=== PATIENT | female | born 1950 | race Caucasian/White ===

== ENCOUNTER 2016-08-26 14:16 | Inpatient (IN) | payer MEDICARE, BC ==
[2016-08-26 20:12] LABS: Glucose,Whole Blood 367 mg/dL (75-99)
[2016-08-26 20:12] LABS: Glucose,Whole Blood 339 mg/dL (75-99)
[2016-08-26] MEDS ORDERED: HYDROcodone/APAP 7.5-325MG 1 EACH TAB PO PRN (21:24)
[2016-08-26] MEDS: IPRATROPIUM-ALBUTEROL 3 ML NEB INHALATION PRN (21:51)
[2016-08-26] MEDS: ALPRAZolam 0.5 MG TAB PO SCH (22:24)
[2016-08-26] MEDS: GABAPENTIN 300 MG CAP PO SCH (22:25)
[2016-08-26] MEDS: guaiFENesin 600 MG TABLET.ER PO SCH (22:25)
[2016-08-26] MEDS: THEOPHYLLINE 24 HOUR 300 MG CAP.ER.24H PO SCH (22:25)
[2016-08-26] MEDS: ATORVASTATIN 20 MG TAB PO SCH (22:25)
[2016-08-26] MEDS: AZITHROMYCIN 500 MG TAB PO SCH (22:25)
[2016-08-26 22:57] LABS: Glucose,Whole Blood 232 mg/dL (75-99)
[2016-08-26] MEDS: methylPREDNISolone SOD SUCCI 125 MG/2 ML VIAL IV SCH (23:43)
[2016-08-27] MEDS: IPRATROPIUM-ALBUTEROL 3 ML NEB INHALATION PRN (03:07)
[2016-08-27 05:40] VITALS: BMI 36.8
[2016-08-27 07:30] LABS: Glucose,Whole Blood 133 mg/dL (75-99)
[2016-08-27] MEDS ORDERED: METFORMIN HCL PO SCH (07:30)
[2016-08-27] MEDS ORDERED: GLYBURIDE PO SCH (07:30)
[2016-08-27] MEDS: guaiFENesin 600 MG TABLET.ER PO SCH ×2 (07:35→20:39)
[2016-08-27] MEDS: GABAPENTIN 300 MG CAP PO SCH ×3 (07:35→22:36)
[2016-08-27] MEDS: THEOPHYLLINE 24 HOUR 300 MG CAP.ER.24H PO SCH ×2 (07:36→20:40)
[2016-08-27] MEDS: glipiZIDE 5 MG TAB PO SCH ×4 (07:36→20:39)
[2016-08-27] MEDS: metFORMIN 500 MG TAB PO SCH ×4 (07:36→20:40)
[2016-08-27] MEDS: MONTELUKAST 10 MG TAB PO SCH (07:36)
[2016-08-27] MEDS: HEPARIN SODIUM,PORCINE 5,000 UNIT/ML 1 ML VIAL SQ SCH ×2 (07:36→20:39)
[2016-08-27] MEDS: NICOTINE 14MG/24HR PATCH TRANSDERM SCH (07:36)
[2016-08-27] MEDS: methylPREDNISolone SOD SUCCI 125 MG/2 ML VIAL IV SCH ×4 (07:36→23:32)
[2016-08-27] MEDS: IPRATROPIUM-ALBUTEROL 3 ML NEB INHALATION SCH ×4 (07:42→19:36)
[2016-08-27] MEDS: ALPRAZolam 0.5 MG TAB PO SCH ×3 (07:45→22:36)
[2016-08-27] MEDS: INSULIN LISPRO (humaLOG) 300 UNIT/3 ML VIAL SQ SCH ×4 (07:49→20:40)
[2016-08-27] MEDS ORDERED: BUDESONIDE 0.5 MG/2 ML NEBU INHALATION SCH (08:00)
[2016-08-27 08:12] LABS: Prothrombin Time 10.6 sec (9.0-12.0)
[2016-08-27 08:13] LABS: Basophils # (A) 0.1 k/uL (0-0.2); Basophils % (A) 1 %; CH 31.6; CHCM 32.7; Eosinophils % (A) 0 %; HCT 36.8 % (34.0-46.0); HDW 2.94; HGB 11.9 gm/dL (11.4-16.0); Luc # (Auto) 0.25; Luc % (Auto) 1; Lymphocytes # (A) 2.7 k/uL (1.0-4.8); Lymphocytes % (A) 14 %; MCH 31.5 pg (25.0-35.0); MCHC 32.3 g/dL (31.0-37.0); MCV 97.3 fL (80.0-100.0); Mean Platelet Volume 7.8; Monocytes # (A) 1.3 k/uL (0-1.0); Monocytes % (A) 7 %; Neutrophils # (A) 14.3 k/uL (1.3-7.7); Neutrophils % (A) 77 %; RBC 3.78 m/uL (3.80-5.40); RDW 13.8 % (11.5-15.5); WBC 18.6 k/uL (3.8-10.6)
[2016-08-27 08:20] LABS: Anion Gap 13 mmol/L; Blood Urea Nitrogen 28 mg/dL (7-17); Calcium 9.7 mg/dL (8.4-10.2); Carbon Dioxide 30 mmol/L (22-30); Chloride 103 mmol/L (98-107); Glucose 132 mg/dL (74-99); Non-African American GFR(MDRD) >60 (>60 ml/min/1.73 sqM); Potassium 4.6 mmol/L (3.5-5.1); Sodium 146 mmol/L (137-145)
[2016-08-27] MEDS ORDERED: PANTOPRAZOLE 40 MG/10 ML VIAL IVP SCH (09:00)
--- NOTE | 2016-08-27 11:26 | P.CNPUL ---
History of Present Illness Consult date: 08/27/16 Reason for consult: dyspnea, cough, COPD, pneumonia Chief complaint: Shortness of breath cough wheezing chest congestion History of present illness: This is a 66-year-old female so sees Dr. Vera her consent and also sees Dr. Clements as her pulmonary doctor. She apparently has a diagnosis of COPD. Seem by Dr. Clements on July 27. At that time she was doing well. She apparently presented to the emergency room and [place] and was transferred down for her COPD exacerbation. We have been her records currently are as her chest x-ray here. Anyway she apparently is still smoking. Complains of the usual complaints including shortness of breath chest congestion cough wheezing and some phlegm production. Again is still smoking. She was doing well on July 27 when she saw her telephone advice nurse. Review of Systems A 12 point review of systems is positive for primarily chest complaints including chest congestion cough wheezing shortness of breath phlegm production. The rest of the 12 point review of system is unremarkable. Past Medical History Past Medical History: Asthma, COPD, Diabetes Mellitus, Hypertension, Osteoarthritis (OA), Pneumonia, Sleep Apnea/CPAP/BIPAP, Thyroid Disorder Additional Past Medical History / Comment(s): type II diabetic. hypothryoid. home O2 3.5L. neuropathy, broken heart syndrome History of Any Multi-Drug Resistant Organisms: None Reported Past Surgical History: Appendectomy, Cholecystectomy, Heart Catheterization, Orthopedic Surgery, Tonsillectomy, Tubal Ligation Additional Past Surgical History / Comment(s): positive stress test in June. Heart Cath done at [facility] in [place] (no intervention done). left and right knee replacements. heart cath 09/06 no intervention Past Anesthesia/Blood Transfusion Reactions: No Reported Reaction Past Psychological History: Anxiety, Depression Smoking Status: Current every day smoker Past Alcohol Use History: None Reported Past Drug Use History: Marijuana Additional Drug Use History / Comment(s): patient states she uses marijuana ( edibles) to help with pain. states she does not have a medical marijuana card at this time. - Past Family History Father History Unknown: Yes Family Medical History: No Reported History Mother Family Medical History: Cancer Additional Family Medical History / Comment(s): uterine cancer Medications and Allergies Home Medications Medication Instructions Recorded Confirmed Type ALPRAZolam [Xanax] 1 mg PO TID 08/25/15 08/26/16 History FLUoxetine HCL [PROzac] 20 mg PO DAILY 08/25/15 08/26/16 History Gabapentin [Neurontin] 600 mg PO TID 08/25/15 08/26/16 History Hydrocodone/Acetaminophen [[place] 1 tab PO TID PRN 08/25/15 08/26/16 History 7.5-325] Ibandronate Sodium [Boniva] 150 mg PO QMONTH 08/25/15 08/26/16 History Levothyroxine Sodium [Synthroid] 200 mcg PO DAILY 08/25/15 08/26/16 History Montelukast [Singulair] 10 mg PO DAILY 08/25/15 08/26/16 History Theophylline 24 Hour [Chris-24] 300 mg PO BID 08/25/15 08/26/16 History diphenhydrAMINE [Benadryl] 50 mg PO QID PRN 08/25/15 08/26/16 History glyBURIDE/METFORMIN HCL 1 tab PO ACHS 08/25/15 08/26/16 History [glyBURIDE/METFORMIN HCL 2.5-500 mg] guaiFENesin [Mucinex] 1,200 mg PO BID 08/25/15 08/26/16 History guaiFENesin-DM 100-10MG/5ML 10 ml PO DAILY PRN 08/25/15 08/26/16 History [Robitussin DM] Budesonide [Pulmicort] 0.5 mg INHALATION RT-BID 09/05/15 08/26/16 History Furosemide [Lasix] 40 mg PO DAILY 09/05/15 08/26/16 History Ferrous Sulfate [Feosol] 325 mg PO DAILY 01/27/16 08/26/16 History Ipratropium-Albuterol Nebulize 3 ml INHALATION RT-QID 01/27/16 08/26/16 History [Duoneb 0.5 mg-3 mg/3 ml Soln] Ipratropium/Albuterol Sulfate 1 puff INHALATION RT-QID PRN 08/26/16 08/26/16 History [Combivent Respimat Inhaler] Isosorbide Mononitrate ER [Imdur] 15 mg PO DAILY 08/26/16 08/26/16 History Levofloxacin [Levaquin] 500 mg PO DAILY 08/26/16 08/26/16 History Lisinopril [Zestril] 20 mg PO DAILY 08/26/16 08/26/16 History Allergies Allergy/AdvReac Type Severity Reaction Status Date / Time cefotaxime sodium Allergy Anaphylaxis Verified 08/26/16 20:52 [From Claforan] glucose [From Gammagard S/D] Allergy Itching Verified 08/26/16 20:52 glycine [From Gammagard S/D] Allergy Itching Verified 08/26/16 20:52 IgA less than or equal to 50 Allergy Itching Verified 08/26/16 20:52 mcg/mL [From Gammagard S/D] immune globulin,gamma (IgG) Allergy Itching Verified 08/26/16 20:52 human [From Gammagard S/D] vancomycin Allergy Unknown Verified 08/26/16 20:52 Physical Exam Osteopathic Statement: *. No significant issues noted on an osteopathic structural exam other than those noted in the History and Physical/Consult. Vitals: Vital Signs Temp Pulse Pulse Resp BP Pulse Ox 08/27/16 08:07 84 08/27/16 08:00 22 08/27/16 07:42 80 08/27/16 07:00 97.6 F 90 26 H 142/55 87 L 08/27/16 03:17 80 08/27/16 03:07 80 08/27/16 00:00 83 17 08/26/16 22:58 97.8 F 83 17 146/62 93 L 08/26/16 22:02 84 08/26/16 21:51 84 08/26/16 19:35 97.3 F L 92 18 146/78 93 L Intake and Output 08/26/16 08/27/16 08/27/16 22:59 06:59 14:59 Intake Total 240 Balance 240 Intake: Oral 240 Other: # Voids 1 1 Weight 100.5 kg No acute distress. The patient's laying on her left side in bed. Some chest congestion and cough noted. No ny respiratory. HEENT examination is grossly unremarkable. Mucous membranes are moist. Neck supple. Full range of motion. No adenopathy. Cardiovascular examination reveals regular rhythm rate. Heart sounds are diminished. S1-S2 normal. No distinct murmur noted. Pulmonary examination reveals coarse inspiratory and expiratory rhonchi. Breath sounds diminished. This prolongation. Abdomen soft. Bowel sounds are heard. Extremities are intact. Results - Laboratory Findings CBC and BMP: 08/27/16 07:11 08/27/16 07:11 PT/INR, D-dimer PT 10.6 sec (9.0-12.0) 08/27/16 07:11 INR 1.0 (<1.1) 08/27/16 07:11 Abnormal lab findings: Abnormal Labs 08/26/16 08/26/16 08/26/16 20:09 20:10 22:46 WBC RBC Neutrophils # Monocytes # Sodium BUN Glucose POC Glucose (mg/dL) 367 H 339 H 232 H 08/27/16 08/27/16 08/27/16 07:11 07:11 07:11 WBC 18.6 H RBC 3.78 L Neutrophils # 14.3 H Monocytes # 1.3 H Sodium 146 H BUN 28 H Glucose 132 H POC Glucose (mg/dL) 133 H - Diagnostic Findings Chest x-ray: image reviewed (Chest x-rays evaluated)
[2016-08-27 11:35] LABS: Glucose,Whole Blood 273 mg/dL (75-99)
--- NOTE | 2016-08-27 11:40 | XR ---
EXAMINATION TYPE: XR chest 2V DATE OF EXAM: 08/27/2016 7:03 AM COMPARISON: Prior chest x-ray March 2016, 28 January 2016 HISTORY: COPD, cardiomegaly, abnormal chest x-ray TECHNIQUE: Frontal and lateral views of the chest are obtained. FINDINGS: The heart remains enlarged. Interstitial is somewhat increased. There is no pneumothorax. No sizable pleural effusion. Pulmonary vascularity and vianney not significantly changed. Questionable a irspace disease in the left lower lobe. IMPRESSION: Interstitial lung disease, correlate for possible congestive heart failure
[2016-08-27] MEDS ORDERED: guaiFENesin-DM 100-10MG/5ML 10 ML CUP PO PRN (12:26)
[2016-08-27] MEDS ORDERED: FUROSEMIDE 10 MG/ML 2 ML VIAL IV ONE (12:28)
[2016-08-27] MEDS: FERROUS SULFATE 325 MG TAB PO SCH (12:54)
[2016-08-27 16:54] LABS: Glucose,Whole Blood 403 mg/dL (75-99)
[2016-08-27] MEDS ORDERED: INSULIN LISPRO (humaLOG) 300 UNIT/3 ML VIAL SQ ONE (17:46)
--- NOTE | 2016-08-27 18:54 | HP ---
DATE OF ADMISSION: Patient is a 66-year-old female with advanced COPD; uses about 3-1/2 liters of oxygen at home. She follows with Dr. Vera and Dr. Clements as an outpatient. Patient was admitted to [facility] for COPD exacerbation. Patient did not improve, because of which patient was transferred here for further evaluation by pegger here. Patient continues to smoke as an outpatient. Patient denied any fever or chills. Patient denied any nausea or vomiting. Patient's chest x-ray did not show any pneumonic process, although patient has some interstitial changes. I did extensively review her chart, and patient appears to have had a depressed ejection fraction a few months ago followed by a normal ejection fraction on her previous echocardiogram. I am not sure about her pulmonary hypertension issue, although patient is wheezing quite a bit. My suspicion is low for CHF exacerbation, although we will go ahead and give her a dose of Lasix and see if that improves her respiratory status. Patient is wheezing quite a bit and patient is in moderate respiratory distress in spite of oxygen. The patient gets easily short of breath with minimal activity. REVIEW OF SYSTEMS: CONSTITUTIONAL: No fever, no malaise, no fatigue. HEENT: No recent visual problems or hearing problems. Denied any sore throat. CARDIOVASCULAR: No chest pain, orthopnea, PND, no palpitations, no syncope. PULMONARY: As described in HPI. GASTROINTESTINAL: No diarrhea, no nausea, no vomiting, no abdominal pain. Normoactive bowel sounds. NEUROLOGICAL: No headaches, no weakness, no numbness. HEMATOLOGICAL: Denies any bleeding or petechiae. GENITOURINARY: Denies any burning micturition, frequency, or urgency. MUSCULOSKELETAL/RHEUMATOLOGICAL: Denies any joint pain, swelling, or any muscle pain. ENDOCRINE: Denies any polyuria or polydipsia. The rest of the 14 point review of systems is negative. Past medical history is significant for: 1. Advanced COPD. 2. Diabetes mellitus. 3. Hypertension. 4. Osteoarthritis. 5. Sleep apnea; uses CPAP machine at home. 6. Hypothyroidism. 7. Type 2 diabetes mellitus. 8. Patient appears to have takotsubo with improved ejection fraction recently. 9. Appendectomy. 10. Cholecystectomy. 11. Cardiac catheterization. 12. Orthopedic surgery. 13. Tonsillectomy. 14. Tubal ligation surgery. SOCIAL HISTORY: Patient continues to smoke a pack per day. Denied any alcohol abuse. Occasional use of marijuana. FAMILY HISTORY: Mother had uterine cancer. Home medications include: 1. Alprazolam. 2. Fluoxetine. 3. Gabapentin. 4. Hydrocodone/acetaminophen. 5. Boniva. 6. Levothyroxine. 7. Montelukast. 8. Theophylline. 9. Diphenhydramine. 10. Glyburide. 11. Guaifenesin. 12. Budesonide. 13. Ferrous sulfate. 14. Ipratropium. 15. Combivent. 16. Isosorbide mononitrate. 17. Levofloxacin. 18. Lisinopril. ALLERGIES: 1. CEFOTAXIME. 2. IGA. 3. IMMUNOGLOBULIN. 4. VANCOMYCIN. PHYSICAL EXAMINATION: VITAL SIGNS: Temperature 97.9, pulse of 84, respiratory rate of 24. Blood pressure is 148/57. Saturating at 92% on 4 L of oxygen by nasal cannula. GENERAL: The patient is alert and oriented x3, not in any acute distress. Well developed, well nourished. HEENT: Pupils are round and equally reacting to light. EOMI. No scleral icterus. No conjunctival pallor. Normocephalic, atraumatic. No pharyngeal erythema. No thyromegaly. CARDIOVASCULAR: S1 and S2 present. No murmurs, rubs, or gallops. PULMONARY: Significant wheezing. Expiratory wheezing bilaterally. Significantly decreased air entry into bilateral lung clayton. No crackles were appreciated. ABDOMEN: Soft, nontender, nondistended, normoactive bowel sounds. No palpable organomegaly. MUSCULOSKELETAL: No joint swelling or deformity. EXTREMITIES: No cyanosis, clubbing, or pedal edema. NEUROLOGICAL: Gross neurological examination did not reveal any focal deficits. SKIN: No rashes. LABORATORY DATA: CBC, CMP are abnormal for elevated WBC count of 18,000; sodium of 146 and BUN of 28 and creatinine of 0.78. Blood glucose is 132. ASSESSMENT AND PLAN: 1. Acute on chronic hypercapnic respiratory failure due to advanced chronic obstructive pulmonary disease with acute exacerbation. Continue with systemic steroids, inhalational treatments. 2. History of takotsubo with recently normal ejection fraction. I do not believe patient is in heart failure exacerbation at this point of time. Patient does have some chronic interstitial changes, which is contributing to some acute hypoxemic respiratory failure as well. 3. Type 2 diabetes mellitus; fairly controlled blood sugars. Continue with present regimen. 4. Hypertension. 5. Sleep apnea; uses CPAP machine at home. 6. Hypothyroidism. 7. History of marijuana use. Counseling was provided. 8. Diabetic neuropathy. 9. Depression. Patient is also on theophylline, which will be continued as well. Patient's overall prognosis is poor because of her advanced COPD.
[2016-08-27] MEDS: BUDESONIDE 1 MG/2 ML NEBU INHALATION SCH (19:36)
[2016-08-27] MEDS: FORMOTEROL FUMARATE 20 MCG/2 ML NEBU INHALATION SCH (19:36)
[2016-08-27 20:37] LABS: Glucose,Whole Blood 314 mg/dL (75-99)
[2016-08-27] MEDS: AZITHROMYCIN 500 MG TAB PO SCH (20:39)
[2016-08-27] MEDS: ATORVASTATIN 20 MG TAB PO SCH (20:39)
[2016-08-27] MEDS: INSULIN GLARGINE 100 UNIT/ML 10 ML VIAL SQ SCH (20:40)
[2016-08-28] MEDS: IPRATROPIUM-ALBUTEROL 3 ML NEB INHALATION PRN ×2 (00:35→03:49)
[2016-08-28] MEDS: methylPREDNISolone SOD SUCCI 125 MG/2 ML VIAL IV SCH ×4 (06:10→23:38)
[2016-08-28] MEDS: LEVOTHYROXINE 100 MCG TAB PO SCH (06:10)
[2016-08-28] MEDS: FORMOTEROL FUMARATE 20 MCG/2 ML NEBU INHALATION SCH ×2 (07:21→19:25)
[2016-08-28] MEDS: IPRATROPIUM-ALBUTEROL 3 ML NEB INHALATION SCH ×4 (07:21→19:25)
[2016-08-28] MEDS: BUDESONIDE 1 MG/2 ML NEBU INHALATION SCH ×2 (07:21→19:25)
[2016-08-28 07:23] LABS: CH 32.1; CHCM 33.3; HCT 34.8 % (34.0-46.0); HDW 2.94; HGB 11.2 gm/dL (11.4-16.0); MCH 31.1 pg (25.0-35.0); MCHC 32.1 g/dL (31.0-37.0); MCV 96.9 fL (80.0-100.0); Mean Platelet Volume 7.2; RBC 3.59 m/uL (3.80-5.40); RDW 13.6 % (11.5-15.5); WBC 16.1 k/uL (3.8-10.6)
[2016-08-28 07:31] LABS: Anion Gap 10 mmol/L; Blood Urea Nitrogen 37 mg/dL (7-17); Calcium 9.1 mg/dL (8.4-10.2); Carbon Dioxide 33 mmol/L (22-30); Chloride 98 mmol/L (98-107); Glucose 147 mg/dL (74-99); Non-African American GFR(MDRD) >60 (>60 ml/min/1.73 sqM); Potassium 4.4 mmol/L (3.5-5.1); Sodium 141 mmol/L (137-145)
[2016-08-28 07:35] LABS: Glucose,Whole Blood 126 mg/dL (75-99)
[2016-08-28] MEDS: INSULIN LISPRO (humaLOG) 300 UNIT/3 ML VIAL SQ SCH ×4 (09:18→21:34)
[2016-08-28] MEDS: ALPRAZolam 0.5 MG TAB PO SCH ×3 (09:27→23:36)
[2016-08-28] MEDS: metFORMIN 500 MG TAB PO SCH ×4 (09:28→21:32)
[2016-08-28] MEDS: FLUoxetine HCL 20 MG CAP PO SCH (09:28)
[2016-08-28] MEDS: glipiZIDE 5 MG TAB PO SCH ×4 (09:28→21:33)
[2016-08-28] MEDS: guaiFENesin 600 MG TABLET.ER PO SCH ×2 (09:29→21:32)
[2016-08-28] MEDS: HEPARIN SODIUM,PORCINE 5,000 UNIT/ML 1 ML VIAL SQ SCH ×2 (09:29→21:33)
[2016-08-28] MEDS: GABAPENTIN 300 MG CAP PO SCH ×3 (09:29→23:36)
[2016-08-28] MEDS: ISOSORBIDE MONONITRATE ER 30 MG TAB.ER.24H PO SCH (09:30)
[2016-08-28] MEDS: LISINOPRIL 20 MG TAB PO SCH (09:32)
[2016-08-28] MEDS: NICOTINE 14MG/24HR PATCH TRANSDERM SCH (09:52)
[2016-08-28] MEDS: THEOPHYLLINE 24 HOUR 300 MG CAP.ER.24H PO SCH ×2 (09:53→21:51)
[2016-08-28] MEDS: PANTOPRAZOLE 40 MG TABLET PO SCH (09:53)
[2016-08-28] MEDS: MONTELUKAST 10 MG TAB PO SCH (09:53)
--- NOTE | 2016-08-28 11:18 | PN ---
The patient is a 66 -year-old admitted with COPD exacerbation. The patient has advanced COPD. Patient has some clinical improvement. Will cut down oxygen from 4 liters to 3 L, the patient uses 3.5 liters at home. Patient is feeling better today. Significantly better today. I do not believe patient has any congestive heart failure exacerbation at this point of time. I do not believe patient has any CHF at this point of time. REVIEW OF SYSTEMS: CARDIOVASCULAR: No chest pain, no orthopnea, no PND, no palpitations. PULMONARY: Denied any shortness of breath. No cough or hemoptysis. GASTROINTESTINAL: No diarrhea, nausea or vomiting. No abdominal pain. Normoactive bowel sounds. NEUROLOGIC: No headaches, no weakness, no numbness. Medications were reviewed. On physical examination, temperature 97.9, pulse 84, respiratory rate of 16, blood pressure is 168/74, saturating at 96% on 4 liters O2 by nasal cannula. GENERAL: The patient is alert and oriented x3, not in any acute distress. Well developed, well nourished. HEENT: Pupils are round and equally reacting to light. EOMI. No scleral icterus. No conjunctival pallor. Normocephalic, atraumatic. No pharyngeal erythema. No thyromegaly. CARDIOVASCULAR: S1 and S2 present. No murmurs, rubs, or gallops. PULMONARY: Minimal bilateral wheezing was appreciated. Significant improvement compared to yesterday. Decreased air entry into bilateral lung clayton. ABDOMEN: Soft, nontender, nondistended, normoactive bowel sounds. No palpable organomegaly. MUSCULOSKELETAL: No joint swelling or deformity. EXTREMITIES: No cyanosis, clubbing, or pedal edema. NEUROLOGICAL: Gross neurological examination did not reveal any focal deficits. SKIN: No rashes. LABORATORY DATA: CMP and BMP are abnormal for elevated BUN of 37, bicarbonate of 33, part of which is contraction alkalosis. Leukocytosis of 16,100 secondary to systemic steroids. ASSESSMENT AND PLAN: 1. Acute on chronic hypercapnic respiratory failure due to advanced chronic obstructive pulmonary disease with acute exacerbation. 2. History of takotsubo with recent echocardiogram showing normal ejection fraction. 3. Type 2 diabetes mellitus. 4. Hypertension. 5. Sleep apnea. 6. History of hypothyroidism. 7. History of marijuana use. 8. Diabetic neuropathy. 9. Depression. Plan is to continue with systemic steroids, inhalational treatments, wean off oxygen and possibility of discharge tomorrow if she improves clinically.
[2016-08-28 12:13] LABS: Glucose,Whole Blood 264 mg/dL (75-99)
--- NOTE | 2016-08-28 12:25 | P.PN ---
Subjective This a 66-year-old female that we saw in consultation yesterday. She has a history of underlying COPD and was admitted with a diagnosis of COPD exacerbation. The patient is still smoking. A bit better today. Less short of breath. Still coughing and wheezing. Lots of chest congestion. Her primary doctor is Dr. Chuy cruz and her production designer is Dr. Clements. Objective - Vital Signs Vital signs: Vital Signs Temp 97.8 F 08/28/16 07:00 Pulse 84 08/28/16 11:17 Resp 16 08/28/16 07:00 BP 168/74 08/28/16 07:00 Pulse Ox 96 08/28/16 07:00 Intake & Output 08/27/16 08/28/16 08/28/16 18:59 06:59 18:59 Intake Total 240 720 Balance 240 720 Intake: Oral 240 720 Other: # Voids 3 1 - Exam No acute distress, oriented 3. Less dyspneic X HEENT examination is grossly unremarkable. Mucous membranes are moist. Neck supple. Full range of motion. No adenopathy or thyromegaly. . Cardiovascular examination reveals regular rhythm rate. Heart sounds are distant. S1-S2 normal. There is no murmur. Lungs reveal some coarse rhonchi. Breath sounds diminished. Some expiratory wheezes. Slight prolongation. Abdomen soft bowel sounds are heard. Extremities are intact - Labs CBC & Chem 7: 08/28/16 06:59 08/28/16 06:59 Labs: Abnormal Lab Results - Last 24 Hours (Table) 08/27/16 08/27/16 08/28/16 Range/Units 16:47 20:35 06:59 WBC 16.1 H (3.8-10.6) k/uL RBC 3.59 L (3.80-5.40) m/uL Hgb 11.2 L (11.4-16.0) gm/dL Carbon Dioxide (22-30) mmol/L BUN (7-17) mg/dL Glucose (74-99) mg/dL POC Glucose (mg/dL) 403 H 314 H (75-99) mg/dL 08/28/16 08/28/16 08/28/16 Range/Units 06:59 07:29 12:07 WBC (3.8-10.6) k/uL RBC (3.80-5.40) m/uL Hgb (11.4-16.0) gm/dL Carbon Dioxide 33 H (22-30) mmol/L BUN 37 H (7-17) mg/dL Glucose 147 H (74-99) mg/dL POC Glucose (mg/dL) 126 H 264 H (75-99) mg/dL Assessment and Plan (1) COPD exacerbation Status: Acute (2) Diabetes Status: Acute (3) GI hemorrhage Status: Acute (4) Hyperlipemia Status: Acute (5) Nicotine dependence Status: Acute (6) Obesity Status: Acute (7) Sleep apnea Status: Acute (8) Tracheobronchitis Status: Acute Plan: Plan dated 08/28/2016 A she will continue on her current regimen including oxygen therapy antibiotic steroids bronchodilators and the like. Her prognosis is guarded. No additional recommendations are made. Likely discharge in next 24-48 hours. Time with Patient: Less than 30
[2016-08-28] MEDS: FERROUS SULFATE 325 MG TAB PO SCH (14:12)
[2016-08-28 15:13] VITALS: RESP 18
[2016-08-28 17:14] LABS: Glucose,Whole Blood 277 mg/dL (75-99)
[2016-08-28 20:18] LABS: Glucose,Whole Blood 323 mg/dL (75-99)
[2016-08-28] MEDS: AZITHROMYCIN 500 MG TAB PO SCH (21:32)
[2016-08-28] MEDS: ATORVASTATIN 20 MG TAB PO SCH (21:32)
[2016-08-28] MEDS: INSULIN GLARGINE 100 UNIT/ML 10 ML VIAL SQ SCH (21:51)
[2016-08-29] MEDS: IPRATROPIUM-ALBUTEROL 3 ML NEB INHALATION PRN ×2 (00:41→04:23)
[2016-08-29] MEDS: methylPREDNISolone SOD SUCCI 125 MG/2 ML VIAL IV SCH ×2 (05:53→13:35)
[2016-08-29] MEDS: LEVOTHYROXINE 100 MCG TAB PO SCH (05:53)
[2016-08-29] MEDS: FORMOTEROL FUMARATE 20 MCG/2 ML NEBU INHALATION SCH (07:04)
[2016-08-29] MEDS: BUDESONIDE 1 MG/2 ML NEBU INHALATION SCH (07:04)
[2016-08-29] MEDS: IPRATROPIUM-ALBUTEROL 3 ML NEB INHALATION SCH ×3 (07:04→14:58)
[2016-08-29 07:44] LABS: Glucose,Whole Blood 190 mg/dL (75-99)
[2016-08-29 07:56] VITALS: BP 152/67; TEMP 97.9
[2016-08-29] MEDS: NICOTINE 14MG/24HR PATCH TRANSDERM SCH (08:15)
[2016-08-29] MEDS: INSULIN LISPRO (humaLOG) 300 UNIT/3 ML VIAL SQ SCH ×2 (08:16→13:34)
[2016-08-29] MEDS: PANTOPRAZOLE 40 MG TABLET PO SCH (08:17)
[2016-08-29] MEDS: HEPARIN SODIUM,PORCINE 5,000 UNIT/ML 1 ML VIAL SQ SCH (08:17)
[2016-08-29] MEDS: metFORMIN 500 MG TAB PO SCH ×2 (08:18→13:36)
[2016-08-29] MEDS: ISOSORBIDE MONONITRATE ER 30 MG TAB.ER.24H PO SCH (08:18)
[2016-08-29] MEDS: glipiZIDE 5 MG TAB PO SCH ×2 (08:18→13:36)
[2016-08-29] MEDS: ALPRAZolam 0.5 MG TAB PO SCH (08:18)
[2016-08-29] MEDS: MONTELUKAST 10 MG TAB PO SCH (08:18)
[2016-08-29] MEDS: THEOPHYLLINE 24 HOUR 300 MG CAP.ER.24H PO SCH (08:18)
[2016-08-29] MEDS: LISINOPRIL 20 MG TAB PO SCH (08:19)
[2016-08-29] MEDS: guaiFENesin 600 MG TABLET.ER PO SCH (08:19)
[2016-08-29] MEDS: FLUoxetine HCL 20 MG CAP PO SCH (08:20)
[2016-08-29] MEDS: GABAPENTIN 300 MG CAP PO SCH (08:20)
[2016-08-29 11:36] LABS: Glucose,Whole Blood 210 mg/dL (75-99)
[2016-08-29] MEDS: FERROUS SULFATE 325 MG TAB PO SCH (13:36)
--- NOTE | 2016-08-29 13:40 | P.PN ---
Subjective This a 66-year-old female that we saw in consultation yesterday. She has a history of underlying COPD and was admitted with a diagnosis of COPD exacerbation. The patient is still smoking. A bit better today. Less short of breath. Still coughing and wheezing. Lots of chest congestion. Her primary doctor is Dr. Chuy cruz and her tire changer aircraft is Dr. Clements. Progress note dated 08/29/2016 This is a 66-year-old female with a history of COPD. The patient is doing better. May go home today. Her primary doctor is Dr. Vera up in [place] and her tire changer aircraft is Dr. Clements, my partner. The patient's breathing has improved. Phlegm production. Minimal wheezing. Short of breath only on exertion. No fever or chills. No nausea vomiting or diarrhea. Objective - Vital Signs Vital signs: Vital Signs Temp 97.9 F 08/29/16 07:00 Pulse 80 08/29/16 11:14 Resp 18 08/29/16 08:00 BP 152/67 08/29/16 07:00 Pulse Ox 94 L 08/29/16 07:00 Intake & Output 08/28/16 08/29/16 08/29/16 18:59 06:59 18:59 Intake Total 640 Balance 640 Intake: Oral 640 Other: # Voids 1 1 - Exam No acute distress, oriented 3. Less dyspneic X HEENT examination is grossly unremarkable. Mucous membranes are moist. Neck supple. Full range of motion. No adenopathy or thyromegaly. . Cardiovascular examination reveals regular rhythm rate. Heart sounds are distant. S1-S2 normal. There is no murmur. Lungs reveal some mild rhonchi. Breath sounds diminished. Some expiratory wheezes. Slight prolongation. Patient's breath sounds are improved versus the exam from yesterday. Abdomen soft bowel sounds are heard. Extremities are intact - Labs CBC & Chem 7: 08/28/16 06:59 08/28/16 06:59 Labs: Abnormal Lab Results - Last 24 Hours (Table) 08/28/16 08/28/16 08/29/16 Range/Units 16:56 20:15 07:38 POC Glucose (mg/dL) 277 H 323 H 190 H (75-99) mg/dL 08/29/16 Range/Units 11:30 POC Glucose (mg/dL) 210 H (75-99) mg/dL Assessment and Plan (1) COPD exacerbation Status: Acute (2) Diabetes Status: Acute (3) GI hemorrhage Status: Acute (4) Hyperlipemia Status: Acute (5) Nicotine dependence Status: Acute (6) Obesity Status: Acute (7) Sleep apnea Status: Acute (8) Tracheobronchitis Status: Acute Plan: Plan dated 08/28/2016 A she will continue on her current regimen including oxygen therapy antibiotic steroids bronchodilators and the like. Her prognosis is guarded. No additional recommendations are made. Likely discharge in next 24-48 hours. Plan dated 08/29/2016 The patient could be discharged home. I discharge her home with a short course of antibiotics and a prednisone burst and taper as well as her usual medications. No additional recommendations are made. Make sure she follows up with Dr. Vera and also Dr. Clements in my clinic. Time with Patient: Less than 30
[2016-08-29 15:10] VITALS: PULSE 78
--- NOTE | 2016-08-30 18:22 | DS ---
DATE OF ADMISSION: 08/26/2016 DATE OF DISCHARGE: 08/29/2016 PROGRESS NOTE/DISCHARGE SUMMARY: Patient with advanced COPD, is admitted with COPD exacerbation. Patient has an end-stage COPD and is on 3.5 liters at home. Patient is clinically doing well, still wheezing I believe it is her baseline and the patient believes this is her baseline and is comfortable going home. I am ( ) discharge the patient as long as pulmonary clears the patient. The patient will be discharged today if pulmonary clears her. REVIEW OF SYSTEMS: CARDIOVASCULAR: No chest pain, no orthopnea, no PND, no palpitations. PULMONARY: As mentioned in the interval history. GASTROINTESTINAL: No diarrhea, nausea or vomiting. No abdominal pain. Normoactive bowel sounds. NEUROLOGIC: No headaches, no weakness, no numbness. The patient was seen and examined on the day of discharge. Vitals signs are stable. PHYSICAL EXAMINATION: GENERAL: The patient is alert and oriented x3, not in any acute distress. Well developed, well nourished. HEENT: Pupils are round and equally reacting to light. EOMI. No scleral icterus. No conjunctival pallor. Normocephalic, atraumatic. No pharyngeal erythema. No thyromegaly. CARDIOVASCULAR: S1 and S2 present. No murmurs, rubs, or gallops. PULMONARY: Significant bilateral lung wheezing, fairly good air entry into bilateral lung clayton, rhonchus breath sounds. ABDOMEN: Soft, nontender, nondistended, normoactive bowel sounds. No palpable organomegaly. MUSCULOSKELETAL: No joint swelling or deformity. EXTREMITIES: No cyanosis, clubbing, or pedal edema. NEUROLOGICAL: Gross neurological examination did not reveal any focal deficits. SKIN: No rashes. LABORATORY DATA: None available from today. ASSESSMENT AND PLAN: 1. Acute on chronic hypercapnic respiratory failure due to advanced chronic obstructive pulmonary disease with acute exacerbation. 2. History of takotsubo with normal echocardiogram, I do not believe patient ( ) patient is only taking Lasix on as-needed basis which she can continue taking that. 3. Type 2 diabetes mellitus. 4. Hypertension. 5. Obstructive sleep apnea. 6. Hypothyroidism. 7. History of marijuana use. 8. Diabetic neuropathy. 9. Depression. Her home medications will be continued as it is except for weaning dose of prednisone and azithromycin for 5 days. Patient will follow with her primary care physician in about a week. Activity as tolerated. Cardiac and diabetic 1800 calorie diet. Extensive nicotine cessation counseling was provided. Spent greater than 35 minutes in total discharge process.
== END 2016-08-29 15:35 | disposition home health service (06) | DRG 190 ==
LOC: 5MS5E 18:58
PROVIDERS: ADMIT Internal Medicine; ATTEND Internal Medicine
DX: J44.0 Chronic obstructive pulmonary disease with (acute) lower respiratory infection (principal); J96.21 Acute and chronic respiratory failure with hypoxia; J96.22 Acute and chronic respiratory failure with hypercapnia; E11.40 Type 2 diabetes mellitus with diabetic neuropathy, unspecified; E03.9 Hypothyroidism, unspecified; J20.9 Acute bronchitis, unspecified; J44.1 Chronic obstructive pulmonary disease with (acute) exacerbation; E66.9 Obesity, unspecified; E78.5 Hyperlipidemia, unspecified; F12.90 Cannabis use, unspecified, uncomplicated; F17.200 Nicotine dependence, unspecified, uncomplicated; F32.9 Major depressive disorder, single episode, unspecified; G47.33 Obstructive sleep apnea (adult) (pediatric); I10 Essential (primary) hypertension; J45.909 Unspecified asthma, uncomplicated; M19.90 Unspecified osteoarthritis, unspecified site; F41.9 Anxiety disorder, unspecified; Z99.81 Dependence on supplemental oxygen; Z96.653 Presence of artificial knee joint, bilateral; Z79.899 Other long term (current) drug therapy; Z88.1 Allergy status to other antibiotic agents; Z88.8 Allergy status to other drugs, medicaments and biological substances
CPT/HCPCS: 71020; 80048; 83880; 85025; 85027; 85610; 94640

== ENCOUNTER 2016-09-04 01:01 | Inpatient (IN) | payer MEDICARE, BC ==
[2016-09-04] MEDS ORDERED: PIPERACILLIN-TAZOBACTAM 3.375 GM in DEXTROSE/WATER 1 50ML.BAG IVPB STA (01:16)
[2016-09-04] MEDS ORDERED: ACETAMINOPHEN IV (For NPO) 1,000 MG in EMPTY BAG 1 BAG IVPB STA (01:19)
[2016-09-04] MEDS ORDERED: IPRATROPIUM-ALBUTEROL 3 ML NEB INHALATION PRN (01:19)
--- NOTE | 2016-09-04 01:22 | ED ---
General Adult HPI - General Chief complaint: Nausea/Vomiting/Diarrhea Stated complaint: pneumonia Time Seen by Provider: 09/04/16 01:03 Source: patient, RN notes reviewed Mode of arrival: EMS Limitations: no limitations - History of Present Illness Initial comments: Patient is a pleasant 66-year-old female presenting to the emergency department complaining of fever and vomiting and difficulty breathing. Symptoms have worsened over a few days. Patient was recently discharged from the hospital with COPD exacerbation. Patient went to [facility]. Patient was transferred here for pulmonary evaluation and continuation of care. Patient has vomited several times. Patient was noticed to have increase white blood cell count. CAT scan showed multilobular infiltrates. Patient was provided Zosyn and Levaquin per report. - Related Data Home Medications Medication Instructions Recorded Confirmed ALPRAZolam [Xanax] 1 mg PO TID 08/25/15 08/26/16 FLUoxetine HCL [PROzac] 20 mg PO DAILY 08/25/15 08/26/16 Gabapentin [Neurontin] 600 mg PO TID 08/25/15 08/26/16 Hydrocodone/Acetaminophen [[place] 1 tab PO TID PRN 08/25/15 08/26/16 7.5-325] Ibandronate Sodium [Boniva] 150 mg PO QMONTH 08/25/15 08/26/16 Levothyroxine Sodium [Synthroid] 200 mcg PO DAILY 08/25/15 08/26/16 Montelukast [Singulair] 10 mg PO DAILY 08/25/15 08/26/16 Theophylline 24 Hour [Chris-24] 300 mg PO BID 08/25/15 08/26/16 diphenhydrAMINE [Benadryl] 50 mg PO QID PRN 08/25/15 08/26/16 glyBURIDE/METFORMIN HCL 1 tab PO ACHS 08/25/15 08/26/16 [glyBURIDE/METFORMIN HCL 2.5-500 mg] guaiFENesin [Mucinex] 1,200 mg PO BID 08/25/15 08/26/16 guaiFENesin-DM 100-10MG/5ML 10 ml PO DAILY PRN 08/25/15 08/26/16 [Robitussin DM] Budesonide [Pulmicort] 0.5 mg INHALATION RT-BID 09/05/15 08/26/16 Ferrous Sulfate [Feosol] 325 mg PO DAILY 01/27/16 08/26/16 Ipratropium-Albuterol Nebulize 3 ml INHALATION RT-QID 01/27/16 08/26/16 [Duoneb 0.5 mg-3 mg/3 ml Soln] Ipratropium/Albuterol Sulfate 1 puff INHALATION RT-QID PRN 08/26/16 08/26/16 [Combivent Respimat Inhaler] Isosorbide Mononitrate ER [Imdur] 15 mg PO DAILY 08/26/16 08/26/16 Lisinopril [Zestril] 20 mg PO DAILY 08/26/16 08/26/16 Previous Rx's Medication Instructions Recorded Simvastatin [Zocor] 40 mg PO HS #30 tab 08/28/15 Nicotine 14Mg/24Hr Patch [Habitrol] 1 patch TRANSDERM DAILY #30 patch 01/30/16 predniSONE 10 mg PO DAILY #0 01/30/16 Azithromycin [Zithromax] 500 mg PO HS #5 tab 08/29/16 predniSONE 10 mg PO DAILY #30 tab 08/29/16 Allergies Allergy/AdvReac Type Severity Reaction Status Date / Time cefotaxime sodium Allergy Anaphylaxis Verified 09/04/16 01:07 [From Claforan] glucose [From Gammagard S/D] Allergy Itching Verified 09/04/16 01:07 glycine [From Gammagard S/D] Allergy Itching Verified 09/04/16 01:07 IgA less than or equal to 50 Allergy Itching Verified 09/04/16 01:07 mcg/mL [From Gammagard S/D] immune globulin,gamma (IgG) Allergy Itching Verified 09/04/16 01:07 human [From Gammagard S/D] vancomycin Allergy Unknown Verified 09/04/16 01:07 Review of Systems ROS Statement: Those systems with pertinent positive or pertinent negative responses have been documented in the HPI. ROS Other: All systems not noted in ROS Statement are negative. Constitutional: Reports: fever Eyes: Denies: eye pain ENT: Denies: ear pain Respiratory: Reports: cough, dyspnea Cardiovascular: Denies: chest pain Endocrine: Reports: fatigue Gastrointestinal: Reports: nausea, vomiting Genitourinary: Denies: dysuria Skin: Denies: rash Neurological: Denies: headache Past Medical History Past Medical History: Asthma, COPD, Diabetes Mellitus, Hypertension, Osteoarthritis (OA), Pneumonia, Sleep Apnea/CPAP/BIPAP, Thyroid Disorder Additional Past Medical History / Comment(s): type II diabetic. hypothryoid. home O2 3.5L. neuropathy, broken heart syndrome History of Any Multi-Drug Resistant Organisms: None Reported Past Surgical History: Appendectomy, Cholecystectomy, Heart Catheterization, Orthopedic Surgery, Tonsillectomy, Tubal Ligation Additional Past Surgical History / Comment(s): positive stress test in June. Heart Cath done at [facility] in [place] (no intervention done). left and right knee replacements. heart cath 09/06 no intervention Past Anesthesia/Blood Transfusion Reactions: No Reported Reaction Past Psychological History: Anxiety, Depression Smoking Status: Current every day smoker Past Alcohol Use History: None Reported Past Drug Use History: Marijuana Additional Drug Use History / Comment(s): patient states she uses marijuana ( edibles) to help with pain. states she does not have a medical marijuana card at this time. - Past Family History Father History Unknown: Yes Family Medical History: No Reported History Mother Family Medical History: Cancer Additional Family Medical History / Comment(s): uterine cancer General Exam Limitations: no limitations General appearance: alert, in no apparent distress Head exam: Present: atraumatic Eye exam: Present: normal appearance, PERRL ENT exam: Present: normal oropharynx Neck exam: Present: normal inspection Respiratory exam: Present: wheezes Cardiovascular Exam: Present: regular rate, normal rhythm GI/Abdominal exam: Present: soft. Absent: tenderness Extremities exam: Present: normal inspection Back exam: Present: normal inspection Neurological exam: Present: alert Psychiatric exam: Present: normal affect, normal mood Skin exam: Present: normal color Course Vital Signs 09/04/16 01:02 Temperature 101.0 F H Pulse Rate 106 H Respiratory 24 Rate Blood Pressure 166/80 O2 Sat by Pulse 95 Oximetry - Reevaluation(s) Reevaluation #1: 09/04/16 01:21 Chart reviewed from [facility]. Patient meets sepsis criteria. Lactic acid was 1.8. IV antibiotics were started there, Levaquin. Case was discussed with Dr. myers, who will admit for Dr. Vera. Patient states she also sees Dr. Clements. Admission orders written. Disposition Clinical Impression: Sepsis, Pneumonia Disposition: ADMITTED IP TO THIS HOSP Condition: Serious
[2016-09-04] MEDS: SODIUM CHLORIDE 0.9% 500 ML IV SCH ×3 (01:56→03:27)
[2016-09-04 02:05] LABS: Basophils % (A) 0 %; CH 31.6; Eosinophils # (A) 0.2 k/uL (0-0.7); Eosinophils % (A) 1 %; HCT 37.5 % (34.0-46.0); HDW 2.71; HGB 11.9 gm/dL (11.4-16.0); Luc % (Auto) 1; Lymphocytes # (A) 0.8 k/uL (1.0-4.8); Lymphocytes % (A) 3 %; MCH 30.7 pg (25.0-35.0); MCHC 31.9 g/dL (31.0-37.0); MCV 96.2 fL (80.0-100.0); Mean Platelet Volume 6.6; Monocytes # (A) 0.9 k/uL (0-1.0); Monocytes % (A) 4 %; Neutrophils # (A) 21.7 k/uL (1.3-7.7); Neutrophils % (A) 91 %; RBC 3.89 m/uL (3.80-5.40); RDW 13.8 % (11.5-15.5); WBC 23.8 k/uL (3.8-10.6); WBC (Perox) 23.94
[2016-09-04 02:11] LABS: ALT 34 U/L (9-52); AST 19 U/L (14-36); Alkaline Phosphatase 64 U/L (38-126); Anion Gap 10 mmol/L; Blood Urea Nitrogen 29 mg/dL (7-17); Calcium 8.4 mg/dL (8.4-10.2); Carbon Dioxide 25 mmol/L (22-30); Chloride 102 mmol/L (98-107); Glucose 250 mg/dL (74-99); Non-African American GFR(MDRD) >60 (>60 ml/min/1.73 sqM); Sodium 137 mmol/L (137-145); Total Bilirubin 0.4 mg/dL (0.2-1.3); Total Protein 5.8 g/dL (6.3-8.2)
[2016-09-04 02:20] LABS: INR 1.3 (<1.1); Prothrombin Time 12.4 sec (9.0-12.0)
[2016-09-04 02:21] LABS: Creatine Kinase 224 U/L (30-135)
[2016-09-04 02:33] LABS: Troponin I <0.012 ng/mL (0.000-0.034)
[2016-09-04 02:37] LABS: Creatine Kinase MB 3.7 ng/mL (0.0-2.4)
[2016-09-04 02:40] LABS: Partial Thromboplastin Time 21.6 sec (22.0-30.0)
[2016-09-04 04:21] LABS: Appearance,Urine Cloudy (Clear); Bacteria,Urine Rare /hpf; Bilirubin,Urine Negative (Negative); Glucose,Urine (UA) 4+ (Negative); Ketones,Urine 1+ (Negative); Leukocyte Esterase,Urine Large (Negative); Mucus,Urine Rare /hpf; Nitrite,Urine Negative (Negative); PH, Urine 5.5 (5.0-8.0); Particle Count 3460; Protein,Urine Trace (Negative); Specific Gravity,Urine 1.021 (1.001-1.035); Squamous Epithelial Cell,Urine 1 /hpf (0-4); UA Billing (MACRO vs. MICRO) MICRO; Urobilinogen,Urine <2.0 mg/dL (<2.0); WBC,Urine 31 /hpf (0-5)
[2016-09-04] MEDS: ACETAMINOPHEN IV (For NPO) 1,000 MG in EMPTY BAG 1 BAG IVPB SCH ×4 (07:34→23:11)
[2016-09-04] MEDS: IPRATROPIUM-ALBUTEROL 3 ML NEB INHALATION SCH ×4 (08:00→20:24)
[2016-09-04 08:23] LABS: Glucose,Whole Blood 148 mg/dL (75-99)
[2016-09-04] MEDS: PANTOPRAZOLE 40 MG/10 ML VIAL IV SCH (08:35)
[2016-09-04 09:07] LABS: Creatine Kinase 298 U/L (30-135)
[2016-09-04 09:18] LABS: Troponin I <0.012 ng/mL (0.000-0.034)
[2016-09-04 09:24] LABS: Creatine Kinase MB 3.8 ng/mL (0.0-2.4)
[2016-09-04] MEDS: PIPERACILLIN-TAZOBACTAM 3.375 GM in DEXTROSE/WATER 1 50ML.BAG IVPB SCH ×3 (09:42→23:51)
--- NOTE | 2016-09-04 09:52 | XR ---
EXAMINATION TYPE: XR chest 2V DATE OF EXAM: 09/04/2016 9:29 AM COMPARISON: 08/27/2016 HISTORY: 66-year-old female left-sided rib pain from coughing TECHNIQUE: Frontal and lateral views FINDINGS: Heart is borderline enlarged. Diffuse interstitial prominence is similar. Hazy peripheral lower lung densities persist, uncertain if this relates to overlying soft tissue. Some consolidation is suspecte d in the peripheral left mid to lower lung. No significant pleural effusion seen on lateral view. IMPRESSION: Interstitial densities and patchy peripheral densities with consolidation in the peripheral left mid to lower lung. Correlate for pneumonia including atypical infections.
[2016-09-04] MEDS ORDERED: guaiFENesin-DM 100-10MG/5ML 10 ML CUP PO PRN (10:51)
[2016-09-04 11:22] LABS: Hemoglobin A1C 8.1 % (4.2-6.1)
[2016-09-04 11:42] LABS: Glucose,Whole Blood 127 mg/dL (75-99)
[2016-09-04] MEDS ORDERED: INSULIN LISPRO (humaLOG) 300 UNIT/3 ML VIAL SQ SCH (12:00)
[2016-09-04] MEDS: INSULIN LISPRO (humaLOG) 300 UNIT/3 ML VIAL SQ SCH ×3 (12:10→22:00)
[2016-09-04] MEDS ORDERED: GLYBURIDE PO SCH (12:30)
[2016-09-04] MEDS ORDERED: METFORMIN HCL PO SCH (12:30)
[2016-09-04] MEDS: LEVOTHYROXINE 100 MCG TAB PO SCH (12:59)
[2016-09-04] MEDS: methylPREDNISolone SOD SUCCI 40 MG/ML 1 ML VIAL IV SCH ×3 (12:59→23:52)
[2016-09-04] MEDS: glipiZIDE 5 MG TAB PO SCH ×3 (12:59→21:57)
[2016-09-04] MEDS: ISOSORBIDE MONONITRATE ER 15 MG TAB PO SCH (12:59)
[2016-09-04] MEDS: THEOPHYLLINE 24 HOUR 300 MG CAP.ER.24H PO SCH ×2 (12:59→21:57)
[2016-09-04] MEDS: metFORMIN 500 MG TAB PO SCH ×3 (12:59→21:58)
[2016-09-04] MEDS: GABAPENTIN 300 MG CAP PO SCH ×3 (13:00→21:58)
[2016-09-04] MEDS: NICOTINE 14MG/24HR PATCH TRANSDERM SCH (13:01)
[2016-09-04] MEDS: FLUoxetine HCL 20 MG CAP PO SCH (13:01)
[2016-09-04] MEDS: guaiFENesin 600 MG TABLET.ER PO SCH ×2 (13:01→21:56)
[2016-09-04] MEDS: LISINOPRIL 20 MG TAB PO SCH (13:01)
[2016-09-04] MEDS: MONTELUKAST 10 MG TAB PO SCH (13:02)
[2016-09-04] MEDS: ALPRAZolam 0.5 MG TAB PO SCH ×3 (13:04→22:00)
[2016-09-04 14:34] LABS: Creatine Kinase 280 U/L (30-135)
--- NOTE | 2016-09-04 14:36 | P.CNPUL ---
History of Present Illness Consult date: 09/04/16 Reason for consult: pneumonia History of present illness: 66-year-old here patient with advanced oxygen-dependent COPD who was transferred from [facility] to our emergency department because of ongoing left lung pneumonia. The patient was hospitalized for the same on 08/27 and the patient was treated with Zithromax and discharged home on oral Zithromax. Nevertheless, she continued to have difficulties in breathing and she started having fever chills and shortness of breath along with cough and chest congestion and wheezing and ongoing symptoms of COPD exacerbation. She presented to [facility] in a CAT scan of the chest was done that showed persistent consolidation of the left lower lobe. At that point the patient was transferred to [place]. The patient currently is on a combination of Zosyn and Levaquin. No change in mental status. No pleurisy. No chest pain. She has advanced COPD and she's been oxygen dependent. She has had multiple hospitalization for COPD exacerbation and I can recall at least 4 hospitalization for the past year. She is a chronic smoker in she has been able to stop smoking despite our previous efforts and counseling. She also has multiple other medical medical problems and call bleed is most significant of which is coronary artery disease, CHF, diabetes mellitus and morbid obesity. Review of Systems 12 point review of system was done and the positive findings are almost above history of present illness Past Medical History Past Medical History: COPD, Diabetes Mellitus, Hypertension, Osteoarthritis (OA) , Sleep Apnea/CPAP/BIPAP, Thyroid Disorder Additional Past Medical History / Comment(s): Advanced COPD with chronic hypoxic respiratory failure, CHF with an ejection fraction of 35-40% with previous history of takotsubo syndrome and normal coronaries as evident on her cardiac catheterization, diabetes mellitus type 2, morbid obesity with a BMI of 45, hypertension, osteoarthritis, history of obstructive sleep apnea, hypothyroidism, peripheral neuropathy secondary to diabetes mellitus and osteoarthritis and generalized anxiety/depression. History of Any Multi-Drug Resistant Organisms: None Reported Past Surgical History: Appendectomy, Cholecystectomy, Heart Catheterization, Orthopedic Surgery, Tonsillectomy, Tubal Ligation Additional Past Surgical History / Comment(s): positive stress test in June. Heart Cath done at [facility] in [place] (no intervention done). left and right knee replacements. heart cath 09/06 no intervention Past Anesthesia/Blood Transfusion Reactions: No Reported Reaction Past Psychological History: Anxiety, Depression Smoking Status: Current every day smoker Past Alcohol Use History: None Reported Past Drug Use History: Marijuana Additional Drug Use History / Comment(s): patient states she uses marijuana ( edibles) to help with pain. states she does not have a medical marijuana card at this time. - Past Family History Father History Unknown: Yes Family Medical History: No Reported History Mother Family Medical History: Cancer Additional Family Medical History / Comment(s): uterine cancer Medications and Allergies Home Medications Medication Instructions Recorded Confirmed Type ALPRAZolam [Xanax] 1 mg PO TID 08/25/15 09/04/16 History FLUoxetine HCL [PROzac] 20 mg PO DAILY 08/25/15 09/04/16 History Gabapentin [Neurontin] 600 mg PO TID 08/25/15 09/04/16 History Hydrocodone/Acetaminophen [[place] 1 tab PO TID PRN 08/25/15 09/04/16 History 7.5-325] Ibandronate Sodium [Boniva] 150 mg PO QMONTH 08/25/15 09/04/16 History Levothyroxine Sodium [Synthroid] 200 mcg PO DAILY 08/25/15 09/04/16 History Montelukast [Singulair] 10 mg PO HS 08/25/15 09/04/16 History Theophylline 24 Hour [Chris-24] 300 mg PO BID 08/25/15 09/04/16 History diphenhydrAMINE [Benadryl] 50 mg PO QID PRN 08/25/15 09/04/16 History glyBURIDE/METFORMIN HCL 1 tab PO ACHS 08/25/15 09/04/16 History [glyBURIDE/METFORMIN HCL 2.5-500 mg] guaiFENesin [Mucinex] 1,200 mg PO BID 08/25/15 09/04/16 History guaiFENesin-DM 100-10MG/5ML 10 ml PO QID PRN 08/25/15 09/04/16 History [Robitussin DM] Budesonide [Pulmicort] 0.5 mg INHALATION RT-BID 09/05/15 09/04/16 History Ferrous Sulfate [Feosol] 325 mg PO DAILY 01/27/16 09/04/16 History Ipratropium-Albuterol Nebulize 3 ml INHALATION RT-QID 01/27/16 09/04/16 History [Duoneb 0.5 mg-3 mg/3 ml Soln] Ipratropium/Albuterol Sulfate 1 puff INHALATION RT-QID PRN 08/26/16 09/04/16 History [Combivent Respimat Inhaler] Isosorbide Mononitrate ER [Imdur] 15 mg PO DAILY 08/26/16 09/04/16 History Lisinopril [Zestril] 20 mg PO BID 08/26/16 09/04/16 History predniSONE See Taper PO DAILY 09/04/16 09/04/16 History Allergies Allergy/AdvReac Type Severity Reaction Status Date / Time cefotaxime sodium Allergy Anaphylaxis Verified 09/04/16 11:43 [From Claforan] glucose [From Gammagard S/D] Allergy Itching Verified 09/04/16 11:43 glycine [From Gammagard S/D] Allergy Itching Verified 09/04/16 11:43 IgA less than or equal to 50 Allergy Itching Verified 09/04/16 11:43 mcg/mL [From Gammagard S/D] immune globulin,gamma (IgG) Allergy Itching Verified 09/04/16 11:43 human [From Gammagard S/D] vancomycin Allergy Unknown Verified 09/04/16 11:43 Physical Exam Vitals: Vital Signs Temp Pulse Pulse Pulse Resp BP BP 09/04/16 12:29 86 09/04/16 12:14 84 09/04/16 08:06 88 09/04/16 08:00 86 09/04/16 07:00 98.4 F 74 20 09/04/16 03:28 98.7 F 88 22 143/75 09/04/16 02:27 100.3 F H 87 18 124/55 09/04/16 01:58 98 22 129/57 BP Pulse Ox 09/04/16 12:29 09/04/16 12:14 09/04/16 08:06 09/04/16 08:00 96 09/04/16 07:00 131/56 96 09/04/16 03:28 96 09/04/16 02:27 95 09/04/16 01:58 95 Intake and Output 09/03/16 09/04/16 09/04/16 22:59 06:59 14:59 Other: Voiding Method Bedside Commode Bedpan # Voids 1 3 Obese, comfortable no acute distress.Head exam was generally normal. There was no scleral icterus or corneal arcus. Mucous membranes were moist. Neck is short and supple and there is significant crowding of the posterior oropharynx. She has a Mallampati class IV. Lung sounds are diminished bilaterally along with diffuse extremity wheezes throughout lung disease bilaterally.Cardiac exam revealed the PMI to be normally situated and sized. The rhythm was regular and no extrasystoles were noted during several minutes of auscultation. The first and second heart sounds were normal and physiologic splitting of the second heart sound was noted. There were no murmurs, rubs, clicks, or gallops.Abdominal exam revealed normal bowel sounds. The abdomen was soft, non- tender, and without masses, organomegaly, or appreciable enlargement of the abdominal aorta. Examination of the extremities revealed easily palpable radial , femoral and pedal pulses. There was no cyanosis, clubbing or edema. Results - Laboratory Findings CBC and BMP: 09/04/16 01:51 09/04/16 01:51 PT/INR, D-dimer PT 12.4 sec (9.0-12.0) H 09/04/16 01:51 INR 1.3 (<1.1) 09/04/16 01:51 Abnormal lab findings: Abnormal Labs 09/04/16 09/04/16 09/04/16 01:51 01:51 01:51 WBC 23.8 H Neutrophils # 21.7 H Lymphocytes # 0.8 L PT APTT BUN 29 H Glucose 250 H POC Glucose (mg/dL) Hemoglobin A1c Total Creatine Kinase 224 H CK-MB (CK-2) 3.7 H* Total Protein 5.8 L Urine Appearance Urine Protein Urine Glucose (UA) Urine Ketones Ur Leukocyte Esterase Urine WBC Urine Bacteria Urine Mucus Urine Yeast (Budding) 09/04/16 09/04/16 09/04/16 01:51 01:51 03:51 WBC Neutrophils # Lymphocytes # PT 12.4 H APTT 21.6 L BUN Glucose POC Glucose (mg/dL) Hemoglobin A1c 8.1 H Total Creatine Kinase CK-MB (CK-2) Total Protein Urine Appearance Cloudy H Urine Protein Trace H Urine Glucose (UA) 4+ H Urine Ketones 1+ H Ur Leukocyte Esterase Large H Urine WBC 31 H Urine Bacteria Rare H Urine Mucus Rare H Urine Yeast (Budding) Many H 09/04/16 09/04/16 09/04/16 07:36 08:11 11:37 WBC Neutrophils # Lymphocytes # PT APTT BUN Glucose POC Glucose (mg/dL) 148 H 127 H Hemoglobin A1c Total Creatine Kinase 298 H CK-MB (CK-2) 3.8 H* Total Protein Urine Appearance Urine Protein Urine Glucose (UA) Urine Ketones Ur Leukocyte Esterase Urine WBC Urine Bacteria Urine Mucus Urine Yeast (Budding) - Diagnostic Findings Chest x-ray: image reviewed Assessment and Plan Plan: Assessment 1 left lower lobe pneumonia. The patient has persistent consolidation of the left lower lobe in addition to ongoing symptoms of pneumonia including cough sputum production and leukocytosis. A CAT scan of the chest shows persistent consolidation of the periphery of the left lung base. Noted the patient was being treated with Zithromax on outpatient basis 2 acute COPD exacerbation secondary to above 3 chronic dyspnea, multifactorial, mainly due to her COPD and morbid obese body habitus 4 morbid obesity with a BMI of 43.2 5 diabetes mellitus type 2 6 congestion heart failure with an ejection fraction of 35-40%. The patient has had fevers broken heart syndrome with normal cardiac catheterization despite the segmental wall motion of the masses were seen on previous echocardiogram. 7 multiplies physician for COPD exacerbation S2 difficulties 8 chronic hypoxic respiratory failure and the patient is on 3-4 L of oxygen by nasal cannula on outpatient basis 9 hypertension 10 osteoarthritis 11 hypothyroidism 12 osteoarthritis Plan We'll broaden the antibiotic coverage to include a combination of Zosyn and Levaquin. Obtain sputum Gram stain and culture. Treat acute COPD exacerbation with DuoNeb nebulized treatments and IV Solu Medrol 40 every 6 hours. Cover this patient with sliding scale insulin coverage. Early mobility. Follow-up chest x-ray. Resume outpatient medications. We'll continue to follow.
[2016-09-04 14:47] LABS: Troponin I <0.012 ng/mL (0.000-0.034)
[2016-09-04 14:53] LABS: Creatine Kinase MB 3.3 ng/mL (0.0-2.4)
--- NOTE | 2016-09-04 15:37 | HP ---
DATE OF ADMISSION: 09/04/2016 PRESENTING COMPLAINT: Nausea, vomiting, diarrhea, short of breath. HISTORY OF PRESENTING COMPLAINT: This is a 66-year-old patient of Dr. Vera and follows with media supervisor Dr. Clements. The patient's chronic stable medical conditions include diabetes mellitus type 2 with neuropathy, hypertension, obstructive sleep apnea, hypothyroid, depression, osteoarthritis. Patient has rather advanced COPD on 3.5 L of oxygen at home. Patient was about a week to 10 days ago in the hospital, now presented to [facility] from where she was transferred following a day of vomiting, diarrhea. No abdominal pain. Appetite is just about okay. The patient is still coughing, wheezing, bringing up some sputum. Patient admitted for the same. Patient continued to smoke about 2 packs a day. REVIEW OF SYSTEMS: CONSTITUTIONAL: Weak and tired. HEENT: None. RESPIRATORY: As above. CARDIOVASCULAR: No chest pain. GASTROINTESTINAL: None. GENITOURINARY: None. MUSCULOSKELETAL: Aches and pains in the joints. DERMATOLOGICAL: None. HEMATOLOGICAL: None. LYMPHATICS: None. PSYCHIATRY: None. NEUROLOGICAL: Numbness and tingling in the feet. Past medical history of COPD, chronic respiratory failure type 2 with CO2 retention, diabetes with neuropathy, hypertension, obstructive sleep apnea, hypothyroid, depression, osteoarthritis, sleep apnea. Past medical history also Takotsubo syndrome. PAST SURGICAL HISTORY: Appendectomy, cholecystectomy, cardiac catheterization, tonsillectomy, cardiac cath at [facility] in August of 2015, left and right knee replacements PAST PSYCH HISTORY: Anxiety, depression. SOCIAL HISTORY: Smokes about 2 packs a day. Does marijuana, edible, to help with some pain. Lives with her son and daughter. FAMILY HISTORY: Uterine cancer. HOME MEDICATIONS: 1. Prednisone taper at home. 2. Robitussin-DM 10 mL q.i.d. p.r.n. 3. Mucinex 1200 mg p.o. b.i.d. 4. Glyburide/metformin 2.5/500 one tablet p.o. a.c. at bedtime. 5. Benadryl 50 mg p.o. q.i.d. 6. Chris-24 300 mg b.i.d. 7. Zocor 40 mg q.h.s. 8. Singulair 10 mg q.h.s. 9. Zestril 20 mg b.i.d. 10. Synthroid 200 mcg p.o. daily. 11. Imdur ER 15 mg a day. 12. Combivent 1 puff q.i.d. p.r.n. 13. DuoNeb q.i.d. 14. Boniva 150 mg p.o. monthly. 15. [place] 1 tablet t.i.d. p.r.n. 16. Neurontin 600 mg p.o. t.i.d. 17. Iron 325 p.o. daily. 18. Prozac 20 mg p.o. daily. 19. Pulmicort 0.5 nebulizer b.i.d. 20. Xanax 1 mg p.o. t.i.d. Allergy to CEFOTAXIME, SOME IMMUNOGLOBULINS causing itching, no true allergy apparently. ON EXAMINATION: VITAL SIGNS ON PRESENTATION: Temperature 101.1, pulse 106, respiration 24, blood pressure 166/80, pulse ox 95% on 3 L. GENERAL APPEARANCE: Morbidly obese; BMI 43.2. Lying in bed, tired appearing. EYES: Pupils equal. Conjunctivae normal. HEENT: External appearance of nose and ears normal. Oral cavity normal. NECK: JVD unable to assess. Mass not palpable. RESPIRATORY: Effort increased. LUNGS: Poor air entry. ( ) breath sounds in the bases. CARDIOVASCULAR: First and second sounds normal. No edema. ABDOMEN: Soft, nontender, distended. Liver and spleen not palpable. LYMPHATIC: No lymph node palpable in neck or axillae. PSYCHIATRY: Alert and oriented x3. Mood and affect normal. NEUROLOGICAL: Pupils equal. Cranial nerves grossly intact. Power and sensation decreased sensation peripherally. INVESTIGATIONS: White count 23.8, hemoglobin ( ). Troponin less than 0.012. UA positive for leukocyte esterase, WBC. Chest x-ray shows infiltrates in the bases. ASSESSMENT: 1. Pneumonia, bilateral basal pneumonia with sepsis, present on admission. 2. Acute severe chronic obstructive pulmonary disease exacerbation in a smoker. 3. Chronic hypoxic type 2 respiratory failure with hypercapnia. 4. Diabetes mellitus type 2 with peripheral neuropathy. 5. Essential hypertension. 6. Hypothyroidism. 7. Depression, not otherwise specified. 8. Primary osteoarthritis, multiple joints. 9. Acute urinary tract infection. PLAN: Pulmonary, Dr. Clements, was consulted. Home medications are resumed. Patient is put on nebulized bronchodilators, IV Solu-Medrol, Levaquin and Zosyn, given a nicotine patch, advised against smoking.
[2016-09-04 17:16] LABS: Glucose,Whole Blood 208 mg/dL (75-99)
[2016-09-04] MEDS: BUDESONIDE 0.5 MG/2 ML NEBU INHALATION SCH (20:24)
[2016-09-04] MEDS: FORMOTEROL FUMARATE 20 MCG/2 ML NEBU INHALATION SCH (20:24)
[2016-09-04 20:47] LABS: Glucose,Whole Blood 226 mg/dL (75-99)
[2016-09-04] MEDS: ATORVASTATIN 20 MG TAB PO SCH (21:57)
[2016-09-05] MEDS: methylPREDNISolone SOD SUCCI 40 MG/ML 1 ML VIAL IV SCH ×4 (05:32→23:56)
[2016-09-05] MEDS: LEVOTHYROXINE 100 MCG TAB PO SCH (05:32)
[2016-09-05 07:12] LABS: Glucose,Whole Blood 199 mg/dL (75-99)
[2016-09-05] MEDS: metFORMIN 500 MG TAB PO SCH ×4 (07:36→20:25)
[2016-09-05] MEDS: BUDESONIDE 0.5 MG/2 ML NEBU INHALATION SCH ×2 (07:36→19:26)
[2016-09-05] MEDS: FORMOTEROL FUMARATE 20 MCG/2 ML NEBU INHALATION SCH ×2 (07:36→19:26)
[2016-09-05] MEDS: IPRATROPIUM-ALBUTEROL 3 ML NEB INHALATION SCH ×4 (07:36→19:26)
[2016-09-05] MEDS: GABAPENTIN 300 MG CAP PO SCH ×3 (07:37→20:26)
[2016-09-05] MEDS: guaiFENesin 600 MG TABLET.ER PO SCH ×2 (07:37→20:25)
[2016-09-05] MEDS: FLUoxetine HCL 20 MG CAP PO SCH (07:37)
[2016-09-05] MEDS: MONTELUKAST 10 MG TAB PO SCH (07:37)
[2016-09-05] MEDS: ISOSORBIDE MONONITRATE ER 15 MG TAB PO SCH (07:38)
[2016-09-05] MEDS: glipiZIDE 5 MG TAB PO SCH ×4 (07:38→20:24)
[2016-09-05] MEDS: NICOTINE 14MG/24HR PATCH TRANSDERM SCH (07:39)
[2016-09-05] MEDS: PANTOPRAZOLE 40 MG/10 ML VIAL IV SCH (07:39)
[2016-09-05] MEDS: LISINOPRIL 20 MG TAB PO SCH (07:39)
[2016-09-05] MEDS: LEVOFLOXACIN 750MG-D5W PMX 750 MG in DEXTROSE/WATER 1 150ML.BAG IVPB SCH (07:41)
[2016-09-05] MEDS: INSULIN LISPRO (humaLOG) 300 UNIT/3 ML VIAL SQ SCH ×4 (07:41→20:24)
[2016-09-05] MEDS: ALPRAZolam 0.5 MG TAB PO SCH ×3 (07:47→20:24)
[2016-09-05] MEDS: PIPERACILLIN-TAZOBACTAM 3.375 GM in DEXTROSE/WATER 1 50ML.BAG IVPB SCH ×3 (09:13→23:58)
[2016-09-05] MEDS: THEOPHYLLINE 24 HOUR 300 MG CAP.ER.24H PO SCH ×2 (09:14→20:26)
[2016-09-05] MEDS: FERROUS SULFATE 325 MG TAB PO SCH (11:40)
[2016-09-05 11:47] LABS: Glucose,Whole Blood 219 mg/dL (75-99)
--- NOTE | 2016-09-05 14:59 | P.PN ---
Subjective 66-year-old here patient with advanced oxygen-dependent COPD who was transferred from [facility] to our emergency department because of ongoing left lung pneumonia. The patient was hospitalized for the same on 08/27 and the patient was treated with Zithromax and discharged home on oral Zithromax. Nevertheless, she continued to have difficulties in breathing and she started having fever chills and shortness of breath along with cough and chest congestion and wheezing and ongoing symptoms of COPD exacerbation. She presented to [facility] in a CAT scan of the chest was done that showed persistent consolidation of the left lower lobe. At that point the patient was transferred to [place]. The patient currently is on a combination of Zosyn and Levaquin. No change in mental status. No pleurisy. No chest pain. She has advanced COPD and she's been oxygen dependent. She has had multiple hospitalization for COPD exacerbation and I can recall at least 4 hospitalization for the past year. She is a chronic smoker in she has been able to stop smoking despite our previous efforts and counseling. She also has multiple other medical medical problems and call bleed is most significant of which is coronary artery disease, CHF, diabetes mellitus and morbid obesity. On 09/05/2016, the patient is being seen in follow-up. She is less short of breath compared to yesterday. Her breathing is gradually improving. Cough has subsided. Wheezing has subsided. No fever or chills. She is having skeletal chest wall pain secondary to repeated cough. No change in mental status. No hemoptysis. No pleurisy. No swelling in lower eczematous. No other complaints otherwise. She remains on accommodation of Zosyn and Levaquin for treatment of left lower lobe pneumonia. She is also on IV Solu-Medrol. Objective - Vital Signs Vital signs: Vital Signs Temp 97 F L 09/05/16 07:00 Pulse 82 09/05/16 11:39 Resp 18 09/05/16 07:00 BP 135/63 09/05/16 07:00 Pulse Ox 99 09/05/16 07:00 Intake & Output 09/04/16 09/05/16 09/05/16 18:59 06:59 18:59 Intake Total 240 Balance 240 Intake: Oral 240 Other: Voiding Method Bedpan Bedpan Bedpan # Voids 3 2 - Exam Head exam was generally normal. There was no scleral icterus or corneal arcus. Mucous membranes were moist. My normal neck the patient has significant crowding of the posterior oropharynx and the patient is a Mallampati class IV. She is morbidly obese. Lung sounds are diminished in lung bases along with scattered expiratory wheezes throughout the lung [place] bilaterally. Air entry is significantly improved.Cardiac exam revealed the PMI to be normally situated and sized. The rhythm was regular and no extrasystoles were noted during several minutes of auscultation. The first and second heart sounds were normal and physiologic splitting of the second heart sound was noted. There were no murmurs, rubs, clicks, or gallops.Abdominal exam revealed normal bowel sounds. The abdomen was soft, non-tender, and without masses, organomegaly, or appreciable enlargement of the abdominal aorta. All his cannot be palpated as the patient is morbidly obese.Examination of the extremities revealed easily palpable radial, femoral and pedal pulses. There was no cyanosis, clubbing or edema. - Labs CBC & Chem 7: 09/04/16 01:51 09/04/16 01:51 Labs: Abnormal Lab Results - Last 24 Hours (Table) 09/04/16 09/04/16 09/05/16 Range/Units 17:05 20:46 07:10 POC Glucose (mg/dL) 208 H 226 H 199 H (75-99) mg/dL 09/05/16 Range/Units 11:44 POC Glucose (mg/dL) 219 H (75-99) mg/dL Microbiology - Last 24 Hours (Table) 09/04/16 03:51 Urine Culture - Final Urine,Voided Stephanie albicans 09/04/16 21:45 Gram Stain - Preliminary Sputum Sputum Culture - Preliminary 09/04/16 01:51 Blood Culture - Preliminary Blood No Growth after 24 hours Assessment and Plan Plan: Assessment 1 left lower lobe pneumonia. The patient has persistent consolidation of the left lower lobe in addition to ongoing symptoms of pneumonia including cough sputum production and leukocytosis. A CAT scan of the chest shows persistent consolidation of the periphery of the left lung base. Noted the patient was being treated with Zithromax on outpatient basis On 09/05/2016, the patient is clinically improving and the patient is less short of breath. We'll continue same antibiotic coverage. We'll continue to systemic steroids and bronchodilators. 2 acute COPD exacerbation secondary to above 3 chronic dyspnea, multifactorial, mainly due to her COPD and morbid obese body habitus 4 morbid obesity with a BMI of 43.2 5 diabetes mellitus type 2 6 congestion heart failure with an ejection fraction of 35-40%. The patient has had fevers broken heart syndrome with normal cardiac catheterization despite the segmental wall motion of the masses were seen on previous echocardiogram. 7 multiplies physician for COPD exacerbation S2 difficulties 8 chronic hypoxic respiratory failure and the patient is on 3-4 L of oxygen by nasal cannula on outpatient basis 9 hypertension 10 osteoarthritis 11 hypothyroidism 12 osteoarthritis Plan Continue same treatment. Continue bronchodilators. Continue same antibiotic coverage which includes a combination of Zosyn and Levaquin. IV Solu-Medrol. We'll follow.
[2016-09-05] MEDS: FLUCONAZOLE 100 MG TAB PO SCH (15:39)
[2016-09-05 17:09] LABS: Glucose,Whole Blood 176 mg/dL (75-99)
--- NOTE | 2016-09-05 18:59 | PN ---
DATE OF SERVICE: 09/05/2016 PRESENTING COMPLAINT: Short of breath, cough. INTERVAL HISTORY: This patient admitted with pneumonia, COPD exacerbation. Breathing is a shade better. Sputum is still coming up. Did tolerate some diet. Feeling weak and tired. Review of systems done for constitutional, cardiovascular, GI, pulmonary; relevant findings as above. Current medications are reviewed that include IV Levaquin, Zosyn, Solu-Medrol. On examination, temperature 97, pulse 72, respirations 18, blood pressure 130/63, pulse ox 99% on 3.5 L. GENERAL APPEARANCE: Lying in bed, tired-appearing. EYES: Pupils equal. Conjunctivae normal. NECK: JVD not raised. Mass not palpable. Respiratory effort increased. LUNGS: Decreased breath sounds. Prolonged expiration and wheezing. CARDIOVASCULAR: First and second sounds normal. No edema. ABDOMEN: Soft, nontender. Liver and spleen not palpable. PSYCHIATRY: Alert and oriented x3. Mood and affect anxious-appearing. INVESTIGATIONS: Accu-Cheks are noted. Blood culture is negative. Sputum culture is pending. ASSESSMENT: 1. Pneumonia, bilateral basilar with sepsis, present on admission, slow to respond. 2. Acute severe chronic obstructive pulmonary disease exacerbation in a smoker, slow to respond. 3. Chronic hypoxic type 2 respiratory failure with hypercapnia. 4. Diabetes mellitus type 2 with peripheral neuropathy. 5. Essential hypertension. 6. Hypothyroidism. 7. Depression, not otherwise specified. 8. Primary osteoarthritis of multiple joints. 9. Acute urinary tract infection with Candiduria. PLAN: Continue current medication and treatment plan, antibiotics. Will add Diflucan. Patient again reinforced not to smoke.
[2016-09-05] MEDS: HYDROcodone/APAP 7.5-325MG 1 EACH TAB PO PRN (19:30)
[2016-09-05] MEDS: ATORVASTATIN 20 MG TAB PO SCH (20:24)
[2016-09-05 20:26] LABS: Glucose,Whole Blood 300 mg/dL (75-99)
[2016-09-05 20:26] LABS: Glucose,Whole Blood 300 mg/dL (75-99)
[2016-09-05 21:46] LABS: Glucose,Whole Blood 319 mg/dL (75-99)
[2016-09-05 21:46] LABS: Glucose,Whole Blood 328 mg/dL (75-99)
[2016-09-05 23:11] LABS: Glucose,Whole Blood 281 mg/dL (75-99)
[2016-09-06] MEDS: methylPREDNISolone SOD SUCCI 40 MG/ML 1 ML VIAL IV SCH ×3 (05:29→17:51)
[2016-09-06] MEDS: LEVOTHYROXINE 100 MCG TAB PO SCH (05:29)
[2016-09-06 07:40] LABS: Anion Gap 8 mmol/L; Blood Urea Nitrogen 21 mg/dL (7-17); Calcium 8.4 mg/dL (8.4-10.2); Carbon Dioxide 27 mmol/L (22-30); Chloride 102 mmol/L (98-107); Glucose 187 mg/dL (74-99); Non-African American GFR(MDRD) >60 (>60 ml/min/1.73 sqM); Potassium 4.7 mmol/L (3.5-5.1); Sodium 137 mmol/L (137-145)
[2016-09-06 07:44] LABS: Glucose,Whole Blood 204 mg/dL (75-99)
[2016-09-06 07:53] LABS: Basophils % (A) 0 %; CH 31.4; CHCM 32.9; Eosinophils % (A) 0 %; HCT 30.2 % (34.0-46.0); HDW 2.84; Luc # (Auto) 0.19; Luc % (Auto) 1; Lymphocytes # (A) 1.2 k/uL (1.0-4.8); Lymphocytes % (A) 8 %; MCH 31.5 pg (25.0-35.0); MCHC 32.9 g/dL (31.0-37.0); MCV 95.9 fL (80.0-100.0); Mean Platelet Volume 6.8; Monocytes # (A) 0.5 k/uL (0-1.0); Monocytes % (A) 3 %; Neutrophils # (A) 13.6 k/uL (1.3-7.7); Neutrophils % (A) 88 %; RBC 3.15 m/uL (3.80-5.40); RDW 13.8 % (11.5-15.5); WBC 15.5 k/uL (3.8-10.6); WBC (Perox) 16.14
[2016-09-06 07:54] LABS: HGB 9.9 gm/dL (11.4-16.0)
[2016-09-06] MEDS: FORMOTEROL FUMARATE 20 MCG/2 ML NEBU INHALATION SCH ×2 (08:22→20:29)
[2016-09-06] MEDS: BUDESONIDE 0.5 MG/2 ML NEBU INHALATION SCH ×2 (08:22→20:29)
[2016-09-06] MEDS: IPRATROPIUM-ALBUTEROL 3 ML NEB INHALATION SCH ×4 (08:22→20:29)
[2016-09-06] MEDS: guaiFENesin 600 MG TABLET.ER PO SCH ×2 (09:05→20:42)
[2016-09-06] MEDS: NICOTINE 14MG/24HR PATCH TRANSDERM SCH ×2 (09:05→09:14)
[2016-09-06] MEDS: THEOPHYLLINE 24 HOUR 300 MG CAP.ER.24H PO SCH ×2 (09:06→20:42)
[2016-09-06] MEDS: metFORMIN 500 MG TAB PO SCH ×4 (09:06→20:42)
[2016-09-06] MEDS: glipiZIDE 5 MG TAB PO SCH ×4 (09:06→20:42)
[2016-09-06] MEDS: PANTOPRAZOLE 40 MG/10 ML VIAL IV SCH (09:07)
[2016-09-06] MEDS: LISINOPRIL 20 MG TAB PO SCH (09:07)
[2016-09-06] MEDS: GABAPENTIN 300 MG CAP PO SCH ×3 (09:07→22:42)
[2016-09-06] MEDS: FLUCONAZOLE 100 MG TAB PO SCH (09:07)
[2016-09-06] MEDS: ISOSORBIDE MONONITRATE ER 15 MG TAB PO SCH (09:07)
[2016-09-06] MEDS: FLUoxetine HCL 20 MG CAP PO SCH (09:07)
[2016-09-06] MEDS: LEVOFLOXACIN 750MG-D5W PMX 750 MG in DEXTROSE/WATER 1 150ML.BAG IVPB SCH (09:08)
[2016-09-06] MEDS: MONTELUKAST 10 MG TAB PO SCH (09:08)
[2016-09-06] MEDS: INSULIN LISPRO (humaLOG) 300 UNIT/3 ML VIAL SQ SCH ×4 (09:10→20:42)
[2016-09-06] MEDS: ALPRAZolam 0.5 MG TAB PO SCH ×3 (09:18→22:42)
[2016-09-06] MEDS: HYDROcodone/APAP 7.5-325MG 1 EACH TAB PO PRN ×3 (09:18→22:42)
[2016-09-06 11:30] LABS: Glucose,Whole Blood 263 mg/dL (75-99)
[2016-09-06] MEDS: PIPERACILLIN-TAZOBACTAM 3.375 GM in DEXTROSE/WATER 1 50ML.BAG IVPB SCH ×2 (11:52→17:25)
[2016-09-06] MEDS: FERROUS SULFATE 325 MG TAB PO SCH (12:03)
--- NOTE | 2016-09-06 15:24 | CDI ---
In responding to this query, please exercise your independent professional judgment. The [facility] Coding Staff and Clinical Documentation Specialists appreciate your assistance in clarifying documentation, maintaining compliance with coding guidelines, accurately documenting patients condition and capturing severity of illness. The fact that a question is asked does not imply that any particular answer is desired or expected. Communication forms are a method of clarifying documentation and are not made part of the Legal Health Record. Thank you in advance for your clarification. Last Revision, June 2015 [facility] [address] [facility] [place] [address] Documentation Clarification Form Date: 09/06/2016 2:52:00 PM From: Elinader Torres Admit Date: 09/04/2016 1:16:00 AM Patient Name: Sima Kelley Visit Number: [id number] Discharge Date: Dr. Soledad Clements Pneumonia was documented in your consult and progress notes History/Risk Factors: Asthma, COPD, Diabetes Mellitus, Hypertension, Pneumonia, Sleep Apnea/CPAP/BIPAP, Home O2 3.5 /L NC, Current every day smoker Clinical Indicators: Present with complaints of fever, nausea, vomiting, diarrhea and difficulty breathing. She has vomited several times. She is still coughing, wheezing, bringing up some sputum. Vital signs on admission: 166/80 106 24 101.0 WBC/Left shift: 23.8, Neutrophils 21.7 X-ray: CT scan showed multilobular infiltrates Lung/Breathing assessment: Wheezes, Lungs sounds diminished bilaterally along with diffuse wheezes throughout Treatment: Antibiotics: IV Levaquin, IV Zosyn O2 3/L NC (titrate) Breathing TX: Nebulized bronchodilators IV Solu-Medrol Sputum Culture: Pending In order to capture the severity of condition, please clarify if the condition signifies and you are treating for: Aspiration Pneumonia, identify if: Due to solids or liquids Bacterial Pneumonia, specify causal organism (if known) Gram Negative Pneumonia Due to Strep Due to Staph Due to E. Coli Other bacteria (specify) Viral Pneumonia, specify casual organism (if known) Healthcare Acquired Pneumonia/Pneumonia, unspecified Unable to determine Link any associated conditions to the pneumonia: Influenza with secondary gram negative pneumonia Sepsis due to pneumonia Acute respiratory failure due to pneumonia Other, please specify Please document in your progress notes in order to capture severity of illness and risk of mortality. Include clinical findings that support your diagnosis. FYI: Press F11 to launch patient chart. Place X here if this finding has no clinical significance, is not applicable or if you are not able to provide any additional documentation. AMADOD
--- NOTE | 2016-09-06 15:52 | P.PN ---
Subjective Principal diagnosis: Acute left lower lobe pneumonia and acute exacerbation of COPD. 66-year-old here patient with advanced oxygen-dependent COPD who was transferred from [facility] to our emergency department because of ongoing left lung pneumonia. The patient was hospitalized for the same on 08/27 and the patient was treated with Zithromax and discharged home on oral Zithromax. Nevertheless, she continued to have difficulties in breathing and she started having fever chills and shortness of breath along with cough and chest congestion and wheezing and ongoing symptoms of COPD exacerbation. She presented to [facility] in a CAT scan of the chest was done that showed persistent consolidation of the left lower lobe. At that point the patient was transferred to [place]. The patient currently is on a combination of Zosyn and Levaquin. No change in mental status. No pleurisy. No chest pain. She has advanced COPD and she's been oxygen dependent. She has had multiple hospitalization for COPD exacerbation and I can recall at least 4 hospitalization for the past year. She is a chronic smoker in she has been able to stop smoking despite our previous efforts and counseling. She also has multiple other medical medical problems and call bleed is most significant of which is coronary artery disease, CHF, diabetes mellitus and morbid obesity. On 09/05/2016, the patient is being seen in follow-up. She is less short of breath compared to yesterday. Her breathing is gradually improving. Cough has subsided. Wheezing has subsided. No fever or chills. She is having skeletal chest wall pain secondary to repeated cough. No change in mental status. No hemoptysis. No pleurisy. No swelling in lower eczematous. No other complaints otherwise. She remains on accommodation of Zosyn and Levaquin for treatment of left lower lobe pneumonia. She is also on IV Solu-Medrol. Patient was reevaluated on 09/06/2016, she is gradually improving, cough is significantly improved, wheezing is also improved, and she denies any significant chest pain. Patient remains on antibiotics in the form of Zosyn and Levaquin, and she is on bronchodilators for underlying COPD exacerbation. Sputum culture is nondiagnostic so far. Blood cultures are negative so far in the last 48 hours. CBC showed leukocytosis with WBC count of 15.5, hemoglobin is 9.9. Basic metabolic profile is relatively normal. Blood sugar is elevated at 187. I reviewed the chest x-ray on admission continues to have interstitial densities and patchy peripheral densities with consolidation especially in the left lower lobe and left midlung. Objective - Vital Signs Vital signs: Vital Signs Temp 98.7 F 09/06/16 07:00 Pulse 80 09/06/16 15:36 Resp 18 09/06/16 07:00 BP 126/96 09/06/16 07:00 Pulse Ox 99 09/06/16 07:00 Intake & Output 09/05/16 09/06/16 09/06/16 18:59 06:59 18:59 Intake Total 530 680 Balance 530 680 Intake: IV 50 50 Piperacillin-Tazobactam 3 50 50 .375 gm In Dextrose/Water 1 50ml.bag @ 12.5 mls/hr IVPB Q8HR [facility] Rx#: [id number] Intake, IV Titration 150 Amount Levofloxacin 750Mg-D5w 150 Pmx 750 mg In Dextrose/ Water 1 150ml.bag @ 100 mls/hr IVPB Q24HR [facility] Rx# :[id number] Oral 480 480 Other: Voiding Method Bedside Commode Bedside Commode Bedside Commode # Voids 3 2 3 - Exam Head exam was generally normal. There was no scleral icterus or corneal arcus. Mucous membranes were moist. My normal neck the patient has significant crowding of the posterior oropharynx and the patient is a Mallampati class IV. She is morbidly obese. Lung sounds are diminished in lung bases along with scattered expiratory wheezes throughout the lung [place] bilaterally. Air entry is significantly improved.Cardiac exam revealed the PMI to be normally situated and sized. The rhythm was regular and no extrasystoles were noted during several minutes of auscultation. The first and second heart sounds were normal and physiologic splitting of the second heart sound was noted. There were no murmurs, rubs, clicks, or gallops.Abdominal exam revealed normal bowel sounds. The abdomen was soft, non-tender, and without masses, organomegaly, or appreciable enlargement of the abdominal aorta. All his cannot be palpated as the patient is morbidly obese.Examination of the extremities revealed easily palpable radial, femoral and pedal pulses. There was no cyanosis, clubbing or edema. - Labs CBC & Chem 7: 09/06/16 07:04 09/06/16 07:04 Labs: Abnormal Lab Results - Last 24 Hours (Table) 09/05/16 09/05/16 09/05/16 Range/Units 17:07 20:08 20:09 WBC (3.8-10.6) k/uL RBC (3.80-5.40) m/uL Hgb (11.4-16.0) gm/dL Hct (34.0-46.0) % Neutrophils # (1.3-7.7) k/uL BUN (7-17) mg/dL Glucose (74-99) mg/dL POC Glucose (mg/dL) 176 H 300 H 300 H (75-99) mg/dL 09/05/16 09/05/16 09/05/16 Range/Units 21:42 21:43 23:08 WBC (3.8-10.6) k/uL RBC (3.80-5.40) m/uL Hgb (11.4-16.0) gm/dL Hct (34.0-46.0) % Neutrophils # (1.3-7.7) k/uL BUN (7-17) mg/dL Glucose (74-99) mg/dL POC Glucose (mg/dL) 328 H 319 H 281 H (75-99) mg/dL 09/06/16 09/06/16 09/06/16 Range/Units 07:04 07:04 07:43 WBC 15.5 H (3.8-10.6) k/uL RBC 3.15 L (3.80-5.40) m/uL Hgb 9.9 L D (11.4-16.0) gm/dL Hct 30.2 L (34.0-46.0) % Neutrophils # 13.6 H (1.3-7.7) k/uL BUN 21 H (7-17) mg/dL Glucose 187 H (74-99) mg/dL POC Glucose (mg/dL) 204 H (75-99) mg/dL 09/06/16 Range/Units 11:29 WBC (3.8-10.6) k/uL RBC (3.80-5.40) m/uL Hgb (11.4-16.0) gm/dL Hct (34.0-46.0) % Neutrophils # (1.3-7.7) k/uL BUN (7-17) mg/dL Glucose (74-99) mg/dL POC Glucose (mg/dL) 263 H (75-99) mg/dL Microbiology - Last 24 Hours (Table) 09/04/16 01:51 Blood Culture - Preliminary Blood No Growth after 48 hours 09/04/16 03:51 Urine Culture - Final Urine,Voided Stephanie albicans 09/04/16 21:45 Gram Stain - Preliminary Sputum Sputum Culture - Preliminary Assessment and Plan Plan: 1 acute left lower lobe pneumonia, most likely gram-negative pneumonia, cultures are pending, but the patient is empirically on antibiotics in the form of Levaquin and Zosyn.. The patient has persistent consolidation of the left lower lobe in addition to ongoing symptoms of pneumonia including cough sputum production and leukocytosis. A CAT scan of the chest shows persistent consolidation of the periphery of the left lung base. Noted the patient was being treated with Zithromax on outpatient basis 2 acute COPD exacerbation secondary to above 3 chronic dyspnea, multifactorial, mainly due to her COPD and morbid obese body habitus 4 morbid obesity with a BMI of 43.2 5 diabetes mellitus type 2 6 congestion heart failure with an ejection fraction of 35-40%. The patient has had fevers broken heart syndrome with normal cardiac catheterization despite the segmental wall motion of the masses were seen on previous echocardiogram. 7 multiplies physician for COPD exacerbation S2 difficulties 8 chronic hypoxic respiratory failure and the patient is on 3-4 L of oxygen by nasal cannula on outpatient basis 9 hypertension 10 osteoarthritis 11 hypothyroidism 12 osteoarthritis Recommendation: Continue antibiotics and bronchodilators, follow-up chest x-ray and consider discharge planning if the chest x-ray shows improvement. Time with Patient: Less than 30
[2016-09-06 17:21] LABS: Glucose,Whole Blood 137 mg/dL (75-99)
[2016-09-06] MEDS ORDERED: ONDANSETRON 4 MG/2 ML VIAL ONE (19:45)
[2016-09-06] MEDS ORDERED: ONDANSETRON 4 MG/2 ML VIAL IVP PRN (19:46)
[2016-09-06 20:13] LABS: Glucose,Whole Blood 235 mg/dL (75-99)
[2016-09-06] MEDS: ATORVASTATIN 20 MG TAB PO SCH (20:42)
--- NOTE | 2016-09-06 21:06 | PN ---
DATE OF SERVICE: 09/06/2016 PRESENTING COMPLAINT: Short of breath, cough. INTERVAL HISTORY: This is a patient admitted with pneumonia, COPD exacerbation, long-standing smoker, feeling much better, lying actually in bed, sputum production significantly gone down. Does feel tired. Has been out of bed. Review of systems done for constitutional, cardiovascular, GI, pulmonary; relevant findings as above. Current medications are reviewed that include Levaquin and Zosyn and IV Solu-Medrol. On examination, temperature 98.3, pulse 80, respiratory rate 16, blood pressure 125/59, pulse ox 98% on 3.5 L. GENERAL APPEARANCE: Lying in bed, more comfortable. EYES: Pupils equal. Conjunctivae normal. NECK: JVD not raised. Mass not palpable. RESPIRATORY: Effort increased. LUNGS: Diminished breath sounds, decreased wheezing. CARDIOVASCULAR: First and second sounds normal. No edema. ABDOMEN: Soft, nontender. Liver and spleen not palpable. PSYCHIATRY: Alert and oriented times three. Mood and affect normal. INVESTIGATIONS: White count 15.5, hemoglobin 9.9. Potassium 4.7. Urine and sputum Gram stain pending. ASSESSMENT: 1. Bilateral pneumonia patient with ( ) present on admission with clinical improvement. 2. Acute severe chronic obstructive pulmonary disease exacerbation in a smoker clinically improving. 3. Chronic hypoxic type II, respiratory failure with hypercapnia. 4. Diabetes mellitus type II. 5. Peripheral neuropathy. 6. Essential hypertension. 7. Hypothyroidism. 8. Depression not otherwise specified. 9. Primary osteoarthritis of multiple joints. 10. Acute urinary tract infection with Candiduria. PLAN: Overall the patient is doing better. Care was discussed with the patient. Again patient reinforced not to smoke.
[2016-09-07] MEDS: PIPERACILLIN-TAZOBACTAM 3.375 GM in DEXTROSE/WATER 1 50ML.BAG IVPB SCH ×3 (00:16→15:28)
[2016-09-07] MEDS: methylPREDNISolone SOD SUCCI 40 MG/ML 1 ML VIAL IV SCH ×4 (00:42→19:11)
[2016-09-07] MEDS: LEVOTHYROXINE 100 MCG TAB PO SCH (05:12)
[2016-09-07] MEDS: BUDESONIDE 0.5 MG/2 ML NEBU INHALATION SCH ×2 (07:22→18:57)
[2016-09-07] MEDS: IPRATROPIUM-ALBUTEROL 3 ML NEB INHALATION SCH ×4 (07:22→18:56)
[2016-09-07] MEDS: FORMOTEROL FUMARATE 20 MCG/2 ML NEBU INHALATION SCH ×2 (07:22→18:57)
[2016-09-07] MEDS: ALPRAZolam 0.5 MG TAB PO SCH ×3 (07:36→21:45)
[2016-09-07] MEDS: LEVOFLOXACIN 750MG-D5W PMX 750 MG in DEXTROSE/WATER 1 150ML.BAG IVPB SCH (07:37)
[2016-09-07] MEDS: HYDROcodone/APAP 7.5-325MG 1 EACH TAB PO PRN ×2 (07:38→21:44)
[2016-09-07] MEDS: guaiFENesin 600 MG TABLET.ER PO SCH ×2 (07:38→21:44)
[2016-09-07] MEDS: GABAPENTIN 300 MG CAP PO SCH ×3 (07:40→21:45)
[2016-09-07] MEDS: NICOTINE 14MG/24HR PATCH TRANSDERM SCH (07:40)
[2016-09-07] MEDS: FLUCONAZOLE 100 MG TAB PO SCH (07:41)
[2016-09-07] MEDS: glipiZIDE 5 MG TAB PO SCH ×4 (07:41→21:44)
[2016-09-07] MEDS: THEOPHYLLINE 24 HOUR 300 MG CAP.ER.24H PO SCH ×2 (07:41→21:45)
[2016-09-07] MEDS: ISOSORBIDE MONONITRATE ER 15 MG TAB PO SCH (07:41)
[2016-09-07] MEDS: PANTOPRAZOLE 40 MG/10 ML VIAL IV SCH (07:41)
[2016-09-07] MEDS: LISINOPRIL 20 MG TAB PO SCH (07:42)
[2016-09-07] MEDS: MONTELUKAST 10 MG TAB PO SCH (07:42)
[2016-09-07] MEDS: metFORMIN 500 MG TAB PO SCH ×4 (07:42→21:45)
[2016-09-07] MEDS: FLUoxetine HCL 20 MG CAP PO SCH (07:42)
[2016-09-07] MEDS: INSULIN LISPRO (humaLOG) 300 UNIT/3 ML VIAL SQ SCH ×4 (08:05→21:46)
[2016-09-07 08:17] LABS: Glucose,Whole Blood 201 mg/dL (75-99)
--- NOTE | 2016-09-07 08:24 | XR ---
EXAMINATION TYPE: XR chest 2V DATE OF EXAM: 09/07/2016 7:00 AM COMPARISON: Prior chest x-ray August HISTORY: Pneumonia TECHNIQUE: Frontal and lateral views of the chest are obtained. FINDINGS: Prominent lung volume may be indicative of underlying COPD. Linear opacities may reflect a telectasis or scarring. Heart remains enlarged. No pneumothorax or evident effusion. Pulmonary vascul arity and vianney are stable. IMPRESSION: Exam is somewhat limited by patient body habitus. Cardiomegaly. Difficult to exclude und erlying pneumonia, follow up suggested. Additional findings above, follow-up as indicated.
--- NOTE | 2016-09-07 12:08 | P.PN ---
Subjective 66-year-old here patient with advanced oxygen-dependent COPD who was transferred from [facility] to our emergency department because of ongoing left lung pneumonia. The patient was hospitalized for the same on 08/27 and the patient was treated with Zithromax and discharged home on oral Zithromax. Nevertheless, she continued to have difficulties in breathing and she started having fever chills and shortness of breath along with cough and chest congestion and wheezing and ongoing symptoms of COPD exacerbation. She presented to [facility] in a CAT scan of the chest was done that showed persistent consolidation of the left lower lobe. At that point the patient was transferred to [place]. The patient currently is on a combination of Zosyn and Levaquin. No change in mental status. No pleurisy. No chest pain. She has advanced COPD and she's been oxygen dependent. She has had multiple hospitalization for COPD exacerbation and I can recall at least 4 hospitalization for the past year. She is a chronic smoker in she has been able to stop smoking despite our previous efforts and counseling. She also has multiple other medical medical problems and call bleed is most significant of which is coronary artery disease, CHF, diabetes mellitus and morbid obesity. Objective - Vital Signs Vital signs: Vital Signs Temp 98 F 09/07/16 06:07 Pulse 72 09/07/16 10:57 Resp 16 09/07/16 06:07 BP 130/60 09/07/16 06:07 Pulse Ox 98 09/07/16 06:07 Intake & Output 09/06/16 09/07/16 09/07/16 18:59 06:59 18:59 Intake Total 680 600 Balance 680 600 Weight 100 kg Intake: IV 50 50 Piperacillin-Tazobactam 3 50 50 .375 gm In Dextrose/Water 1 50ml.bag @ 12.5 mls/hr IVPB Q8HR [facility] Rx#: [id number] Intake, IV Titration 150 Amount Levofloxacin 750Mg-D5w 150 Pmx 750 mg In Dextrose/ Water 1 150ml.bag @ 100 mls/hr IVPB Q24HR [facility] Rx# :[id number] Oral 480 550 Other: Voiding Method Bedside Commode Bedside Commode Bedside Commode # Voids 3 1 - Labs CBC & Chem 7: 09/06/16 07:04 09/06/16 07:04 Labs: Abnormal Lab Results - Last 24 Hours (Table) 09/06/16 09/06/16 09/07/16 Range/Units 17:20 20:07 08:02 POC Glucose (mg/dL) 137 H 235 H 201 H (75-99) mg/dL Microbiology - Last 24 Hours (Table) 09/04/16 21:45 Gram Stain - Final Sputum Sputum Culture - Final 09/04/16 01:51 Blood Culture - Preliminary Blood No Growth after 72 hours Assessment and Plan Plan: 1 Left lower lobe pneumonia. The patient has persistent consolidation of the left lower lobe in addition to ongoing symptoms of pneumonia including cough sputum production and leukocytosis. A CAT scan of the chest shows persistent consolidation of the periphery of the left lung base. Noted the patient was being treated with Zithromax on outpatient basis and is currently on Zosyn and Levaquin. 2 Acute exacerbation of chronic COPD secondary to above 3 Chronic dyspnea, multifactorial, mainly due to her COPD and morbid obese body habitus 4 Morbid obesity with a BMI of 43.2 5 Diabetes mellitus type 2 6 Congestion heart failure with an ejection fraction of 35-40%. The patient has a history of [place] Subu syndrome with normal cardiac catheterization despite the segmental wall motion of the masses were seen on previous echocardiogram. 7 Multiple admissions for COPD exacerbation 8 Acute on chronic hypoxic respiratory failure and the patient is on 3-4 L of oxygen by nasal cannula on outpatient basis 9 Hypertension 10 Osteoarthritis 11 Hypothyroidism #12 Chronic tobacco dependence. Plan: The patient was seen and evaluated by Dr. Lee. Her chest x-ray and labs were reviewed. We will continue with her current antibiotics in the form of Zosyn and Levaquin. The patient is slow to progress. She remains on IV Solu- Medrol, bronchodilators 4 times a day and when necessary, Pulmicort and Perforomist inhalations twice a day, Mucinex, Singulair and theophylline. She is again educated regarding the importance of complete smoking cessation. We' ll increase her activity as tolerated. We'll continue to follow make further recommendations based on her clinical status.
[2016-09-07] MEDS: FERROUS SULFATE 325 MG TAB PO SCH (12:44)
[2016-09-07 12:51] LABS: Glucose,Whole Blood 152 mg/dL (75-99)
--- NOTE | 2016-09-07 17:44 | PN ---
DATE OF SERVICE: 09/07/2016 PRESENTING COMPLAINT: Short of breath, cough. INTERVAL HISTORY: This patient admitted with pneumonia, COPD exacerbation. Continues to feel better. Sputum production has gone down. Tolerating diet. Breathing is better. Does feel tired. Review of systems done for constitutional, cardiovascular, GI, pulmonary; relevant findings as above. Current medications are reviewed and include IV Zosyn and Levaquin. On examination, temperature 98, pulse 74, respiration 16, blood pressure 130/60, pulse ox 98% on 4 liters. GENERAL APPEARANCE: Lying in bed, more comfortable. EYES: Pupils equal, conjunctivae normal. NECK: JVD not raised. Mass not palpable. RESPIRATORY: Effort increased. LUNGS: Decreased wheezing. Improved air entry. CARDIOVASCULAR: First and second sounds normal. No edema. ABDOMEN: Soft, nontender. Liver and spleen not palpable. PSYCHIATRY: Alert and oriented x3. Mood and affect normal. INVESTIGATIONS: Accu-Cheks are noted. ASSESSMENT: 1. Bilateral pneumonia suspect gram-negative organism present on admission with clinical response. 2. Acute severe chronic obstructive pulmonary disease exacerbation in a smoker with clinical improvement. 3. Chronic hypoxic type II, respiratory failure with hypercapnia. 4. Diabetes mellitus type 2 chronically on oral hypoglycemics, uncontrolled from steroids. 5. Peripheral neuropathy secondary to diabetes mellitus, type II. 6. Essential hypertension. 7. Hypothyroidism. 8. Depression, not otherwise specified. 9. Primary osteoarthritis in multiple joints. 10. Acute urinary tract infection from Stephanie. PLAN: Overall, the patient is doing better, discussed with Dr. Lee. Looking probably discharge in the next 24 hours. We will try to scale back the oxygen.
[2016-09-07 17:52] LABS: Glucose,Whole Blood 182 mg/dL (75-99)
[2016-09-07 20:02] LABS: Glucose,Whole Blood 245 mg/dL (75-99)
[2016-09-07] MEDS: ATORVASTATIN 20 MG TAB PO SCH (21:44)
[2016-09-08] MEDS: PIPERACILLIN-TAZOBACTAM 3.375 GM in DEXTROSE/WATER 1 50ML.BAG IVPB SCH ×2 (01:17→08:10)
[2016-09-08] MEDS: methylPREDNISolone SOD SUCCI 40 MG/ML 1 ML VIAL IV SCH ×3 (01:18→13:24)
[2016-09-08] MEDS: LEVOTHYROXINE 100 MCG TAB PO SCH (05:55)
[2016-09-08] MEDS: BUDESONIDE 0.5 MG/2 ML NEBU INHALATION SCH (07:15)
[2016-09-08] MEDS: FORMOTEROL FUMARATE 20 MCG/2 ML NEBU INHALATION SCH (07:15)
[2016-09-08] MEDS: IPRATROPIUM-ALBUTEROL 3 ML NEB INHALATION SCH ×3 (07:15→15:22)
[2016-09-08 07:33] LABS: Glucose,Whole Blood 270 mg/dL (75-99)
[2016-09-08 08:04] VITALS: BP 121/60; RESP 18; TEMP 97.9
[2016-09-08] MEDS: metFORMIN 500 MG TAB PO SCH ×2 (08:10→13:24)
[2016-09-08] MEDS: GABAPENTIN 300 MG CAP PO SCH (08:10)
[2016-09-08] MEDS: FLUCONAZOLE 100 MG TAB PO SCH (08:11)
[2016-09-08] MEDS: glipiZIDE 5 MG TAB PO SCH ×2 (08:11→13:23)
[2016-09-08] MEDS: NICOTINE 14MG/24HR PATCH TRANSDERM SCH (08:11)
[2016-09-08] MEDS: LISINOPRIL 20 MG TAB PO SCH (08:11)
[2016-09-08] MEDS: PANTOPRAZOLE 40 MG/10 ML VIAL IV SCH (08:11)
[2016-09-08] MEDS: THEOPHYLLINE 24 HOUR 300 MG CAP.ER.24H PO SCH (08:11)
[2016-09-08] MEDS: guaiFENesin 600 MG TABLET.ER PO SCH (08:11)
[2016-09-08] MEDS: ISOSORBIDE MONONITRATE ER 15 MG TAB PO SCH (08:11)
[2016-09-08] MEDS: MONTELUKAST 10 MG TAB PO SCH (08:12)
[2016-09-08] MEDS: FLUoxetine HCL 20 MG CAP PO SCH (08:12)
[2016-09-08] MEDS: ALPRAZolam 0.5 MG TAB PO SCH (08:15)
[2016-09-08] MEDS: INSULIN LISPRO (humaLOG) 300 UNIT/3 ML VIAL SQ SCH ×2 (08:16→13:24)
[2016-09-08] MEDS ORDERED: LEVOFLOXACIN 750 MG TAB PO SCH (09:00)
--- NOTE | 2016-09-08 11:04 | P.PN ---
Subjective This is a very pleasant 66-year-old female patient with advanced oxygen- dependent COPD who was transferred from [facility] to our emergency department because of ongoing left lung pneumonia. The patient was hospitalized for the same on 08/27/2016 and the patient was treated with Zithromax and discharged home on oral Zithromax. Nevertheless, she continued to have difficulties in breathing and she started having fever chills and shortness of breath along with cough and chest congestion and wheezing and ongoing symptoms of COPD exacerbation. She presented to [facility] in a CAT scan of the chest was done that showed persistent consolidation of the left lower lobe. At that point the patient was transferred to [place]. The patient currently is on a combination of Zosyn and Levaquin. She is a chronic smoker in she has been unable to stop smoking despite our previous efforts and counseling. She also has multiple other medical medical problems including coronary artery disease, CHF, diabetes mellitus and morbid obesity. She is seen again today 09/08/2016 in follow-up. She is awake and alert in no acute distress. She denies any worsening shortness of breath, cough or congestion. She feels she is nearly back to her baseline. She is maintaining good O2 saturations in the mid 90s on 3.5 L/m per nasal cannula. Afebrile. She does have oxygen, nebulizer and medications at home. She remains on IV Solu -Medrol that could be switched to oral taper today. Objective - Vital Signs Vital signs: Vital Signs Temp 97.9 F 09/08/16 07:00 Pulse 84 09/08/16 07:45 Resp 18 09/08/16 07:00 BP 121/60 09/08/16 07:00 Pulse Ox 97 09/07/16 22:46 Intake & Output 09/07/16 09/08/16 09/08/16 18:59 06:59 18:59 Intake Total 200 500 240 Balance 200 500 240 Weight 99 kg Intake: IV 50 50 Piperacillin-Tazobactam 3 50 50 .375 gm In Dextrose/Water 1 50ml.bag @ 12.5 mls/hr IVPB Q8HR EMERITA Rx#: [id number] Intake, IV Titration 150 Amount Levofloxacin 750Mg-D5w 150 Pmx 750 mg In Dextrose/ Water 1 150ml.bag @ 100 mls/hr IVPB Q24HR EMERITA Rx# :[id number] Oral 450 240 Other: Voiding Method Bedside Commode Bedside Commode Bedside Commode # Voids 3 1 # Bowel Movements 1 1 - Exam GENERAL EXAM: Alert, comfortable in no apparent distress. HEAD: Normocephalic. EYES: Normal reaction of pupils, equal size. NOSE: Clear with pink turbinates. THROAT: No erythema or exudates. NECK: No masses, no JVD. CHEST: No chest wall deformity. LUNGS: Equal air entry with end expiratory wheeze. Diminished.. CVS: S1 and S2 normal with no audible murmurs, regular rhythm. ABDOMEN: No hepatosplenomegaly, normal bowel sounds, no guarding or rigidity. Extremities: There is trace peripheral edema. No clubbing, no cyanosis. Peripheral pulses are intact. - Labs CBC & Chem 7: 09/06/16 07:04 09/06/16 07:04 Labs: Abnormal Lab Results - Last 24 Hours (Table) 09/07/16 09/07/16 09/07/16 Range/Units 12:39 17:47 20:01 POC Glucose (mg/dL) 152 H 182 H 245 H (75-99) mg/dL 09/08/16 Range/Units 07:32 POC Glucose (mg/dL) 270 H (75-99) mg/dL Microbiology - Last 24 Hours (Table) 09/04/16 01:51 Blood Culture - Preliminary Blood No Growth after 96 hours 09/04/16 21:45 Gram Stain - Final Sputum Sputum Culture - Final Assessment and Plan Plan: 1 Left lower lobe pneumonia. The patient has persistent consolidation of the left lower lobe in addition to ongoing symptoms of pneumonia including cough sputum production and leukocytosis. A CAT scan of the chest shows persistent consolidation of the periphery of the left lung base. Noted the patient was being treated with Zithromax on outpatient basis and is currently on Zosyn and Levaquin. Sputum and blood cultures are negative. 2 Acute exacerbation of chronic COPD secondary to above 3 Chronic dyspnea, multifactorial, mainly due to her COPD and morbid obese body habitus 4 Morbid obesity with a BMI of 43.2 5 Diabetes mellitus type 2 6 Congestion heart failure with an ejection fraction of 35-40%. The patient has a history of Tako Subu syndrome with normal cardiac catheterization despite the segmental wall motion of the masses were seen on previous echocardiogram. 7 Multiple admissions for COPD exacerbation 8 Acute on chronic hypoxic respiratory failure and the patient is on 3-4 L of oxygen by nasal cannula on outpatient basis 9 Hypertension 10 Osteoarthritis 11 Hypothyroidism #12 Chronic tobacco dependence. Plan: The patient was seen and evaluated by Dr. Lee. She is cleared for discharge from the pulmonary standpoint. She'll complete her course of Levaquin. She'll complete a prednisone taper. We'll continue with her home pulmonary medications. She does have oxygen and a nebulizer at home. She is again encouraged regarding the importance of complete smoking cessation. NicoDerm patches are offered. She'll follow-up in our office in 1-2 weeks' time we'll repeat her chest x-ray then. She is encouraged to call sooner with any recurrence of symptoms or other questions or concerns.
[2016-09-08 11:33] VITALS: PULSE 88
[2016-09-08 11:46] LABS: Glucose,Whole Blood 213 mg/dL (75-99)
[2016-09-08] MEDS: FERROUS SULFATE 325 MG TAB PO SCH (13:23)
[2016-09-08] MEDS: HYDROcodone/APAP 7.5-325MG 1 EACH TAB PO PRN (13:26)
--- NOTE | 2016-09-09 10:04 | DS ---
DATE OF ADMISSION: 09/04/2016 DATE OF DISCHARGE: 09/08/2016 FINAL DIAGNOSES: 1. Bilateral pneumonia, suspect gram-negative organism, present on admission, clinical responded. 2. Acute severe chronic obstructive pulmonary disease exacerbation in a smoker. 3. Chronic hypoxic type 2 respiratory failure with hypercapnia. 4. Diabetes mellitus type 2, chronically on oral hypoglycemic, uncontrolled from steroids. 5. Diabetes mellitus type 2 causing peripheral neuropathy. 6. Essential hypertension. 7. Hypothyroidism. 8. Depression, not otherwise specified. 9. Primary osteoarthritis in multiple joints. 10. Acute urinary tract infection from Stephaine. HOSPITAL COURSE: The patient is a smoker who presented with severe COPD exacerbation, pneumonia. Sputum culture was negative. Blood cultures were negative. Patient did improve clinically significantly by the time of discharge. Counseled extensive about cessation of smoking. CONSULTATION: Dr. Lee from Pulmonary. On examination, decreased breath sounds. No wheezing. CARDIOVASCULAR: First and second sounds normal. DISCHARGE MEDICATIONS: 1. Xanax 1 mg p.o. t.i.d. 2. Prozac 20 mg p.o. daily. 3. Neurontin 600 mg p.o. t.i.d. 4. Sweetwater 7.5 one tablet p.o. t.i.d. p.r.n. 5. Boniva 150 mg p.o. q. monthly. 6. Synthroid 200 mcg p.o. daily. 7. Singulair 10 mg p.o. q.h.s. 8. Chris-24 three hundred mg p.o. b.i.d. 9. Glyburide/metformin 2.5/500 one tablet p.o. q.a.c. and at bedtime. 10. Mucinex 1200 mg p.o. b.i.d. 11. Zocor 40 mg q.h.s. 12. Pulmicort 0.5 inhalations b.i.d. 13. Iron 325 p.o. daily. 14. DuoNeb q.i.d. 15. Combivent 1 puff q.i.d. p.r.n. 16. Imdur ER 50 mg p.o. daily. 17. Zestril 20 mg p.o. b.i.d. 18. Augmentin 875 one tablet q.12, 10 tablets. 19. Diflucan 100 mg daily for 7 tablets. 20. Prednisone taper. Follow up with Dr. Vera on 09/13/2016; follow up with Dr. Clements on 09/15/2016. DC planning more than 35 minutes.
== END 2016-09-08 15:30 | disposition home or self-care (01) | DRG 871 ==
LOC: EC 01:01 → 5MS5E 01:16
PROVIDERS: ADMIT Hospitalist; ATTEND Hospitalist
DX: A41.9 Sepsis, unspecified organism (principal); J96.21 Acute and chronic respiratory failure with hypoxia; J15.6 Pneumonia due to other Gram-negative bacteria; I11.0 Hypertensive heart disease with heart failure; I50.9 Heart failure, unspecified; E11.42 Type 2 diabetes mellitus with diabetic polyneuropathy; J96.12 Chronic respiratory failure with hypercapnia; B37.49 Other urogenital candidiasis; F17.200 Nicotine dependence, unspecified, uncomplicated; J44.0 Chronic obstructive pulmonary disease with (acute) lower respiratory infection; J44.1 Chronic obstructive pulmonary disease with (acute) exacerbation; Z68.41 Body mass index [BMI] 40.0-44.9, adult; Z99.81 Dependence on supplemental oxygen; G47.33 Obstructive sleep apnea (adult) (pediatric); F41.1 Generalized anxiety disorder; J45.909 Unspecified asthma, uncomplicated; I25.10 Atherosclerotic heart disease of native coronary artery without angina pectoris; E66.01 Morbid (severe) obesity due to excess calories; R53.1 Weakness; E03.9 Hypothyroidism, unspecified; F32.9 Major depressive disorder, single episode, unspecified; M19.91 Primary osteoarthritis, unspecified site; F12.90 Cannabis use, unspecified, uncomplicated; Z86.79 Personal history of other diseases of the circulatory system; Z88.1 Allergy status to other antibiotic agents; Z88.8 Allergy status to other drugs, medicaments and biological substances; Z96.653 Presence of artificial knee joint, bilateral; Z80.49 Family history of malignant neoplasm of other genital organs; Z71.6 Tobacco abuse counseling; Z98.51 Tubal ligation status; Z90.49 Acquired absence of other specified parts of digestive tract; Z79.84 Long term (current) use of oral hypoglycemic drugs; Z79.83 Long term (current) use of bisphosphonates; Z79.891 Long term (current) use of opiate analgesic; Z79.51 Long term (current) use of inhaled steroids; Z79.52 Long term (current) use of systemic steroids; Z79.899 Other long term (current) drug therapy
CPT/HCPCS: 36415; 71020; 80048; 80053; 81001; 82533; 82550; 82553; 83036; 83605; 83880; 84484; 85025; 85610; 85730; 86850; 86900; 86901; 87040; 87070; 87086; 87205; 93005; 94640; 96361; 96374; 99285

== ENCOUNTER 2016-11-18 09:53 | Inpatient (IN) | payer MEDICARE, BC ==
[2016-11-18] MEDS ORDERED: MAGNESIUM SULFATE-D5W PMX 1 GM in DEXTROSE/WATER 1 100ML.BAG IVPB ONE (10:15)
--- NOTE | 2016-11-18 10:20 | ED ---
SOB HPI - General Chief Complaint: Shortness of Breath Stated Complaint: Pneumonia Time Seen by Provider: 11/18/16 09:53 Source: patient, EMS, RN notes reviewed Mode of arrival: EMS Limitations: no limitations - History of Present Illness Initial Comments: This is a 66-year-old female with a history of COPD and CHF who was transferred from [facility] for evaluation here. She was admitted there and diagnosed with a left lower lobe pneumonia likely COPD exacerbation. She was given IV Levaquin 750 mg. She is feeling somewhat better though somewhat short of breath she recently was in [facility] for 2 weeks and later in rehab for one half weeks after being intubated and having a COPD exacerbation. She does see Dr. Clements and had requested transfer to this facility. She currently denies any chest pain she denies any current fevers chills or sweats. She is still short of breath and does feel improved. MD Complaint: shortness of breath - Related Data Home Medications Medication Instructions Recorded Confirmed ALPRAZolam [Xanax] 1 mg PO TID 08/25/15 11/18/16 FLUoxetine HCL [PROzac] 20 mg PO DAILY 08/25/15 11/18/16 Gabapentin [Neurontin] 600 mg PO TID 08/25/15 11/18/16 Hydrocodone/Acetaminophen [[place] 1 tab PO TID PRN 08/25/15 11/18/16 7.5-325] Ibandronate Sodium [Boniva] 150 mg PO QMONTH 08/25/15 11/18/16 Levothyroxine Sodium [Synthroid] 200 mcg PO DAILY 08/25/15 11/18/16 Montelukast [Singulair] 10 mg PO DAILY 08/25/15 11/18/16 Theophylline 24 Hour [Chris-24] 300 mg PO BID 08/25/15 11/18/16 glyBURIDE/METFORMIN HCL 1 tab PO ACHS 08/25/15 11/18/16 [glyBURIDE/METFORMIN HCL 2.5-500 mg] guaiFENesin [Mucinex] 1,200 mg PO BID 08/25/15 11/18/16 Budesonide [Pulmicort] 0.5 mg INHALATION RT-BID 09/05/15 11/18/16 Ferrous Sulfate [Feosol] 325 mg PO DAILY 01/27/16 11/18/16 Ipratropium-Albuterol Nebulize 3 ml INHALATION RT-QID 01/27/16 11/18/16 [Duoneb 0.5 mg-3 mg/3 ml Soln] Ipratropium/Albuterol Sulfate 1 puff INHALATION RT-QID PRN 08/26/16 11/18/16 [Combivent Respimat Inhaler] Isosorbide Mononitrate ER [Imdur] 15 mg PO DAILY 08/26/16 11/18/16 Lisinopril [Zestril] 20 mg PO BID 08/26/16 11/18/16 Albuterol Inhaler [Ventolin Hfa 1 - 2 puff INHALATION RT-QID PRN 11/18/16 Inhaler] Aspirin 81 mg PO DAILY 11/18/16 11/18/16 Budesonide [Pulmicort] 0.5 mg INHALATION RT-BID 11/18/16 11/18/16 Furosemide [Lasix] 40 mg PO DAILY PRN 11/18/16 11/18/16 Insulin Lispro [humaLOG Kwikpen] See Protocol SQ TID 11/18/16 11/18/16 diphenhydrAMINE HCL [Benadryl] 50 mg PO QID PRN 11/18/16 11/18/16 Previous Rx's Medication Instructions Recorded Simvastatin [Zocor] 40 mg PO HS #30 tab 08/28/15 predniSONE 10 mg PO DAILY #30 tab 09/08/16 Allergies Allergy/AdvReac Type Severity Reaction Status Date / Time cefotaxime sodium Allergy Anaphylaxis Verified 11/18/16 10:15 [From Claforan] glucose [From Gammagard S/D] Allergy Itching Verified 11/18/16 10:15 glycine [From Gammagard S/D] Allergy Itching Verified 11/18/16 10:15 IgA less than or equal to 50 Allergy Itching Verified 11/18/16 10:15 mcg/mL [From Gammagard S/D] immune globulin,gamma (IgG) Allergy Itching Verified 11/18/16 10:15 human [From Gammagard S/D] vancomycin Allergy Unknown Verified 11/18/16 10:15 Review of Systems ROS Statement: Those systems with pertinent positive or pertinent negative responses have been documented in the HPI. ROS Other: All systems not noted in ROS Statement are negative. Past Medical History Past Medical History: COPD, Diabetes Mellitus, Hypertension, Osteoarthritis (OA) , Sleep Apnea/CPAP/BIPAP, Thyroid Disorder Additional Past Medical History / Comment(s): Advanced COPD with chronic hypoxic respiratory failure, CHF with an ejection fraction of 35-40% with previous history of takotsubo syndrome and normal coronaries as evident on her cardiac catheterization, diabetes mellitus type 2, morbid obesity with a BMI of 45, hypertension, osteoarthritis, history of obstructive sleep apnea, hypothyroidism, peripheral neuropathy secondary to diabetes mellitus and osteoarthritis and generalized anxiety/depression. History of Any Multi-Drug Resistant Organisms: None Reported Past Surgical History: Appendectomy, Cholecystectomy, Heart Catheterization, Orthopedic Surgery, Tonsillectomy, Tubal Ligation Additional Past Surgical History / Comment(s): positive stress test in June. Heart Cath done at [facility] in [place] (no intervention done). left and right knee replacements. heart cath 09/06 no intervention Past Anesthesia/Blood Transfusion Reactions: No Reported Reaction Past Psychological History: Anxiety, Depression Smoking Status: Current every day smoker Past Alcohol Use History: None Reported Past Drug Use History: Marijuana Additional Drug Use History / Comment(s): patient states she uses marijuana ( edibles) to help with pain. states she does not have a medical marijuana card at this time. - Past Family History Father History Unknown: Yes Family Medical History: No Reported History Mother Family Medical History: Cancer Additional Family Medical History / Comment(s): uterine cancer General Exam - General Exam Comments Initial Comments: This a well-developed well-nourished awake alert oriented 3 female Limitations: no limitations General appearance: alert, anxious Head exam: Present: atraumatic, normocephalic, normal inspection Eye exam: Present: normal appearance, PERRL, EOMI. Absent: scleral icterus, conjunctival injection, periorbital swelling ENT exam: Present: normal exam, mucous membranes moist Neck exam: Present: normal inspection. Absent: tenderness, meningismus, lymphadenopathy Respiratory exam: Present: wheezes, decreased breath sounds. Absent: respiratory distress, rales, rhonchi, stridor Cardiovascular Exam: Present: regular rate, normal rhythm, normal heart sounds. Absent: systolic murmur, diastolic murmur, rubs, gallop, clicks GI/Abdominal exam: Present: soft, normal bowel sounds. Absent: distended, tenderness, guarding, rebound, rigid Extremities exam: Present: normal inspection, full ROM, normal capillary refill. Absent: tenderness, pedal edema, joint swelling, calf tenderness Back exam: Present: normal inspection Neurological exam: Present: alert, oriented X3, CN II-XII intact Psychiatric exam: Present: normal affect, normal mood Skin exam: Present: warm, dry, intact, normal color. Absent: rash Course Vital Signs 11/18/16 09:55 Temperature 99 F Pulse Rate 96 Respiratory 20 Rate Blood Pressure 107/50 O2 Sat by Pulse 97 Oximetry Medical Decision Making - Medical Decision Making I did review the charting from [facility] I did discuss the case with Dr. Moore. Patient will be admitted with consultation by Dr. Clements. - Lab Data Lab Results 11/18/16 11/18/16 Range/Units 10:00 10:00 Magnesium 1.7 (1.6-2.3) mg/dL Influenza Type A RNA Not Detected (Not Detectd) Influenza Type B (PCR) Not Detected (Not Detectd) Disposition Clinical Impression: Pneumonia, Acute exacerbation of chronic obstructive airways disease Disposition: ADMITTED IP TO THIS HOSP Condition: Stable
[2016-11-18] MEDS ORDERED: PNEUMONIA PROTOCOL UTILIZED 1 EACH MISC PO PRN (11:37)
[2016-11-18] MEDS ORDERED: FUROSEMIDE 40 MG TAB PO PRN (11:40)
[2016-11-18] MEDS ORDERED: diphenhydrAMINE 50 MG CAP PO PRN (11:40)
[2016-11-18] MEDS ORDERED: HYDROcodone/APAP 7.5-325MG 1 EACH TAB PO PRN (11:40)
[2016-11-18] MEDS ORDERED: NON-FORMULARY DRUG (Ibandronate Sodium [Boniva] 150 MG) PO SCH (11:45)
[2016-11-18] MEDS: IPRATROPIUM-ALBUTEROL 3 ML NEB INHALATION SCH ×4 (12:55→20:26)
[2016-11-18 12:58] LABS: Glucose,Whole Blood 358 mg/dL (75-99)
[2016-11-18] MEDS: metFORMIN 500 MG TAB PO SCH ×3 (13:18→21:15)
[2016-11-18] MEDS: GABAPENTIN 300 MG CAP PO SCH ×2 (13:18→21:57)
[2016-11-18] MEDS: methylPREDNISolone SOD SUCCI 125 MG/2 ML VIAL IV SCH ×3 (13:18→23:12)
[2016-11-18] MEDS: INSULIN LISPRO (humaLOG) 300 UNIT/3 ML VIAL SQ SCH ×3 (13:18→21:50)
[2016-11-18] MEDS: glipiZIDE 5 MG TAB PO SCH ×3 (13:18→21:14)
--- NOTE | 2016-11-18 14:50 | P.CNPUL ---
History of Present Illness Consult date: 11/18/16 Requesting physician: Fletcher Moore Reason for consult: COPD Chief complaint: Shortness of breath, cough, congestion History of present illness: This is a very pleasant 66-year-old female patient who follows with Dr. Vera as her primary care physician. She has a history of diabetes mellitus, hypothyroidism, hyperlipidemia, hypertension, TakoSubu syndrome with normal coronaries. Ejection fraction 35-40%. She also has oxygen dependent chronic obstructive pulmonary disease and obstructive sleep apnea and follows in our office with Dr. Clements for the same. She has chronic and ongoing nicotine addiction. She also uses audible marijuana. She was last seen there in July 2016. She had been maintained on Pulmicort and DuoNeb inhalations along with Combivent. In August 2016 she developed an acute exacerbation of COPD he was admitted to [facility] for approximately 2 weeks. 3 days of which she spent on mechanical life support. He was subsequently discharged to inpatient rehabilitation for another 2-1/2 weeks. She's been home for about one month now. She was discharged on a home AVAPS machine that she wears nightly and during the day while napping. Yesterday she developed a recurrence of a productive cough of greenish sputum, worsening shortness of breath, chills and night sweats. She also had nausea and vomiting and presented to [place] emergency room this morning. From there she was subsequently transferred here to the regular medical floor. She is seen today in consultation. Presently, she is awake and alert in no acute distress. She states she is breathing a little easier now. She has a loose continued productive cough. No chills or night sweats. Her nausea has subsided. According to the [place] ER notes she was found to have a left lower lobe pneumonia. No chest x-ray available currently. She was given IV Levaquin prior to her transfer. Review of Systems 14 point review of system was conducted. All negative other than as mentioned in HPI. Past Medical History Past Medical History: Asthma, Heart Failure, COPD, Diabetes Mellitus, GERD/ Reflux, Hyperlipidemia, Hypertension, Osteoarthritis (OA), Respiratory Disorder , Skin Disorder, Sleep Apnea/CPAP/BIPAP, Thyroid Disorder Additional Past Medical History / Comment(s): Pt has been at [facility] recently and was vented for one week, she then went to rehab. She presented to [facility] 11/18/16 and was diagnosed with pneumonia/exacerbation COPD. She was transferred to [facility]. Other hX: Advanced COPD with chronic hypoxic respiratory failure, pt denies hx of CHF but past medical records indicate CHF with an ejection fraction of 35-40%, pt states she takes a water pill prn for leg swelling, history of takotsubo syndrome and normal coronaries as evident on her cardiac catheterization, diabetes mellitus type 2, obesity, obstructive sleep apnea-uses noninvasive ventilator, hypothyroidism, peripheral neuropathy secondary to diabetes mellitus-bilateral feet, arthritis multiple joints and entire back, psoriasis, sinus problems. History of Any Multi-Drug Resistant Organisms: None Reported Past Surgical History: Appendectomy, Cholecystectomy, Heart Catheterization, Joint Replacement, Tonsillectomy, Tubal Ligation Additional Past Surgical History / Comment(s): 08/2015 normal cardiac cath, 2015 normal cardiac cath, bilateral total knee arthroplasty. Past Anesthesia/Blood Transfusion Reactions: No Reported Reaction Past Psychological History: Anxiety, Depression Additional Psychological History / Comment(s): Pt lives with her son and daughter. She has O2 at 3.5L/NC ATC. She has a noninvasive ventilator. She drives. She has used home care in the past and just recently-[facility]. Smoking Status: Current every day smoker Past Alcohol Use History: None Reported Additional Past Alcohol Use History / Comment(s): Pt started smoking in 1971 and is cutting down. She is now smoking less than 1/2 ppd. Past Drug Use History: Marijuana Additional Drug Use History / Comment(s): Patient states she uses marijuana ( edibles) to help with pain on occasion-none for about a month - Past Family History Father History Unknown: Yes Family Medical History: No Reported History Mother Family Medical History: Cancer Additional Family Medical History / Comment(s): uterine cancer Medications and Allergies Home Medications Medication Instructions Recorded Confirmed Type ALPRAZolam [Xanax] 1 mg PO TID 08/25/15 11/18/16 History FLUoxetine HCL [PROzac] 20 mg PO DAILY 08/25/15 11/18/16 History Gabapentin [Neurontin] 600 mg PO TID 08/25/15 11/18/16 History Hydrocodone/Acetaminophen [[place] 1 tab PO TID PRN 08/25/15 11/18/16 History 7.5-325] Ibandronate Sodium [Boniva] 150 mg PO QMONTH 08/25/15 11/18/16 History Levothyroxine Sodium [Synthroid] 200 mcg PO DAILY 08/25/15 11/18/16 History Montelukast [Singulair] 10 mg PO DAILY 08/25/15 11/18/16 History Theophylline 24 Hour [Chris-24] 300 mg PO BID 08/25/15 11/18/16 History glyBURIDE/METFORMIN HCL 1 tab PO ACHS 08/25/15 11/18/16 History [glyBURIDE/METFORMIN HCL 2.5-500 mg] guaiFENesin [Mucinex] 1,200 mg PO BID 08/25/15 11/18/16 History Budesonide [Pulmicort] 0.5 mg INHALATION RT-BID 09/05/15 11/18/16 History Ferrous Sulfate [Feosol] 325 mg PO DAILY 01/27/16 11/18/16 History Ipratropium-Albuterol Nebulize 3 ml INHALATION RT-QID 01/27/16 11/18/16 History [Duoneb 0.5 mg-3 mg/3 ml Soln] Ipratropium/Albuterol Sulfate 1 puff INHALATION RT-QID PRN 08/26/16 11/18/16 History [Combivent Respimat Inhaler] Isosorbide Mononitrate ER [Imdur] 15 mg PO DAILY 08/26/16 11/18/16 History Lisinopril [Zestril] 20 mg PO BID 08/26/16 11/18/16 History Albuterol Inhaler [Ventolin Hfa 1 - 2 puff INHALATION RT-QID PRN 11/18/16 History Inhaler] Aspirin 81 mg PO DAILY 11/18/16 11/18/16 History Budesonide [Pulmicort] 0.5 mg INHALATION RT-BID 11/18/16 11/18/16 History Furosemide [Lasix] 40 mg PO DAILY PRN 11/18/16 11/18/16 History Insulin Lispro [humaLOG Kwikpen] See Protocol SQ TID 11/18/16 11/18/16 History diphenhydrAMINE HCL [Benadryl] 50 mg PO QID PRN 11/18/16 11/18/16 History Allergies Allergy/AdvReac Type Severity Reaction Status Date / Time cefotaxime sodium Allergy Anaphylaxis Verified 11/18/16 10:15 [From Claforan] glucose [From Gammagard S/D] Allergy Itching Verified 11/18/16 10:15 glycine [From Gammagard S/D] Allergy Itching Verified 11/18/16 10:15 IgA less than or equal to 50 Allergy Itching Verified 11/18/16 10:15 mcg/mL [From Gammagard S/D] immune globulin,gamma (IgG) Allergy Itching Verified 11/18/16 10:15 human [From Gammagard S/D] vancomycin Allergy Unknown Verified 11/18/16 10:15 Physical Exam Vitals: Vital Signs Temp Pulse Resp BP Pulse Ox 11/18/16 13:23 80 11/18/16 13:09 82 18 11/18/16 12:20 97.7 F 83 18 117/55 94 L GENERAL EXAM: Obese. Alert, active, comfortable in no apparent distress. HEAD: Normocephalic. EYES: Normal reaction of pupils, equal size. NOSE: Clear with pink turbinates. THROAT: There is crowding of posterior pharynx. No erythema or exudates. NECK: Short. No masses, no JVD. CHEST: No chest wall deformity. LUNGS: Equal air entry with scattered rhonchi, end expiratory wheeze. Diminished. CVS: S1 and S2 normal with no audible murmurs, regular rhythm. ABDOMEN: No hepatosplenomegaly, normal bowel sounds, no guarding or rigidity. SPINE: No scoliosis or deformity SKIN: No rashes CENTRAL NERVOUS SYSTEM: No focal deficits, tone is normal in all 4 extremities. Extremities: There is no significant peripheral edema. No clubbing, no cyanosis. Peripheral pulses are intact. Results - Laboratory Findings Abnormal lab findings: Abnormal Labs 11/18/16 12:54 POC Glucose (mg/dL) 358 H Assessment and Plan Plan: Impression: #1 Acute exacerbation of severe oxygen dependent chronic obstructive pulmonary disease, complicated by suspected left lower lobe pneumonia. Suspect healthcare acquired pneumonia. Currently on Azactam and Levaquin. #2 Acute on chronic hypoxic respiratory failure secondary to above. #3 Chronic and ongoing tobacco dependence. #4 Obstructive sleep apnea, utilizes AVAPS in the outpatient setting. #5 Recent admission for severe COPD requiring intubation and mechanical ventilatory support 3 days in August 2016 at [facility]. #6 History of tach assume syndrome with normal coronary arteries. #7 History of systolic congestive heart failure with estimated ejection fraction 35-40%. #8 Hypertension. #9 Hyperlipidemia. #10 Diabetes mellitus. #12 Hypothyroidism. #13 Poor overall functional performance based on the above-mentioned multiple comorbidities. Plan: The patient was seen and evaluated by Dr. Thapa. We'll continue with her current antibiotics. We'll continue with bronchodilators 4 times a day and when necessary. We'll add Pulmicort and Perforomist inhalations twice a day. She'll continue on IV Solu-Medrol. She is again educated regarding the importance of complete smoking cessation and a NicoDerm patch will be offered. We will continue to follow make further recommendations based on her clinical status. Time with Patient: Greater than 30
[2016-11-18] MEDS: AZTREONAM 2 GM in SODIUM CHLORIDE 0.9% 100 ML IVPB SCH ×2 (15:46→23:20)
[2016-11-18] MEDS: ALPRAZolam 0.5 MG TAB PO SCH ×2 (15:50→21:56)
[2016-11-18 17:09] LABS: Glucose,Whole Blood 269 mg/dL (75-99)
[2016-11-18] MEDS: FORMOTEROL FUMARATE 20 MCG/2 ML NEBU INHALATION SCH (20:26)
[2016-11-18] MEDS: BUDESONIDE 1 MG/2 ML NEBU INHALATION SCH (20:26)
[2016-11-18 20:53] LABS: Glucose,Whole Blood 226 mg/dL (75-99)
[2016-11-18] MEDS: guaiFENesin 600 MG TABLET.ER PO SCH (21:14)
[2016-11-18] MEDS: ATORVASTATIN 20 MG TAB PO SCH (21:14)
[2016-11-18] MEDS: LISINOPRIL 20 MG TAB PO SCH (21:15)
[2016-11-18] MEDS: THEOPHYLLINE 24 HOUR 300 MG CAP.ER.24H PO SCH (21:15)
[2016-11-18] MEDS: NICOTINE 14MG/24HR PATCH TRANSDERM SCH (21:52)
[2016-11-18] MEDS: ENOXAPARIN 40 MG/0.4 ML SYRINGE SQ SCH (21:57)
[2016-11-19] MEDS: IPRATROPIUM-ALBUTEROL 3 ML NEB INHALATION SCH ×6 (00:06→19:54)
[2016-11-19] MEDS: methylPREDNISolone SOD SUCCI 125 MG/2 ML VIAL IV SCH ×3 (05:34→17:03)
[2016-11-19] MEDS: LEVOTHYROXINE 100 MCG TAB PO SCH (05:34)
[2016-11-19 06:44] LABS: Glucose,Whole Blood 241 mg/dL (75-99)
--- NOTE | 2016-11-19 07:28 | HP ---
DATE OF ADMISSION: 11/18/2016 PRESENTING COMPLAINT: Cough, shortness of breath. HISTORY OF PRESENTING COMPLAINT: This is a very pleasant 66-year-old patient who follows with Dr. Vera. Patient's chronic stable medical conditions include diabetes mellitus type 2, peripheral neuropathy, hypertension, obstructive sleep apnea, hypothyroid, depression, osteoarthritis. Patient is on 3.5 liters of oxygen at home. Continues to smoke about a 1/2 pack a day. Patient follows with Dr. Clements. Patient was recently intubated, was in rehab and then sent home. Patient now presents with 2 days of worsening cough, sputum production, fever, decreased appetite and wheezing and transferred down here from [facility]. Patient also vomited twice. REVIEW OF SYSTEMS: CONSTITUTIONAL: Weak and tired. HEENT: None. RESPIRATORY: As above. CARDIOVASCULAR: None. GASTROINTESTINAL: As above. GENITOURINARY: None. MUSCULOSKELETAL: Pain in the joints. DERMATOLOGICAL: None. HEMATOLOGICAL: None. LYMPHATIC: None. PSYCHIATRY: None. NEUROLOGICAL: Numbness and tingling in the feet. PAST MEDICAL HISTORY: COPD, home oxygen and CO2 retention, diabetes with neuropathy, hypertension, obstructive sleep apnea, hypothyroid, depression, osteoarthritis, sleep apnea and takotsubo syndrome. PAST SURGICAL HISTORY: Appendectomy, cholecystectomy, cardiac cath, tonsillectomy, left knee replacement. PAST PSYCH HISTORY: Anxiety, depression. SOCIAL HISTORY: Down to 1/2 pack a day. Smoked for several years. Lives with son and [id number] and other family members. Family history of uterine cancer. HOME MEDICATIONS: 1. Prednisone taper. 2. Mucinex 1200 mg p.o. b.i.d. 3. Glyburide metformin 2.5/500 1 tablet p.o. b.i.d. 4. Benadryl 50 mg p.o. q.i.d. p.r.n. 5. Chris-24 300 mg p.o. b.i.d. 6. Zocor 40 mg q.h.s. 7. Singulair 10 mg p.o. daily. 8. Zestril 20 mg p.o. b.i.d. 9. Synthroid 200 mcg a day. 10. Imdur 50 mg p.o. daily. 11. Combivent 1 puff q.i.d. p.r.n. 12. DuoNeb q.i.d. 13. Insulin, Lispro t.i.d. 14. Boniva a50 mg p.o. 15. [place] 7.5, 1 tablet p.o. t.i.d. p.r.n. 16. Neurontin 600 mg p.o. t.i.d. 17. Lasix 40 mg p.o. daily p.r.n. 18. Iron 325 p.o. daily. 19. Prozac 20 mg p.o. daily. 20. Pulmicort 0.5 nebulizer b.i.d. 21. Aspirin 81 mg daily. 22. Xanax 1 mg p.o. t.i.d. ALLERGIES TO CEFOTAXIME, GLUCOSE, GLYCINE, IMMUNOGLOBULIN, VANCOMYCIN. On examination: vital signs on presentation: Temperature 97.1, pulse 81, respirations 20, blood pressure 111/62, pulse ox 96% on 2 liters. GENERAL APPEARANCE: Well built, BMI 60.9, lying in bed, tired -appearing. EYES: Pupils equal. Conjunctivae normal. HEENT: External appearance of nose and ears normal. Oral cavity normal. NECK: JVD not raised. Mass not increased. LUNGS: Decreased breath sounds. Expiratory wheezing, some crackles. CARDIOVASCULAR: First and second sounds normal. No edema. ABDOMEN: Soft, nontender. Liver and spleen not palpable. LYMPHATIC: No lymph node palpable in neck or axilla. PSYCHIATRY: Alert and oriented x3. Mood and affect normal. NEUROLOGICAL: Pupils equal. Cranial nerves grossly intact. Decreased sensation distally. MUSCULOSKELETAL: Evidence of osteoarthritis of multiple joints. INVESTIGATIONS: Accu-Cheks are noted. ASSESSMENT: 1. Acute severe chronic obstructive pulmonary disease in a smoker. 2. Possible pneumonia, suspect gram-negative organism. 3. Chronic hypoxic, type II, respiratory failure with hypercapnia and hypoxia. 4. Diabetes mellitus type 2, chronically on oral hypoglycemic causing peripheral neuropathy. 5. Essential hypertension. 6. Hypothyroidism. 7. Primary osteoarthritis of multiple joints. 8. Morbid obesity, body mass index is greater than 50. PLAN: Patient was started on IV steroids, nebulized bronchodilators, IV antibiotics. Home medication are resumed. Accu-Cheks will be followed. Patient counseled against smoking and will be given nicotine patch. Pulmonary is consulted.
[2016-11-19] MEDS: INSULIN LISPRO (humaLOG) 300 UNIT/3 ML VIAL SQ SCH ×4 (07:29→23:03)
[2016-11-19] MEDS: guaiFENesin 600 MG TABLET.ER PO SCH ×2 (07:30→20:17)
[2016-11-19] MEDS: glipiZIDE 5 MG TAB PO SCH ×4 (07:30→20:18)
[2016-11-19] MEDS: FLUoxetine HCL 20 MG CAP PO SCH (07:30)
[2016-11-19] MEDS: metFORMIN 500 MG TAB PO SCH ×4 (07:30→20:17)
[2016-11-19] MEDS: THEOPHYLLINE 24 HOUR 300 MG CAP.ER.24H PO SCH ×2 (07:30→20:17)
[2016-11-19] MEDS: MONTELUKAST 10 MG TAB PO SCH (07:30)
[2016-11-19] MEDS: FERROUS SULFATE 325 MG TAB PO SCH (07:30)
[2016-11-19] MEDS: ASPIRIN 81 MG CHEW PO SCH (07:30)
[2016-11-19] MEDS: NICOTINE 14MG/24HR PATCH TRANSDERM SCH (07:31)
[2016-11-19] MEDS: GABAPENTIN 300 MG CAP PO SCH ×3 (07:36→23:03)
[2016-11-19] MEDS: ALPRAZolam 0.5 MG TAB PO SCH ×3 (07:43→23:03)
[2016-11-19] MEDS: AZTREONAM 2 GM in SODIUM CHLORIDE 0.9% 100 ML IVPB SCH ×2 (08:28→16:11)
[2016-11-19] MEDS: BUDESONIDE 1 MG/2 ML NEBU INHALATION SCH ×2 (08:29→19:54)
[2016-11-19] MEDS: FORMOTEROL FUMARATE 20 MCG/2 ML NEBU INHALATION SCH ×2 (08:29→19:54)
--- NOTE | 2016-11-19 08:44 | XR ---
EXAMINATION TYPE: XR chest 2V DATE OF EXAM: 11/19/2016 7:00 AM COMPARISON: Prior chest x-ray August HISTORY: Pneumonia TECHNIQUE: Frontal and lateral views of the chest are obtained. FINDINGS: Prominent lung volumes are again noted. Interstitium is somewhat increased. Heart is enlar ged. No evident pneumothorax or pleural effusion. IMPRESSION: Similar findings. Correlate for COPD. Cardiomegaly. Difficult to exclude lingular pneumo sapphire, atelectasis, correlate and consider chest CT for better evaluation
[2016-11-19] MEDS: ISOSORBIDE MONONITRATE ER 15 MG TAB PO SCH (08:56)
[2016-11-19] MEDS: LISINOPRIL 20 MG TAB PO SCH ×2 (08:56→20:17)
[2016-11-19] MEDS ORDERED: LEVOFLOXACIN 750 MG TAB PO SCH (09:00)
[2016-11-19 09:16] LABS: Basophils % (A) 0 %; CH 30.7; CHCM 31.8; Eosinophils % (A) 0 %; HCT 30.9 % (34.0-46.0); HGB 9.8 gm/dL (11.4-16.0); Hypochromasia Slight; Luc # (Auto) 0.12; Luc % (Auto) 1; Lymphocytes % (A) 7 %; MCH 30.6 pg (25.0-35.0); MCHC 31.6 g/dL (31.0-37.0); MCV 96.8 fL (80.0-100.0); Mean Platelet Volume 7.1; Monocytes # (A) 0.4 k/uL (0-1.0); Monocytes % (A) 3 %; Neutrophils # (A) 13.1 k/uL (1.3-7.7); Neutrophils % (A) 89 %; RBC 3.19 m/uL (3.80-5.40); RDW 14.9 % (11.5-15.5); WBC 14.6 k/uL (3.8-10.6); WBC (Perox) 15.96
[2016-11-19 09:30] LABS: ALT 16 U/L (9-52); AST 13 U/L (14-36); Alkaline Phosphatase 47 U/L (38-126); Anion Gap 14 mmol/L; Blood Urea Nitrogen 33 mg/dL (7-17); Calcium 8.6 mg/dL (8.4-10.2); Carbon Dioxide 19 mmol/L (22-30); Chloride 103 mmol/L (98-107); Glucose 337 mg/dL (74-99); Non-African American GFR(MDRD) >60 (>60 ml/min/1.73 sqM); Potassium 5.2 mmol/L (3.5-5.1); Sodium 136 mmol/L (137-145); Total Bilirubin 0.4 mg/dL (0.2-1.3)
--- NOTE | 2016-11-19 10:46 | P.PN ---
Subjective Progress note dated 11/19/2016 66-year-old female who was admitted with a diagnosis of COPD exacerbation Compu by OLEG tracheobronchitis versus possible pneumonia left lower lobe. The pneumonia may be healthcare acquired pneumonia. Not clear. Chest x-ray really could only show atelectasis as well. Difficult to interpret. The patient seemed be doing better. Breathing better. Sleeping when I first went into the room. No audible wheezing. No ny respiratory distress or difficulty. Appears much more comfortable than yesterday. Cough is still congested and wet though. Objective - Vital Signs Vital signs: Vital Signs Temp 97.4 F L 11/19/16 07:00 Pulse 82 11/19/16 07:00 Resp 16 11/19/16 07:00 BP 90/47 11/19/16 07:00 Pulse Ox 98 11/19/16 07:00 Intake & Output 11/18/16 11/19/16 11/19/16 18:59 06:59 18:59 Intake Total 200 Balance 200 Weight 66.5 kg Intake: Oral 200 Other: Voiding Method Bedside Commode Bedside Commode # Voids 1 - Exam No acute distress, oriented 3. HEENT examination is grossly unremarkable. Mucous membranes are moist. No oral lesions. Neck supple. Full range of motion. No adenopathy or thyromegaly. Cardiovascular examination reveals distant heart sounds. S1 and S2 normal. No S3-S4 or murmur. Lungs reveal few scattered coarse rhonchi. Breath sounds are diminished. This prolongation on forced maneuver. Breath sounds have improved. Abdomen obese. Bowel sounds are heard. Extremities are intact. - Labs CBC & Chem 7: 11/19/16 08:48 11/19/16 08:48 Labs: Abnormal Lab Results - Last 24 Hours (Table) 11/18/16 11/18/16 11/18/16 Range/Units 12:54 17:08 20:50 WBC (3.8-10.6) k/uL RBC (3.80-5.40) m/uL Hgb (11.4-16.0) gm/dL Hct (34.0-46.0) % Neutrophils # (1.3-7.7) k/uL Sodium (137-145) mmol/L Potassium (3.5-5.1) mmol/L Carbon Dioxide (22-30) mmol/L BUN (7-17) mg/dL Glucose (74-99) mg/dL POC Glucose (mg/dL) 358 H 269 H 226 H (75-99) mg/dL AST (14-36) U/L Total Protein (6.3-8.2) g/dL Albumin (3.5-5.0) g/dL 11/19/16 11/19/16 11/19/16 Range/Units 06:42 08:48 08:48 WBC 14.6 H (3.8-10.6) k/uL RBC 3.19 L (3.80-5.40) m/uL Hgb 9.8 L (11.4-16.0) gm/dL Hct 30.9 L (34.0-46.0) % Neutrophils # 13.1 H (1.3-7.7) k/uL Sodium 136 L (137-145) mmol/L Potassium 5.2 H (3.5-5.1) mmol/L Carbon Dioxide 19 L (22-30) mmol/L BUN 33 H (7-17) mg/dL Glucose 337 H (74-99) mg/dL POC Glucose (mg/dL) 241 H (75-99) mg/dL AST 13 L (14-36) U/L Total Protein 6.0 L (6.3-8.2) g/dL Albumin 3.4 L (3.5-5.0) g/dL Microbiology - Last 24 Hours (Table) 11/18/16 18:04 Gram Stain - Preliminary Sputum Assessment and Plan (1) Atelectasis Status: Acute (2) Acute exacerbation of chronic obstructive airways disease Status: Acute (3) Pneumonia Status: Acute (4) COPD (chronic obstructive pulmonary disease) Status: Acute (5) COPD exacerbation Status: Acute (6) High risk for readmission Status: Acute (7) Pneumonia Status: Acute (8) Tracheobronchitis Status: Acute Plan: Plan dated 11/19/2016. The patient will continue on updrafts and steroids and antibiotics. A showing some improvement. Chest x-ray is possibly consistent with pneumonia versus atelectasis. The patient does seem to be improving. We'll continue to follow. Meds labs and x-rays are all reviewed. Time with Patient: Less than 30
[2016-11-19 11:56] LABS: Glucose,Whole Blood 245 mg/dL (75-99)
[2016-11-19 12:31] LABS: Hemoglobin A1C 6.1 % (4.2-6.1)
[2016-11-19 17:08] LABS: Glucose,Whole Blood 130 mg/dL (75-99)
[2016-11-19] MEDS ORDERED: IPRATROPIUM-ALBUTEROL 3 ML NEB INHALATION PRN (20:14)
[2016-11-19] MEDS: ENOXAPARIN 40 MG/0.4 ML SYRINGE SQ SCH (20:17)
[2016-11-19] MEDS: ATORVASTATIN 20 MG TAB PO SCH (20:17)
[2016-11-19 21:26] LABS: Glucose,Whole Blood 246 mg/dL (75-99)
--- NOTE | 2016-11-19 22:31 | PN ---
DATE OF SERVICE: 11/19/2016 PRESENTING COMPLAINT: Short of breath. INTERVAL HISTORY: This is a smoker, ( ) COPD exacerbation, pneumonia, still coughing quite a bit. Sputum coming up, breathing is somewhat improved, tolerating a diet. REVIEW OF SYSTEMS: Done for constitutional, cardiovascular, GI, pulmonary; musculoskeletal; relevant findings as above. Current medications are reviewed that include IV Aztreonam, nebulized bronchodilators, IV Solu-Medrol. On examination, temperature 97.9, pulse 86, respiration 16, blood pressure 126/49, pulse ox 96% 2 liters. General appearance sitting up, tired -appearing. EYES: Pupils equal. Conjunctivae normal. NECK: JVD not raised. Mass not palpable. Respiratory effort increased. LUNGS: Slightly decreased breath sounds. Expiratory wheezing, crackles. CARDIOVASCULAR: First and second sounds normal. No edema. ABDOMEN: Soft, nontender. Liver and spleen not palpable. PSYCHIATRY: Alert and oriented x3. Mood and affect normal. INVESTIGATIONS: White count 20.6, hemoglobin 9.8, potassium 5.2. BUN 33, creatinine 0.90. Accu-Cheks are noted. Sputum culture unremarkable. ASSESSMENT: 1. Acute severe chronic obstructive pulmonary disease exacerbation in a smoker slow to respond. 2. Pneumonia; suspect gram-negative organism culture is negative, present on admission. 3. Chronic hypoxic type II respiratory failure with hypercapnia, and hypoxia. 4. Diabetes mellitus type 2, chronically on oral hypoglycemic, causing peripheral neuropathy, uncontrolled on steroids. 5. Essential hypertension. 6. Hypothyroidism. 7. Primary osteoarthritis of multiple joints. 8. Morbid obesity, body mass index is greater than 50. PLAN: Continue current medication and treatment plan. Care was discussed with the patient. We will make sure patient is on Mucinex and scale back steroids.
[2016-11-20] MEDS: AZTREONAM 2 GM in SODIUM CHLORIDE 0.9% 100 ML IVPB SCH ×3 (00:39→15:04)
[2016-11-20] MEDS: methylPREDNISolone SOD SUCCI 40 MG/ML 1 ML VIAL IV SCH ×3 (00:39→15:05)
[2016-11-20] MEDS: LEVOTHYROXINE 100 MCG TAB PO SCH (06:08)
[2016-11-20 07:33] LABS: Glucose,Whole Blood 242 mg/dL (75-99)
[2016-11-20] MEDS: glipiZIDE 5 MG TAB PO SCH ×4 (07:57→22:15)
[2016-11-20] MEDS: INSULIN LISPRO (humaLOG) 300 UNIT/3 ML VIAL SQ SCH ×4 (07:59→22:16)
[2016-11-20] MEDS: metFORMIN 500 MG TAB PO SCH ×4 (08:00→22:15)
[2016-11-20] MEDS: ALPRAZolam 0.5 MG TAB PO SCH ×3 (08:01→22:23)
[2016-11-20] MEDS: ASPIRIN 81 MG CHEW PO SCH (08:01)
[2016-11-20] MEDS: FLUoxetine HCL 20 MG CAP PO SCH (08:02)
[2016-11-20] MEDS: guaiFENesin 600 MG TABLET.ER PO SCH ×2 (08:02→22:15)
[2016-11-20] MEDS: FERROUS SULFATE 325 MG TAB PO SCH (08:02)
[2016-11-20] MEDS: GABAPENTIN 300 MG CAP PO SCH ×3 (08:02→22:15)
[2016-11-20] MEDS: ISOSORBIDE MONONITRATE ER 15 MG TAB PO SCH (08:03)
[2016-11-20] MEDS: LISINOPRIL 20 MG TAB PO SCH ×2 (08:03→22:15)
[2016-11-20] MEDS: MONTELUKAST 10 MG TAB PO SCH (08:03)
[2016-11-20] MEDS: THEOPHYLLINE 24 HOUR 300 MG CAP.ER.24H PO SCH ×2 (08:04→22:15)
[2016-11-20] MEDS: NICOTINE 14MG/24HR PATCH TRANSDERM SCH (08:04)
[2016-11-20 08:28] LABS: Anion Gap 12 mmol/L; Blood Urea Nitrogen 42 mg/dL (7-17); Calcium 8.4 mg/dL (8.4-10.2); Carbon Dioxide 19 mmol/L (22-30); Chloride 107 mmol/L (98-107); Glucose 207 mg/dL (74-99); Non-African American GFR(MDRD) >60 (>60 ml/min/1.73 sqM); Potassium 4.9 mmol/L (3.5-5.1); Sodium 138 mmol/L (137-145)
[2016-11-20 08:35] LABS: Basophils % (A) 0 %; CH 30.5; CHCM 32.1; Eosinophils % (A) 0 %; HCT 29.7 % (34.0-46.0); HDW 2.84; HGB 9.8 gm/dL (11.4-16.0); Luc # (Auto) 0.17; Luc % (Auto) 1; Lymphocytes % (A) 6 %; MCH 31.5 pg (25.0-35.0); MCV 95.6 fL (80.0-100.0); Mean Platelet Volume 7.6; Monocytes # (A) 0.6 k/uL (0-1.0); Monocytes % (A) 4 %; Neutrophils % (A) 89 %; RBC 3.11 m/uL (3.80-5.40); RDW 14.7 % (11.5-15.5); WBC 15.8 k/uL (3.8-10.6); WBC (Perox) 15.78
[2016-11-20] MEDS: FORMOTEROL FUMARATE 20 MCG/2 ML NEBU INHALATION SCH ×2 (08:49→19:06)
[2016-11-20] MEDS: BUDESONIDE 1 MG/2 ML NEBU INHALATION SCH ×2 (08:49→19:06)
[2016-11-20] MEDS: IPRATROPIUM-ALBUTEROL 3 ML NEB INHALATION SCH ×4 (08:49→19:06)
--- NOTE | 2016-11-20 10:26 | P.PN ---
Subjective Progress note dated 11/19/2016 66-year-old female who was admitted with a diagnosis of COPD exacerbation Compu by OLEG tracheobronchitis versus possible pneumonia left lower lobe. The pneumonia may be healthcare acquired pneumonia. Not clear. Chest x-ray really could only show atelectasis as well. Difficult to interpret. The patient seemed be doing better. Breathing better. Sleeping when I first went into the room. No audible wheezing. No ny respiratory distress or difficulty. Appears much more comfortable than yesterday. Cough is still congested and wet though. Progress note dated 11/20/2016 66-year-old female admitted with a diagnosis of COPD exacerbation. The patient is doing relatively well. Feeling much better. Not quite back to baseline. He 's using updrafts 4 times a day and when necessary. Typically uses updrafts about 6 times a day and home. Less chest congestion. Less cough. Less shortness of breath. Less wheezing. No nausea vomiting or diarrhea. No fever no chills. Objective - Vital Signs Vital signs: Vital Signs Temp 99 F 11/20/16 07:00 Pulse 88 11/20/16 09:09 Resp 20 11/20/16 07:00 BP 108/61 11/20/16 07:00 Pulse Ox 96 11/20/16 08:50 Intake & Output 11/19/16 11/20/16 11/20/16 18:59 06:59 18:59 Weight 94.347 kg Other: Voiding Method Bedside Commode # Voids 1 3 - Exam No acute distress, oriented 3. HEENT examination is grossly unremarkable. Mucous membranes are moist. No oral lesions. Neck supple. Full range of motion. No adenopathy or thyromegaly. Cardiovascular examination reveals distant heart sounds. S1 and S2 normal. No S3-S4 or murmur. Lungs reveal few scattered coarse rhonchi. Breath sounds are diminished. This prolongation on forced maneuver. Breath sounds have improved. Abdomen obese. Bowel sounds are heard. Extremities are intact. - Labs CBC & Chem 7: 11/20/16 07:44 11/20/16 07:44 Labs: Abnormal Lab Results - Last 24 Hours (Table) 11/19/16 11/19/16 11/19/16 Range/Units 11:54 17:06 21:12 WBC (3.8-10.6) k/uL RBC (3.80-5.40) m/uL Hgb (11.4-16.0) gm/dL Hct (34.0-46.0) % Neutrophils # (1.3-7.7) k/uL Carbon Dioxide (22-30) mmol/L BUN (7-17) mg/dL Glucose (74-99) mg/dL POC Glucose (mg/dL) 245 H 130 H 246 H (75-99) mg/dL 11/20/16 11/20/16 11/20/16 Range/Units 07:02 07:44 07:44 WBC 15.8 H (3.8-10.6) k/uL RBC 3.11 L (3.80-5.40) m/uL Hgb 9.8 L (11.4-16.0) gm/dL Hct 29.7 L (34.0-46.0) % Neutrophils # 14.0 H (1.3-7.7) k/uL Carbon Dioxide 19 L (22-30) mmol/L BUN 42 H (7-17) mg/dL Glucose 207 H (74-99) mg/dL POC Glucose (mg/dL) 242 H (75-99) mg/dL Microbiology - Last 24 Hours (Table) 11/18/16 15:49 Blood Culture - Preliminary Blood No Growth after 24 hours 11/18/16 15:19 Blood Culture - Preliminary Blood No Growth after 24 hours Assessment and Plan (1) Atelectasis Status: Acute (2) Acute exacerbation of chronic obstructive airways disease Status: Acute (3) Pneumonia Status: Acute (4) COPD (chronic obstructive pulmonary disease) Status: Acute (5) COPD exacerbation Status: Acute (6) High risk for readmission Status: Acute (7) Pneumonia Status: Acute (8) Tracheobronchitis Status: Acute Plan: Plan dated 11/19/2016. The patient will continue on updrafts and steroids and antibiotics. A showing some improvement. Chest x-ray is possibly consistent with pneumonia versus atelectasis. The patient does seem to be improving. We'll continue to follow. Meds labs and x-rays are all reviewed. Plan dated 11/20/2016 Medications labs and x-rays are reviewed. We'll continue with the current regimen short acting beta agonist short acting muscarinic antagonist long- acting beta agonist inhaled corticosteroids systemic corticosteroids and antibiotics. The patient's overall condition has improved. Probably discharge in 24 hours or so. Time with Patient: Less than 30
[2016-11-20 11:34] LABS: Glucose,Whole Blood 343 mg/dL (75-99)
[2016-11-20 17:17] LABS: Glucose,Whole Blood 174 mg/dL (75-99)
--- NOTE | 2016-11-20 18:03 | PN ---
DATE OF SERVICE: 11/20/2016 I am covering for Dr. Moore. This is a 66-year-old woman who was admitted with shortness of breath and chronic obstructive pulmonary disease acute exacerbation, also had suspected pneumonia also. The patient has been closely monitored. The patient still having significant shortness of breath. The patient is also admitted by Dr. Thapa. Patient is also on IV steroids and bronchodilators also. PAST MEDICAL HISTORY: Reviewed. REVIEW OF SYSTEMS: CARDIOVASCULAR: No angina. RESPIRATORY: As mentioned earlier. GI: No nausea. : No dysuria. Current medications are reviewed and include: 1. [place] 7.5 t.i.d. 2. DuoNeb q.i.d. and p.r.n. 3. Xanax 1 mg t.i.d. 4. Aspirin 81 mg daily. 5. Lipitor 20 mg q.h.s. 6. Aztreonam 2 grams IV q.8. 7. Lovenox. 8. Neurontin 600 mg t.i.d. 9. Mucinex. 10. Imdur. 11. Levaquin. 12. Synthroid. 13. Solu-Medrol. 14. Habitrol 14 p.r.n. PHYSICAL EXAMINATION: Patient is alert and oriented x3. Pulse 80, blood pressure 111/49, respirations 20, temperature 96.4, pulse ox 100% on 4 liters. HEENT: Conjunctivae normal. Oral mucosa moist. NECK: No jugular venous distention. No carotid bruit. No lymph node enlargement. CARDIOVASCULAR: S1 and S2, muffled. No S3, no S4. RESPIRATORY: Breath sounds diminished at the bases. Bilateral scattered rhonchi and crackles. Expiratory wheezing also present. ABDOMEN: Soft, nontender. No mass palpable. LEGS: No edema, no swelling. NERVOUS SYSTEM: Higher function as mentioned. Moves all four limbs. No focal motor deficits. LYMPHATIC: No lymphadenopathy in the neck, axillae or groin. SKIN: No ulcer, rash or bleeding. LABS: At this time shows WBC 15.9, hemoglobin is 9.8. Glucose noted. ASSESSMENT: 1. Chronic obstructive pulmonary disease acute exacerbation with acute lingular pneumonia, possibly gram-negative. 2. Chronic hypoxic type 2 respiratory failure with hypercapnia and hypoxia. 3. Diabetes mellitus type 2 chronically on oral hypoglycemics. 4. Peripheral neuropathy secondary to diabetes mellitus type 2. 5. Diabetes mellitus type 2 uncontrolled on steroids. 6. Essential hypertension. 7. History of hypothyroidism. 8. History of degenerative joint disease of multiple joints. 9. History of obesity with body mass index of 60.9. 10. Increased WBC. 11. Anemia, normocytic. RECOMMENDATIONS AND DISCUSSION: In this 66-year-old woman who presented with multiple complex medical issues, we will monitor the patient closely. Continue the current medications. Continue with bronchodilators. Continue with antibiotics, continue with steroids. Monitor blood sugars closely. Increase ambulation. Closely follow with Dr. Thapa. Guarded prognosis because of multiple complex medical issues. Further recommendations to follow.
[2016-11-20 21:32] LABS: Glucose,Whole Blood 266 mg/dL (75-99)
[2016-11-20] MEDS: ENOXAPARIN 40 MG/0.4 ML SYRINGE SQ SCH (22:14)
[2016-11-20] MEDS: ATORVASTATIN 20 MG TAB PO SCH (22:15)
[2016-11-21] MEDS: methylPREDNISolone SOD SUCCI 40 MG/ML 1 ML VIAL IV SCH ×4 (00:18→23:13)
[2016-11-21] MEDS: AZTREONAM 2 GM in SODIUM CHLORIDE 0.9% 100 ML IVPB SCH ×4 (00:36→23:13)
[2016-11-21] MEDS: LEVOTHYROXINE 100 MCG TAB PO SCH (06:00)
[2016-11-21 07:30] LABS: Glucose,Whole Blood 149 mg/dL (75-99)
[2016-11-21] MEDS: metFORMIN 500 MG TAB PO SCH ×4 (07:54→21:08)
[2016-11-21] MEDS: glipiZIDE 5 MG TAB PO SCH ×4 (07:54→21:08)
[2016-11-21] MEDS: INSULIN LISPRO (humaLOG) 300 UNIT/3 ML VIAL SQ SCH ×4 (07:54→21:09)
[2016-11-21] MEDS: ALPRAZolam 0.5 MG TAB PO SCH ×3 (07:56→21:08)
[2016-11-21] MEDS: ASPIRIN 81 MG CHEW PO SCH (07:56)
[2016-11-21] MEDS: FLUoxetine HCL 20 MG CAP PO SCH (07:57)
[2016-11-21] MEDS: FERROUS SULFATE 325 MG TAB PO SCH (07:57)
[2016-11-21] MEDS: guaiFENesin 600 MG TABLET.ER PO SCH ×2 (07:57→21:08)
[2016-11-21] MEDS: GABAPENTIN 300 MG CAP PO SCH ×3 (07:57→21:08)
[2016-11-21] MEDS: LEVOFLOXACIN 750 MG TAB PO SCH (07:58)
[2016-11-21] MEDS: ISOSORBIDE MONONITRATE ER 15 MG TAB PO SCH (07:58)
[2016-11-21] MEDS: LISINOPRIL 20 MG TAB PO SCH ×2 (07:59→21:08)
[2016-11-21] MEDS: MONTELUKAST 10 MG TAB PO SCH (07:59)
[2016-11-21] MEDS: NICOTINE 14MG/24HR PATCH TRANSDERM SCH (07:59)
[2016-11-21] MEDS: THEOPHYLLINE 24 HOUR 300 MG CAP.ER.24H PO SCH ×2 (07:59→21:08)
[2016-11-21] MEDS: BUDESONIDE 1 MG/2 ML NEBU INHALATION SCH ×2 (08:41→20:33)
[2016-11-21] MEDS: FORMOTEROL FUMARATE 20 MCG/2 ML NEBU INHALATION SCH ×2 (08:41→20:33)
[2016-11-21] MEDS: IPRATROPIUM-ALBUTEROL 3 ML NEB INHALATION SCH ×4 (08:41→20:33)
--- NOTE | 2016-11-21 11:01 | P.PN ---
Subjective Progress note dated 11/19/2016 66-year-old female who was admitted with a diagnosis of COPD exacerbation Compu by LOEG tracheobronchitis versus possible pneumonia left lower lobe. The pneumonia may be healthcare acquired pneumonia. Not clear. Chest x-ray really could only show atelectasis as well. Difficult to interpret. The patient seemed be doing better. Breathing better. Sleeping when I first went into the room. No audible wheezing. No ny respiratory distress or difficulty. Appears much more comfortable than yesterday. Cough is still congested and wet though. Progress note dated 11/20/2016 66-year-old female admitted with a diagnosis of COPD exacerbation. The patient is doing relatively well. Feeling much better. Not quite back to baseline. He 's using updrafts 4 times a day and when necessary. Typically uses updrafts about 6 times a day and home. Less chest congestion. Less cough. Less shortness of breath. Less wheezing. No nausea vomiting or diarrhea. No fever no chills. Progress note dated 11/21/2016 66-year-old female with history of COPD exacerbation. Doing better. From my perspective could be discharged home. We'll allow the primary can make a decision. Less short of breath. Less chest congestion. Some wheezing still. Coughing up a small amount of phlegm. No fever no chills. Is feeling better. No nausea vomiting or diarrhea. No audible wheezing today on evaluation. Objective - Vital Signs Vital signs: Vital Signs Temp 98 F 11/21/16 07:00 Pulse 79 11/21/16 08:53 Resp 20 11/21/16 07:00 BP 108/55 11/21/16 07:00 Pulse Ox 99 11/21/16 08:41 Intake & Output 11/20/16 11/21/16 11/21/16 18:59 06:59 18:59 Weight 94 kg Other: Voiding Method Bedside Commode Bedside Commode # Voids 2 2 # Bowel Movements 2 - Exam No acute distress, oriented 3. HEENT examination is grossly unremarkable. Mucous membranes are moist. No oral lesions. Neck supple. Full range of motion. No adenopathy or thyromegaly. Cardiovascular examination reveals distant heart sounds. S1 and S2 normal. No S3-S4 or murmur. Lungs reveal few scattered coarse rhonchi. Breath sounds are diminished. This prolongation on forced maneuver. Breath sounds have improved. Abdomen obese. Bowel sounds are heard. Extremities are intact. - Labs CBC & Chem 7: 11/20/16 07:44 11/20/16 07:44 Labs: Abnormal Lab Results - Last 24 Hours (Table) 11/20/16 11/20/16 11/20/16 Range/Units 11:26 16:49 21:22 POC Glucose (mg/dL) 343 H 174 H 266 H (75-99) mg/dL 11/21/16 Range/Units 07:04 POC Glucose (mg/dL) 149 H (75-99) mg/dL Microbiology - Last 24 Hours (Table) 11/18/16 18:04 Gram Stain - Final Sputum Sputum Culture - Final 11/18/16 15:49 Blood Culture - Preliminary Blood No Growth after 48 hours 11/18/16 15:19 Blood Culture - Preliminary Blood No Growth after 48 hours Assessment and Plan (1) Atelectasis Status: Acute (2) Acute exacerbation of chronic obstructive airways disease Status: Acute (3) Pneumonia Status: Acute (4) COPD (chronic obstructive pulmonary disease) Status: Acute (5) COPD exacerbation Status: Acute (6) High risk for readmission Status: Acute (7) Pneumonia Status: Acute (8) Tracheobronchitis Status: Acute Plan: Plan dated 11/19/2016. The patient will continue on updrafts and steroids and antibiotics. A showing some improvement. Chest x-ray is possibly consistent with pneumonia versus atelectasis. The patient does seem to be improving. We'll continue to follow. Meds labs and x-rays are all reviewed. Plan dated 11/20/2016 Medications labs and x-rays are reviewed. We'll continue with the current regimen short acting beta agonist short acting muscarinic antagonist long- acting beta agonist inhaled corticosteroids systemic corticosteroids and antibiotics. The patient's overall condition has improved. Probably discharge in 24 hours or so. Plan dated 11/21/2016 The patient is doing better. The patient could be discharged home. We'll allow the primary make a decision. Medications are appropriate. No discharge recommendations are made. If the patient is discharged, she should go home on a prednisone burst and taper beginning with 40 mg for 4 days 30 mg 4 days 20 mg for 4 days 10 mg 4 days and stop. She should also go home on a short course of antibiotics. Time with Patient: Less than 30
[2016-11-21 12:05] LABS: Glucose,Whole Blood 178 mg/dL (75-99)
--- NOTE | 2016-11-21 14:53 | XR ---
EXAMINATION TYPE: XR chest 2V DATE OF EXAM: 11/21/2016 2:46 PM COMPARISON: 11/19/2016 HISTORY: Pneumonia TECHNIQUE: Frontal and lateral views of the chest are obtained. FINDINGS: There is patchy linear density in the lingula left upper lobe. The right lung is fairly cl ear. There is no heart failure. There are no hilar masses. Bony thorax is intact. IMPRESSION: There is some patchy lingula infiltrate and atelectasis that is unchanged compared to [facility] st exam. There is improved aeration of the lateral right lung base compared to last exam.
[2016-11-21 16:47] LABS: Glucose,Whole Blood 145 mg/dL (75-99)
--- NOTE | 2016-11-21 16:56 | PN ---
DATE OF SERVICE: 11/21/2016 This is a 66-year-old woman who was admitted with COPD exacerbation, also had lingular pneumonia. The patient also had chronic obstructive respiratory failure. Patient is being closely monitored. Patient has significant shortness of breath at this time. Dr. Thapa is following the patient closely. On exam, alert and oriented x3. Pulse is 79, the blood pressure is 108/55, respirations 20, temperature is 98 degrees, pulse ox 100% on 4 L. HEENT: Conjunctivae normal. NECK: No jugular venous distension. CARDIOVASCULAR SYSTEM: S1, S2, muffled. RESPIRATORY: Decreased breath sounds at the bases, scattered rhonchi and expiratory wheezing and crackles. Abdomen is soft, nontender. EXTREMITIES: Legs no edema, no swelling. NERVOUS SYSTEM: No focal deficits. Labs are WBC 15.8, hemoglobin is 9.8. The chest x-ray COPD and cardiomegaly. ASSESSMENT: 1. Chronic obstructive pulmonary disease acute exacerbation with possible acute lingular pneumonia, possibly gram-negative. 2. Chronic hypoxic type 2 respiratory failure with hypercapnia/hypoxia. 3. Diabetes mellitus type 2, chronically on oral hypoglycemic. 4. Peripheral neuropathy secondary to diabetes mellitus type 2. 5. Diabetes mellitus type 2, uncontrolled on steroids. 6. History of hypertension. 7. History of hypothyroidism. 8. History of degenerative joint disease in multiple joints. 9. History of obesity with body mass index of 60.9. 10. Increased WBC. 11. Anemia, normocytic. 12. FULL CODE. RECOMMENDATION: In this 66-year-old woman who presented with multiple complex medical issues, will monitor the patient closely. Continue with the current medications. Continue with IV steroids, continue with the bronchodilators. Continue with antibiotics, continue with the rest of the medications. I would also recommend a repeat chest x-ray and guarded prognosis because of the multiple complex medical issues and further recommendations to follow.
[2016-11-21] MEDS: ENOXAPARIN 40 MG/0.4 ML SYRINGE SQ SCH (21:08)
[2016-11-21] MEDS: ATORVASTATIN 20 MG TAB PO SCH (21:08)
[2016-11-21 21:14] LABS: Glucose,Whole Blood 167 mg/dL (75-99)
[2016-11-22] MEDS: LEVOTHYROXINE 100 MCG TAB PO SCH (06:29)
[2016-11-22 07:38] LABS: Glucose,Whole Blood 115 mg/dL (75-99)
[2016-11-22] MEDS: INSULIN LISPRO (humaLOG) 300 UNIT/3 ML VIAL SQ SCH ×4 (07:41→21:31)
[2016-11-22] MEDS: glipiZIDE 5 MG TAB PO SCH ×4 (07:41→21:31)
[2016-11-22] MEDS: AZTREONAM 2 GM in SODIUM CHLORIDE 0.9% 100 ML IVPB SCH ×2 (08:06→15:57)
[2016-11-22] MEDS: methylPREDNISolone SOD SUCCI 40 MG/ML 1 ML VIAL IV SCH ×2 (08:06→21:31)
[2016-11-22] MEDS: metFORMIN 500 MG TAB PO SCH ×4 (08:06→21:31)
[2016-11-22] MEDS: FERROUS SULFATE 325 MG TAB PO SCH (08:07)
[2016-11-22] MEDS: FORMOTEROL FUMARATE 20 MCG/2 ML NEBU INHALATION SCH ×2 (08:07→20:44)
[2016-11-22] MEDS: ASPIRIN 81 MG CHEW PO SCH (08:07)
[2016-11-22] MEDS: FLUoxetine HCL 20 MG CAP PO SCH (08:07)
[2016-11-22] MEDS: BUDESONIDE 1 MG/2 ML NEBU INHALATION SCH ×2 (08:07→20:44)
[2016-11-22] MEDS: IPRATROPIUM-ALBUTEROL 3 ML NEB INHALATION SCH ×4 (08:07→20:44)
[2016-11-22] MEDS: ALPRAZolam 0.5 MG TAB PO SCH ×3 (08:07→21:31)
[2016-11-22] MEDS: ISOSORBIDE MONONITRATE ER 15 MG TAB PO SCH (08:08)
[2016-11-22] MEDS: LISINOPRIL 20 MG TAB PO SCH ×2 (08:08→21:32)
[2016-11-22] MEDS: GABAPENTIN 300 MG CAP PO SCH ×3 (08:08→21:31)
[2016-11-22] MEDS: guaiFENesin 600 MG TABLET.ER PO SCH ×2 (08:08→21:31)
[2016-11-22] MEDS: MONTELUKAST 10 MG TAB PO SCH (08:09)
[2016-11-22] MEDS: NICOTINE 14MG/24HR PATCH TRANSDERM SCH (08:09)
[2016-11-22] MEDS: THEOPHYLLINE 24 HOUR 300 MG CAP.ER.24H PO SCH ×2 (11:14→21:31)
[2016-11-22 12:08] LABS: Glucose,Whole Blood 106 mg/dL (75-99)
[2016-11-22 17:14] LABS: Glucose,Whole Blood 79 mg/dL (75-99)
--- NOTE | 2016-11-22 19:03 | PN ---
DATE OF SERVICE: 11/22/2016 This 66-year-old woman who was admitted with COPD, acute exacerbation, as well as lingular pneumonia, is improving significantly. No chest pain. No palpitation. No fever. On exam, alert and oriented x3. Pulse is 80, blood pressure 109/53, respiration 18, temperature 97.7, pulse ox 99% on 4 L. HEENT: Conjunctivae normal. Oral mucosa moist. NECK: No jugular venous distention. No carotid bruit. No lymph node enlargement. CARDIOVASCULAR SYSTEM: S1, S2 muffled. RESPIRATORY SYSTEM: Breath sounds diminished at the bases. Bilateral scattered rhonchi and coarse crackles heard bilaterally. ABDOMEN: Soft, nontender. No mass palpable. LEGS: No edema. No swelling. NERVOUS SYSTEM: Higher functions as mentioned earlier. Moves all 4 limbs. No focal motor or sensory deficit. LYMPHATICS: No lymph node palpable in neck, axillae or groin. Labs at this time show glucose 115, WBC 15.8. Hemoglobin is 9.8. ASSESSMENT: 1. Chronic obstructive pulmonary disease, acute exacerbation, with possible acute lingular pneumonia, possibly Gram-negative. 2. Chronic hypoxic type 2 respiratory failure with hypercapnia and hypoxia. 3. Diabetes mellitus, type 2, chronically on oral hypoglycemic. 4. Peripheral neuropathy secondary to diabetes mellitus, type 2. 5. Diabetes mellitus, type 2, uncontrolled, on steroids. 6. History of hypertension. 7. Hypothyroidism. 8. History of degenerative joint disease in multiple joints. 9. Obesity with body mass index of 60.9. 10. Increased white count. 11. Anemia, normocytic. 12. FULL CODE. RECOMMENDATIONS AND DISCUSSION: I recommend to continue with the current medications, continue with the monitoring, symptomatic treatment. Otherwise, at this time I recommend continuing with antibiotics. Patient is on azactam. I would also recommend tapering the dose of steroids further. Further recommendations to follow. Closely follow with Dr. Clements.
[2016-11-22 20:40] LABS: Glucose,Whole Blood 141 mg/dL (75-99)
--- NOTE | 2016-11-22 20:47 | P.PN ---
Subjective This is a 66-year-old here patient was admitted for an acute COPD exacerbation. The patient was also suspected to have a limited left lower lobe pulmonary infiltration. She is already feeling better. She is less short of breath. She has no fever chills or night sweats. No nausea or vomiting. No change in mental status. The tentative plan is to discharge this patient home in a.m. The patient is morbidly obese. Objective - Vital Signs Vital signs: Vital Signs Temp 99.6 F 11/22/16 15:00 Pulse 88 11/22/16 16:07 Resp 21 11/22/16 15:00 BP 111/48 11/22/16 15:00 Pulse Ox 99 11/22/16 15:00 Intake & Output 11/22/16 11/22/16 11/23/16 06:59 18:59 06:59 Intake Total 700 Balance 700 Weight 90.5 kg Intake: Oral 700 Other: Voiding Method Bedside Commode Bedside Commode # Voids 2 4 - Exam Obese, calm and comfortable, not in acute distress.Head exam was generally normal. There was no scleral icterus or corneal arcus. Mucous membranes were moist. Neck is short and supple and there is significant crowding of the posterior oropharynx. Lung sounds are diminished bilaterally otherwise clear. There is no significant wheezes overall currently crackles.Cardiac exam revealed the PMI to be normally situated and sized. The rhythm was regular and no extrasystoles were noted during several minutes of auscultation. The first and second heart sounds were normal and physiologic splitting of the second heart sound was noted. There were no murmurs, rubs, clicks, or gallops.Abdominal exam revealed normal bowel sounds. The abdomen was soft, non- tender, and without masses, organomegaly, or appreciable enlargement of the abdominal aorta.Examination of the extremities revealed easily palpable radial, femoral and pedal pulses. There was no cyanosis, clubbing or edema. - Labs CBC & Chem 7: 11/20/16 07:44 11/20/16 07:44 Labs: Abnormal Lab Results - Last 24 Hours (Table) 11/21/16 11/22/16 11/22/16 Range/Units 20:54 07:28 11:45 POC Glucose (mg/dL) 167 H 115 H 106 H (75-99) mg/dL 11/22/16 Range/Units 20:24 POC Glucose (mg/dL) 141 H (75-99) mg/dL Microbiology - Last 24 Hours (Table) 11/18/16 15:49 Blood Culture - Preliminary Blood No Growth after 96 hours 11/18/16 15:19 Blood Culture - Preliminary Blood No Growth after 96 hours Assessment and Plan Plan: Assessment 1 acute COPD exacerbation, improving 2 morbid obesity 3 chronic hypoxic respiratory failure 4 diabetes mellitus type 2 5 peripheral neuropathy 6 hypothyroidism 7 osteoarthritis 8 morbid obesity with a BMI of 58.4 Plan Continue DuoNeb nebulized treatments around the clock. Levaquin empiric antibiotic coverage in conjunction with aztreonam. IV several Medrol for today and this will be switched to prednisone burst taper as of tomorrow. Nicotine patches for smoking cessation. Continue theophylline. Potential discharge in a.m.
[2016-11-22] MEDS: ENOXAPARIN 40 MG/0.4 ML SYRINGE SQ SCH (21:31)
[2016-11-22] MEDS: ATORVASTATIN 20 MG TAB PO SCH (21:31)
[2016-11-22] MEDS ORDERED: ONDANSETRON 4 MG/2 ML VIAL IVP PRN (22:07)
[2016-11-22] MEDS: PANTOPRAZOLE 40 MG/10 ML VIAL IVP SCH (22:41)
[2016-11-23] MEDS: AZTREONAM 2 GM in SODIUM CHLORIDE 0.9% 100 ML IVPB SCH ×2 (00:24→08:31)
[2016-11-23] MEDS: LEVOTHYROXINE 100 MCG TAB PO SCH (06:28)
[2016-11-23 07:07] LABS: Glucose,Whole Blood 131 mg/dL (75-99)
[2016-11-23 07:24] VITALS: BP 112/47; RESP 22; TEMP 97.4
[2016-11-23] MEDS: INSULIN LISPRO (humaLOG) 300 UNIT/3 ML VIAL SQ SCH (08:30)
[2016-11-23] MEDS: glipiZIDE 5 MG TAB PO SCH ×2 (08:30→12:27)
[2016-11-23] MEDS: ASPIRIN 81 MG CHEW PO SCH (08:31)
[2016-11-23] MEDS: ALPRAZolam 0.5 MG TAB PO SCH (08:31)
[2016-11-23] MEDS: metFORMIN 500 MG TAB PO SCH ×2 (08:31→12:28)
[2016-11-23] MEDS: LEVOFLOXACIN 750 MG TAB PO SCH (08:32)
[2016-11-23] MEDS: guaiFENesin 600 MG TABLET.ER PO SCH (08:32)
[2016-11-23] MEDS: LISINOPRIL 20 MG TAB PO SCH (08:32)
[2016-11-23] MEDS: GABAPENTIN 300 MG CAP PO SCH (08:32)
[2016-11-23] MEDS: FLUoxetine HCL 20 MG CAP PO SCH (08:32)
[2016-11-23] MEDS: ISOSORBIDE MONONITRATE ER 15 MG TAB PO SCH (08:32)
[2016-11-23] MEDS: methylPREDNISolone SOD SUCCI 40 MG/ML 1 ML VIAL IV SCH (08:33)
[2016-11-23] MEDS: MONTELUKAST 10 MG TAB PO SCH (08:33)
[2016-11-23] MEDS: NICOTINE 14MG/24HR PATCH TRANSDERM SCH (08:33)
[2016-11-23] MEDS: THEOPHYLLINE 24 HOUR 300 MG CAP.ER.24H PO SCH (08:33)
[2016-11-23] MEDS: PANTOPRAZOLE 40 MG/10 ML VIAL IVP SCH (08:33)
[2016-11-23] MEDS: FERROUS SULFATE 325 MG TAB PO SCH (08:34)
[2016-11-23] MEDS: BUDESONIDE 1 MG/2 ML NEBU INHALATION SCH (08:45)
[2016-11-23] MEDS: IPRATROPIUM-ALBUTEROL 3 ML NEB INHALATION SCH ×2 (08:45→12:28)
[2016-11-23] MEDS: FORMOTEROL FUMARATE 20 MCG/2 ML NEBU INHALATION SCH (08:46)
[2016-11-23] MEDS ORDERED: LACTOBACILLUS ACIDOPH & BULGAR 1 EACH PACKET PO SCH (09:00)
[2016-11-23 10:03] LABS: Basophils # (A) 0.2 k/uL (0-0.2); Basophils % (A) 1 %; CH 30.5; CHCM 32.7; Eosinophils # (A) 0.1 k/uL (0-0.7); Eosinophils % (A) 0 %; HCT 24.6 % (34.0-46.0); HDW 2.94; Luc % (Auto) 2; Lymphocytes # (A) 4.3 k/uL (1.0-4.8); Lymphocytes % (A) 19 %; MCH 30.4 pg (25.0-35.0); MCHC 32.4 g/dL (31.0-37.0); MCV 93.8 fL (80.0-100.0); Mean Platelet Volume 6.9; Monocytes # (A) 1.2 k/uL (0-1.0); Monocytes % (A) 5 %; Neutrophils # (A) 16.7 k/uL (1.3-7.7); Neutrophils % (A) 73 %; RBC 2.62 m/uL (3.80-5.40); WBC 22.9 k/uL (3.8-10.6); WBC (Perox) 22.98
[2016-11-23 10:15] LABS: Anion Gap 12 mmol/L; Blood Urea Nitrogen 54 mg/dL (7-17); Calcium 8.9 mg/dL (8.4-10.2); Carbon Dioxide 19 mmol/L (22-30); Chloride 107 mmol/L (98-107); Glucose 106 mg/dL (74-99); Non-African American GFR(MDRD) >60 (>60 ml/min/1.73 sqM); Sodium 138 mmol/L (137-145)
[2016-11-23 12:06] LABS: Glucose,Whole Blood 184 mg/dL (75-99)
[2016-11-23 12:42] VITALS: PULSE 86
--- NOTE | 2016-11-23 13:08 | P.PN ---
Subjective This is a 66-year-old here patient was admitted for an acute COPD exacerbation. The patient was also suspected to have a limited left lower lobe pulmonary infiltration. She is already feeling better. She is less short of breath. She has no fever chills or night sweats. No nausea or vomiting. No change in mental status. The tentative plan is to discharge this patient home in a.m. The patient is morbidly obese. On 11/23/2016 the patient is looking well. He is ambulating. She has no complaints. She is not having any major respiratory difficulties. No fever or chills. No chest pain. No other significant events over the past 24 hours. The plan is to discharge this patient home on a prednisone burst taper. Objective - Vital Signs Vital signs: Vital Signs Temp 97.4 F L 11/23/16 07:00 Pulse 86 11/23/16 12:41 Resp 22 11/23/16 08:46 BP 112/47 11/23/16 07:00 Pulse Ox 100 11/23/16 08:30 Intake & Output 11/22/16 11/23/16 11/23/16 18:59 06:59 18:59 Intake Total 200 240 Balance 200 240 Weight 80.5 kg Intake: Oral 200 240 Other: Voiding Method Bedside Commode Bedside Commode # Voids 4 1 1 # Bowel Movements 3 0 - Exam Obese, calm and comfortable, not in acute distress.Head exam was generally normal. There was no scleral icterus or corneal arcus. Mucous membranes were moist. Neck is short and supple and there is significant crowding of the posterior oropharynx. Lung sounds are diminished bilaterally otherwise clear. There is no significant wheezes overall currently crackles.Cardiac exam revealed the PMI to be normally situated and sized. The rhythm was regular and no extrasystoles were noted during several minutes of auscultation. The first and second heart sounds were normal and physiologic splitting of the second heart sound was noted. There were no murmurs, rubs, clicks, or gallops.Abdominal exam revealed normal bowel sounds. The abdomen was soft, non- tender, and without masses, organomegaly, or appreciable enlargement of the abdominal aorta.Examination of the extremities revealed easily palpable radial, femoral and pedal pulses. There was no cyanosis, clubbing or edema. - Labs CBC & Chem 7: 11/23/16 09:00 11/23/16 09:00 Labs: Abnormal Lab Results - Last 24 Hours (Table) 11/22/16 11/23/16 11/23/16 Range/Units 20:24 06:55 09:00 WBC 22.9 H (3.8-10.6) k/uL RBC 2.62 L (3.80-5.40) m/uL Hgb 8.0 L D (11.4-16.0) gm/dL Hct 24.6 L (34.0-46.0) % Neutrophils # 16.7 H (1.3-7.7) k/uL Monocytes # 1.2 H (0-1.0) k/uL Carbon Dioxide (22-30) mmol/L BUN (7-17) mg/dL Glucose (74-99) mg/dL POC Glucose (mg/dL) 141 H 131 H (75-99) mg/dL 11/23/16 11/23/16 Range/Units 09:00 12:02 WBC (3.8-10.6) k/uL RBC (3.80-5.40) m/uL Hgb (11.4-16.0) gm/dL Hct (34.0-46.0) % Neutrophils # (1.3-7.7) k/uL Monocytes # (0-1.0) k/uL Carbon Dioxide 19 L (22-30) mmol/L BUN 54 H (7-17) mg/dL Glucose 106 H (74-99) mg/dL POC Glucose (mg/dL) 184 H (75-99) mg/dL Microbiology - Last 24 Hours (Table) 11/18/16 15:49 Blood Culture - Preliminary Blood No Growth after 96 hours 11/18/16 15:19 Blood Culture - Preliminary Blood No Growth after 96 hours Assessment and Plan Plan: Assessment 1 acute COPD exacerbation, improving 2 morbid obesity 3 chronic hypoxic respiratory failure 4 diabetes mellitus type 2 5 peripheral neuropathy 6 hypothyroidism 7 osteoarthritis 8 morbid obesity with a BMI of 58.4 9 CHF with a ejection fraction of 35-40% 10 diabetes mellitus type 2 Plan Agree on discharging this patient home today. The patient will need smoking cessation and. Nicotine patches for smoking cessation. Continue theophylline. Continue the albuterol and ipratropium neb last treatment [id number]. Resume her home inhalers which include DuoNeb the restroom is [id number] as needed, Combivent as needed, maintenance of 10 mg of prednisone, Pulmicort Respules twice a day
[2016-11-24] MEDS ORDERED: PANTOPRAZOLE 40 MG TABLET PO SCH (07:30)
--- NOTE | 2016-11-24 11:13 | DS ---
DATE OF ADMISSION: 11/18/2016 DATE OF DISCHARGE: 11/23/2016 DATE OF SERVICE: 11/23/2016 FINAL DIAGNOSES: 1. Chronic obstructive pulmonary disease acute exacerbation with possible acute lingular pneumonia, possibly gram negative. 2. Chronic hypoxic type respiratory failure with hypercapnia hypoxia. 3. Diabetes mellitus type 2, chronically on oral hypoglycemics. 4. History of peripheral neuropathy secondary to diabetes mellitus type 2. 5. Diabetes type 2, uncontrolled on steroids. 6. History of hypertension. 7. Hypothyroidism. 8. History of degenerative joint disease of multiple joints. 9. Obesity with body mass index of 60.9. 10. Increased WBC. 11. Anemia, normocytic. 12. FULL CODE. 13. Chronic hypoxic respiratory failure on 3.5 L of nasal cannula. DISCHARGE DISPOSITION: The patient will be discharged in stable condition with guarded prognosis. Pulmonary cleared the patient for discharge. HISTORY OF PRESENT ILLNESS: This 66year-old woman with a past medical history of multiple medical problems being followed by Dr. Vera in the outpatient setting was admitted with COPD acute exacerbation as well as respiratory failure and pneumonia. The patient treated with bronchodilators and antibiotics. The patient improved significantly. Dr. Clements saw the patient during the hospital stay. Chest x-ray was reviewed. On exam, vitals are stable. CARDIOVASCULAR: S1 and S2, muffled. RESPIRATORY: A few rhonchi. ABDOMEN: Soft. NERVOUS SYSTEM: No focal deficit. DISCHARGE ADVICE: 1. Diet is cardiac. 2. Activity limited until followup. 3. Follow up with Dr. Thapa in 2 weeks. 4. Follow up with Dr. Vera in 2 to 3 days. The medications will be as follows: 1. Xanax 1 mg p.o. t.i.d. 2. Ventolin HFA 1 to 2 p.r.n. 3. Aspirin 81 mg daily. 4. Pulmicort 0.5 b.i.d. 5. Prozac 20 mg p.o. daily. 6. Iron sulfate 325 mg p.o. daily. 7. Lasix 40 mg p.o. daily p.r.n. for edema. 8. Neurontin 600 mg t.i.d. 9. Hydrocodone 1 tablet t.i.d. p.r.n. 10. Boniva 150 mg p.o. q.. 11. Lispro scale insulin. 12. Albuterol Atrovent updrafts q.i.d. and p.r.n. 13. Imdur ER 15 mg p.o. daily. 14. Lactobacillus acidophilus 1 p.o. b.i.d. 15. Synthroid 200 mcg p.o. daily. 16. Zestril 20 mg p.o. b.i.d. 17. Singulair 10 mg p.o. daily. 18. Habitrol 14 daily. 19. No smoking. 20. Protonix 40 mg daily. 21. Zocor 40 mg q.h.s. 22. Chris-24, 300 mg p.o. b.i.d. 23. Benadryl 50 mg p.o. q.i.d. p.r.n. 24. Glyburide, metformin 1 tablet p.o. a.c. and at bedtime. 25. Mucinex 1200 mg p.o. b.i.d. 26. Prednisone taper that will be 40 mg daily for 3 days, 30 for 3 days, 20 for 3 days and 10 for 3 days. 27. Accu-Cheks a.c. and at bedtime and results to Dr. Vera. 28. Otherwise, oxygen 3.5.nasal cannula. Once again, the patient will be discharged in stable condition with guarded prognosis. MTDD
== END 2016-11-23 13:26 | disposition home or self-care (01) | DRG 190 ==
LOC: EC 09:53 → 4MS4W 11:42
PROVIDERS: ADMIT Hospitalist; ATTEND Hospitalist
DX: J44.0 Chronic obstructive pulmonary disease with (acute) lower respiratory infection (principal); J15.6 Pneumonia due to other Gram-negative bacteria; J96.21 Acute and chronic respiratory failure with hypoxia; I50.22 Chronic systolic (congestive) heart failure; J96.22 Acute and chronic respiratory failure with hypercapnia; Z68.43 Body mass index [BMI] 50.0-59.9, adult; J98.11 Atelectasis; E66.01 Morbid (severe) obesity due to excess calories; Z99.81 Dependence on supplemental oxygen; E11.42 Type 2 diabetes mellitus with diabetic polyneuropathy; I11.0 Hypertensive heart disease with heart failure; J44.1 Chronic obstructive pulmonary disease with (acute) exacerbation; E11.65 Type 2 diabetes mellitus with hyperglycemia; G47.33 Obstructive sleep apnea (adult) (pediatric); E03.9 Hypothyroidism, unspecified; F32.9 Major depressive disorder, single episode, unspecified; F41.1 Generalized anxiety disorder; F17.200 Nicotine dependence, unspecified, uncomplicated; E78.5 Hyperlipidemia, unspecified; M19.91 Primary osteoarthritis, unspecified site; K21.9 Gastro-esophageal reflux disease without esophagitis; J45.909 Unspecified asthma, uncomplicated; F12.90 Cannabis use, unspecified, uncomplicated; D64.9 Anemia, unspecified; L40.9 Psoriasis, unspecified; Z90.49 Acquired absence of other specified parts of digestive tract; Z96.653 Presence of artificial knee joint, bilateral; Z79.82 Long term (current) use of aspirin; Z79.84 Long term (current) use of oral hypoglycemic drugs; Z79.4 Long term (current) use of insulin; Z79.51 Long term (current) use of inhaled steroids; Z79.899 Other long term (current) drug therapy
CPT/HCPCS: 36415; 71020; 80048; 80053; 83036; 83735; 85025; 87040; 87070; 87205; 87502; 94640; 94760; 96365; 99285

== ENCOUNTER 2017-01-23 08:52 | Inpatient (IN) | payer MEDICARE, BC ==
[2017-01-23 12:16] LABS: Glucose,Whole Blood 288 mg/dL (75-99)
[2017-01-23 12:39] LABS: Anion Gap 12 mmol/L; Blood Urea Nitrogen 13 mg/dL (7-17); Calcium 8.9 mg/dL (8.4-10.2); Carbon Dioxide 26 mmol/L (22-30); Chloride 103 mmol/L (98-107); Glucose 279 mg/dL (74-99); Non-African American GFR(MDRD) >60 (>60 ml/min/1.73 sqM); Potassium 4.2 mmol/L (3.5-5.1); Sodium 141 mmol/L (137-145)
[2017-01-23 12:44] LABS: Anisocytosis Slight; Basophils % (A) 0 %; CH 21.9; CHCM 27.4; Eosinophils % (A) 0 %; HDW 4.21; HGB 8.2 gm/dL (11.4-16.0); Hypochromasia Marked; Luc # (Auto) 0.26; Luc % (Auto) 1; Lymphocytes # (A) 0.6 k/uL (1.0-4.8); Lymphocytes % (A) 3 %; MCH 22.6 pg (25.0-35.0); MCHC 28.3 g/dL (31.0-37.0); Mean Platelet Volume 6.5; Microcytosis Slight; Monocytes # (A) 0.7 k/uL (0-1.0); Monocytes % (A) 4 %; Neutrophils # (A) 19.3 k/uL (1.3-7.7); Neutrophils % (A) 92 %; Poikilocytosis Moderate; RBC 3.63 m/uL (3.80-5.40); RDW 17.2 % (11.5-15.5); WBC (Perox) 22.99
[2017-01-23 12:49] LABS: MCV 79.8 fL (80.0-100.0)
[2017-01-23] MEDS: LEVOFLOXACIN 500MG-D5W PMX 500 MG in DEXTROSE/WATER 1 100ML.BAG IVPB SCH (12:53)
[2017-01-23] MEDS: predniSONE 20 MG TAB PO SCH (12:53)
[2017-01-23] MEDS: INSULIN LISPRO (humaLOG) 300 UNIT/3 ML VIAL SQ SCH ×3 (12:54→21:19)
[2017-01-23] MEDS: BUDESONIDE 0.5 MG/2 ML NEBU INHALATION SCH ×2 (13:44→20:33)
[2017-01-23] MEDS: IPRATROPIUM-ALBUTEROL 3 ML NEB INHALATION SCH ×3 (13:45→20:33)
[2017-01-23] MEDS ORDERED: HYDROcodone/APAP 7.5-325MG 1 EACH TAB PO PRN (14:14)
[2017-01-23] MEDS ORDERED: FUROSEMIDE 40 MG TAB PO PRN (14:28)
[2017-01-23] MEDS: GABAPENTIN 300 MG CAP PO SCH ×2 (15:01→21:20)
--- NOTE | 2017-01-23 15:06 | XR ---
EXAMINATION TYPE: XR chest 2V DATE OF EXAM: 01/23/2017 2:28 PM COMPARISON: Today HISTORY: Short of breath TECHNIQUE: Frontal and lateral views of the chest are obtained. FINDINGS: There is slight blunting of costophrenic angles. I see no definite heart failure. Heart ap pears enlarged. Thoracic aorta shows mild atheromatous change. There are no definite hilar masses. IMPRESSION: No definite heart failure. Probable small pleural effusions. No change compared to [facility] monique exam at 7:00 AM this morning. No pulmonary consolidation.
[2017-01-23] MEDS ORDERED: SODIUM CHLORIDE 0.9% 1,000 ML IV ONE (15:53)
[2017-01-23] MEDS: SODIUM CHLORIDE 0.9% 1,000 ML IV SCH (16:22)
[2017-01-23 17:10] LABS: Glucose,Whole Blood 275 mg/dL (75-99)
[2017-01-23] MEDS ORDERED: INSULIN LISPRO (humaLOG) 300 UNIT/3 ML VIAL SQ SCH (17:30)
[2017-01-23 18:10] LABS: INR 1.2 (<1.1); Prothrombin Time 12.2 sec (9.0-12.0)
[2017-01-23] MEDS: ATORVASTATIN 20 MG TAB PO SCH (21:20)
[2017-01-23] MEDS: guaiFENesin 600 MG TABLET.ER PO SCH (21:20)
[2017-01-23] MEDS: THEOPHYLLINE 24 HOUR 300 MG CAP.ER.24H PO SCH (21:20)
[2017-01-23 21:21] LABS: Glucose,Whole Blood 268 mg/dL (75-99)
--- NOTE | 2017-01-23 21:32 | HP ---
DATE OF ADMISSION: 01/23/2017 Patient is 66-year-old female was seen in [facility] and was transferred here. Patient presented there with severe shortness of breath, wheezing, and patient was found to have a high-grade fever. Patient was found to have right lower lobe pneumonia. Patient was subsequently transferred here and patient does have elevated WBC count of 21,000. Patient wheezing did improve and patient is on 4 liters of oxygen here. Patient apparently uses 3.5 liters at home. Patient all the symptoms started yesterday after she went out when her son was mowing the lawn she says. Patient's shortness of breath improved. Patient was given 3 breathing treatments. The patient has advanced COPD , Gold stage IV follows with Dr. Clements as an outpatient. Dr. Vera as an outpatient. Patient denied any abdominal pain. Patient is complaining of cough with greenish sputum production. ALLERGIES: BETA LACTAMS because of which I am giving her levofloxacin IV. Patient qualifies for ( ) pneumonia since she was hospitalized couple of months ago, as patient is allergic to multiple medications and patient improved on levofloxacin. I will continue with levofloxacin for now. REVIEW OF SYSTEMS: CONSTITUTIONAL: No fever, no malaise, no fatigue. HEENT: No recent visual problems or hearing problems. Denied any sore throat. CARDIOVASCULAR: No chest pain, orthopnea, PND, no palpitations, no syncope. PULMONARY: as described in HPI. GASTROINTESTINAL: No diarrhea, no nausea, no vomiting, no abdominal pain. Normoactive bowel sounds. NEUROLOGICAL: No headaches, no weakness, no numbness. HEMATOLOGICAL: Denies any bleeding or petechiae. GENITOURINARY: Denies any burning micturition, frequency, or urgency. MUSCULOSKELETAL/RHEUMATOLOGICAL: Denies any joint pain, swelling, or any muscle pain. ENDOCRINE: Denies any polyuria or polydipsia. The rest of the 14 point review of systems is negative. Home medications include: 1. Guaifenesin. 2. Potassium chloride. 3. Boniva. 4. Prednisone. 5. Guaifenesin. 6. Glyburide/metformin. 7. Diphenhydramine. 8. Theophylline. 9. Simvastatin. 10. Montelukast. 11. Levothyroxine 200 mcg p.o. daily. 12. Isosorbide mononitrate. 13. Hydrocodone acetaminophen. 14. Gabapentin. 15. Lasix 40 p.o. daily. 16. Ferrous sulfate. 17. Fluoxetine. 18. Budesonide. 19. Aspirin. 20. Alprazolam. Past medical history is significant for: COPD , chronic respiratory failure, diabetes mellitus, hyperlipidemia, hypertension, osteoarthritis, sleep apnea, hypothyroidism, and patient has appendectomy, cholecystectomy, cardiac catheterization, joint replacement surgery, tonsillectomy, tubal ligation surgery, anxiety, depression. SOCIAL HISTORY: The patient continues to smoke 1/2 pack per day. Denied any alcohol abuse or drug abuse. Patient has a long-term smoking history. FAMILY HISTORY: Significant for uterine cancer. PHYSICAL EXAMINATION: VITAL SIGNS: Temperature 98.1, pulse of 96, respiratory rate of 24. Blood pressure 138/79, patient is saturating well at 97% on 4 liters by cannula O2. GENERAL: The patient is alert and oriented x3, not in any acute distress. Well developed, well nourished. HEENT: Pupils are round and equally reacting to light. EOMI. No scleral icterus. No conjunctival pallor. Normocephalic, atraumatic. No pharyngeal erythema. No thyromegaly. CARDIOVASCULAR: S1 and S2 present. No murmurs, rubs, or gallops. PULMONARY: Significant wheezing, expiratory wheezing. Patient does have crackles in right lower lung base. ABDOMEN: Soft, nontender, nondistended, normoactive bowel sounds. No palpable organomegaly. MUSCULOSKELETAL: No joint swelling or deformity. EXTREMITIES: No cyanosis, clubbing, or pedal edema. NEUROLOGICAL: Gross neurological examination did not reveal any focal deficits. SKIN: No rashes. LABORATORY DATA: CBC and BMP abnormal for elevated WBC count of 21,000. Chest x-ray showed right lower lobe pneumonia and I am repeating a chest x-ray here. I cannot open the images from the other hospital. ASSESSMENT AND PLAN: 1. Acute on chronic hypercapnic respiratory failure secondary to chronic obstructive pulmonary disease exacerbation. The patient started on broad-spectrum antibiotics for her pneumonia and chronic obstructive pulmonary disease systemic steroids, inhalational treatments. 2. Sepsis secondary to right lower lobe pneumonia for which patient was started on above mentioned antibiotics that is Levofloxacin. 3. Hyperlipidemia. Blood sugars are expected to go up because of steroids. Patient on oral steroids at this point of time. Pulmonology will be consulted. 4. We will obtain lactic acid and until then we will hold off on Lasix. 5. Patient has a history of takotsubo, presently normal ejection fraction EF of around 65%. 6. Hypertension. 7. Sleep apnea. 8. Hypothyroidism. 9. Continued nicotine abuse. Extensive counselling was provided regarding that. 10. Diabetic neuropathy. 11. Depression. For above-mentioned chronic medical problems I will go ahead and continue her home medications. 12. Leukocytosis due to severe sepsis from pneumonia.
[2017-01-24] MEDS: SODIUM CHLORIDE 0.9% 1,000 ML IV SCH ×2 (02:47→13:17)
[2017-01-24] MEDS: LEVOTHYROXINE 100 MCG TAB PO SCH (06:03)
[2017-01-24 07:00] LABS: Glucose,Whole Blood 200 mg/dL (75-99)
[2017-01-24] MEDS: IPRATROPIUM-ALBUTEROL 3 ML NEB INHALATION SCH ×4 (07:36→19:25)
[2017-01-24] MEDS: BUDESONIDE 0.5 MG/2 ML NEBU INHALATION SCH ×2 (07:37→19:25)
[2017-01-24 08:02] LABS: Hemoglobin A1C 6.5 % (4.2-6.1)
[2017-01-24] MEDS: INSULIN LISPRO (humaLOG) 300 UNIT/3 ML VIAL SQ SCH ×4 (08:02→22:00)
[2017-01-24] MEDS: FLUoxetine HCL 20 MG CAP PO SCH (08:02)
[2017-01-24] MEDS: GABAPENTIN 300 MG CAP PO SCH ×3 (08:03→22:00)
[2017-01-24] MEDS: guaiFENesin 600 MG TABLET.ER PO SCH ×2 (08:03→20:20)
[2017-01-24] MEDS: ISOSORBIDE MONONITRATE ER 15 MG TAB PO SCH (08:04)
[2017-01-24] MEDS: predniSONE 20 MG TAB PO SCH (08:04)
[2017-01-24] MEDS: MONTELUKAST 10 MG TAB PO SCH (08:04)
[2017-01-24] MEDS: THEOPHYLLINE 24 HOUR 300 MG CAP.ER.24H PO SCH ×2 (08:05→20:21)
[2017-01-24 11:50] LABS: Glucose,Whole Blood 264 mg/dL (75-99)
--- NOTE | 2017-01-24 12:28 | PN ---
The patient is admitted for COPD exacerbation. Patient is otherwise clinically doing well today. Patient is still wheezing a little bit. REVIEW OF SYSTEMS: CARDIOVASCULAR: No chest pain, no orthopnea, no PND, no palpitations. RESPIRATORY: Improved shortness of breath. GASTROINTESTINAL: No diarrhea, nausea or vomiting. No abdominal pain. Normoactive bowel sounds. NEUROLOGIC: No headaches, no weakness, no numbness. Medications were reviewed. PHYSICAL EXAMINATION: VITAL SIGNS: Temperature 97.8, pulse of 80, respiratory rate of 20, blood pressure is 136/83, saturating at 100% on 4 L which we will cut it down. We only need saturations at around ( )%. GENERAL: The patient is alert and oriented x3, not in any acute distress. Well developed, well nourished. HEENT: Pupils are round and equally reacting to light. EOMI. No scleral icterus. No conjunctival pallor. Normocephalic, atraumatic. No pharyngeal erythema. No thyromegaly. CARDIOVASCULAR: S1 and S2 present. No murmurs, rubs, or gallops. RESPIRATORY: Patient continues to have expiratory wheezing, fairly good air entry into lungs and her wheezing significantly improved compared to yesterday. ABDOMEN: Soft, nontender, nondistended, normoactive bowel sounds. No palpable organomegaly. MUSCULOSKELETAL: No joint swelling or deformity. EXTREMITIES: No cyanosis, clubbing, or pedal edema. NEUROLOGICAL: Gross neurological examination did not reveal any focal deficits. SKIN: No rashes. LABORATORY DATA: None available from today. Patient had severe leukocytosis of 21,000 yesterday. ASSESSMENT AND PLAN: 1. Acute on chronic hypercapnic respiratory failure secondary to chronic obstructive pulmonary disease exacerbation with the possibility of right lower lobe pneumonia. Patient will be continued on present antibiotic and inhalational treatments. 2. Sepsis secondary to possibility of right lower lobe pneumonia, although x-ray today from this hospital is not showing any pneumonic infiltrate. 3. Hyperlipidemia. 4. History of Takotsubo with normal ejection fraction presently. Patient may not require any anymore Lasix upon discharge. 5. Looking at the x-ray, I cannot completely rule out right lower lobe pneumonia, particularly in the lateral view. 6. Hypertension. 7. Sleep apnea. 8. Hypothyroidism. 9. Continued nicotine use. Counseling was provided. 10. Diabetic neuropathy. 11. Depression. For above-mentioned chronic medical problems, I will go ahead and continue her home medications.
[2017-01-24] MEDS: FERROUS SULFATE 325 MG TAB PO SCH (13:15)
[2017-01-24] MEDS: LEVOFLOXACIN 500MG-D5W PMX 500 MG in DEXTROSE/WATER 1 100ML.BAG IVPB SCH (13:16)
[2017-01-24] MEDS: ALPRAZolam 0.5 MG TAB PO PRN ×2 (16:48→23:41)
--- NOTE | 2017-01-24 16:49 | P.CNPUL ---
History of Present Illness Consult date: 01/24/17 Reason for consult: dyspnea History of present illness: This is a 66-year-old female patient with advanced oxygen-dependent COPD with a transferred to the ED for increased shortness of breath. This is the patient's fourth hospitalization for this current year for respiratory complications. The patient has advanced COPD and she is oxygen dependent. Recently she was given a also a noninvasive positive pressure ventilator-AVAPS machine which is set at a tidal volume 450, PEEP of 5, pressure support maximum of 14 and a minimum of 8, respiratory rate of 15 and the IT of 0.6-1.5. The patient is utilizing the machine every night without interruption. She is also known to have CHF and she has had a remote history of takasubo syndrome and her ejection fraction one point was measured to be somewhat between 35-40%. She is known to be diabetic and she is morbidly obese with a BMI of 41.9 and she has hypothyroidism peripheral neuropathy and osteoarthritis and generalized anxiety disorder. The patient comes in to the hospital because of increased shortness of breath. She unfortunately continues to smoke cigarettes around half pack of cigarette daily basis the patient has increased cough and chest congestion and wheezing and she was found to have a high-grade fever and her chest x-ray indicated the possibility of a right lower lobe pneumonia. The white cell count was 21,000. She was on oxygen at 4 L/m nasal cannula. No chest pain. No pleurisy. No nausea vomiting for now abdominal pain no change in mental status. She has been maintained on a combination of Brovana and Pulmicort neb last treatment [id number]. She is steroid dependent prednisone at 10 mg. She also utilize oxygen 3 and half liters per minute nasal cannula. She is also on theophylline.. Review of Systems A 12 point review of system was done and the positive findings are almost above in history of present illness. Past Medical History Past Medical History: Asthma, Heart Failure, COPD, Diabetes Mellitus, GERD/ Reflux, Hyperlipidemia, Hypertension, Osteoarthritis (OA), Respiratory Disorder , Skin Disorder, Sleep Apnea/CPAP/BIPAP, Thyroid Disorder Additional Past Medical History / Comment(s): Pt has been at [facility] recently and was vented for one week, she then went to rehab. She presented to [facility] 11/18/16 and was diagnosed with pneumonia/exacerbation COPD. She was transferred to [facility]. Other hX: Advanced COPD with chronic hypoxic respiratory failure. CHF with an ejection fraction of 35-40%,leg edema, history of takotsubo syndrome and normal coronaries as evident on her cardiac catheterization, diabetes mellitus type 2, obesity, obstructive sleep apnea- uses noninvasive ventilator, hypothyroidism, peripheral neuropathy secondary to diabetes mellitus-bilateral feet, arthritis multiple joints and entire back, psoriasis, sinus problems. History of Any Multi-Drug Resistant Organisms: None Reported Past Surgical History: Appendectomy, Cholecystectomy, Heart Catheterization, Joint Replacement, Tonsillectomy, Tubal Ligation Additional Past Surgical History / Comment(s): 08/2015 normal cardiac cath, 2015 normal cardiac cath, bilateral total knee arthroplasty. Past Anesthesia/Blood Transfusion Reactions: No Reported Reaction Past Psychological History: Anxiety, Depression Additional Psychological History / Comment(s): Pt lives with her son and daughter. She has O2 at 3.5L/NC ATC. She has a noninvasive ventilator. She drives. She has used home care in the past and just recently she used [facility]. Smoking Status: Current every day smoker Past Alcohol Use History: None Reported Additional Past Alcohol Use History / Comment(s): Pt started smoking in 1971 and is cutting down. She is now smoking less than 1/2 ppd. Past Drug Use History: Marijuana Additional Drug Use History / Comment(s): Patient states she uses marijuana ( edibles) to help with pain on occasion. - Past Family History Father History Unknown: Yes Family Medical History: No Reported History Mother Family Medical History: Cancer Additional Family Medical History / Comment(s): uterine cancer Medications and Allergies Home Medications Medication Instructions Recorded Confirmed Type ALPRAZolam [Xanax] 1 mg PO TID 08/25/15 01/23/17 History FLUoxetine HCL [PROzac] 20 mg PO DAILY 08/25/15 01/23/17 History Gabapentin [Neurontin] 600 mg PO TID 08/25/15 01/23/17 History Hydrocodone/Acetaminophen [[place] 1 tab PO TID PRN 08/25/15 01/23/17 History 7.5-325] Ibandronate Sodium [Boniva] 150 mg PO Q30D 08/25/15 01/23/17 History Levothyroxine Sodium [Synthroid] 200 mcg PO DAILY 08/25/15 01/23/17 History Montelukast [Singulair] 10 mg PO DAILY 08/25/15 01/23/17 History Theophylline 24 Hour [Chris-24] 300 mg PO BID 08/25/15 01/23/17 History glyBURIDE/METFORMIN HCL 1 tab PO QID 08/25/15 01/23/17 History [glyBURIDE/METFORMIN HCL 2.5-500 mg] guaiFENesin [Mucinex] 1,200 mg PO BID 08/25/15 01/23/17 History Ferrous Sulfate [Feosol] 325 mg PO DAILY 01/27/16 01/23/17 History Ipratropium-Albuterol Nebulize 3 ml INHALATION RT-QID 01/27/16 01/23/17 History [Duoneb 0.5 mg-3 mg/3 ml Soln] Aspirin 81 mg PO DAILY 11/18/16 01/23/17 History Budesonide [Pulmicort] 0.5 mg INHALATION RT-BID 11/18/16 01/23/17 History Furosemide [Lasix] 40 mg PO DAILY PRN 11/18/16 01/23/17 History Insulin Lispro [humaLOG Kwikpen] See Protocol SQ TID 11/18/16 01/23/17 History diphenhydrAMINE HCL [Benadryl] 50 mg PO QID PRN 11/18/16 01/23/17 History Potassium Chloride [Klor-Con 10] 10 meq PO DAILY 01/23/17 01/23/17 History guaiFENesin-DM 100-10MG/5ML 3.5 ml PO BID PRN 01/23/17 01/23/17 History [Robitussin DM] predniSONE 10 mg PO DAILY 01/23/17 01/23/17 History Allergies Allergy/AdvReac Type Severity Reaction Status Date / Time cefotaxime sodium Allergy Anaphylaxis Verified 01/23/17 12:15 [From [place]foran] glucose [From Gammagard S/D] Allergy Itching Verified 01/23/17 12:15 glycine [From Gammagard S/D] Allergy Itching Verified 01/23/17 12:15 IgA less than or equal to 50 Allergy Itching Verified 01/23/17 12:15 mcg/mL [From Gammagard S/D] immune globulin,gamma (IgG) Allergy Itching Verified 01/23/17 12:15 human [From Gammagard S/D] vancomycin Allergy Unknown Verified 01/23/17 12:15 Physical Exam Vitals: Vital Signs Temp Pulse Pulse Resp BP Pulse Ox 01/24/17 15:49 82 01/24/17 15:22 80 01/24/17 15:06 85 01/24/17 14:36 97.9 F 82 18 144/65 98 01/24/17 11:25 76 01/24/17 11:15 76 01/24/17 08:00 83 20 01/24/17 07:56 80 01/24/17 07:35 76 100 01/24/17 07:00 97.8 F 83 20 136/83 98 01/23/17 23:00 97.3 F L 71 18 98/65 100 01/23/17 20:50 80 16 01/23/17 20:34 80 16 Intake and Output 01/24/17 01/24/17 01/24/17 06:59 14:59 22:59 Intake Total 800 Balance 800 Intake: Intake, IV Titration 800 Amount Sodium Chloride 0.9% 1, 800 000 ml @ 100 mls/hr IV . Q10H [facility] Rx#:[id number] Other: Voiding Method Bedside Commode Bedside Commode # Voids 1 1 Patient is morbidly obese and she is calm and comfortable likely distress.Head exam was generally normal. There was no scleral icterus or corneal arcus. Mucous membranes were moist. Neck is short and supple and there is significant crowding of posterior pharynx. There is no goiter or neck masses. She has a Mallampati class IV. Lung sounds are diminished special lung bases and there is diffuse expiratory wheezes throughout the lung [place].Cardiac exam revealed the PMI to be normally situated and sized. The rhythm was regular and no extrasystoles were noted during several minutes of auscultation. The first and second heart sounds were normal and physiologic splitting of the second heart sound was noted. There were no murmurs, rubs, clicks, or gallops. Abdomen is obese soft and the organs cannot be accurately palpated because of her morbid obesity. No direct tenderness. No rebound tenderness. No guarding.Examination of the extremities revealed easily palpable radial, femoral and pedal pulses. There was no cyanosis, clubbing or edema. Results - Laboratory Findings CBC and BMP: 01/23/17 12:01 01/23/17 12:01 PT/INR, D-dimer PT 12.2 sec (9.0-12.0) H 01/23/17 17:46 INR 1.2 (<1.1) 01/23/17 17:46 Abnormal lab findings: Abnormal Labs 01/23/17 01/23/17 01/23/17 12:01 12:01 12:01 WBC 21.0 H RBC 3.63 L Hgb 8.2 L Hct 29.0 L MCV 79.8 L D MCH 22.6 L MCHC 28.3 L RDW 17.2 H Neutrophils # 19.3 H Lymphocytes # 0.6 L PT Glucose 279 H POC Glucose (mg/dL) Hemoglobin A1c 6.5 H Plasma Lactic Acid Randal TSH 01/23/17 01/23/17 01/23/17 12:01 12:14 14:39 WBC RBC Hgb Hct MCV MCH MCHC RDW Neutrophils # Lymphocytes # PT Glucose POC Glucose (mg/dL) 288 H Hemoglobin A1c Plasma Lactic Acid Randal 3.4 H* TSH 0.059 L 01/23/17 01/23/17 01/23/17 17:09 17:46 21:17 WBC RBC Hgb Hct MCV MCH MCHC RDW Neutrophils # Lymphocytes # PT 12.2 H Glucose POC Glucose (mg/dL) 275 H 268 H Hemoglobin A1c Plasma Lactic Acid Randal TSH 01/24/17 01/24/17 06:58 11:48 WBC RBC Hgb Hct MCV MCH MCHC RDW Neutrophils # Lymphocytes # PT Glucose POC Glucose (mg/dL) 200 H 264 H Hemoglobin A1c Plasma Lactic Acid Randal TSH - Diagnostic Findings Chest x-ray: image reviewed Assessment and Plan Plan: Assessment 1 acute worsening shortness of breath secondary to an acute COPD exacerbation and suspected right lower lobe pneumonia. 2 advanced oxygen-dependent COPD, goal stage IV disease with recurrent COPD exacerbation. 3 chronic hypoxic respiratory failure 4 chronic hypercapnic respiratory failure and the patient has been utilizing a AVAPS machine at home 5 right lower lobe pneumonia suspected 6 leukocytosis 7 morbid obesity with a BMI of 41.9 8 diabetes mellitus 9 hyperlipidemia 10 hypertension 11 obstructive sleep apnea 12 hypothyroidism 13 poor baseline performance and functional status secondary to above-mentioned comorbidities. 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 Check a sputum Gram stain and culture. Continue DuoNeb the blood sugars [id number]. Continue Pulmicort Respules. Continue theophylline. Increase the prednisone up to 60 mg by mouth daily. Monitor blood sugar. Obtain a download on her [employer] machine. Smoking cessation counseling was done. We'll continue to follow. Proptosis poor secondary to above-mentioned comorbidities.
[2017-01-24 17:18] LABS: Glucose,Whole Blood 276 mg/dL (75-99)
[2017-01-24] MEDS: ATORVASTATIN 20 MG TAB PO SCH (20:20)
[2017-01-24 21:29] LABS: Glucose,Whole Blood 219 mg/dL (75-99)
[2017-01-24] MEDS: IPRATROPIUM-ALBUTEROL 3 ML NEB INHALATION PRN (23:50)
[2017-01-25] MEDS: IPRATROPIUM-ALBUTEROL 3 ML NEB INHALATION SCH ×4 (06:06→18:49)
[2017-01-25] MEDS: LEVOTHYROXINE 100 MCG TAB PO SCH (06:12)
[2017-01-25] MEDS: BUDESONIDE 0.5 MG/2 ML NEBU INHALATION SCH ×2 (07:17→18:49)
[2017-01-25] MEDS: IPRATROPIUM-ALBUTEROL 3 ML NEB INHALATION PRN ×2 (07:18→23:06)
[2017-01-25 07:29] LABS: Glucose,Whole Blood 121 mg/dL (75-99)
[2017-01-25 08:12] LABS: Anisocytosis Slight; HCT 28.1 % (34.0-46.0); HDW 4.05; HGB 7.7 gm/dL (11.4-16.0); Hypochromasia Marked; MCH 22.4 pg (25.0-35.0); MCHC 27.5 g/dL (31.0-37.0); MCV 81.5 fL (80.0-100.0); Mean Platelet Volume 6.1; Microcytosis Slight; Poikilocytosis Moderate; RBC 3.45 m/uL (3.80-5.40); RDW 17.2 % (11.5-15.5); WBC 16.9 k/uL (3.8-10.6)
[2017-01-25] MEDS: INSULIN LISPRO (humaLOG) 300 UNIT/3 ML VIAL SQ SCH ×4 (08:32→21:03)
[2017-01-25 08:35] LABS: Anion Gap 10 mmol/L; Blood Urea Nitrogen 15 mg/dL (7-17); Calcium 9.2 mg/dL (8.4-10.2); Carbon Dioxide 25 mmol/L (22-30); Chloride 109 mmol/L (98-107); Glucose 114 mg/dL (74-99); Non-African American GFR(MDRD) >60 (>60 ml/min/1.73 sqM); Potassium 3.8 mmol/L (3.5-5.1); Sodium 144 mmol/L (137-145)
[2017-01-25] MEDS: guaiFENesin 600 MG TABLET.ER PO SCH ×2 (08:35→21:02)
[2017-01-25] MEDS: THEOPHYLLINE 24 HOUR 300 MG CAP.ER.24H PO SCH ×2 (08:35→21:03)
[2017-01-25] MEDS: GABAPENTIN 300 MG CAP PO SCH ×3 (08:35→21:03)
[2017-01-25] MEDS: ISOSORBIDE MONONITRATE ER 15 MG TAB PO SCH (08:36)
[2017-01-25] MEDS: FLUoxetine HCL 20 MG CAP PO SCH (08:36)
[2017-01-25] MEDS: predniSONE 20 MG TAB PO SCH (08:37)
[2017-01-25] MEDS: MONTELUKAST 10 MG TAB PO SCH (08:37)
[2017-01-25] MEDS: ALPRAZolam 0.5 MG TAB PO PRN ×3 (08:47→22:58)
[2017-01-25] MEDS ORDERED: METOCLOPRAMIDE 5 MG TAB PO PRN (12:10)
[2017-01-25 12:35] LABS: Glucose,Whole Blood 244 mg/dL (75-99)
[2017-01-25] MEDS: FERROUS SULFATE 325 MG TAB PO SCH (12:38)
[2017-01-25] MEDS: LEVOFLOXACIN 500 MG TAB PO SCH (12:39)
[2017-01-25] MEDS ORDERED: PANTOPRAZOLE 40 MG/10 ML VIAL IVP SCH (13:45)
--- NOTE | 2017-01-25 14:05 | P.PN ---
Subjective This is a 66-year-old female patient with advanced oxygen-dependent COPD with a transferred to the ED for increased shortness of breath. This is the patient's fourth hospitalization for this current year for respiratory complications. The patient has advanced COPD and she is oxygen dependent. Recently she was given a also a noninvasive positive pressure ventilator-AVAPS machine which is set at a tidal volume 450, PEEP of 5, pressure support maximum of 14 and a minimum of 8, respiratory rate of 15 and the IT of 0.6-1.5. The patient is utilizing the machine every night without interruption. She is also known to have CHF and she has had a remote history of takasubo syndrome and her ejection fraction one point was measured to be somewhat between 35-40%. She is known to be diabetic and she is morbidly obese with a BMI of 41.9 and she has hypothyroidism peripheral neuropathy and osteoarthritis and generalized anxiety disorder. The patient comes in to the hospital because of increased shortness of breath. She unfortunately continues to smoke cigarettes around half pack of cigarette daily basis the patient has increased cough and chest congestion and wheezing and she was found to have a high-grade fever and her chest x-ray indicated the possibility of a right lower lobe pneumonia. The white cell count was 21,000. She was on oxygen at 4 L/m nasal cannula. No chest pain. No pleurisy. No nausea vomiting for now abdominal pain no change in mental status. She has been maintained on a combination of Brovana and Pulmicort neb last treatment [id number]. She is steroid dependent prednisone at 10 mg. She also utilize oxygen 3 and half liters per minute nasal cannula. She is also on theophylline. The patient is seen again today 01/25/2017 in follow-up on the regular medical floor. She is awake and alert in no acute distress. She does have a continued loose productive cough. There was a question of a right lower lobe pneumonia on her chest x-ray. She remains on Levaquin. White count down to 16.9. Blood cultures reveal no growth to date. Sputum cultures pending. She is breathing easier today as compared to yesterday but not quite back to her baseline. She is maintaining good O2 saturations in the 90s on 4 L/m per nasal cannula. She is currently afebrile. Objective - Vital Signs Vital signs: Vital Signs Temp 98.5 F 01/25/17 07:00 Pulse 88 01/25/17 11:12 Resp 22 01/25/17 07:00 BP 143/67 01/25/17 07:00 Pulse Ox 97 01/25/17 07:20 Intake & Output 01/24/17 01/25/17 01/25/17 18:59 06:59 18:59 Intake Total 1040 0 Balance 1040 0 Intake: Intake, IV Titration 800 0 Amount Sodium Chloride 0.9% 1, 800 0 000 ml @ 100 mls/hr IV . Q10H [facility] Rx#:[id number] Oral 240 Other: Voiding Method Bedside Commode # Voids 1 1 - Exam GENERAL EXAM: Obese. Alert, active, comfortable in no apparent distress. HEAD: Normocephalic. EYES: Normal reaction of pupils, equal size. NOSE: Clear with pink turbinates. THROAT: No erythema or exudates. NECK: No masses, no JVD. CHEST: No chest wall deformity. LUNGS: Equal air entry with bilateral wheeze. Diminished. CVS: S1 and S2 normal with no audible mumurs, regular rhythm. ABDOMEN: No hepatosplenomegaly, normal bowel sounds, no guarding or rigidity. SPINE: No scoliosis or deformity SKIN: No rashes CENTRAL NERVOUS SYSTEM: No focal deficits, tone is normal in all 4 extremities. Extremities: There is trace peripheral edema. No clubbing, no cyanosis. Peripheral pulses are intact. - Labs CBC & Chem 7: 01/25/17 07:45 01/25/17 07:45 Labs: Abnormal Lab Results - Last 24 Hours (Table) 01/24/17 01/24/17 01/25/17 Range/Units 16:54 21:25 07:13 WBC (3.8-10.6) k/uL RBC (3.80-5.40) m/uL Hgb (11.4-16.0) gm/dL Hct (34.0-46.0) % MCH (25.0-35.0) pg MCHC (31.0-37.0) g/dL RDW (11.5-15.5) % Chloride (98-107) mmol/L Glucose (74-99) mg/dL POC Glucose (mg/dL) 276 H 219 H 121 H (75-99) mg/dL 01/25/17 01/25/17 01/25/17 Range/Units 07:45 07:45 12:26 WBC 16.9 H (3.8-10.6) k/uL RBC 3.45 L (3.80-5.40) m/uL Hgb 7.7 L (11.4-16.0) gm/dL Hct 28.1 L (34.0-46.0) % MCH 22.4 L (25.0-35.0) pg MCHC 27.5 L (31.0-37.0) g/dL RDW 17.2 H (11.5-15.5) % Chloride 109 H (98-107) mmol/L Glucose 114 H (74-99) mg/dL POC Glucose (mg/dL) 244 H (75-99) mg/dL Microbiology - Last 24 Hours (Table) 01/23/17 19:35 Gram Stain - Preliminary Sputum Sputum Culture - Preliminary 01/23/17 12:05 Blood Culture - Preliminary Blood No Growth after 24 hours 01/23/17 12:01 Blood Culture - Preliminary Blood No Growth after 24 hours Assessment and Plan Plan: Assessment 1 acute worsening shortness of breath secondary to an acute COPD exacerbation and suspected right lower lobe pneumonia. 2 advanced oxygen-dependent COPD, goal stage IV disease with recurrent COPD exacerbation. 3 acute on chronic hypoxic respiratory failure secondary to above 4 acute on chronic hypercapnic respiratory failure and the patient has been utilizing a AVAPS machine at home 5 right lower lobe pneumonia suspected 6 leukocytosis 7 morbid obesity with a BMI of 41.9 8 diabetes mellitus 9 hyperlipidemia 10 hypertension 11 obstructive sleep apnea 12 hypothyroidism 13 poor baseline performance and functional status secondary to above-mentioned comorbidities. 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 Clements. Her chest x-ray and labs were reviewed. We'll continue with her current medications including bronchodilators, steroids, antibiotics in the form of Levaquin. She did have some issues of nausea that have improved. Her only complaint is continued anxiety. Will increase her Xanax to 1 mg 3 times a day as needed which is her home dose. We'll continue to follow.
--- NOTE | 2017-01-25 15:26 | P.PN ---
Subjective Date of service 01/25/2017. Progress note being dictated for Dr. Maciel. Interval history: This is a 66-year-old female in a with acute COPD exacerbation and multiple other medical issues. Maintained on nebulized bronchodilators, Levaquin. Loose Productive cough. Afebrile, WBC improving, 16.9, preliminary blood cultures negative, sputum cultures pending. Hemoglobin 7.7, asymptomatic without signs or symptoms of bleed. Maintaining O2 sats of 97 % on 4 L nasal cannula, in a patient who wears 3.5 L nasal cannula O2 at home. Review of systems: HEENT: Denies headache or focal deficits. Denies any dizziness or lightheadedness. Respiratory: shortness of breath, improving. Cardiac: Denies any chest pain, palpitations. GI: Complains of nausea, denies vomiting, or diarrhea. Denies any abdominal tenderness. : Denies any dysuria. Psychiatry: Denies any anxiety or depression. Active Medications Hydrocodone Bitart/Acetaminophen ([place] 7.5-325) 1 each PO TID PRN PRN Reason: Pain Albuterol/Ipratropium (Duoneb 0.5 Mg-3 Mg/3 Ml Soln) 3 ml INHALATION RT-QID [facility] Last Admin: 01/25/17 10:58 Dose: 3 ml Albuterol/Ipratropium (Duoneb 0.5 Mg-3 Mg/3 Ml Soln) 3 ml INHALATION RT-Q1H PRN PRN Reason: Shortness Of Breath Or Wheezing Last Admin: 01/25/17 07:18 Dose: 3 ml Alprazolam (Xanax) 1 mg PO TID PRN PRN Reason: Anxiety Atorvastatin Calcium (Lipitor) 20 mg PO HS [facility] Last Admin: 01/24/17 20:20 Dose: 20 mg Budesonide (Pulmicort) 0.5 mg INHALATION RT-BID [facility] Last Admin: 01/25/17 07:17 Dose: 0.5 mg Ferrous Sulfate (Feosol) 325 mg PO 1200 [facility] Last Admin: 01/25/17 12:38 Dose: 325 mg Fluoxetine HCl (Prozac) 20 mg PO DAILY [facility] Last Admin: 01/25/17 08:36 Dose: 20 mg Gabapentin (Neurontin) 600 mg PO TID [facility] Last Admin: 01/25/17 08:35 Dose: 600 mg Guaifenesin (Mucinex) 1,200 mg PO BID [facility] Last Admin: 01/25/17 08:35 Dose: 1,200 mg Insulin Human Lispro (Humalog) 0 unit SQ ACHS [facility] PRN Reason: Protocol Last Admin: 01/25/17 12:41 Dose: Not Given Isosorbide Mononitrate (Imdur) 15 mg PO DAILY [facility] Last Admin: 01/25/17 08:36 Dose: 15 mg Levofloxacin (Levaquin) 500 mg PO Q24H [facility] Last Admin: 01/25/17 12:39 Dose: 500 mg Levothyroxine Sodium (Synthroid) 200 mcg PO 0630 [facility] Last Admin: 01/25/17 06:12 Dose: 200 mcg Metoclopramide HCl (Reglan) 5 mg PO AC-TID PRN PRN Reason: nausea Last Admin: 01/25/17 12:39 Dose: 5 mg Montelukast Sodium (Singulair) 10 mg PO DAILY [facility] Last Admin: 01/25/17 08:37 Dose: 10 mg Pantoprazole Sodium (Protonix) 40 mg IVP DAILY [facility] Prednisone () 60 mg PO DAILY [facility] Last Admin: 01/25/17 08:37 Dose: 60 mg Theophylline (Chris-24) 300 mg PO BID [facility] Last Admin: 01/25/17 08:35 Dose: 300 mg Objective - Vital Signs Vital signs: Vital Signs Temp 98.0 F 01/25/17 14:36 Pulse 81 01/25/17 14:36 Resp 22 01/25/17 14:36 BP 135/75 01/25/17 14:36 Pulse Ox 97 01/25/17 14:36 Intake & Output 01/24/17 01/25/17 01/25/17 18:59 06:59 18:59 Intake Total 1040 0 Balance 1040 0 Intake: Intake, IV Titration 800 0 Amount Sodium Chloride 0.9% 1, 800 0 000 ml @ 100 mls/hr IV . Q10H [facility] Rx#:[id number] Oral 240 Other: Voiding Method Bedside Commode # Voids 1 1 1 - Exam PHYSICAL EXAM: VITAL SIGNS: As above GENERAL: [Sitting up in bed, no acute distress] HEENT: [Pupils equal conjunctiva normal.] NECK: [Supple, no JVD] RESPIRATORY EFFORT:[ Normal] LUNGS: [Diminished, Scattered expiratory wheezing throughout] CARDIOVASCULAR[ regular S1 and S2, no murmurs rubs or gallops, no edema] GI: [Abdomen soft, nontender, positive bowel sounds.] PSYCH: [Alert and oriented -3, mood and affect normal.] NEURO: Gross neurological examination did not reveal any focal deficits Microbiology 01/23/17 12:05 Blood Blood Culture - Preliminary No Growth after 48 hours 01/23/17 12:01 Blood Blood Culture - Preliminary No Growth after 48 hours 01/23/17 19:35 Sputum Gram Stain - Preliminary 01/23/17 19:35 Sputum Sputum Culture - Preliminary - Labs CBC & Chem 7: 01/25/17 07:45 01/25/17 07:45 Labs: Abnormal Lab Results - Last 24 Hours (Table) 01/24/17 01/24/17 01/25/17 Range/Units 16:54 21:25 07:13 WBC (3.8-10.6) k/uL RBC (3.80-5.40) m/uL Hgb (11.4-16.0) gm/dL Hct (34.0-46.0) % MCH (25.0-35.0) pg MCHC (31.0-37.0) g/dL RDW (11.5-15.5) % Chloride (98-107) mmol/L Glucose (74-99) mg/dL POC Glucose (mg/dL) 276 H 219 H 121 H (75-99) mg/dL 01/25/17 01/25/17 01/25/17 Range/Units 07:45 07:45 12:26 WBC 16.9 H (3.8-10.6) k/uL RBC 3.45 L (3.80-5.40) m/uL Hgb 7.7 L (11.4-16.0) gm/dL Hct 28.1 L (34.0-46.0) % MCH 22.4 L (25.0-35.0) pg MCHC 27.5 L (31.0-37.0) g/dL RDW 17.2 H (11.5-15.5) % Chloride 109 H (98-107) mmol/L Glucose 114 H (74-99) mg/dL POC Glucose (mg/dL) 244 H (75-99) mg/dL Microbiology - Last 24 Hours (Table) 01/23/17 12:05 Blood Culture - Preliminary Blood No Growth after 48 hours 01/23/17 12:01 Blood Culture - Preliminary Blood No Growth after 48 hours 01/23/17 19:35 Gram Stain - Preliminary Sputum Sputum Culture - Preliminary Assessment and Plan Plan: 1. [ Acute on chronic hypercapnic, hypoxic respiratory failure]. Uses AVAPS MAchine at home 2. [ Sepsis secondary to possible right lower lobe pneumonia]. 3. Morbid obesity, BMI 41.9 4. [ History of Takotsubo syndrome with normal EF present]. 5. [ Hypertension]. 6. [ Sleep apnea 7. Hypothyroidism]. 7. [ Ongoing nicotine abuse]. 8. Diabetic neuropathy 9. Depression 10.Hyperlipidemia]. 11. Diabetes mellitus 12. Obstructive sleep apnea 13. Anemia Plan: Continue on current medication regime , Protonix, nebulized bronchodilators, steroids, Levaquin, Xanax ,monitoring and symptomatic treatment. Home med Reglan added to med regime. Follow closely with pulmonary. Close monitoring of I's and hemoglobin with repeat labs ordered for a.m. The impression and plan of care has been dictated as directed. : I performed a H&P examination of this patient and discussed the same with the dictator. I agree with the dictator's note. Any additional findings/opinions/ etc. will be noted.
[2017-01-25 17:13] LABS: Glucose,Whole Blood 293 mg/dL (75-99)
[2017-01-25] MEDS: PANTOPRAZOLE 40 MG TABLET PO SCH (18:01)
[2017-01-25 20:51] LABS: Glucose,Whole Blood 208 mg/dL (75-99)
[2017-01-25] MEDS: ATORVASTATIN 20 MG TAB PO SCH (21:02)
[2017-01-26] MEDS: IPRATROPIUM-ALBUTEROL 3 ML NEB INHALATION PRN (03:25)
[2017-01-26] MEDS: LEVOTHYROXINE 100 MCG TAB PO SCH (05:55)
[2017-01-26] MEDS: IPRATROPIUM-ALBUTEROL 3 ML NEB INHALATION SCH ×3 (07:20→14:45)
[2017-01-26] MEDS: BUDESONIDE 0.5 MG/2 ML NEBU INHALATION SCH (07:20)
[2017-01-26 07:34] LABS: Glucose,Whole Blood 114 mg/dL (75-99)
[2017-01-26 07:38] VITALS: BP 177/76; TEMP 97.3
[2017-01-26] MEDS: INSULIN LISPRO (humaLOG) 300 UNIT/3 ML VIAL SQ SCH ×2 (07:41→12:34)
[2017-01-26] MEDS: predniSONE 20 MG TAB PO SCH (07:50)
[2017-01-26] MEDS: guaiFENesin 600 MG TABLET.ER PO SCH (07:50)
[2017-01-26] MEDS: PANTOPRAZOLE 40 MG TABLET PO SCH (07:50)
[2017-01-26] MEDS: FLUoxetine HCL 20 MG CAP PO SCH (07:50)
[2017-01-26] MEDS: GABAPENTIN 300 MG CAP PO SCH (07:50)
[2017-01-26] MEDS: ISOSORBIDE MONONITRATE ER 15 MG TAB PO SCH (07:51)
[2017-01-26] MEDS: THEOPHYLLINE 24 HOUR 300 MG CAP.ER.24H PO SCH (07:51)
[2017-01-26] MEDS: MONTELUKAST 10 MG TAB PO SCH (07:51)
--- NOTE | 2017-01-26 09:29 | PN ---
DATE OF SERVICE: 01/25/2017 This 66-year-old woman who was admitted with COPD acute exacerbation and as well as acute hypoxic respiratory failure also has pneumonia and sepsis. Seen and evaluated the patient along with the nurse practitioner. Please refer to nurse practitioner notes and impression documented for further information. Prognosis guarded. Further recommendations to follow.
[2017-01-26 12:06] LABS: Glucose,Whole Blood 262 mg/dL (75-99)
[2017-01-26] MEDS: LEVOFLOXACIN 500 MG TAB PO SCH (12:34)
[2017-01-26] MEDS: FERROUS SULFATE 325 MG TAB PO SCH (12:34)
--- NOTE | 2017-01-26 14:43 | P.PN ---
Subjective This is a 66-year-old female patient with advanced oxygen-dependent COPD with a transferred to the ED for increased shortness of breath. This is the patient's fourth hospitalization for this current year for respiratory complications. The patient has advanced COPD and she is oxygen dependent. Recently she was given a also a noninvasive positive pressure ventilator-AVAPS machine which is set at a tidal volume 450, PEEP of 5, pressure support maximum of 14 and a minimum of 8, respiratory rate of 15 and the IT of 0.6-1.5. The patient is utilizing the machine every night without interruption. She is also known to have CHF and she has had a remote history of takasubo syndrome and her ejection fraction one point was measured to be somewhat between 35-40%. She is known to be diabetic and she is morbidly obese with a BMI of 41.9 and she has hypothyroidism peripheral neuropathy and osteoarthritis and generalized anxiety disorder. The patient comes in to the hospital because of increased shortness of breath. She unfortunately continues to smoke cigarettes around half pack of cigarette daily basis the patient has increased cough and chest congestion and wheezing and she was found to have a high-grade fever and her chest x-ray indicated the possibility of a right lower lobe pneumonia. The white cell count was 21,000. She was on oxygen at 4 L/m nasal cannula. No chest pain. No pleurisy. No nausea vomiting for now abdominal pain no change in mental status. She has been maintained on a combination of Brovana and Pulmicort neb last treatment [id number]. She is steroid dependent prednisone at 10 mg. She also utilize oxygen 3 and half liters per minute nasal cannula. She is also on theophylline. The patient is seen again today 01/25/2017 in follow-up on the regular medical floor. She is awake and alert in no acute distress. She does have a continued loose productive cough. There was a question of a right lower lobe pneumonia on her chest x-ray. She remains on Levaquin. White count down to 16.9. Blood cultures reveal no growth to date. Sputum cultures pending. She is breathing easier today as compared to yesterday but not quite back to her baseline. She is maintaining good O2 saturations in the 90s on 4 L/m per nasal cannula. She is currently afebrile. The patient was seen again today 01/26/2017 in follow-up on the regular medical floor. She is currently sitting up in bed. She is awake and alert in no acute distress. She denies any worsening shortness of breath, cough or congestion. She is nearly back to her baseline. She's been treated with bronchodilators IV Solu-Medrol and empiric Levaquin. Sputum is positive for gram-negative bacilli. Objective - Vital Signs Vital signs: Vital Signs Temp 97.3 F L 01/26/17 07:00 Pulse 80 01/26/17 11:25 Resp 22 01/26/17 07:00 BP 177/76 01/26/17 07:00 Pulse Ox 96 01/26/17 07:00 Intake & Output 01/25/17 01/26/17 01/26/17 18:59 06:59 18:59 Intake Total 0 900 Balance 0 900 Intake: Intake, IV Titration 0 Amount Sodium Chloride 0.9% 1, 0 000 ml @ 100 mls/hr IV . Q10H [facility] Rx#:[id number] Oral 900 Other: # Voids 1 2 2 - Exam GENERAL EXAM: Obese. Alert, active, comfortable in no apparent distress. HEAD: Normocephalic. EYES: Normal reaction of pupils, equal size. NOSE: Clear with pink turbinates. THROAT: No erythema or exudates. NECK: No masses, no JVD. CHEST: No chest wall deformity. LUNGS: Equal air entry with bilateral wheeze. Diminished. CVS: S1 and S2 normal with no audible mumurs, regular rhythm. ABDOMEN: No hepatosplenomegaly, normal bowel sounds, no guarding or rigidity. SPINE: No scoliosis or deformity SKIN: No rashes CENTRAL NERVOUS SYSTEM: No focal deficits, tone is normal in all 4 extremities. Extremities: There is trace peripheral edema. No clubbing, no cyanosis. Peripheral pulses are intact. - Labs CBC & Chem 7: 01/25/17 07:45 01/25/17 07:45 Labs: Abnormal Lab Results - Last 24 Hours (Table) 01/25/17 01/25/17 01/26/17 Range/Units 16:58 20:47 07:09 POC Glucose (mg/dL) 293 H 208 H 114 H (75-99) mg/dL 01/26/17 Range/Units 11:55 POC Glucose (mg/dL) 262 H (75-99) mg/dL Microbiology - Last 24 Hours (Table) 01/23/17 12:05 Blood Culture - Preliminary Blood No Growth after 72 hours 01/23/17 12:01 Blood Culture - Preliminary Blood No Growth after 72 hours 01/23/17 19:35 Gram Stain - Preliminary Sputum Sputum Culture - Preliminary Gram Neg Bacilli Assessment and Plan Plan: Assessment 1 acute worsening shortness of breath secondary to an acute COPD exacerbation and suspected right lower lobe pneumonia and gram-negative bacilli. 2 advanced oxygen-dependent COPD, goal stage IV disease with recurrent COPD exacerbation. 3 acute on chronic hypoxic respiratory failure secondary to above 4 acute on chronic hypercapnic respiratory failure and the patient has been utilizing a AVAPS machine at home 5 right lower lobe pneumonia suspected 6 leukocytosis 7 morbid obesity with a BMI of 41.9 8 diabetes mellitus 9 hyperlipidemia 10 hypertension 11 obstructive sleep apnea 12 hypothyroidism 13 poor baseline performance and functional status secondary to above-mentioned comorbidities. 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 Clements. She has improved clinically. We will continue with her current pulmonary medications including a prednisone taper. Complete her course of antibiotics. Upon discharge she'll follow-up in our office in 1-2 weeks' time. We will repeat a chest x-ray then.
[2017-01-26 14:46] VITALS: PULSE 85; RESP 16
--- NOTE | 2017-01-27 12:56 | DS ---
DATE OF ADMISSION: 01/23/2017 DATE OF DISCHARGE: 01/26/2017 FINAL DIAGNOSES: 1. Acute on chronic hypercapnic hypoxic respiratory failure. 2. Acute right lower lobe pneumonia, possibly gram-negative with sepsis. 3. Morbid obesity, body mass index 41.9. 4. History of Takotsubo syndrome with a normal ejection fraction at present. 5. Hypertension, essential, history. 6. Sleep apnea. 7. Hypothyroidism 8. History of ongoing nicotine dependence. 9. Diabetic peripheral neuropathy. 10. Depression, not otherwise specified. 11. Hyperlipidemia. 12. Diabetes mellitus type 2. 13. Obstructive sleep apnea. 14. Anemia, possibly of chronic disease. 15. FULL CODE. DISCHARGE DISPOSITION: The patient will be discharged in a stable condition with guarded prognosis. Total time taken 35 minutes. HISTORY OF PRESENT ILLNESS: This 66-year-old woman with a past medical history of multiple medical problems being followed by Dr. Vera in the outpatient setting was admitted with pneumonia, sepsis, COPD exacerbation, multiple other medical problems. Patient treated with bronchodilators and steroids. Patient improved significantly. Antibiotics were given also. Dr. Clements saw the patient. On exam, vitals are stable. CARDIOVASCULAR: S1, S2 muffled. RESPIRATORY: A few scattered rhonchi. Expiratory wheezing also present. ABDOMEN: Soft. NERVOUS SYSTEM: No focal deficits. DISCHARGE ADVICE: 1. Diet is cardiac. 2. Activity limited until followup. 3. Follow up with Dr. Vera as recommended. The medications are as follows: 1. Xanax 1 mg p.o. t.i.d. p.r.n. 2. Aspirin 81 mg p.o. daily. 3. Pulmicort 0.5 b.i.d. 4. benadryl 50 mg q.i.d. p.r.n. 5. Iron sulfate 325 mg p.o. daily. 6. Prozac 20 mg p.o. daily. 7. Lasix 40 mg p.o. daily. 8. Neurontin 600 mg p.o. t.i.d. 9. Glyburide metformin 1 tablet p.o. q.i.d. 10. Mucinex 1200 mg p.o. b.i.d. 11. Guaifenesin 3.5 mL b.i.d. p.r.n. 12. Hydrocodone 1 tablet p.o. t.i.d. p.r.n. 13. Boniva 150 mg p.o. q.30 days. 14. Lispro per protocol. 15. Albuterol Atrovent updrafts q.i.d. and p.r.n. 16. Imdur ER 15 mg p.o. daily. 17. Levaquin 500 mg p.o. daily for 5 days. 18. Synthroid 200 mcg p.o. daily. 19. Singulair 10 mg p.o. daily. 20. KCl 10 mEq p.o. daily. 21. Prednisone taper that is 40 mg daily for 3 days, 30 for 3 days, 20 for 3 days, 10 for 3 days and then discontinue. 22. Zocor 40 mg q.h.s. 23. Chris-24, 300 mg p.o. b.i.d. Once again, the patient will be discharged in a stable condition with guarded prognosis. MTDD
== END 2017-01-26 15:11 | disposition home health service (06) | DRG 871 ==
LOC: 4MS4W 10:52
PROVIDERS: ADMIT Internal Medicine; ATTEND Internal Medicine
DX: A41.50 Gram-negative sepsis, unspecified (principal); J96.22 Acute and chronic respiratory failure with hypercapnia; J96.21 Acute and chronic respiratory failure with hypoxia; I11.0 Hypertensive heart disease with heart failure; I50.9 Heart failure, unspecified; E11.42 Type 2 diabetes mellitus with diabetic polyneuropathy; J18.9 Pneumonia, unspecified organism; Z68.41 Body mass index [BMI] 40.0-44.9, adult; J44.1 Chronic obstructive pulmonary disease with (acute) exacerbation; J44.0 Chronic obstructive pulmonary disease with (acute) lower respiratory infection; E03.9 Hypothyroidism, unspecified; G47.33 Obstructive sleep apnea (adult) (pediatric); E78.5 Hyperlipidemia, unspecified; K21.9 Gastro-esophageal reflux disease without esophagitis; F12.90 Cannabis use, unspecified, uncomplicated; F17.210 Nicotine dependence, cigarettes, uncomplicated; D63.8 Anemia in other chronic diseases classified elsewhere; F32.9 Major depressive disorder, single episode, unspecified; R65.20 Severe sepsis without septic shock; F41.1 Generalized anxiety disorder; F41.9 Anxiety disorder, unspecified; M47.9 Spondylosis, unspecified; R11.0 Nausea; M19.90 Unspecified osteoarthritis, unspecified site; E66.01 Morbid (severe) obesity due to excess calories; Z79.899 Other long term (current) drug therapy; Z79.82 Long term (current) use of aspirin; Z99.81 Dependence on supplemental oxygen; Z79.52 Long term (current) use of systemic steroids; Z80.49 Family history of malignant neoplasm of other genital organs; Z96.653 Presence of artificial knee joint, bilateral; Z86.79 Personal history of other diseases of the circulatory system; Z88.1 Allergy status to other antibiotic agents; Z88.8 Allergy status to other drugs, medicaments and biological substances; Z87.01 Personal history of pneumonia (recurrent); Z71.6 Tobacco abuse counseling; Z90.49 Acquired absence of other specified parts of digestive tract; Z98.51 Tubal ligation status; Z87.2 Personal history of diseases of the skin and subcutaneous tissue; Z79.84 Long term (current) use of oral hypoglycemic drugs; Z79.83 Long term (current) use of bisphosphonates; Z79.891 Long term (current) use of opiate analgesic; Z79.51 Long term (current) use of inhaled steroids
CPT/HCPCS: 71020; 80048; 82247; 83036; 83605; 84439; 84443; 85025; 85027; 85610; 87040; 87070; 87077; 87186; 87205; 94640; 94760

== ENCOUNTER 2018-06-03 23:18 | Inpatient (IN) | payer BC, MEDICARE ==
[2018-06-03] MEDS ORDERED: IPRATROPIUM-ALBUTEROL 3 ML NEB INHALATION STA (23:29)
--- NOTE | 2018-06-03 23:30 | ED ---
SOB HPI - General Stated Complaint: MAR Time Seen by Provider: 06/03/18 23:19 Source: patient, RN/MD, EMS Mode of arrival: EMS Limitations: no limitations - History of Present Illness Initial Comments: Sima is a 68-year-old obese female with history of CHF and COPD who is transferred to our emergency department via EMS from an outside department where she was evaluated for an acute onset of difficulty breathing. Patient is on BiPAP, she is able to answer in short sentences. History obtained from the ER physician at the outside hospital. He reports that the patient called 911 due to 1 day of progressively worsening dyspnea. She was found by EMS to be tachycardic, tachypneic with oxygen saturations in the mid 80s. They placed her on CPAP and transferred her to the emergency department. Patient was evaluated emergency department, she was placed on BiPAP with improvement in her oxygen saturations to the mid 90s. She was tachypneic the 120s with respiratory rate in the 30s but these improved with BiPAP. Labs outside hospital were significant for and BMP elevated greater than 2000, mild leukocytosis with a white count of 15, troponin at outside facility was negative. Chest x-ray revealed no acute findings. The patient was treated with 3 DuoNeb's, 125 of Solu-Medrol and 40 mg of IV Lasix. They attempted to wean her from BiPAP however the patient became tachypneic and decision was made to place her back on BiPAP and transfer her to our facility where she has established care with cardiology and pulmonology. - Related Data Home Medications Medication Instructions Recorded Confirmed ALPRAZolam [Xanax] 1 mg PO TID PRN 08/25/15 08/08/17 FLUoxetine HCL [PROzac] 20 mg PO DAILY 08/25/15 08/08/17 Gabapentin [Neurontin] 600 mg PO TID 08/25/15 08/08/17 Hydrocodone/Acetaminophen [[place] 1 tab PO TID PRN 08/25/15 08/08/17 7.5-325] Levothyroxine Sodium [Synthroid] 200 mcg PO DAILY 08/25/15 08/08/17 Montelukast [Singulair] 10 mg PO DAILY 08/25/15 08/08/17 Theophylline 24 Hour [Chris-24] 300 mg PO BID 08/25/15 08/08/17 glyBURIDE/METFORMIN HCL 1 tab PO QID 08/25/15 08/08/17 [glyBURIDE/METFORMIN HCL 2.5-500 mg] guaiFENesin [Mucinex] 1,200 mg PO BID 08/25/15 08/08/17 Aspirin 81 mg PO DAILY 11/18/16 08/08/17 Budesonide [Pulmicort] 0.5 mg INHALATION RT-BID 11/18/16 08/08/17 Furosemide [Lasix] 40 mg PO DAILY PRN 11/18/16 08/08/17 diphenhydrAMINE HCL [Benadryl] 50 mg PO Q6H PRN 11/18/16 08/08/17 Potassium Chloride [Klor-Con 10] 10 meq PO BID 01/23/17 08/08/17 guaiFENesin-DM 100-10MG/5ML 3.5 ml PO Q4H PRN 01/23/17 08/08/17 [Robitussin DM] Ferrous Sulfate [Iron (65 MG 325 mg PO DAILY 08/08/17 08/08/17 Elemental)] Fluticasone Propionate [Flonase 2 spray EA NOSTRIL DAILY 08/08/17 08/08/17 Allergy Relief] Ibandronate Sodium [Boniva] 150 mg PO QMONTH 08/08/17 08/08/17 Insulin Aspart [NovoLOG See Protocol SQ ACHS PRN 08/08/17 08/08/17 (formulary)] Ipratropium/Albuterol Sulfate 1 puff INHALATION RT-QID 08/08/17 08/08/17 [Combivent Respimat Inhaler] Lisinopril [Zestril] 20 mg PO BID 08/08/17 08/08/17 Ranitidine HCl [Zantac] 150 mg PO BID 08/08/17 08/08/17 Previous Rx's Medication Instructions Recorded Simvastatin [Zocor] 40 mg PO HS #30 tab 08/28/15 Isosorbide Mononitrate ER [Imdur] 15 mg PO DAILY #30 dose 11/23/16 Ipratropium-Albuterol Nebulize 3 ml INHALATION RT-QID #0 01/26/17 [Duoneb 0.5 mg-3 mg/3 ml Soln] predniSONE 10 mg PO DAILY #0 01/26/17 Levofloxacin [Levaquin] 750 mg PO DAILY #5 tab 08/11/17 predniSONE See Taper PO DAILY #30 tab 08/11/17 Allergies Allergy/AdvReac Type Severity Reaction Status Date / Time cefotaxime sodium Allergy Rash/Hives Verified 08/08/17 18:32 [From Claforan] glucose [From Gammagard S/D] Allergy Dyspnea Verified 08/08/17 18:32 glycine [From Gammagard S/D] Allergy Dyspnea Verified 08/08/17 18:32 IgA less than or equal to 50 Allergy Dyspnea Verified 08/08/17 18:32 mcg/mL [From Gammagard S/D] immune globulin,gamma (IgG) Allergy Dyspnea Verified 08/08/17 18:32 human [From Gammagard S/D] vancomycin Allergy Seizure/hyp Verified 08/08/17 18:32 oglycemia zoster vaccine live AdvReac Unknown Verified 08/08/17 18:32 [From Zostavax (PF)] Review of Systems ROS Statement: Those systems with pertinent positive or pertinent negative responses have been documented in the HPI. ROS Other: All systems not noted in ROS Statement are negative. Limitations: ROS unobtainable due to patients medical condition (Complete review of systems limited by patient's respiratory distress) Past Medical History Past Medical History: Asthma, Heart Failure, COPD, Diabetes Mellitus, GERD/ Reflux, Hyperlipidemia, Hypertension, Osteoarthritis (OA), Pneumonia, Respiratory Disorder, Skin Disorder, Sleep Apnea/CPAP/BIPAP, Thyroid Disorder Additional Past Medical History / Comment(s): Advanced COPD with chronic hypoxic respiratory failure has been on vent at [facility] in past.. CHF with an ejection fraction of 35-40%,leg edema, history of takotsubo syndrome and normal coronaries as evident on her cardiac catheterization, diabetes mellitus type 2, obesity, obstructive sleep apnea-uses noninvasive ventilator, hypothyroidism, peripheral neuropathy secondary to diabetes mellitus-bilateral feet, arthritis multiple joints and entire back, psoriasis, sinus problems. History of Any Multi-Drug Resistant Organisms: None Reported Past Surgical History: Appendectomy, Cholecystectomy, Heart Catheterization, Joint Replacement, Tonsillectomy, Tubal Ligation Additional Past Surgical History / Comment(s): 08/2015 normal cardiac cath, 2015 normal cardiac cath, bilateral total knee arthroplasty. Past Anesthesia/Blood Transfusion Reactions: No Reported Reaction Past Psychological History: Anxiety, Depression Smoking Status: Current every day smoker Past Alcohol Use History: Occasional Past Drug Use History: Marijuana - Past Family History Father History Unknown: Yes Family Medical History: No Reported History Mother Family Medical History: Cancer Additional Family Medical History / Comment(s): uterine cancer General Exam - General Exam Comments Initial Comments: GENERAL: Obese female in mild respiratory distress on BiPAP HENT: Normocephalic, Atraumatic. EYES: PERRL PULMONARY: Wheezing in all lung [place], tachypnea, increased work of breathing CARDIOVASCULAR: Tachycardic, no murmurs ABDOMEN: Belly breathing SKIN: Pale, dry NEUROLOGIC: Alert and oriented MUSCULOSKELETAL: No lower extremity edema LYMPHATICS: No significant lymphadenopathy is noted PSYCHIATRIC: Normal psychiatric evaluation. Limitations: no limitations Limitations: no limitations Course Vital Signs 06/03/18 06/03/18 06/03/18 23:21 23:34 23:38 Temperature 100.2 F H Pulse Rate 116 H 111 H Pulse Rate [ 110 H Pulse Oximetery ] Respiratory 32 H Rate Blood Pressure 139/69 O2 Sat by Pulse 98 Oximetry 06/03/18 23:48 Temperature Pulse Rate 114 H Pulse Rate [ Pulse Oximetery ] Respiratory Rate Blood Pressure O2 Sat by Pulse Oximetry Medical Decision Making - Medical Decision Making Patient care was discussed with the transferring physician prior to arrival this is a obese elderly female who is CPAP dependent at baseline and presents to the emergency department for respiratory distress. She was found to be of the CHF and COPD exacerbation at outside facility. Chest x-ray EKG and troponin negative for any acute coronary syndrome. Lab suggestive of CHF. Chest x-ray with no overt fluid overload but a Bean catheter was placed and IV Lasix were ordered. Outside facility trial the patient off of CPAP however she became tachypneic with worsening respiratory distress decision was made to have her remain on CPAP for transfer On arrival the patient's on CPAP, she is tachypneic, oxygen saturations in the 90s, she is tachycardic does report that she feels much better than she did prior to coming to the hospital On exam there is wheezing, DuoNeb was ordered the patient was placed on BiPAP Repeat labs were ordered Patient was admitted with consults to pulmonology and cardiology Repeat labs reveal an improvement in the leukocytosis, troponin remained normal , there is mild hyperkalemia likely related to hemolysis, kidney function at baseline Insulin for hyperglycemia, Lasix for CHF ordered Repeat morning labs were ordered - Lab Data Result diagrams: 06/03/18 23:31 06/03/18 23:31 Lab Results 06/03/18 06/03/18 06/03/18 Range/Units 23:31 23:31 23:31 WBC 11.7 H (3.8-10.6) k/uL RBC 3.33 L (3.80-5.40) m/uL Hgb 10.6 L (11.4-16.0) gm/dL Hct 33.4 L (34.0-46.0) % MCV 100.2 H (80.0-100.0) fL MCH 31.9 (25.0-35.0) pg MCHC 31.8 (31.0-37.0) g/dL RDW 13.4 (11.5-15.5) % Plt Count 234 (150-450) k/uL Neutrophils % 91 % Lymphocytes % 2 % Monocytes % 4 % Eosinophils % 0 % Basophils % 0 % Neutrophils # 10.7 H (1.3-7.7) k/uL Lymphocytes # 0.3 L (1.0-4.8) k/uL Monocytes # 0.5 (0-1.0) k/uL Eosinophils # 0.0 (0-0.7) k/uL Basophils # 0.0 (0-0.2) k/uL Hypochromasia Slight PT (9.0-12.0) sec INR (<1.2) APTT (22.0-30.0) sec VBG pH 7.25 L (7.31-7.41) VBG pCO2 47 (37-51) mmHg VBG HCO3 20 L (24-28) mmol/L Sodium (137-145) mmol/L Potassium (3.5-5.1) mmol/L Chloride (98-107) mmol/L Carbon Dioxide (22-30) mmol/L Anion Gap mmol/L BUN (7-17) mg/dL Creatinine (0.52-1.04) mg/dL Est GFR (CKD-EPI)AfAm (>60 ml/min/1.73 sqM) Est GFR (CKD-EPI)NonAf (>60 ml/min/1.73 sqM) Glucose (74-99) mg/dL Calcium (8.4-10.2) mg/dL Total Bilirubin (0.2-1.3) mg/dL AST (14-36) U/L ALT (9-52) U/L Alkaline Phosphatase (38-126) U/L Total Creatine Kinase 485 H (30-135) U/L CK-MB (CK-2) 3.6 H (0.0-2.4) ng/mL CK-MB (CK-2) Rel Index 0.7 Troponin I <0.012 (0.000-0.034) ng/mL NT-Pro-B Natriuret Pep pg/mL Total Protein (6.3-8.2) g/dL Albumin (3.5-5.0) g/dL 06/03/18 06/03/18 06/03/18 Range/Units 23:31 23:31 23:31 WBC (3.8-10.6) k/uL RBC (3.80-5.40) m/uL Hgb (11.4-16.0) gm/dL Hct (34.0-46.0) % MCV (80.0-100.0) fL MCH (25.0-35.0) pg MCHC (31.0-37.0) g/dL RDW (11.5-15.5) % Plt Count (150-450) k/uL Neutrophils % % Lymphocytes % % Monocytes % % Eosinophils % % Basophils % % Neutrophils # (1.3-7.7) k/uL Lymphocytes # (1.0-4.8) k/uL Monocytes # (0-1.0) k/uL Eosinophils # (0-0.7) k/uL Basophils # (0-0.2) k/uL Hypochromasia PT 10.7 (9.0-12.0) sec INR 1.1 (<1.2) APTT 22.7 (22.0-30.0) sec VBG pH (7.31-7.41) VBG pCO2 (37-51) mmHg VBG HCO3 (24-28) mmol/L Sodium 138 (137-145) mmol/L Potassium 5.9 H (3.5-5.1) mmol/L Chloride 104 (98-107) mmol/L Carbon Dioxide 18 L (22-30) mmol/L Anion Gap 16 mmol/L BUN 49 H (7-17) mg/dL Creatinine 1.53 H (0.52-1.04) mg/dL Est GFR (CKD-EPI)AfAm 40 (>60 ml/min/1.73 sqM) Est GFR (CKD-EPI)NonAf 35 (>60 ml/min/1.73 sqM) Glucose 283 H (74-99) mg/dL Calcium 9.3 (8.4-10.2) mg/dL Total Bilirubin 0.5 (0.2-1.3) mg/dL AST 28 (14-36) U/L ALT 24 (9-52) U/L Alkaline Phosphatase 62 (38-126) U/L Total Creatine Kinase (30-135) U/L CK-MB (CK-2) (0.0-2.4) ng/mL CK-MB (CK-2) Rel Index Troponin I (0.000-0.034) ng/mL NT-Pro-B Natriuret Pep 2340 pg/mL Total Protein 6.8 (6.3-8.2) g/dL Albumin 4.0 (3.5-5.0) g/dL - EKG Data EKG Comments: EKG obtained upon arrival, rate is 114, rhythm is sinus. Cardiac, normal axis, normal intervals, no acute ST elevations or depressions no evidence of acute ischemia or infarction. Disposition Clinical Impression: COPD (chronic obstructive pulmonary disease), COPD exacerbation, CHF ( congestive heart failure) Disposition: ADMITTED IP TO THIS HOSP Is patient prescribed a controlled substance at d/c from ED?: No Referrals: Alex Vera MD [Primary Care Provider] - 1-2 days
[2018-06-03 23:41] LABS: VBG PH 7.25 (7.31-7.41)
[2018-06-03 23:42] LABS: Basophils % (A) 0 %; Eosinophils % (A) 0 %; HCT 33.4 % (34.0-46.0); HGB 10.6 gm/dL (11.4-16.0); Hypochromasia Slight; Lymphocytes # (A) 0.3 k/uL (1.0-4.8); Lymphocytes % (A) 2 %; MCH 31.9 pg (25.0-35.0); MCHC 31.8 g/dL (31.0-37.0); MCV 100.2 fL (80.0-100.0); Mean Platelet Volume 7.3; Monocytes # (A) 0.5 k/uL (0-1.0); Monocytes % (A) 4 %; Neutrophils # (A) 10.7 k/uL (1.3-7.7); Neutrophils % (A) 91 %; Platelet Count 234 k/uL (150-450); RBC 3.33 m/uL (3.80-5.40); RDW 13.4 % (11.5-15.5); WBC 11.7 k/uL (3.8-10.6)
[2018-06-03 23:51] LABS: Calcium 9.3 mg/dL (8.4-10.2); Potassium 5.9 mmol/L (3.5-5.1); Total Bilirubin 0.5 mg/dL (0.2-1.3); Total Protein 6.8 g/dL (6.3-8.2)
[2018-06-03 23:54] LABS: Creatine Kinase 485 U/L (30-135)
[2018-06-04 00:02] LABS: INR 1.1 (<1.2); Prothrombin Time 10.7 sec (9.0-12.0)
[2018-06-04 00:07] LABS: Creatine Kinase MB 3.6 ng/mL (0.0-2.4); Troponin I <0.012 ng/mL (0.000-0.034)
[2018-06-04 00:22] LABS: Partial Thromboplastin Time 22.7 sec (22.0-30.0)
[2018-06-04] MEDS: methylPREDNISolone SOD SUCCI 125 MG/2 ML VIAL IV SCH ×4 (00:42→17:17)
[2018-06-04] MEDS ORDERED: FUROSEMIDE 10 MG/ML 2 ML VIAL IV ONE (00:45)
[2018-06-04] MEDS ORDERED: INSULIN REGULAR 100 UNIT/ML VIAL IV ONE (00:45)
[2018-06-04 01:04] LABS: Glucose,Whole Blood 289 mg/dL (75-99)
[2018-06-04 02:07] VITALS: BMI 42.7
[2018-06-04] MEDS: INSULIN ASPART 100 UNIT/ML 1 ML 10 ML VIAL SQ SCH ×4 (06:21→21:17)
[2018-06-04 06:25] LABS: Glucose,Whole Blood 337 mg/dL (75-99)
[2018-06-04] MEDS: IPRATROPIUM-ALBUTEROL 3 ML NEB INHALATION PRN ×4 (06:44→19:36)
--- NOTE | 2018-06-04 06:47 | P.CRDCN ---
History of Present Illness Consult date: 06/04/18 Chief complaint: Shortness of breath History of present illness: This is a pleasant 68-year-old female patient who sees Dr. Nunez in the office as an outpatient with a past medical history significant for morbid obesity, COPD, chronic respiratory failure on oxygen at home, hypertension, dyslipidemia , was transferred from outside hospital to this hospital for further evaluation of acute on chronic hypoxic respiratory failure. The patient was in her usual state of health until about 3 days ago when she started experiencing a worsening dyspnea associated with wheezing and cough. No chest pain or chest discomfort. No dizziness or lightheadedness. No syncope. No bilateral lower extremities edema. No change in the weight as well. The patient underwent a heart catheterization in 2017 and that revealed normal coronaries. She did also undergo an echocardiogram in 2017 and that revealed normal LV function with mild aortic stenosis. Currently the patient is on BiPAP. She is feeling better into more shortness of breath but she still have extensive bilateral expiratory wheezing. No bilateral lower extremities edema noted. Also she is slightly tachycardic with sinus tachycardia and resting heart rate around 120 bpm. Past Medical History Past Medical History: Asthma, Heart Failure, COPD, Diabetes Mellitus, GERD/ Reflux, Hyperlipidemia, Hypertension, Osteoarthritis (OA), Pneumonia, Respiratory Disorder, Skin Disorder, Sleep Apnea/CPAP/BIPAP, Thyroid Disorder Additional Past Medical History / Comment(s): Advanced COPD with chronic hypoxic respiratory failure has been on vent at [facility] in past.. CHF with an ejection fraction of 35-40%,leg edema, history of takotsubo syndrome and normal coronaries as evident on her cardiac catheterization, diabetes mellitus type 2, obesity, obstructive sleep apnea-uses noninvasive ventilator, hypothyroidism, peripheral neuropathy secondary to diabetes mellitus-bilateral feet, arthritis multiple joints and entire back, psoriasis, sinus problems. History of Any Multi-Drug Resistant Organisms: None Reported Past Surgical History: Appendectomy, Cholecystectomy, Heart Catheterization, Joint Replacement, Tonsillectomy, Tubal Ligation Additional Past Surgical History / Comment(s): 08/2015 normal cardiac cath, 2015 normal cardiac cath, bilateral total knee arthroplasty. Past Anesthesia/Blood Transfusion Reactions: No Reported Reaction Past Psychological History: Anxiety, Depression Additional Psychological History / Comment(s): Pt lives with her son and daughter. She has O2 at 3.5L/NC ATC. She has a noninvasive ventilator. also has cane, walker, rolling walker, bsc, hospital bed, nebulizer, glucometer. She has used home care in the past and just recently she used [place]. Smoking Status: Current every day smoker Past Alcohol Use History: Occasional Additional Past Alcohol Use History / Comment(s): Pt started smoking in 1962( age 12) smokes 2 ppd Past Drug Use History: Marijuana Additional Drug Use History / Comment(s): Patient states she has used marijuana (edibles) to help with pain on occasion. - Past Family History Father History Unknown: Yes Family Medical History: No Reported History Mother Family Medical History: Cancer Additional Family Medical History / Comment(s): uterine cancer Medications and Allergies Home Medications Medication Instructions Recorded Confirmed Type ALPRAZolam [Xanax] 1 mg PO TID PRN 08/25/15 06/04/18 History FLUoxetine HCL [PROzac] 20 mg PO DAILY 08/25/15 06/04/18 History Gabapentin [Neurontin] 600 mg PO TID 08/25/15 06/04/18 History Hydrocodone/Acetaminophen [[place] 1 tab PO TID PRN 08/25/15 06/04/18 History 7.5-325] Levothyroxine Sodium [Synthroid] 200 mcg PO DAILY 08/25/15 06/04/18 History Montelukast [Singulair] 10 mg PO DAILY 08/25/15 06/04/18 History Theophylline 24 Hour [Chris-24] 300 mg PO BID 08/25/15 06/04/18 History glyBURIDE/METFORMIN HCL 1 tab PO QID 08/25/15 06/04/18 History [glyBURIDE/METFORMIN HCL 2.5-500 mg] guaiFENesin [Mucinex] 1,200 mg PO BID 08/25/15 06/04/18 History Simvastatin [Zocor] 40 mg PO HS #30 tab 08/28/15 06/04/18 Rx Aspirin 81 mg PO DAILY 11/18/16 06/04/18 History Budesonide [Pulmicort] 0.5 mg INHALATION RT-BID 11/18/16 06/04/18 History Furosemide [Lasix] 40 mg PO DAILY PRN 11/18/16 06/04/18 History diphenhydrAMINE HCL [Benadryl] 50 mg PO Q6H PRN 11/18/16 06/04/18 History Isosorbide Mononitrate ER [Imdur] 15 mg PO DAILY #30 dose 11/23/16 06/04/18 Rx Potassium Chloride [Klor-Con 10] 10 meq PO BID 01/23/17 06/04/18 History guaiFENesin-DM 100-10MG/5ML 3.5 ml PO Q4H PRN 01/23/17 06/04/18 History [Robitussin DM] Ipratropium-Albuterol Nebulize 3 ml INHALATION RT-QID #0 01/26/17 06/04/18 Rx [Duoneb 0.5 mg-3 mg/3 ml Soln] predniSONE 10 mg PO DAILY #0 01/26/17 06/04/18 Rx Ferrous Sulfate [Iron (65 MG 325 mg PO DAILY 08/08/17 06/04/18 History Elemental)] Fluticasone Propionate [Flonase 2 spray EA NOSTRIL DAILY 08/08/17 06/04/18 History Allergy Relief] Ibandronate Sodium [Boniva] 150 mg PO QMONTH 08/08/17 06/04/18 History Insulin Aspart [NovoLOG See Protocol SQ ACHS PRN 08/08/17 06/04/18 History (formulary)] Ipratropium/Albuterol Sulfate 1 puff INHALATION RT-QID 08/08/17 06/04/18 History [Combivent Respimat Inhaler] Lisinopril [Zestril] 20 mg PO BID 08/08/17 06/04/18 History Ranitidine HCl [Zantac] 150 mg PO BID 08/08/17 06/04/18 History Levofloxacin [Levaquin] 750 mg PO DAILY #5 tab 08/11/17 06/04/18 Rx predniSONE See Taper PO DAILY #30 tab 08/11/17 06/04/18 Rx Allergies Allergy/AdvReac Type Severity Reaction Status Date / Time cefotaxime sodium Allergy Rash/Hives Verified 08/08/17 18:32 [From Claforan] glucose [From Gammagard S/D] Allergy Dyspnea Verified 08/08/17 18:32 glycine [From Gammagard S/D] Allergy Dyspnea Verified 08/08/17 18:32 IgA less than or equal to 50 Allergy Dyspnea Verified 08/08/17 18:32 mcg/mL [From Gammagard S/D] immune globulin,gamma (IgG) Allergy Dyspnea Verified 08/08/17 18:32 human [From Gammagard S/D] vancomycin Allergy Seizure/hyp Verified 08/08/17 18:32 oglycemia zoster vaccine live AdvReac Unknown Verified 08/08/17 18:32 [From Zostavax (PF)] Physical Exam Vitals: Vital Signs Temp Pulse Pulse Resp BP BP Pulse Ox 06/04/18 04:00 97.6 F 102 H 24 140/61 98 06/04/18 02:07 98.0 F 107 H 22 128/59 91 L 06/04/18 01:00 110 H 24 133/64 100 06/04/18 00:27 98.3 F 111 H 24 156/85 100 06/03/18 23:48 114 H 06/03/18 23:38 110 H 06/03/18 23:34 111 H 06/03/18 23:21 100.2 F H 116 H 32 H 139/69 98 Intake and Output 06/03/18 06/03/18 06/04/18 14:59 22:59 06:59 Output Total 1450 Balance -1450 Output: Urine 1450 Other: Voiding Method Indwelling Catheter Weight 96 kg - Constitutional General appearance: mild distress - Respiratory Respiratory: bilateral: wheezing - Cardiovascular Rhythm: regular Heart sounds: normal: S1, S2 Abnormal Heart Sounds: systolic murmur Results 06/03/18 23:31 06/03/18 23:31 Cardiac Enzymes 06/03/18 06/03/18 Range/Units 23:31 23:31 AST 28 (14-36) U/L CK-MB (CK-2) 3.6 H (0.0-2.4) ng/mL Troponin I <0.012 (0.000-0.034) ng/mL Coagulation 06/03/18 Range/Units 23:31 PT 10.7 (9.0-12.0) sec APTT 22.7 (22.0-30.0) sec CBC 06/03/18 Range/Units 23:31 WBC 11.7 H (3.8-10.6) k/uL RBC 3.33 L (3.80-5.40) m/uL Hgb 10.6 L (11.4-16.0) gm/dL Hct 33.4 L (34.0-46.0) % Plt Count 234 (150-450) k/uL Comprehensive Metabolic Panel 06/03/18 Range/Units 23:31 Sodium 138 (137-145) mmol/L Potassium 5.9 H (3.5-5.1) mmol/L Chloride 104 (98-107) mmol/L Carbon Dioxide 18 L (22-30) mmol/L BUN 49 H (7-17) mg/dL Creatinine 1.53 H (0.52-1.04) mg/dL Glucose 283 H (74-99) mg/dL Calcium 9.3 (8.4-10.2) mg/dL AST 28 (14-36) U/L ALT 24 (9-52) U/L Alkaline Phosphatase 62 (38-126) U/L Total Protein 6.8 (6.3-8.2) g/dL Albumin 4.0 (3.5-5.0) g/dL Current Medications Generic Name Dose Route Start Last Admin Trade Name Freq PRN Reason Stop Dose Admin Albuterol/Ipratropium 3 ml 06/03/18 23:30 06/04/18 06:44 Duoneb 0.5 Mg-3 Mg/3 Ml Soln INHALATION 3 ml RT-Q4H PRN Administration Shortness Of Breath Or Wheezing Insulin Aspart 0 unit 06/04/18 07:30 06/04/18 06:21 Novolog SQ 6 unit ACHS EMERITA Administration Protocol Methylprednisolone Sodium Succinate 60 mg 06/04/18 00:00 06/04/18 06:18 Solu-Medrol IV 60 mg Q6HR EMERITA Administration Intake and Output 06/03/18 06/03/18 06/04/18 14:59 22:59 06:59 Output Total 1450 Balance -1450 Output: Urine 1450 Other: Voiding Method Indwelling Catheter Weight 96 kg Patient Weight 06/04/18 06:59 Weight 96 kg 06/03/18 23:31 06/03/18 23:31 Assessment and Plan Assessment: Assessment Acute on chronic hypoxic respiratory failure Acute exacerbation of COPD/asthma Mild CHF exacerbation secondary to diastolic dysfunction Morbid obesity Hypertension Multiple comorbid conditions Plan I will diurese the patient gently with 20 mg IV twice a day The patient symptoms are more consistent with COPD that CHF Start the patient on Cardizem by mouth to slow the heart rate down Repeat the echocardiogram to assess the LV function Follow-up with the patient
--- NOTE | 2018-06-04 08:45 | XR ---
EXAMINATION TYPE: XR chest 1V portable DATE OF EXAM: 06/04/2018 HISTORY: sob. REFERENCE: Previous study dated 08/11/2017. FINDINGS: Lung volumes are prominent. The heart is mildly enlarged. I suspect small, bilateral effusi ons. Lungs otherwise clear. IMPRESSION: 1. CORRELATE FOR COPD. 2. MILD CARDIOMEGALY. 3. I SUSPECT SMALL, BILATERAL EFFUSIONS.
[2018-06-04] MEDS ORDERED: FUROSEMIDE 10 MG/ML 2 ML VIAL IV SCH (09:00)
[2018-06-04] MEDS: LEVOFLOXACIN 500 MG TAB PO SCH (09:31)
[2018-06-04] MEDS: DILTIAZEM ORAL 30 MG TAB PO SCH ×3 (09:31→21:18)
[2018-06-04] MEDS ORDERED: guaiFENesin-DM 100-10MG/5ML 10 ML CUP PO PRN (10:16)
--- NOTE | 2018-06-04 10:36 | P.CNPUL ---
History of Present Illness Consult date: 06/04/18 Requesting physician: Anali Ribera Reason for consult: COPD, pleural effusion Chief complaint: Shortness of breath History of present illness: This is a 68-year-old female with history of chronic hypoxic respiratory failure , chronic hypercapnic respiratory failure, maintained on oxygen at home and she is also on noninvasive positive pressure ventilator, avaps, except as a tidal volume of 450 people 5 pressure support of 8-14. Rate of 15. Patient usually sees Dr. Clements in our office, and she is maintained on multiple bronchodilators for underlying COPD. Patient had previous history of takustubo syndrome, but that has recovered, and cardiac workup in the last one year including echocardiogram and cardiac catheterization showed normal LV function and normal coronaries. Patient was brought in yesterday to the ER as a transfer from another emergency room I believe was [place] or [facility], patient apparently was brought in by EMS with profound shortness of breath, tachypnea, tachycardia, coughing, and wheezing. Chest x-ray showed mild congestive heart failure changes, patient was given Lasix, Solu-Medrol, updrafts, not much improvement noted, hence she was placed on BiPAP, transferred to our facility and she was eventually admitted. Patient remains on BiPAP at present, seems to be doing well, however cannot tolerate coming off BiPAP at least at this point. I reviewed her chest x-ray, and it is suggestive of mild congestive heart failure with bilateral pleural effusions, hence I increased the dose of Lasix which was initially started by Dr. Ashby earlier. The dose is now 40 mg IV push every 12 hours. Reviewed all her meds, patient is on proper bronchodilators, steroids, antibiotics. And I added Symbicort. During my evaluation, patient complained of shortness of breath, cough, wheezing , no chest pain, no nausea, no vomiting, no abdominal pain. No headache no blurred vision no dizziness, no dysuria and no frequency no urgency. No melena and no hematemesis. Review of Systems 14 point review of systems were obtained, please refer to pertinent positives and negatives as noted in HPI. Past Medical History Past Medical History: Asthma, Heart Failure, COPD, Diabetes Mellitus, GERD/ Reflux, Hyperlipidemia, Hypertension, Osteoarthritis (OA), Pneumonia, Respiratory Disorder, Skin Disorder, Sleep Apnea/CPAP/BIPAP, Thyroid Disorder Additional Past Medical History / Comment(s): Advanced COPD with chronic hypoxic respiratory failure has been on vent at [facility] in past.. CHF with an ejection fraction of 35-40%,leg edema, history of takotsubo syndrome and normal coronaries as evident on her cardiac catheterization, diabetes mellitus type 2, obesity, obstructive sleep apnea-uses noninvasive ventilator, hypothyroidism, peripheral neuropathy secondary to diabetes mellitus-bilateral feet, arthritis multiple joints and entire back, psoriasis, sinus problems. History of Any Multi-Drug Resistant Organisms: None Reported Past Surgical History: Appendectomy, Cholecystectomy, Heart Catheterization, Joint Replacement, Tonsillectomy, Tubal Ligation Additional Past Surgical History / Comment(s): 08/2015 normal cardiac cath, 2015 normal cardiac cath, bilateral total knee arthroplasty. Past Anesthesia/Blood Transfusion Reactions: No Reported Reaction Past Psychological History: Anxiety, Depression Additional Psychological History / Comment(s): Pt lives with her son and daughter. She has O2 at 3.5L/NC ATC. She has a noninvasive ventilator. also has cane, walker, rolling walker, bsc, hospital bed, nebulizer, glucometer. She has used home care in the past and just recently she used [place]. Smoking Status: Current every day smoker Past Alcohol Use History: Occasional Additional Past Alcohol Use History / Comment(s): Pt started smoking in 1962( age 12) smokes 2 ppd Past Drug Use History: Marijuana Additional Drug Use History / Comment(s): Patient states she has used marijuana (edibles) to help with pain on occasion. - Past Family History Father History Unknown: Yes Family Medical History: No Reported History Mother Family Medical History: Cancer Additional Family Medical History / Comment(s): uterine cancer Medications and Allergies Home Medications Medication Instructions Recorded Confirmed Type ALPRAZolam [Xanax] 1 mg PO TID PRN 08/25/15 06/04/18 History FLUoxetine HCL [PROzac] 20 mg PO DAILY 08/25/15 06/04/18 History Gabapentin [Neurontin] 600 mg PO TID 08/25/15 06/04/18 History Hydrocodone/Acetaminophen [[place] 1 tab PO TID PRN 08/25/15 06/04/18 History 7.5-325] Levothyroxine Sodium [Synthroid] 200 mcg PO DAILY 08/25/15 06/04/18 History Montelukast [Singulair] 10 mg PO DAILY 08/25/15 06/04/18 History Theophylline 24 Hour [Chris-24] 300 mg PO BID 08/25/15 06/04/18 History glyBURIDE/METFORMIN HCL 1 tab PO QID 08/25/15 06/04/18 History [glyBURIDE/METFORMIN HCL 2.5-500 mg] guaiFENesin [Mucinex] 1,200 mg PO BID 08/25/15 06/04/18 History Simvastatin [Zocor] 40 mg PO HS #30 tab 08/28/15 06/04/18 Rx Aspirin 81 mg PO DAILY 11/18/16 06/04/18 History Budesonide [Pulmicort] 0.5 mg INHALATION RT-BID 11/18/16 06/04/18 History Furosemide [Lasix] 40 mg PO DAILY PRN 11/18/16 06/04/18 History diphenhydrAMINE HCL [Benadryl] 50 mg PO Q6H PRN 11/18/16 06/04/18 History Isosorbide Mononitrate ER [Imdur] 15 mg PO DAILY #30 dose 11/23/16 06/04/18 Rx Potassium Chloride [Klor-Con 10] 10 meq PO BID 01/23/17 06/04/18 History guaiFENesin-DM 100-10MG/5ML 3.5 ml PO Q4H PRN 01/23/17 06/04/18 History [Robitussin DM] Ipratropium-Albuterol Nebulize 3 ml INHALATION RT-QID #0 01/26/17 06/04/18 Rx [Duoneb 0.5 mg-3 mg/3 ml Soln] predniSONE 10 mg PO DAILY #0 01/26/17 06/04/18 Rx Ferrous Sulfate [Iron (65 MG 325 mg PO DAILY 08/08/17 06/04/18 History Elemental)] Fluticasone Propionate [Flonase 2 spray EA NOSTRIL DAILY 08/08/17 06/04/18 History Allergy Relief] Ibandronate Sodium [Boniva] 150 mg PO QMONTH 08/08/17 06/04/18 History Insulin Aspart [NovoLOG See Protocol SQ ACHS PRN 08/08/17 06/04/18 History (formulary)] Ipratropium/Albuterol Sulfate 1 puff INHALATION RT-QID 08/08/17 06/04/18 History [Combivent Respimat Inhaler] Lisinopril [Zestril] 20 mg PO BID 08/08/17 06/04/18 History Ranitidine HCl [Zantac] 150 mg PO BID 08/08/17 06/04/18 History Levofloxacin [Levaquin] 750 mg PO DAILY #5 tab 08/11/17 06/04/18 Rx predniSONE See Taper PO DAILY #30 tab 08/11/17 06/04/18 Rx Allergies Allergy/AdvReac Type Severity Reaction Status Date / Time cefotaxime sodium Allergy Rash/Hives Verified 08/08/17 18:32 [From Claforan] glucose [From Gammagard S/D] Allergy Dyspnea Verified 08/08/17 18:32 glycine [From Gammagard S/D] Allergy Dyspnea Verified 08/08/17 18:32 IgA less than or equal to 50 Allergy Dyspnea Verified 08/08/17 18:32 mcg/mL [From Gammagard S/D] immune globulin,gamma (IgG) Allergy Dyspnea Verified 08/08/17 18:32 human [From Gammagard S/D] vancomycin Allergy Seizure/hyp Verified 08/08/17 18:32 oglycemia zoster vaccine live AdvReac Unknown Verified 08/08/17 18:32 [From Zostavax (PF)] Physical Exam Vitals: Vital Signs Temp Pulse Pulse Resp BP BP Pulse Ox 06/04/18 08:00 97.8 F 100 18 118/56 98 06/04/18 06:59 114 H 06/04/18 06:44 116 H 06/04/18 04:00 97.6 F 102 H 24 140/61 98 06/04/18 02:07 98.0 F 107 H 22 128/59 91 L 06/04/18 01:00 110 H 24 133/64 100 06/04/18 00:27 98.3 F 111 H 24 156/85 100 06/03/18 23:48 114 H 06/03/18 23:38 110 H 06/03/18 23:34 111 H 06/03/18 23:21 100.2 F H 116 H 32 H 139/69 98 Intake and Output 06/03/18 06/04/18 06/04/18 22:59 06:59 14:59 Output Total 1450 Balance -1450 Output: Urine 1450 Other: Voiding Method Indwelling Catheter Indwelling Catheter Weight 96 kg - General Exam Comments Initial Comments: GENERAL: Obese female in mild respiratory distress on BiPAP HENT: Normocephalic, Atraumatic. PERRLA, EOMI, no neck masses no JVD, no carotid bruits. EYES: PERRL, EOMI, no icterus. PULMONARY: Crackles or rhonchi and wheezes noted bilaterally. More so on forced expiratory maneuver. CARDIOVASCULAR: Tachycardic, no murmurs ABDOMEN: Obese, soft, nontender, no megaly, no rebound, no guarding. SKIN: No erythema, no rashes, no rashes, good skin turgor noted. NEUROLOGIC: Alert oriented 3, no gross focal neurologic deficits. MUSCULOSKELETAL: Normal range of motion, no deformities noted. LYMPHATICS: No lymphadenopathy is noted PSYCHIATRIC: Normal psychiatric evaluation. Normal mood, affect, and mental status examination. Limitations: no limitations Results - Laboratory Findings CBC and BMP: 06/03/18 23:31 06/03/18 23:31 PT/INR, D-dimer PT 10.7 sec (9.0-12.0) 06/03/18 23:31 INR 1.1 (<1.2) 06/03/18 23:31 Abnormal lab findings: Abnormal Labs 06/03/18 06/03/18 06/03/18 23:31 23:31 23:31 WBC 11.7 H RBC 3.33 L Hgb 10.6 L Hct 33.4 L MCV 100.2 H Neutrophils # 10.7 H Lymphocytes # 0.3 L VBG pH 7.25 L VBG HCO3 20 L Potassium Carbon Dioxide BUN Creatinine Glucose POC Glucose (mg/dL) Total Creatine Kinase 485 H CK-MB (CK-2) 3.6 H 06/03/18 06/04/18 06/04/18 23:31 00:54 06:16 WBC RBC Hgb Hct MCV Neutrophils # Lymphocytes # VBG pH VBG HCO3 Potassium 5.9 H Carbon Dioxide 18 L BUN 49 H Creatinine 1.53 H Glucose 283 H POC Glucose (mg/dL) 289 H 337 H Total Creatine Kinase CK-MB (CK-2) - Diagnostic Findings Chest x-ray: image reviewed (Chest x-ray is suggestive of mild congestive heart failure changes. With bilateral pleural effusions.) Assessment and Plan Assessment: Impression: 1 acute on chronic hypoxic and hypercapnic respiratory failure secondary to COPD and diastolic congestive heart failure. 2Chronic and ongoing tobacco dependence. 3 Morbid obesity with obstructive sleep apnea and obesity/hypoventilation syndrome. 4 History of marijuana use. 5 History of ventilatory dependent respiratory failure. 6 History of Takotsubo syndrome with normal coronary arteries. 7 Hypertension. 8 Hyperlipidemia. 9 Diabetes mellitus, type II with diabetic neuropathy, steroid-induced hyperglycemia requiring insulin drip. 10 Generalized anxiety disorder. 11 Poor overall functional performance based on the above-mentioned multiple comorbidities. Recommendation: Continue present course of treatment including BiPAP, bronchodilators, steroids, empiric antibiotics, diuretics, GI and DVT prophylaxis, we'll continue to follow closely. Prognosis in the [facility] is definitely poor and guarded. Time with Patient: Greater than 30
[2018-06-04] MEDS: GABAPENTIN 300 MG CAP PO SCH ×2 (10:46→20:17)
[2018-06-04] MEDS ORDERED: ALPRAZolam 1 MG TAB PO PRN (10:55)
--- NOTE | 2018-06-04 11:25 | P.HPIM ---
History of Present Illness 68-year-old the female with a history of chronic epigastric respiratory failure resolves and at home came in with compensative shortness of breath found to be in severe COPD examination patient is dropping a little flat elevation phlegm patient was on BiPAP yesterday. Patient does have advanced COPD continues to smoke. Patient denied any fever chills chest x-ray did not show any pneumonic process patient had history of stress-induced cardiomyopathy in the past although patient does not appear to be in severe COPD exacerbation had a normal ejection fraction normal coronary arteries in the past. Review of Systems REVIEW OF SYSTEMS: CONSTITUTIONAL: No fever, no malaise, no fatigue. HEENT: No recent visual problems or hearing problems. Denied any sore throat. CARDIOVASCULAR: No chest pain, orthopnea, PND, no palpitations, no syncope. PULMONARY: As mentioned in HPI GASTROINTESTINAL: No diarrhea, no nausea, no vomiting, no abdominal pain. Normoactive bowel sounds. NEUROLOGICAL: No headaches, no weakness, no numbness. HEMATOLOGICAL: Denies any bleeding or petechiae. GENITOURINARY: Denies any burning micturition, frequency, or urgency. MUSCULOSKELETAL/RHEUMATOLOGICAL: Denies any joint pain, swelling, or any muscle pain. ENDOCRINE: Denies any polyuria or polydipsia. The rest of the 14-point review of systems is negative. Past Medical History Past Medical History: Asthma, Heart Failure, COPD, Diabetes Mellitus, GERD/ Reflux, Hyperlipidemia, Hypertension, Osteoarthritis (OA), Pneumonia, Respiratory Disorder, Skin Disorder, Sleep Apnea/CPAP/BIPAP, Thyroid Disorder Additional Past Medical History / Comment(s): Advanced COPD with chronic hypoxic respiratory failure has been on vent at [facility] in past.. CHF with an ejection fraction of 35-40%,leg edema, history of takotsubo syndrome and normal coronaries as evident on her cardiac catheterization, diabetes mellitus type 2, obesity, obstructive sleep apnea-uses noninvasive ventilator, hypothyroidism, peripheral neuropathy secondary to diabetes mellitus-bilateral feet, arthritis multiple joints and entire back, psoriasis, sinus problems. History of Any Multi-Drug Resistant Organisms: None Reported Past Surgical History: Appendectomy, Cholecystectomy, Heart Catheterization, Joint Replacement, Tonsillectomy, Tubal Ligation Additional Past Surgical History / Comment(s): 08/2015 normal cardiac cath, 2015 normal cardiac cath, bilateral total knee arthroplasty. Past Anesthesia/Blood Transfusion Reactions: No Reported Reaction Past Psychological History: Anxiety, Depression Additional Psychological History / Comment(s): Pt lives with her son and daughter. She has O2 at 3.5L/NC ATC. She has a noninvasive ventilator. also has cane, walker, rolling walker, bsc, hospital bed, nebulizer, glucometer. She has used home care in the past and just recently she used [place]. Smoking Status: Current every day smoker Past Alcohol Use History: Occasional Additional Past Alcohol Use History / Comment(s): Pt started smoking in 1962( age 12) smokes 2 ppd Past Drug Use History: Marijuana Additional Drug Use History / Comment(s): Patient states she has used marijuana (edibles) to help with pain on occasion. - Past Family History Father History Unknown: Yes Family Medical History: No Reported History Mother Family Medical History: Cancer Additional Family Medical History / Comment(s): uterine cancer Medications and Allergies Home Medications Medication Instructions Recorded Confirmed Type ALPRAZolam [Xanax] 1 mg PO TID PRN 08/25/15 06/04/18 History FLUoxetine HCL [PROzac] 20 mg PO DAILY 08/25/15 06/04/18 History Gabapentin [Neurontin] 600 mg PO TID 08/25/15 06/04/18 History Hydrocodone/Acetaminophen [[place] 1 tab PO TID PRN 08/25/15 06/04/18 History 7.5-325] Montelukast [Singulair] 10 mg PO DAILY 08/25/15 06/04/18 History Theophylline 24 Hour [Chris-24] 300 mg PO BID 08/25/15 06/04/18 History glyBURIDE/METFORMIN HCL 1 tab PO QID 08/25/15 06/04/18 History [glyBURIDE/METFORMIN HCL 2.5-500 mg] guaiFENesin [Mucinex] 1,200 mg PO BID 08/25/15 06/04/18 History Simvastatin [Zocor] 40 mg PO HS #30 tab 08/28/15 06/04/18 Rx Aspirin 81 mg PO DAILY 11/18/16 06/04/18 History Budesonide [Pulmicort] 0.5 mg INHALATION RT-BID 11/18/16 06/04/18 History Furosemide [Lasix] 40 mg PO DAILY PRN 11/18/16 06/04/18 History diphenhydrAMINE HCL [Benadryl] 50 mg PO Q6H PRN 11/18/16 06/04/18 History Isosorbide Mononitrate ER [Imdur] 15 mg PO DAILY #30 dose 11/23/16 06/04/18 Rx Potassium Chloride [Klor-Con 10] 10 meq PO BID PRN 01/23/17 06/04/18 History guaiFENesin-DM 100-10MG/5ML 3.5 ml PO Q4H PRN 01/23/17 06/04/18 History [Robitussin DM] Ipratropium-Albuterol Nebulize 3 ml INHALATION RT-QID #0 01/26/17 06/04/18 Rx [Duoneb 0.5 mg-3 mg/3 ml Soln] predniSONE 10 mg PO DAILY #0 01/26/17 06/04/18 Rx Ferrous Sulfate [Iron (65 MG 325 mg PO DAILY 08/08/17 06/04/18 History Elemental)] Fluticasone Propionate [Flonase 2 spray EA NOSTRIL DAILY 08/08/17 06/04/18 History Allergy Relief] Ibandronate Sodium [Boniva] 150 mg PO Q30D 08/08/17 06/04/18 History Insulin Aspart [NovoLOG See Protocol SQ ACHS PRN 08/08/17 06/04/18 History (formulary)] Ipratropium/Albuterol Sulfate 1 puff INHALATION RT-QID 08/08/17 06/04/18 History [Combivent Respimat Inhaler] Lisinopril [Zestril] 20 mg PO BID 08/08/17 06/04/18 History Ranitidine HCl [Zantac] 150 mg PO BID 08/08/17 06/04/18 History Levofloxacin [Levaquin] 750 mg PO DAILY #5 tab 08/11/17 06/04/18 Rx Levothyroxine Sodium [Synthroid] 175 mcg PO DAILY 06/04/18 06/04/18 History Allergies Allergy/AdvReac Type Severity Reaction Status Date / Time cefotaxime sodium Allergy Rash/Hives Verified 06/04/18 10:59 [From Claforan] glucose [From Gammagard S/D] Allergy Dyspnea Verified 06/04/18 10:59 glycine [From Gammagard S/D] Allergy Dyspnea Verified 06/04/18 10:59 IgA less than or equal to 50 Allergy Dyspnea Verified 06/04/18 10:59 mcg/mL [From Gammagard S/D] immune globulin,gamma (IgG) Allergy Dyspnea Verified 06/04/18 10:59 human [From Gammagard S/D] vancomycin Allergy Seizure/hyp Verified 06/04/18 10:59 oglycemia zoster vaccine live AdvReac Unknown Verified 06/04/18 10:59 [From Zostavax (PF)] Physical Exam Vitals: Vital Signs Temp Pulse Pulse Resp BP BP Pulse Ox 06/04/18 11:01 116 H 06/04/18 10:51 116 H 06/04/18 08:00 97.8 F 100 18 118/56 98 06/04/18 06:59 114 H 06/04/18 06:44 116 H 06/04/18 04:00 97.6 F 102 H 24 140/61 98 06/04/18 02:07 98.0 F 107 H 22 128/59 91 L 06/04/18 01:00 110 H 24 133/64 100 06/04/18 00:27 98.3 F 111 H 24 156/85 100 06/03/18 23:48 114 H 06/03/18 23:38 110 H 06/03/18 23:34 111 H 06/03/18 23:21 100.2 F H 116 H 32 H 139/69 98 Intake and Output 06/03/18 06/04/18 06/04/18 22:59 06:59 14:59 Output Total 1450 Balance -1450 Output: Urine 1450 Other: Voiding Method Indwelling Catheter Indwelling Catheter Weight 96 kg PHYSICAL EXAMINATION: GENERAL: The patient is alert and oriented x3, not in any acute distress. Well developed, well nourished. HEENT: Pupils are round and equally reacting to light. EOMI. No scleral icterus. No conjunctival pallor. Normocephalic, atraumatic. No pharyngeal erythema. No thyromegaly. CARDIOVASCULAR: S1 and S2 present. No murmurs, rubs, or gallops. PULMONARY: Regular. Extremity wheezing limited air entry into bilateral lung [place].. ABDOMEN: Soft, nontender, nondistended, normoactive bowel sounds. No palpable organomegaly. MUSCULOSKELETAL: No joint swelling or deformity. EXTREMITIES: No cyanosis, clubbing, or pedal edema. NEUROLOGICAL: Gross neurological examination did not reveal any focal deficits. SKIN: No rashes. Results CBC & Chem 7: 06/03/18 23:31 06/03/18 23:31 Labs: Abnormal Lab Results - Last 24 Hours (Table) 06/03/18 06/03/18 06/03/18 Range/Units 23:31 23:31 23:31 WBC 11.7 H (3.8-10.6) k/uL RBC 3.33 L (3.80-5.40) m/uL Hgb 10.6 L (11.4-16.0) gm/dL Hct 33.4 L (34.0-46.0) % MCV 100.2 H (80.0-100.0) fL Neutrophils # 10.7 H (1.3-7.7) k/uL Lymphocytes # 0.3 L (1.0-4.8) k/uL VBG pH 7.25 L (7.31-7.41) VBG HCO3 20 L (24-28) mmol/L Potassium (3.5-5.1) mmol/L Carbon Dioxide (22-30) mmol/L BUN (7-17) mg/dL Creatinine (0.52-1.04) mg/dL Glucose (74-99) mg/dL POC Glucose (mg/dL) (75-99) mg/dL Total Creatine Kinase 485 H (30-135) U/L CK-MB (CK-2) 3.6 H (0.0-2.4) ng/mL 06/03/18 06/04/18 06/04/18 Range/Units 23:31 00:54 06:16 WBC (3.8-10.6) k/uL RBC (3.80-5.40) m/uL Hgb (11.4-16.0) gm/dL Hct (34.0-46.0) % MCV (80.0-100.0) fL Neutrophils # (1.3-7.7) k/uL Lymphocytes # (1.0-4.8) k/uL VBG pH (7.31-7.41) VBG HCO3 (24-28) mmol/L Potassium 5.9 H (3.5-5.1) mmol/L Carbon Dioxide 18 L (22-30) mmol/L BUN 49 H (7-17) mg/dL Creatinine 1.53 H (0.52-1.04) mg/dL Glucose 283 H (74-99) mg/dL POC Glucose (mg/dL) 289 H 337 H (75-99) mg/dL Total Creatine Kinase (30-135) U/L CK-MB (CK-2) (0.0-2.4) ng/mL Thrombosis Risk Factor Assmnt - Choose All That Apply Any of the Below Risk Factors Present?: Yes Each Factor Represents 1 point: Abnormal pulmonary function (COPD), Heart failure (<1month), Obesity (BMI >25), Serious lung disease incl. pneumonia (< 1month) Other Risk Factors: Yes Each Risk Factor Represents 2 Points: Age 61-74 years Thrombosis Risk Factor Assessment Total Risk Factor Score: 6 Thrombosis Risk Factor Assessment Level: High Risk Assessment and Plan Plan: -Acute on chronic hypercapnic respiratory failure: Secondary to COPD exacerbation continue with systemic steroids inhalational treatments. -Need continued nicotine use: Counseling was provided -History of stress and use of [place] myopathy not in acute exacerbation at this point of time clinically patient already is getting IV Lasix probably need to be switched to oral R be discontinued -Acute renal failure: A slim creatinine 0.8 now 1.6 -Hyperkalemia secondary to acute renal failure, Will order capsulate Endocrine diabetes mellitus blood sugars are expected to go because of the systemic steroids -Diuretic peripheral neuropathy -History of marijuana use -History of diastolic dysfunction
[2018-06-04] MEDS ORDERED: DOXYCYCLINE 100 MG CAP ONE (11:56)
[2018-06-04 12:21] LABS: Glucose,Whole Blood 353 mg/dL (75-99)
[2018-06-04] MEDS: DOXYCYCLINE 100 MG CAP PO SCH ×2 (12:46→21:18)
[2018-06-04 16:48] LABS: Glucose,Whole Blood 336 mg/dL (75-99)
[2018-06-04] MEDS: SYMBICORT 160-4.5 MCG INHALER INHALATION SCH (19:36)
[2018-06-04] MEDS: FAMOTIDINE 20 MG TAB PO SCH (20:16)
[2018-06-04] MEDS: ATORVASTATIN 20 MG TAB PO SCH (20:16)
[2018-06-04] MEDS: FUROSEMIDE 10 MG/ML 4 ML VIAL IV SCH (20:17)
[2018-06-04] MEDS: guaiFENesin 600 MG TABLET.ER PO SCH (20:17)
[2018-06-04 21:09] LABS: Glucose,Whole Blood 424 mg/dL (75-99)
[2018-06-04] MEDS ORDERED: INSULIN ASPART 100 UNIT/ML 1 ML 10 ML VIAL SQ ONE ×2 (21:13→22:28)
[2018-06-04 22:25] LABS: Glucose,Whole Blood 442 mg/dL (75-99)
[2018-06-05 01:04] LABS: Glucose,Whole Blood 335 mg/dL (75-99)
[2018-06-05] MEDS: methylPREDNISolone SOD SUCCI 125 MG/2 ML VIAL IV SCH ×4 (01:23→18:05)
[2018-06-05 05:30] LABS: Glucose,Whole Blood 323 mg/dL (75-99)
[2018-06-05] MEDS: LEVOTHYROXINE 100 MCG TAB PO SCH (05:34)
[2018-06-05] MEDS: LEVOTHYROXINE 75 MCG TAB PO SCH (05:34)
[2018-06-05] MEDS ORDERED: LEVOTHYROXINE 100 MCG TAB PO SCH (06:30)
--- NOTE | 2018-06-05 07:36 | XR ---
EXAMINATION TYPE: XR chest 1V portable DATE OF EXAM: 06/05/2018 COMPARISON: Prior chest x-ray 06/04/2018 HISTORY: Congestive heart failure TECHNIQUE: Single frontal view of the chest is obtained. FINDINGS: Technical limitations to the exam, patient is rotated. Heart size is stable, enlarged. No evident pneumothorax. Difficult to exclude basilar increased density. Question some perihilar vascula r indistinctness. Prominent lung volumes suggest underlying COPD. Pulmonary vascularity and vianney are stable. IMPRESSION: Rotation may accentuate the appearance of the heart. Correlate to exclude pulmonary veno us hypertension and interstitial edema. Exam is limited technically.
[2018-06-05] MEDS: INSULIN ASPART 100 UNIT/ML 1 ML 10 ML VIAL SQ SCH ×4 (08:04→23:13)
[2018-06-05] MEDS: ASPIRIN 81 MG PO SCH (08:05)
[2018-06-05] MEDS: FUROSEMIDE 10 MG/ML 4 ML VIAL IV SCH (08:05)
[2018-06-05] MEDS: GABAPENTIN 300 MG CAP PO SCH (08:05)
[2018-06-05] MEDS: guaiFENesin 600 MG TABLET.ER PO SCH ×2 (08:05→21:02)
[2018-06-05] MEDS: FLUoxetine HCL 20 MG CAP PO SCH (08:05)
[2018-06-05] MEDS: LEVOFLOXACIN 500 MG TAB PO SCH (08:05)
[2018-06-05] MEDS: MONTELUKAST 10 MG TAB PO SCH (08:05)
[2018-06-05] MEDS: FERROUS SULFATE 325 MG TAB PO SCH (08:05)
[2018-06-05] MEDS: FAMOTIDINE 20 MG TAB PO SCH (08:05)
[2018-06-05] MEDS ORDERED: LEVOFLOXACIN 750 MG TAB PO SCH (09:00)
[2018-06-05] MEDS: SYMBICORT 160-4.5 MCG INHALER INHALATION SCH ×2 (09:40→19:57)
[2018-06-05] MEDS: IPRATROPIUM-ALBUTEROL 3 ML NEB INHALATION PRN ×4 (09:40→19:56)
[2018-06-05] MEDS: DILTIAZEM ORAL 30 MG TAB PO SCH ×3 (10:48→21:22)
[2018-06-05] MEDS: DOXYCYCLINE 100 MG CAP PO SCH ×2 (10:48→21:03)
[2018-06-05] MEDS: ISOSORBIDE MONONITRATE ER 15 MG TAB PO SCH (10:48)
[2018-06-05 10:51] LABS: Basophils % (A) 0 %; Eosinophils % (A) 0 %; HCT 28.7 % (34.0-46.0); HGB 9.3 gm/dL (11.4-16.0); Lymphocytes # (A) 0.4 k/uL (1.0-4.8); Lymphocytes % (A) 9 %; MCH 32.2 pg (25.0-35.0); MCHC 32.2 g/dL (31.0-37.0); Mean Platelet Volume 7.3; Monocytes # (A) 0.2 k/uL (0-1.0); Monocytes % (A) 4 %; Neutrophils # (A) 4.3 k/uL (1.3-7.7); Neutrophils % (A) 86 %; Platelet Count 245 k/uL (150-450); RBC 2.87 m/uL (3.80-5.40); RDW 13.2 % (11.5-15.5); WBC 4.9 k/uL (3.8-10.6)
[2018-06-05 11:04] LABS: Calcium 8.7 mg/dL (8.4-10.2); Potassium 5.1 mmol/L (3.5-5.1)
[2018-06-05 12:02] LABS: Glucose,Whole Blood 346 mg/dL (75-99)
--- NOTE | 2018-06-05 13:20 | P.PN ---
Subjective Progress Note Date: 06/05/18 Principal diagnosis: Acute on chronic hypoxic and hypercapnic respiratory failure secondary to COPD and diastolic congestive heart failure This is a 68-year-old female with history of chronic hypoxic respiratory failure , chronic hypercapnic respiratory failure, maintained on oxygen at home and she is also on noninvasive positive pressure ventilator, avaps, except as a tidal volume of 450 people 5 pressure support of 8-14. Rate of 15. Patient usually sees Dr. Clements in our office, and she is maintained on multiple bronchodilators for underlying COPD. Patient had previous history of takustubo syndrome, but that has recovered, and cardiac workup in the last one year including echocardiogram and cardiac catheterization showed normal LV function and normal coronaries. Patient was brought in yesterday to the ER as a transfer from another emergency room I believe was [facility], patient apparently was brought in by EMS with profound shortness of breath, tachypnea, tachycardia, coughing, and wheezing. Chest x-ray showed mild congestive heart failure changes, patient was given Lasix, Solu-Medrol, updrafts, not much improvement noted, hence she was placed on BiPAP, transferred to our facility and she was eventually admitted. Patient remains on BiPAP at present, seems to be doing well, however cannot tolerate coming off BiPAP at least at this point. I reviewed her chest x-ray, and it is suggestive of mild congestive heart failure with bilateral pleural effusions, hence I increased the dose of Lasix which was initially started by Dr. Ashby earlier. The dose is now 40 mg IV push every 12 hours. Reviewed all her meds, patient is on proper bronchodilators, steroids, antibiotics. And I added Symbicort. During my evaluation, patient complained of shortness of breath, cough, wheezing , no chest pain, no nausea, no vomiting, no abdominal pain. No headache no blurred vision no dizziness, no dysuria and no frequency no urgency. No melena and no hematemesis. On 06/05/2018 patient seen in follow-up on selective care unit. Patient states she is feeling a lot better today, she remains on 4 L per nasal cannula, her pulse ox is 97%, afebrile, hemodynamically stable. Lung sounds are positive for some scattered wheezes. Today's chest x-ray has been reviewed, and shows changes consistent with congestive heart failure, bilateral pleural effusions. He remains on IV steroids, nebulized bronchodilators, and empiric antibiotics. Today's labs were negative for any leukocytosis, hemoglobin is 9.3, electrolytes are within normal limits, BUN is 87 and creatinine is 2.22. No chest pain. Doing better today. Objective - Vital Signs Vital signs: Vital Signs Temp 99.3 F 06/05/18 07:40 Pulse 92 06/05/18 09:52 Resp 12 06/05/18 07:40 BP 127/89 06/05/18 07:40 Pulse Ox 97 06/05/18 07:40 Intake & Output 06/04/18 06/05/18 06/05/18 18:59 06:59 18:59 Intake Total 222 300 Output Total 400 1500 500 Balance -178 -1200 -500 Weight 96 kg Intake: Oral 222 300 Output: Urine 400 1500 500 Other: Voiding Method Indwelling Catheter Indwelling Catheter Indwelling Catheter # Voids 1 - Exam Initial Comments: GENERAL: Obese female in mild respiratory distress on BiPAP HENT: Normocephalic, Atraumatic. PERRLA, EOMI, no neck masses no JVD, no carotid bruits. EYES: PERRL, EOMI, no icterus. PULMONARY: Diffuse wheezes. CARDIOVASCULAR: Tachycardic, no murmurs ABDOMEN: Obese, soft, nontender, no megaly, no rebound, no guarding. SKIN: No erythema, no rashes, no rashes, good skin turgor noted. NEUROLOGIC: Alert oriented 3, no gross focal neurologic deficits. MUSCULOSKELETAL: Normal range of motion, no deformities noted. LYMPHATICS: No lymphadenopathy is noted PSYCHIATRIC: Normal psychiatric evaluation. Normal mood, affect, and mental status examination. Limitations: no limitations - Labs CBC & Chem 7: 06/05/18 09:24 06/05/18 09:24 Labs: Abnormal Lab Results - Last 24 Hours (Table) 06/04/18 06/04/18 06/04/18 Range/Units 16:26 21:08 22:23 RBC (3.80-5.40) m/uL Hgb (11.4-16.0) gm/dL Hct (34.0-46.0) % Lymphocytes # (1.0-4.8) k/uL BUN (7-17) mg/dL Creatinine (0.52-1.04) mg/dL Glucose (74-99) mg/dL POC Glucose (mg/dL) 336 H 424 H 442 H (75-99) mg/dL 06/05/18 06/05/18 06/05/18 Range/Units 00:53 05:19 09:24 RBC 2.87 L (3.80-5.40) m/uL Hgb 9.3 L (11.4-16.0) gm/dL Hct 28.7 L (34.0-46.0) % Lymphocytes # 0.4 L (1.0-4.8) k/uL BUN (7-17) mg/dL Creatinine (0.52-1.04) mg/dL Glucose (74-99) mg/dL POC Glucose (mg/dL) 335 H 323 H (75-99) mg/dL 06/05/18 06/05/18 Range/Units 09:24 11:50 RBC (3.80-5.40) m/uL Hgb (11.4-16.0) gm/dL Hct (34.0-46.0) % Lymphocytes # (1.0-4.8) k/uL BUN 87 H (7-17) mg/dL Creatinine 2.22 H (0.52-1.04) mg/dL Glucose 375 H (74-99) mg/dL POC Glucose (mg/dL) 346 H (75-99) mg/dL Assessment and Plan Plan: Assessment: 1 acute on chronic hypoxic and hypercapnic respiratory failure secondary to COPD and diastolic congestive heart failure. 2Chronic and ongoing tobacco dependence. 3 Morbid obesity with obstructive sleep apnea and obesity/hypoventilation syndrome. 4 History of marijuana use. 5 History of ventilatory dependent respiratory failure. 6 History of Takotsubo syndrome with normal coronary arteries. 7 Hypertension. 8 Hyperlipidemia. 9 Diabetes mellitus, type II with diabetic neuropathy, steroid-induced hyperglycemia requiring insulin drip. 10 Generalized anxiety disorder. 11 Poor overall functional performance based on the above-mentioned multiple comorbidities. Recommendation: Continue with current medical treatment, continue IV steroids, diuretics remain on hold, there has been slight worsening of the renal function. BiPAP support as needed, continue empiric antibiotics. Increase activity as tolerated. I performed a history & physical examination of the patient and discussed their management with my nurse practitioner, Sophia Lombardi. I reviewed the nurse practitioner's note and agree with the documented findings and plan of care. Lung sounds are positive for diffuse wheezes. The findings and the impression was discussed with the patient. I attest to the documentation by the nurse practitioner. Time with Patient: Less than 30
[2018-06-05 13:51] LABS: Hemoglobin A1C 7.6 % (4.0-6.0)
--- NOTE | 2018-06-05 14:29 | P.PN ---
Subjective Mrs. Kelley is seen and examined laying flat in bed in no acute distress. Past medical history significant for COPD, chronic respiratory failure on home O2, hypertension, dyslipidemia, morbid obesity and chronic nicotine dependence. She follows with Dr. Burgess as an outpatient. She has a normal cathereization that revealed normal coronary arteries. She states her breathing is mildly better but not resolved. She denies chest pain, dizziness or palpitations. She continues to have bilateral wheezing and is mildly tachyneic. Blood pressure 127 /89 heart rate 82 afebrile maintaining oxygen saturation on nasal cannula 5 L. Laboratory data reviewed, hemoglobin 9.3, sodium 138, potassium 5.1, creatinine 2.22 up from 1.53 on admission. She is currently maintained on Lasix 40 mg IV twice a day per pulmonology. Repeat chest x-ray this morning shows pulmonary venous hypertension and interstitial edema. Objective - Vital Signs Vital signs: Vital Signs Temp 99.3 F 06/05/18 07:40 Pulse 92 06/05/18 13:41 Resp 12 06/05/18 07:40 BP 127/89 06/05/18 07:40 Pulse Ox 97 06/05/18 07:40 Intake & Output 06/04/18 06/05/18 06/05/18 18:59 06:59 18:59 Intake Total 222 300 Output Total 400 1500 500 Balance -178 -1200 -500 Weight 96 kg Intake: Oral 222 300 Output: Urine 400 1500 500 Other: Voiding Method Indwelling Catheter Indwelling Catheter Indwelling Catheter # Voids 1 - Exam GENERAL: Well-appearing, well-nourished and in mild distress. NECK: Supple without JVD or thyromegaly. LUNGS: Bilateral wheezing. No rales or rhonchi. Respiration equal and unlabored. HEART: Regular rate and rhythm with systolic ejection murmur at the base, no rubs or gallops. S1 and S2 heard. EXTREMITIES: Normal range of motion, no edema. No clubbing or cyanosis. Peripheral pulses intact. - Labs CBC & Chem 7: 06/05/18 09:24 06/05/18 09:24 Labs: Abnormal Lab Results - Last 24 Hours (Table) 06/03/18 06/04/18 06/04/18 Range/Units 23:31 16:26 21:08 RBC (3.80-5.40) m/uL Hgb (11.4-16.0) gm/dL Hct (34.0-46.0) % Lymphocytes # (1.0-4.8) k/uL BUN (7-17) mg/dL Creatinine (0.52-1.04) mg/dL Glucose (74-99) mg/dL POC Glucose (mg/dL) 336 H 424 H (75-99) mg/dL Hemoglobin A1c 7.6 H (4.0-6.0) % 06/04/18 06/05/18 06/05/18 Range/Units 22:23 00:53 05:19 RBC (3.80-5.40) m/uL Hgb (11.4-16.0) gm/dL Hct (34.0-46.0) % Lymphocytes # (1.0-4.8) k/uL BUN (7-17) mg/dL Creatinine (0.52-1.04) mg/dL Glucose (74-99) mg/dL POC Glucose (mg/dL) 442 H 335 H 323 H (75-99) mg/dL Hemoglobin A1c (4.0-6.0) % 06/05/18 06/05/18 06/05/18 Range/Units 09:24 09:24 11:50 RBC 2.87 L (3.80-5.40) m/uL Hgb 9.3 L (11.4-16.0) gm/dL Hct 28.7 L (34.0-46.0) % Lymphocytes # 0.4 L (1.0-4.8) k/uL BUN 87 H (7-17) mg/dL Creatinine 2.22 H (0.52-1.04) mg/dL Glucose 375 H (74-99) mg/dL POC Glucose (mg/dL) 346 H (75-99) mg/dL Hemoglobin A1c (4.0-6.0) % Assessment and Plan Assessment: ASSESSMENT Acute on chronic hypoxic respiratory failure Acute exacerbation of COPD Mild exacerbation of congestive heart failure secondary to diastolic dysfunction Hypertension Morbid obesity Acute kidney injury Multiple comorbid conditions PLAN Discontinue IV Lasix and started on 40 mg by mouth daily tomorrow. Symptoms are more consistent with COPD rather than CHF. She is tolerating oral Cardizem and her heart rate is much more controlled today. Ongoing medical management with breathing treatments and antibiotics. We will continue to follow as needed, please feel free to call with further questions or concerns. Follow-up with Dr. Burgess upon discharge in 2-3 weeks. Nurse Practitioner note has been reviewed, I agree with a documented findings and plan of care. Patient was seen and examined.
[2018-06-05] MEDS: GABAPENTIN 100 MG CAP PO SCH ×2 (15:15→21:03)
[2018-06-05 17:31] LABS: Glucose,Whole Blood 384 mg/dL (75-99)
--- NOTE | 2018-06-05 19:00 | ECHOF ---
Referral Reason:Post ASD/PFO Insertion MEASUREMENTS -------- HEIGHT: 149.9 cm WEIGHT: 95.7 kg BP: 100/46 IVSd: 1.1 cm (0.6 - 1.1) LVIDd: 5.9 cm (3.9 - 5.3) LVPWd: 1.1 cm (0.6 - 1.1) IVSs: 1.5 cm LVIDs: 4.4 cm LVPWs: 1.4 cm RVIDd: 2.5 cm (< 3.3) LAESV Index (A-L): 24.16 ml/m Ao Diam: 2.4 cm (2.0 - 3.7) LA Diam: 3.5 cm (2.7 - 3.8) AV Cusp: 1.8 cm (1.5 - 2.6) MV E Pool: 1.25 m/s MV DecT: 251 ms MV A Pool: 1.16 m/s MV E/A Ratio: 1.08 AV maxP.74 mmHg AV meanP.10 mmHg RAP: 5.00 mmHg RVSP: 11.89 mmHg FINDINGS -------- Sinus rhythm. This was a technically adequate study. The left ventricular size is normal. There is borderline concentric left ventricular hypertrophy. Overall left ventricular systolic function is low-normal with, an EF between 50 - 55 %. The right ventricle is normal in size and function. Normal LA size by volume 22+/-6 ml/m2. The right atrium is normal in size. There is mild aortic valve sclerosis. There is no evidence of aortic regurgitation. There is bord sacha aortic stenosis present. Peak/mean gradient across the Aortic Valve is 13.74mmHg / 7.10mmHg. The mitral valve leaflets are mildly thickened. Mild mitral annular calcification present. There is trace to mild mitral regurgitation. Trace tricuspid regurgitation present. Right ventricular systolic pressure is normal at < 35 mmHg. There is no evidence of pulmonary hypertension. The pulmonic valve was not well visualized. The aortic root size is normal. Normal inferior vena cava with normal inspiratory collapse consistent with estimated right atrial pre ssure of 5 mmHg. There is no pericardial effusion. CONCLUSIONS -------- 1. Sinus rhythm. 2. This was a technically adequate study. 3. The left ventricular size is normal. 4. There is borderline concentric left ventricular hypertrophy. 5. Overall left ventricular systolic function is low-normal with, an EF between 50 - 55 %. 6. Normal LA size by volume 22+/-6 ml/m2. 7. There is mild aortic valve sclerosis. 8. There is borderline aortic stenosis present. 9. Peak/mean gradient across the Aortic Valve is 13.74mmHg / 7.10mmHg. 10. The mitral valve leaflets are mildly thickened. 11. Mild mitral annular calcification present. 12. There is trace to mild mitral regurgitation. 13. Trace tricuspid regurgitation present. 14. Right ventricular systolic pressure is normal at < 35 mmHg. 15. There is no evidence of pulmonary hypertension. 16. The pulmonic valve was not well visualized. 17. The aortic root size is normal. 18. There is no pericardial effusion. THREADING MACHINE TENDER: Walter May RDCS
[2018-06-05 20:51] LABS: Glucose,Whole Blood 409 mg/dL (75-99)
[2018-06-05] MEDS: ATORVASTATIN 20 MG TAB PO SCH (21:03)
[2018-06-05 21:07] LABS: Glucose,Whole Blood 419 mg/dL (75-99)
[2018-06-05] MEDS ORDERED: INSULIN ASPART 100 UNIT/ML 1 ML 10 ML VIAL SQ ONE (22:59)
[2018-06-05 23:10] LABS: Glucose,Whole Blood 369 mg/dL (75-99)
[2018-06-05] MEDS ORDERED: INSULIN DETEMIR 100 UNIT/ML 10 ML VIAL SQ SCH (23:15)
[2018-06-06] MEDS: IPRATROPIUM-ALBUTEROL 3 ML NEB INHALATION PRN ×5 (00:35→20:45)
[2018-06-06] MEDS: methylPREDNISolone SOD SUCCI 125 MG/2 ML VIAL IV SCH ×3 (01:07→12:29)
[2018-06-06] MEDS: LEVOTHYROXINE 75 MCG TAB PO SCH (05:33)
[2018-06-06] MEDS: LEVOTHYROXINE 100 MCG TAB PO SCH (05:34)
[2018-06-06] MEDS: SYMBICORT 160-4.5 MCG INHALER INHALATION SCH (07:39)
[2018-06-06 07:50] LABS: Glucose,Whole Blood 334 mg/dL (75-99)
[2018-06-06] MEDS: INSULIN ASPART 100 UNIT/ML 1 ML 10 ML VIAL SQ SCH ×4 (08:16→21:17)
[2018-06-06] MEDS: ISOSORBIDE MONONITRATE ER 15 MG TAB PO SCH (08:17)
[2018-06-06] MEDS: ASPIRIN 81 MG PO SCH (08:17)
[2018-06-06] MEDS: DOXYCYCLINE 100 MG CAP PO SCH ×2 (08:17→21:14)
[2018-06-06] MEDS: GABAPENTIN 100 MG CAP PO SCH ×3 (08:17→22:58)
[2018-06-06] MEDS: FLUoxetine HCL 20 MG CAP PO SCH (08:17)
[2018-06-06] MEDS: FERROUS SULFATE 325 MG TAB PO SCH (08:17)
[2018-06-06] MEDS: guaiFENesin 600 MG TABLET.ER PO SCH ×2 (08:18→21:14)
[2018-06-06] MEDS: DILTIAZEM ORAL 30 MG TAB PO SCH ×3 (08:18→22:58)
[2018-06-06] MEDS: FAMOTIDINE 20 MG TAB PO SCH (08:29)
[2018-06-06] MEDS: MONTELUKAST 10 MG TAB PO SCH (08:29)
[2018-06-06] MEDS ORDERED: FUROSEMIDE 40 MG TAB PO SCH (09:00)
--- NOTE | 2018-06-06 10:28 | P.PN ---
Subjective Progress Note Date: 06/06/18 Principal diagnosis: Acute on chronic hypoxic and hypercapnic respiratory failure secondary to COPD and diastolic congestive heart failure This is a 68-year-old female with history of chronic hypoxic respiratory failure , chronic hypercapnic respiratory failure, maintained on oxygen at home and she is also on noninvasive positive pressure ventilator, avaps, except as a tidal volume of 450 people 5 pressure support of 8-14. Rate of 15. Patient usually sees Dr. Clements in our office, and she is maintained on multiple bronchodilators for underlying COPD. Patient had previous history of takustubo syndrome, but that has recovered, and cardiac workup in the last one year including echocardiogram and cardiac catheterization showed normal LV function and normal coronaries. Patient was brought in yesterday to the ER as a transfer from another emergency room I believe was [facility], patient apparently was brought in by EMS with profound shortness of breath, tachypnea, tachycardia, coughing, and wheezing. Chest x-ray showed mild congestive heart failure changes, patient was given Lasix, Solu-Medrol, updrafts, not much improvement noted, hence she was placed on BiPAP, transferred to our facility and she was eventually admitted. Patient remains on BiPAP at present, seems to be doing well, however cannot tolerate coming off BiPAP at least at this point. I reviewed her chest x-ray, and it is suggestive of mild congestive heart failure with bilateral pleural effusions, hence I increased the dose of Lasix which was initially started by Dr. Ashby earlier. The dose is now 40 mg IV push every 12 hours. Reviewed all her meds, patient is on proper bronchodilators, steroids, antibiotics. And I added Symbicort. During my evaluation, patient complained of shortness of breath, cough, wheezing , no chest pain, no nausea, no vomiting, no abdominal pain. No headache no blurred vision no dizziness, no dysuria and no frequency no urgency. No melena and no hematemesis. On 06/05/2018 patient seen in follow-up on selective care unit. Patient states she is feeling a lot better today, she remains on 4 L per nasal cannula, her pulse ox is 97%, afebrile, hemodynamically stable. Lung sounds are positive for some scattered wheezes. Today's chest x-ray has been reviewed, and shows changes consistent with congestive heart failure, bilateral pleural effusions. He remains on IV steroids, nebulized bronchodilators, and empiric antibiotics. Today's labs were negative for any leukocytosis, hemoglobin is 9.3, electrolytes are within normal limits, BUN is 87 and creatinine is 2.22. No chest pain. Doing better today. On 06/06/2018 patient seen in follow-up. Patient is resting in bed, she is audibly wheezy today's exam. Pulse ox on 4 L per nasal cannula was 98%, patient is afebrile. Hemodynamically stable. She continues on nebulized bronchodilators, oral Lasix, steroids at 60 mg every 6 hours, Singulair, Mucinex , we will switch to Symbicort to Pulmicort and Perforomist. We'll continue with current plan of treatment. No new labs or chest x-ray today Objective - Vital Signs Vital signs: Vital Signs Temp 97.8 F 06/06/18 07:08 Pulse 78 06/06/18 07:08 Resp 14 06/06/18 07:08 BP 128/66 06/06/18 07:08 Pulse Ox 98 06/06/18 07:08 Intake & Output 06/05/18 06/06/18 06/06/18 18:59 06:59 18:59 Intake Total 200 400 Output Total 900 450 Balance -900 -250 400 Weight 96 kg Intake: Oral 200 400 Output: Urine 900 450 Other: Voiding Method Indwelling Catheter Indwelling Catheter # Voids 1 - Exam Initial Comments: GENERAL: Obese female in mild respiratory distress on BiPAP HENT: Normocephalic, Atraumatic. PERRLA, EOMI, no neck masses no JVD, no carotid bruits. EYES: PERRL, EOMI, no icterus. PULMONARY: Audible diffuse wheezes throughout the lung [place] CARDIOVASCULAR: Tachycardic, no murmurs ABDOMEN: Obese, soft, nontender, no megaly, no rebound, no guarding. SKIN: No erythema, no rashes, no rashes, good skin turgor noted. NEUROLOGIC: Alert oriented 3, no gross focal neurologic deficits. MUSCULOSKELETAL: Normal range of motion, no deformities noted. LYMPHATICS: No lymphadenopathy is noted PSYCHIATRIC: Normal psychiatric evaluation. Normal mood, affect, and mental status examination. Limitations: no limitations - Labs CBC & Chem 7: 06/05/18 09:24 06/05/18 09:24 Labs: Abnormal Lab Results - Last 24 Hours (Table) 06/03/18 06/05/18 06/05/18 Range/Units 23:31 09:24 09:24 RBC 2.87 L (3.80-5.40) m/uL Hgb 9.3 L (11.4-16.0) gm/dL Hct 28.7 L (34.0-46.0) % Lymphocytes # 0.4 L (1.0-4.8) k/uL BUN 87 H (7-17) mg/dL Creatinine 2.22 H (0.52-1.04) mg/dL Glucose 375 H (74-99) mg/dL POC Glucose (mg/dL) (75-99) mg/dL Hemoglobin A1c 7.6 H (4.0-6.0) % 06/05/18 06/05/18 06/05/18 Range/Units 11:50 17:19 20:46 RBC (3.80-5.40) m/uL Hgb (11.4-16.0) gm/dL Hct (34.0-46.0) % Lymphocytes # (1.0-4.8) k/uL BUN (7-17) mg/dL Creatinine (0.52-1.04) mg/dL Glucose (74-99) mg/dL POC Glucose (mg/dL) 346 H 384 H 409 H (75-99) mg/dL Hemoglobin A1c (4.0-6.0) % 06/05/18 06/05/18 06/06/18 Range/Units 21:05 23:07 07:38 RBC (3.80-5.40) m/uL Hgb (11.4-16.0) gm/dL Hct (34.0-46.0) % Lymphocytes # (1.0-4.8) k/uL BUN (7-17) mg/dL Creatinine (0.52-1.04) mg/dL Glucose (74-99) mg/dL POC Glucose (mg/dL) 419 H 369 H 334 H (75-99) mg/dL Hemoglobin A1c (4.0-6.0) % Assessment and Plan Plan: Assessment: 1 acute on chronic hypoxic and hypercapnic respiratory failure secondary to COPD and diastolic congestive heart failure. 2Chronic and ongoing tobacco dependence. 3 Morbid obesity with obstructive sleep apnea and obesity/hypoventilation syndrome. 4 History of marijuana use. 5 History of ventilatory dependent respiratory failure. 6 History of Takotsubo syndrome with normal coronary arteries. 7 Hypertension. 8 Hyperlipidemia. 9 Diabetes mellitus, type II with diabetic neuropathy, steroid-induced hyperglycemia requiring insulin drip. 10 Generalized anxiety disorder. 11 Poor overall functional performance based on the above-mentioned multiple comorbidities. Recommendation: Continue current treatment, we will recheck CBC, BMP, renal profile. Continue empiric antibiotics, bronchodilators, we will switch to Symbicort to Pulmicort and Perforomist. Continue IV steroids. I performed a history & physical examination of the patient and discussed their management with my nurse practitioner, Sophia Lombardi. I reviewed the nurse practitioner's note and agree with the documented findings and plan of care. Lung sounds are positive for diffuse wheezes. The findings and the impression was discussed with the patient. I attest to the documentation by the nurse practitioner. Time with Patient: Less than 30
[2018-06-06 11:50] LABS: Glucose,Whole Blood 370 mg/dL (75-99)
[2018-06-06 12:13] LABS: Basophils % (A) 0 %; Eosinophils % (A) 0 %; HCT 30.4 % (34.0-46.0); HGB 9.7 gm/dL (11.4-16.0); Lymphocytes # (A) 0.6 k/uL (1.0-4.8); Lymphocytes % (A) 10 %; MCH 31.4 pg (25.0-35.0); MCHC 31.8 g/dL (31.0-37.0); MCV 98.8 fL (80.0-100.0); Mean Platelet Volume 7.1; Monocytes # (A) 0.2 k/uL (0-1.0); Monocytes % (A) 4 %; Neutrophils # (A) 4.9 k/uL (1.3-7.7); Neutrophils % (A) 83 %; Platelet Count 265 k/uL (150-450); RBC 3.08 m/uL (3.80-5.40); RDW 13.2 % (11.5-15.5)
[2018-06-06 12:29] LABS: Calcium 8.4 mg/dL (8.4-10.2)
[2018-06-06 17:43] LABS: Glucose,Whole Blood 317 mg/dL (75-99)
[2018-06-06 20:21] LABS: Glucose,Whole Blood 393 mg/dL (75-99)
[2018-06-06] MEDS: BUDESONIDE 1 MG/2 ML NEBU INHALATION SCH (20:45)
[2018-06-06] MEDS: FORMOTEROL FUMARATE 20 MCG/2 ML NEBU INHALATION SCH (20:45)
[2018-06-06] MEDS ORDERED: INSULIN DETEMIR 100 UNIT/ML 10 ML VIAL SQ SCH (21:00)
[2018-06-06] MEDS: ATORVASTATIN 20 MG TAB PO SCH (21:16)
[2018-06-06] MEDS: methylPREDNISolone SOD SUCCI 40 MG/ML 1 ML VIAL IV SCH (21:17)
--- NOTE | 2018-06-06 22:43 | P.PN ---
Subjective Progress Note Date: 06/05/18 Progress note being dictated for Dr. Seymour Interval history:68-year-old the female with a history of chronic epigastric respiratory failure resolves and at home came in with compensative shortness of breath found to be in severe COPD examination patient is dropping a little flat elevation phlegm patient was on BiPAP yesterday. Patient does have advanced COPD continues to smoke. Patient denied any fever chills chest x-ray did not show any pneumonic process patient had history of stress-induced cardiomyopathy in the past although patient does not appear to be in severe COPD exacerbation had a normal ejection fraction normal coronary arteries in the past. Review of Systems REVIEW OF SYSTEMS: CONSTITUTIONAL: No fever, no malaise, no fatigue. HEENT: No recent visual problems or hearing problems. Denied any sore throat. CARDIOVASCULAR: No chest pain, orthopnea, PND, no palpitations, no syncope. PULMONARY: As mentioned in HPI GASTROINTESTINAL: No diarrhea, no nausea, no vomiting, no abdominal pain. Normoactive bowel sounds. NEUROLOGICAL: No headaches, no weakness, no numbness. HEMATOLOGICAL: Denies any bleeding or petechiae. GENITOURINARY: Denies any burning micturition, frequency, or urgency. MUSCULOSKELETAL/RHEUMATOLOGICAL: Denies any joint pain, swelling, or any muscle pain. ENDOCRINE: Denies any polyuria or polydipsia. The rest of the 14-point review of systems is negative. 06/05/2018 chest x-ray reporting basilar increased density, COPD. Worsening renal function, creatinine 2.2 and Lasix discontinued. Denies chest pain, palpitations. PRN BiPAP. Maintaining O2 sats of high 90s on 4 L cannula. Heart rate controlled on Cardizem. Afebrile. Objective - Vital Signs Vital signs: Vital Signs Temp 99.0 F 06/05/18 15:00 Pulse 92 06/05/18 16:43 Resp 14 06/05/18 15:00 BP 130/80 06/05/18 15:00 Pulse Ox 97 06/05/18 15:00 Intake & Output 06/05/18 06/05/18 06/06/18 06:59 18:59 06:59 Intake Total 300 Output Total 1500 900 Balance -1200 -900 Weight 96 kg Intake: Oral 300 Output: Urine 1500 900 Other: Voiding Method Indwelling Catheter Indwelling Catheter # Voids 1 - Exam GENERAL: The patient is alert and oriented x3, respiratory effort mildly increased HEENT: Pupils are round and equally reacting to light. EOMI. No scleral icterus. No conjunctival pallor. Normocephalic, atraumatic CARDIOVASCULAR: S1 and S2 present. Tachycardia ,No murmurs, rubs, or gallops. PULMONARY: Regular. Expiratory wheezing limited air entry into bilateral lung clay[place].. ABDOMEN: Soft, nontender, nondistended, normoactive bowel sounds. No palpable organomegaly. MUSCULOSKELETAL: No joint swelling or deformity. EXTREMITIES: No cyanosis, clubbing, or pedal edema. NEUROLOGICAL: Gross neurological examination did not reveal any focal deficits. SKIN: No rashes. - Labs CBC & Chem 7: 06/06/18 11:28 06/06/18 11:28 Labs: Abnormal Lab Results - Last 24 Hours (Table) 06/03/18 06/04/18 06/04/18 Range/Units 23:31 21:08 22:23 RBC (3.80-5.40) m/uL Hgb (11.4-16.0) gm/dL Hct (34.0-46.0) % Lymphocytes # (1.0-4.8) k/uL BUN (7-17) mg/dL Creatinine (0.52-1.04) mg/dL Glucose (74-99) mg/dL POC Glucose (mg/dL) 424 H 442 H (75-99) mg/dL Hemoglobin A1c 7.6 H (4.0-6.0) % 06/05/18 06/05/18 06/05/18 Range/Units 00:53 05:19 09:24 RBC 2.87 L (3.80-5.40) m/uL Hgb 9.3 L (11.4-16.0) gm/dL Hct 28.7 L (34.0-46.0) % Lymphocytes # 0.4 L (1.0-4.8) k/uL BUN (7-17) mg/dL Creatinine (0.52-1.04) mg/dL Glucose (74-99) mg/dL POC Glucose (mg/dL) 335 H 323 H (75-99) mg/dL Hemoglobin A1c (4.0-6.0) % 06/05/18 06/05/18 06/05/18 Range/Units 09:24 11:50 17:19 RBC (3.80-5.40) m/uL Hgb (11.4-16.0) gm/dL Hct (34.0-46.0) % Lymphocytes # (1.0-4.8) k/uL BUN 87 H (7-17) mg/dL Creatinine 2.22 H (0.52-1.04) mg/dL Glucose 375 H (74-99) mg/dL POC Glucose (mg/dL) 346 H 384 H (75-99) mg/dL Hemoglobin A1c (4.0-6.0) % Assessment and Plan Assessment: -Acute on chronic hypercapnic respiratory failure: Secondary to COPD exacerbation and mild CHF Exac., diastolic dysfunction -Ongoing nicotine use. -Morbid obesity, BMI 42.7 -Acute renal failure, worsening secondary to diuretics -Hyperkalemia secondary to acute renal failure, improving with Kayexalate -diabetes mellitus blood sugars are expected to go because of the systemic steroids -Diuretic peripheral neuropathy -History of marijuana use Plan: Continue on current medication regime ,monitoring and symptomatic treatment. Maintain nebulized bronchodilators, steroids, antibiotics. Worsening renal function, Lasix discontinued. Hyperglycemic, Lantus added to med regime. Close monitoring of Accu-Cheks. Patient complaining of jittery legs and feet, requesting Neurontin dose be decreased. Neurontin decreased to 200 tid.Close monitoring of renal function, electrolytes with repeat labs ordered for a.m. smoking cessation readdressed. The impression and plan of care has been dictated as directed. : I performed a history and examination of this patient, discussed the same with the dictator. I agree with the dictator's note ,documented as a scribe. Any additional findings or plans will be noted.
[2018-06-07] MEDS: IPRATROPIUM-ALBUTEROL 3 ML NEB INHALATION PRN ×6 (00:49→20:51)
[2018-06-07] MEDS: LEVOTHYROXINE 100 MCG TAB PO SCH (05:44)
[2018-06-07] MEDS: LEVOTHYROXINE 75 MCG TAB PO SCH (05:44)
[2018-06-07 07:19] LABS: Glucose,Whole Blood 395 mg/dL (75-99)
[2018-06-07] MEDS: BUDESONIDE 1 MG/2 ML NEBU INHALATION SCH (08:13)
[2018-06-07] MEDS: FORMOTEROL FUMARATE 20 MCG/2 ML NEBU INHALATION SCH (08:13)
[2018-06-07] MEDS: INSULIN ASPART 100 UNIT/ML 1 ML 10 ML VIAL SQ SCH ×6 (08:20→21:43)
[2018-06-07] MEDS: DILTIAZEM ORAL 30 MG TAB PO SCH ×3 (08:21→21:50)
[2018-06-07] MEDS: ASPIRIN 81 MG PO SCH (08:21)
[2018-06-07] MEDS: DOXYCYCLINE 100 MG CAP PO SCH ×2 (08:21→21:49)
[2018-06-07] MEDS: GABAPENTIN 100 MG CAP PO SCH ×3 (08:22→21:50)
[2018-06-07] MEDS: FAMOTIDINE 20 MG TAB PO SCH (08:22)
[2018-06-07] MEDS: guaiFENesin 600 MG TABLET.ER PO SCH ×2 (08:22→21:49)
[2018-06-07] MEDS: FLUoxetine HCL 20 MG CAP PO SCH (08:22)
[2018-06-07] MEDS: FERROUS SULFATE 325 MG TAB PO SCH (08:22)
[2018-06-07] MEDS: methylPREDNISolone SOD SUCCI 40 MG/ML 1 ML VIAL IV SCH (08:23)
[2018-06-07] MEDS: MONTELUKAST 10 MG TAB PO SCH (08:23)
[2018-06-07] MEDS: HYDROcodone/APAP 7.5-325MG 1 EACH TAB PO PRN ×2 (08:23→20:11)
[2018-06-07] MEDS: ISOSORBIDE MONONITRATE ER 15 MG TAB PO SCH (08:23)
[2018-06-07 08:57] LABS: Basophils % (A) 1 %; Eosinophils % (A) 1 %; HCT 30.6 % (34.0-46.0); HGB 10.1 gm/dL (11.4-16.0); Lymphocytes # (A) 0.8 k/uL (1.0-4.8); Lymphocytes % (A) 11 %; MCH 32.2 pg (25.0-35.0); MCV 97.5 fL (80.0-100.0); Mean Platelet Volume 7.7; Monocytes # (A) 0.5 k/uL (0-1.0); Monocytes % (A) 7 %; Neutrophils # (A) 5.9 k/uL (1.3-7.7); Neutrophils % (A) 78 %; Platelet Count 255 k/uL (150-450); RBC 3.14 m/uL (3.80-5.40); RDW 13.2 % (11.5-15.5); WBC 7.6 k/uL (3.8-10.6)
[2018-06-07 10:48] LABS: Calcium 8.8 mg/dL (8.4-10.2); Potassium 4.9 mmol/L (3.5-5.1)
[2018-06-07] MEDS ORDERED: INSULIN ASPART 100 UNIT/ML 1 ML 10 ML VIAL SQ ONE ×2 (10:55→21:18)
[2018-06-07] MEDS ORDERED: INSULIN DETEMIR 100 UNIT/ML 10 ML VIAL SQ STA (10:58)
[2018-06-07 11:57] LABS: Glucose,Whole Blood 425 mg/dL (75-99)
--- NOTE | 2018-06-07 14:07 | P.PN ---
Subjective Progress Note Date: 06/07/18 Principal diagnosis: Acute on chronic hypoxic and hypercapnic respiratory failure secondary to COPD and diastolic congestive heart failure This is a 68-year-old female with history of chronic hypoxic respiratory failure , chronic hypercapnic respiratory failure, maintained on oxygen at home and she is also on noninvasive positive pressure ventilator, avaps, except as a tidal volume of 450 people 5 pressure support of 8-14. Rate of 15. Patient usually sees Dr. Clements in our office, and she is maintained on multiple bronchodilators for underlying COPD. Patient had previous history of takustubo syndrome, but that has recovered, and cardiac workup in the last one year including echocardiogram and cardiac catheterization showed normal LV function and normal coronaries. Patient was brought in yesterday to the ER as a transfer from another emergency room I believe was [facility], patient apparently was brought in by EMS with profound shortness of breath, tachypnea, tachycardia, coughing, and wheezing. Chest x-ray showed mild congestive heart failure changes, patient was given Lasix, Solu-Medrol, updrafts, not much improvement noted, hence she was placed on BiPAP, transferred to our facility and she was eventually admitted. Patient remains on BiPAP at present, seems to be doing well, however cannot tolerate coming off BiPAP at least at this point. I reviewed her chest x-ray, and it is suggestive of mild congestive heart failure with bilateral pleural effusions, hence I increased the dose of Lasix which was initially started by Dr. Ashby earlier. The dose is now 40 mg IV push every 12 hours. Reviewed all her meds, patient is on proper bronchodilators, steroids, antibiotics. And I added Symbicort. During my evaluation, patient complained of shortness of breath, cough, wheezing , no chest pain, no nausea, no vomiting, no abdominal pain. No headache no blurred vision no dizziness, no dysuria and no frequency no urgency. No melena and no hematemesis. On 06/05/2018 patient seen in follow-up on selective care unit. Patient states she is feeling a lot better today, she remains on 4 L per nasal cannula, her pulse ox is 97%, afebrile, hemodynamically stable. Lung sounds are positive for some scattered wheezes. Today's chest x-ray has been reviewed, and shows changes consistent with congestive heart failure, bilateral pleural effusions. He remains on IV steroids, nebulized bronchodilators, and empiric antibiotics. Today's labs were negative for any leukocytosis, hemoglobin is 9.3, electrolytes are within normal limits, BUN is 87 and creatinine is 2.22. No chest pain. Doing better today. On 06/06/2018 patient seen in follow-up. Patient is resting in bed, she is audibly wheezy today's exam. Pulse ox on 4 L per nasal cannula was 98%, patient is afebrile. Hemodynamically stable. She continues on nebulized bronchodilators, oral Lasix, steroids at 60 mg every 6 hours, Singulair, Mucinex , we will switch to Symbicort to Pulmicort and Perforomist. We'll continue with current plan of treatment. No new labs or chest x-ray today On 06/07/2018 patient seen in follow-up. She reports her breathing has improved , still has some diffuse wheezes, she states this is her baseline. She is moving good air. Currently pulse ox is at 99% on 4 L per nasal cannula. Patient is afebrile, hemodynamically stable. Today's labs have been reviewed, slightly improved, down to 2.35 from 2.62, BUN is 109. Electrolytes within normal limits. WBC 7.6, hemoglobin is 10.1. No cultures were sent. Patient's diuretics are on hold. Objective - Vital Signs Vital signs: Vital Signs Temp 98.2 F 06/07/18 07:00 Pulse 80 06/07/18 11:56 Resp 18 06/07/18 08:00 BP 139/64 06/07/18 07:00 Pulse Ox 99 06/07/18 07:00 Intake & Output 06/06/18 06/07/18 06/07/18 18:59 06:59 18:59 Intake Total 1600 600 Output Total 450 1100 Balance 1150 -500 Weight 96 kg Intake: Oral 1600 600 Output: Urine 450 1100 Uretheral (Bean) 1100 Other: Voiding Method Indwelling Catheter Indwelling Catheter Indwelling Catheter # Voids 1 - Exam Initial Comments: GENERAL: Obese female in mild respiratory distress on BiPAP HENT: Normocephalic, Atraumatic. PERRLA, EOMI, no neck masses no JVD, no carotid bruits. EYES: PERRL, EOMI, no icterus. PULMONARY: diffuse wheezes throughout the lung [place], overall improved CARDIOVASCULAR: Tachycardic, no murmurs ABDOMEN: Obese, soft, nontender, no megaly, no rebound, no guarding. SKIN: No erythema, no rashes, no rashes, good skin turgor noted. NEUROLOGIC: Alert oriented 3, no gross focal neurologic deficits. MUSCULOSKELETAL: Normal range of motion, no deformities noted. LYMPHATICS: No lymphadenopathy is noted PSYCHIATRIC: Normal psychiatric evaluation. Normal mood, affect, and mental status examination. Limitations: no limitations - Labs CBC & Chem 7: 06/07/18 07:53 06/07/18 07:53 Labs: Abnormal Lab Results - Last 24 Hours (Table) 06/06/18 06/06/18 06/07/18 Range/Units 17:39 20:19 07:16 RBC (3.80-5.40) m/uL Hgb (11.4-16.0) gm/dL Hct (34.0-46.0) % Lymphocytes # (1.0-4.8) k/uL BUN (7-17) mg/dL Creatinine (0.52-1.04) mg/dL Glucose (74-99) mg/dL POC Glucose (mg/dL) 317 H 393 H 395 H (75-99) mg/dL 06/07/18 06/07/18 06/07/18 Range/Units 07:53 07:53 11:33 RBC 3.14 L (3.80-5.40) m/uL Hgb 10.1 L (11.4-16.0) gm/dL Hct 30.6 L (34.0-46.0) % Lymphocytes # 0.8 L (1.0-4.8) k/uL BUN 109 H* (7-17) mg/dL Creatinine 2.35 H (0.52-1.04) mg/dL Glucose 364 H (74-99) mg/dL POC Glucose (mg/dL) 425 H (75-99) mg/dL Assessment and Plan Plan: Assessment: 1 acute on chronic hypoxic and hypercapnic respiratory failure secondary to COPD and diastolic congestive heart failure. 2Chronic and ongoing tobacco dependence. 3 Morbid obesity with obstructive sleep apnea and obesity/hypoventilation syndrome. 4 History of marijuana use. 5 History of ventilatory dependent respiratory failure. 6 History of Takotsubo syndrome with normal coronary arteries. 7 Hypertension. 8 Hyperlipidemia. 9 Diabetes mellitus, type II with diabetic neuropathy, steroid-induced hyperglycemia requiring insulin drip. 10 Generalized anxiety disorder. 11 Poor overall functional performance based on the above-mentioned multiple comorbidities. Recommendation: Continue current antibiotic coverage, continue nebulized bronchodilators, diuretics remain on hold. Increase activity as tolerated, but the patient sit up at the bedside chair, ambulate. Weaning FiO2, discontinue indwelling catheter. We'll switch the IV steroids to oral prednisone. Continue to follow. I performed a history & physical examination of the patient and discussed their management with my nurse practitioner, Sophia Lombardi. I reviewed the nurse practitioner's note and agree with the documented findings and plan of care. Lung sounds are positive for diffuse wheezes. The findings and the impression was discussed with the patient. I attest to the documentation by the nurse practitioner. Time with Patient: Less than 30
[2018-06-07 14:24] LABS: Glucose,Whole Blood 365 mg/dL (75-99)
[2018-06-07 17:13] LABS: Glucose,Whole Blood 376 mg/dL (75-99)
[2018-06-07 20:30] LABS: Glucose,Whole Blood 392 mg/dL (75-99)
[2018-06-07] MEDS: SYMBICORT 160-4.5 MCG INHALER INHALATION SCH (20:51)
[2018-06-07] MEDS: ATORVASTATIN 20 MG TAB PO SCH (21:49)
[2018-06-07] MEDS: INSULIN DETEMIR 100 UNIT/ML 10 ML VIAL SQ SCH (21:49)
[2018-06-08] MEDS: IPRATROPIUM-ALBUTEROL 3 ML NEB INHALATION PRN ×6 (00:26→20:20)
[2018-06-08] MEDS: LEVOTHYROXINE 75 MCG TAB PO SCH (06:10)
[2018-06-08] MEDS: LEVOTHYROXINE 100 MCG TAB PO SCH (06:10)
[2018-06-08 07:17] LABS: Glucose,Whole Blood 178 mg/dL (75-99)
[2018-06-08] MEDS: SYMBICORT 160-4.5 MCG INHALER INHALATION SCH ×2 (07:56→20:19)
[2018-06-08] MEDS ORDERED: predniSONE 10 MG TAB PO SCH (09:00)
[2018-06-08] MEDS: ISOSORBIDE MONONITRATE ER 15 MG TAB PO SCH (09:11)
[2018-06-08] MEDS: HYDROcodone/APAP 7.5-325MG 1 EACH TAB PO PRN ×2 (09:11→21:47)
[2018-06-08] MEDS: GABAPENTIN 100 MG CAP PO SCH ×3 (09:11→21:47)
[2018-06-08] MEDS: DILTIAZEM ORAL 30 MG TAB PO SCH ×3 (09:12→23:08)
[2018-06-08] MEDS: FAMOTIDINE 20 MG TAB PO SCH (09:12)
[2018-06-08] MEDS: guaiFENesin 600 MG TABLET.ER PO SCH ×2 (09:12→21:43)
[2018-06-08] MEDS: ASPIRIN 81 MG PO SCH (09:12)
[2018-06-08] MEDS: MONTELUKAST 10 MG TAB PO SCH (09:12)
[2018-06-08] MEDS: DOXYCYCLINE 100 MG CAP PO SCH (09:12)
[2018-06-08] MEDS: FLUoxetine HCL 20 MG CAP PO SCH (09:12)
[2018-06-08] MEDS: FERROUS SULFATE 325 MG TAB PO SCH (09:12)
[2018-06-08] MEDS: INSULIN ASPART 100 UNIT/ML 1 ML 10 ML VIAL SQ SCH ×7 (09:14→21:53)
--- NOTE | 2018-06-08 11:50 | P.PN ---
Subjective Progress Note Date: 06/08/18 Principal diagnosis: Acute on chronic hypoxic and hypercapnic respiratory failure secondary to COPD and diastolic congestive heart failure This is a 68-year-old female with history of chronic hypoxic respiratory failure , chronic hypercapnic respiratory failure, maintained on oxygen at home and she is also on noninvasive positive pressure ventilator, avaps, except as a tidal volume of 450 people 5 pressure support of 8-14. Rate of 15. Patient usually sees Dr. Clements in our office, and she is maintained on multiple bronchodilators for underlying COPD. Patient had previous history of takustubo syndrome, but that has recovered, and cardiac workup in the last one year including echocardiogram and cardiac catheterization showed normal LV function and normal coronaries. Patient was brought in yesterday to the ER as a transfer from another emergency room I believe was [facility], patient apparently was brought in by EMS with profound shortness of breath, tachypnea, tachycardia, coughing, and wheezing. Chest x-ray showed mild congestive heart failure changes, patient was given Lasix, Solu-Medrol, updrafts, not much improvement noted, hence she was placed on BiPAP, transferred to our facility and she was eventually admitted. Patient remains on BiPAP at present, seems to be doing well, however cannot tolerate coming off BiPAP at least at this point. I reviewed her chest x-ray, and it is suggestive of mild congestive heart failure with bilateral pleural effusions, hence I increased the dose of Lasix which was initially started by Dr. Ashby earlier. The dose is now 40 mg IV push every 12 hours. Reviewed all her meds, patient is on proper bronchodilators, steroids, antibiotics. And I added Symbicort. During my evaluation, patient complained of shortness of breath, cough, wheezing , no chest pain, no nausea, no vomiting, no abdominal pain. No headache no blurred vision no dizziness, no dysuria and no frequency no urgency. No melena and no hematemesis. On 06/05/2018 patient seen in follow-up on selective care unit. Patient states she is feeling a lot better today, she remains on 4 L per nasal cannula, her pulse ox is 97%, afebrile, hemodynamically stable. Lung sounds are positive for some scattered wheezes. Today's chest x-ray has been reviewed, and shows changes consistent with congestive heart failure, bilateral pleural effusions. He remains on IV steroids, nebulized bronchodilators, and empiric antibiotics. Today's labs were negative for any leukocytosis, hemoglobin is 9.3, electrolytes are within normal limits, BUN is 87 and creatinine is 2.22. No chest pain. Doing better today. On 06/06/2018 patient seen in follow-up. Patient is resting in bed, she is audibly wheezy today's exam. Pulse ox on 4 L per nasal cannula was 98%, patient is afebrile. Hemodynamically stable. She continues on nebulized bronchodilators, oral Lasix, steroids at 60 mg every 6 hours, Singulair, Mucinex , we will switch to Symbicort to Pulmicort and Perforomist. We'll continue with current plan of treatment. No new labs or chest x-ray today On 06/07/2018 patient seen in follow-up. She reports her breathing has improved , still has some diffuse wheezes, she states this is her baseline. She is moving good air. Currently pulse ox is at 99% on 4 L per nasal cannula. Patient is afebrile, hemodynamically stable. Today's labs have been reviewed, slightly improved, down to 2.35 from 2.62, BUN is 109. Electrolytes within normal limits. WBC 7.6, hemoglobin is 10.1. No cultures were sent. Patient's diuretics are on hold. On 06/08/2018 patient seen in follow-up on medical surgical unit. She is awake and alert, she is resting in bed, denies any distress, she states her breathing is improving, she has been get not and ambulating about the room, tolerating activity fairly well, patient is currently on 4 L per nasal cannula, at home she wears 3-1/2 L. Lung sounds reveal some scattered expiratory wheezing, but overall improved, she is moving good air, states this is pretty much her baseline. Vital signs remain stable, pulse ox on 4 L per nasal cannula is 99%. She has been treated with empiric antibiotics in the form of doxycycline, nebulized bronchodilators, we will switch the IV steroids to oral prednisone, and Symbicort. Diuretics remain on hold. Patient is voiding, no worsening shortness of breath or chest pain. Increase activity as tolerated, chest x- rays or lab work today. From pulmonary perspective patient is improving, and could be considered for discharge in next 24 hours. Objective - Vital Signs Vital signs: Vital Signs Temp 98.7 F 06/08/18 09:07 Pulse 96 06/08/18 11:21 Resp 15 06/08/18 09:07 BP 157/48 06/08/18 09:07 Pulse Ox 99 06/08/18 09:07 Intake & Output 06/07/18 06/08/18 06/08/18 18:59 06:59 18:59 Intake Total 150 Output Total 950 Balance -950 150 Intake: Oral 150 Output: Urine 950 Uretheral (Bean) 600 Other: Voiding Method Indwelling Catheter Bedside Commode # Voids 2 2 - Exam Initial Comments: GENERAL: Obese female in mild respiratory distress on BiPAP HENT: Normocephalic, Atraumatic. PERRLA, EOMI, no neck masses no JVD, no carotid bruits. EYES: PERRL, EOMI, no icterus. PULMONARY: diffuse wheezes throughout the lung [place], overall improved CARDIOVASCULAR: Tachycardic, no murmurs ABDOMEN: Obese, soft, nontender, no megaly, no rebound, no guarding. SKIN: No erythema, no rashes, no rashes, good skin turgor noted. NEUROLOGIC: Alert oriented 3, no gross focal neurologic deficits. MUSCULOSKELETAL: Normal range of motion, no deformities noted. LYMPHATICS: No lymphadenopathy is noted PSYCHIATRIC: Normal psychiatric evaluation. Normal mood, affect, and mental status examination. Limitations: no limitations - Labs CBC & Chem 7: 06/07/18 07:53 06/07/18 07:53 Labs: Abnormal Lab Results - Last 24 Hours (Table) 06/07/18 06/07/18 06/07/18 Range/Units 11:33 14:22 16:47 POC Glucose (mg/dL) 425 H 365 H 376 H (75-99) mg/dL 06/07/18 06/08/18 Range/Units 20:28 06:59 POC Glucose (mg/dL) 392 H 178 H (75-99) mg/dL Assessment and Plan Plan: Assessment: 1 acute on chronic hypoxic and hypercapnic respiratory failure secondary to COPD and diastolic congestive heart failure. 2Chronic and ongoing tobacco dependence. 3 Morbid obesity with obstructive sleep apnea and obesity/hypoventilation syndrome. 4 History of marijuana use. 5 History of ventilatory dependent respiratory failure. 6 History of Takotsubo syndrome with normal coronary arteries. 7 Hypertension. 8 Hyperlipidemia. 9 Diabetes mellitus, type II with diabetic neuropathy, steroid-induced hyperglycemia requiring insulin drip. 10 Generalized anxiety disorder. 11 Poor overall functional performance based on the above-mentioned multiple comorbidities. Recommendation: Continue with current medical treatment, oral prednisone, doxycycline, nebulized bronchodilators. Increase activity as tolerated, increase ambulation. Patient is improving, she could be considered for discharge in next 24 hours. I performed a history & physical examination of the patient and discussed their management with my nurse practitioner, Sophia Lombardi. I reviewed the nurse practitioner's note and agree with the documented findings and plan of care. Lung sounds are positive for diffuse wheezes. The findings and the impression was discussed with the patient. I attest to the documentation by the nurse practitioner. Time with Patient: Less than 30
[2018-06-08 12:00] LABS: Glucose,Whole Blood 272 mg/dL (75-99)
[2018-06-08] MEDS: ONDANSETRON 4 MG/2 ML VIAL IVP PRN ×2 (13:19→19:45)
[2018-06-08] MEDS: LEVOFLOXACIN 500MG-D5W PMX 500 MG in DEXTROSE/WATER 1 100ML.BAG IVPB SCH (15:20)
[2018-06-08 17:04] LABS: Glucose,Whole Blood 288 mg/dL (75-99)
[2018-06-08 21:05] LABS: Glucose,Whole Blood 304 mg/dL (75-99)
[2018-06-08] MEDS: ATORVASTATIN 20 MG TAB PO SCH (21:43)
[2018-06-08] MEDS: methylPREDNISolone SOD SUCCI 40 MG/ML 1 ML VIAL IV SCH (21:44)
[2018-06-08] MEDS: INSULIN DETEMIR 100 UNIT/ML 10 ML VIAL SQ SCH (21:44)
[2018-06-08] MEDS: PANTOPRAZOLE 40 MG/10 ML VIAL IVP SCH (21:46)
--- NOTE | 2018-06-08 21:47 | P.PN ---
Subjective Progress Note Date: 06/06/18 Progress note being dictated for Dr. Seymour Interval history:68-year-old the female with a history of chronic epigastric respiratory failure resolves and at home came in with compensative shortness of breath found to be in severe COPD examination patient is dropping a little flat elevation phlegm patient was on BiPAP yesterday. Patient does have advanced COPD continues to smoke. Patient denied any fever chills chest x-ray did not show any pneumonic process patient had history of stress-induced cardiomyopathy in the past although patient does not appear to be in severe COPD exacerbation had a normal ejection fraction normal coronary arteries in the past. Review of Systems REVIEW OF SYSTEMS: CONSTITUTIONAL: No fever, no malaise, no fatigue. HEENT: No recent visual problems or hearing problems. Denied any sore throat. CARDIOVASCULAR: No chest pain, orthopnea, PND, no palpitations, no syncope. PULMONARY: As mentioned in HPI GASTROINTESTINAL: No diarrhea, no nausea, no vomiting, no abdominal pain. Normoactive bowel sounds. NEUROLOGICAL: No headaches, no weakness, no numbness. HEMATOLOGICAL: Denies any bleeding or petechiae. GENITOURINARY: Denies any burning micturition, frequency, or urgency. MUSCULOSKELETAL/RHEUMATOLOGICAL: Denies any joint pain, swelling, or any muscle pain. ENDOCRINE: Denies any polyuria or polydipsia. The rest of the 14-point review of systems is negative. 06/05/2018 chest x-ray reporting basilar increased density, COPD. Worsening renal function, creatinine 2.2 and Lasix discontinued. Denies chest pain, palpitations. PRN BiPAP. Maintaining O2 sats of high 90s on 4 L cannula. Heart rate controlled on Cardizem. Afebrile. 06/06/2018 maintained on nebulized bronchodilators, steroids, antibiotics.Diffuse wheezing, maintaining O2 sats of high 90s on 4 L nasal cannula. Afebrile.Lasix had been placed on hold for worsening renal function; continues to worsen. Hyperglycemia, Levemir increased, IV steroids decreased. Objective - Vital Signs Vital signs: Vital Signs Temp 98.4 F 06/06/18 19:55 Pulse 80 06/06/18 21:10 Resp 16 06/06/18 19:55 BP 130/64 06/06/18 19:55 Pulse Ox 98 06/06/18 19:55 Intake & Output 06/06/18 06/06/18 06/07/18 06:59 18:59 06:59 Intake Total 200 1600 Output Total 450 450 Balance -250 1150 Weight 96 kg Intake: Oral 200 1600 Output: Urine 450 450 Other: Voiding Method Indwelling Catheter Indwelling Catheter # Voids 1 - Exam GENERAL: The patient is alert and oriented x3, respiratory effort mildly increased HEENT: Pupils are round and equally reacting to light. EOMI. No scleral icterus. No conjunctival pallor. Normocephalic, atraumatic CARDIOVASCULAR: S1 and S2 present. Tachycardia ,No murmurs, rubs, or gallops. PULMONARY: Regular. Diffuse Expiratory wheezing with limited air entry into bilateral lung clayton.. ABDOMEN: Soft, nontender, nondistended, normoactive bowel sounds. No palpable organomegaly. MUSCULOSKELETAL: No joint swelling or deformity. EXTREMITIES: No cyanosis, clubbing, or pedal edema. NEUROLOGICAL: Gross neurological examination did not reveal any focal deficits. SKIN: No rashes. - Labs CBC & Chem 7: 06/07/18 07:53 06/07/18 07:53 Labs: Abnormal Lab Results - Last 24 Hours (Table) 06/05/18 06/06/18 06/06/18 Range/Units 23:07 07:38 11:28 RBC 3.08 L (3.80-5.40) m/uL Hgb 9.7 L (11.4-16.0) gm/dL Hct 30.4 L (34.0-46.0) % Lymphocytes # 0.6 L (1.0-4.8) k/uL Carbon Dioxide (22-30) mmol/L BUN (7-17) mg/dL Creatinine (0.52-1.04) mg/dL Glucose (74-99) mg/dL POC Glucose (mg/dL) 369 H 334 H (75-99) mg/dL 06/06/18 06/06/18 06/06/18 Range/Units 11:28 11:48 17:39 RBC (3.80-5.40) m/uL Hgb (11.4-16.0) gm/dL Hct (34.0-46.0) % Lymphocytes # (1.0-4.8) k/uL Carbon Dioxide 20 L (22-30) mmol/L BUN 106 H* (7-17) mg/dL Creatinine 2.62 H (0.52-1.04) mg/dL Glucose 340 H (74-99) mg/dL POC Glucose (mg/dL) 370 H 317 H (75-99) mg/dL 06/06/18 Range/Units 20:19 RBC (3.80-5.40) m/uL Hgb (11.4-16.0) gm/dL Hct (34.0-46.0) % Lymphocytes # (1.0-4.8) k/uL Carbon Dioxide (22-30) mmol/L BUN (7-17) mg/dL Creatinine (0.52-1.04) mg/dL Glucose (74-99) mg/dL POC Glucose (mg/dL) 393 H (75-99) mg/dL Assessment and Plan Assessment: -Acute on chronic hypercapnic respiratory failure: Secondary to COPD exacerbation and mild CHF Exac., diastolic dysfunction -Ongoing nicotine use. -Morbid obesity, BMI 42.7 -Acute renal failure, worsening secondary to diuretics -Hyperkalemia secondary to acute renal failure -diabetes mellitus blood sugars , with steroid-induced hyperglycemia -Diuretic peripheral neuropathy -History of marijuana use Plan: Continue on current medication regime ,monitoring and symptomatic treatment. Maintain nebulized bronchodilators, steroids, antibiotics. Worsening renal function. Lower dose Lasix resumed as per cardiology .Hyperglycemic, Lantus increased, Close monitoring of Accu-Cheks. Close monitoring of renal function, electrolytes with repeat labs ordered for a.m. smoking cessation readdressed. The impression and plan of care has been dictated as directed. : I performed a history and examination of this patient, discussed the same with the dictator. I agree with the dictator's note ,documented as a scribe. Any additional findings or plans will be noted.
--- NOTE | 2018-06-08 21:59 | P.PN ---
Subjective Progress Note Date: 06/07/18 Progress note being dictated for Dr. Seymour Interval history:68-year-old the female with a history of chronic epigastric respiratory failure resolves and at home came in with compensative shortness of breath found to be in severe COPD examination patient is dropping a little flat elevation phlegm patient was on BiPAP yesterday. Patient does have advanced COPD continues to smoke. Patient denied any fever chills chest x-ray did not show any pneumonic process patient had history of stress-induced cardiomyopathy in the past although patient does not appear to be in severe COPD exacerbation had a normal ejection fraction normal coronary arteries in the past. Review of Systems REVIEW OF SYSTEMS: CONSTITUTIONAL: No fever, no malaise, no fatigue. HEENT: No recent visual problems or hearing problems. Denied any sore throat. CARDIOVASCULAR: No chest pain, orthopnea, PND, no palpitations, no syncope. PULMONARY: As mentioned in HPI GASTROINTESTINAL: No diarrhea, no nausea, no vomiting, no abdominal pain. Normoactive bowel sounds. NEUROLOGICAL: No headaches, no weakness, no numbness. HEMATOLOGICAL: Denies any bleeding or petechiae. GENITOURINARY: Denies any burning micturition, frequency, or urgency. MUSCULOSKELETAL/RHEUMATOLOGICAL: Denies any joint pain, swelling, or any muscle pain. ENDOCRINE: Denies any polyuria or polydipsia. The rest of the 14-point review of systems is negative. 06/05/2018 chest x-ray reporting basilar increased density, COPD. Worsening renal function, creatinine 2.2 and Lasix discontinued. Denies chest pain, palpitations. PRN BiPAP. Maintaining O2 sats of high 90s on 4 L cannula. Heart rate controlled on Cardizem. Afebrile. 06/06/2018 maintained on nebulized bronchodilators, steroids, antibiotics.Diffuse wheezing, maintaining O2 sats of high 90s on 4 L nasal cannula. Afebrile.Lasix had been placed on hold for worsening renal function; continues to worsen. Hyperglycemia, Levemir increased, IV steroids decreased 06/07/2018 breathing better. Maintaining O2 sats in the high 90s on 4 L nasal cannula. Afebrile. Renal function remains elevated, Lasix on hold. Objective - Vital Signs Vital signs: Vital Signs Temp 98.5 F 06/07/18 19:56 Pulse 74 06/07/18 21:03 Resp 20 06/07/18 19:56 BP 155/78 06/07/18 19:56 Pulse Ox 99 06/07/18 19:56 Intake & Output 06/07/18 06/07/18 06/08/18 06:59 18:59 06:59 Intake Total 600 Output Total 1100 950 Balance -500 -950 Intake: Oral 600 Output: Urine 1100 950 Uretheral (Bean) 1100 600 Other: Voiding Method Indwelling Catheter Indwelling Catheter - Exam GENERAL: The patient is alert and oriented x3, respiratory effort mildly increased HEENT: Pupils are round and equally reacting to light. EOMI. No scleral icterus. No conjunctival pallor. Normocephalic, atraumatic CARDIOVASCULAR: S1 and S2 present. Tachycardia ,No murmurs, rubs, or gallops. PULMONARY: Regular. Improving Diffuse Expiratory wheezing with limited air entry into bilateral lung clay[place].. ABDOMEN: Soft, nontender, nondistended, normoactive bowel sounds. No palpable organomegaly. MUSCULOSKELETAL: No joint swelling or deformity. EXTREMITIES: No cyanosis, clubbing, or pedal edema. NEUROLOGICAL: Gross neurological examination did not reveal any focal deficits. SKIN: No rashes. - Labs CBC & Chem 7: 06/07/18 07:53 06/07/18 07:53 Labs: Abnormal Lab Results - Last 24 Hours (Table) 06/07/18 06/07/18 06/07/18 Range/Units 07:16 07:53 07:53 RBC 3.14 L (3.80-5.40) m/uL Hgb 10.1 L (11.4-16.0) gm/dL Hct 30.6 L (34.0-46.0) % Lymphocytes # 0.8 L (1.0-4.8) k/uL BUN 109 H* (7-17) mg/dL Creatinine 2.35 H (0.52-1.04) mg/dL Glucose 364 H (74-99) mg/dL POC Glucose (mg/dL) 395 H (75-99) mg/dL 06/07/18 06/07/18 06/07/18 Range/Units 11:33 14:22 16:47 RBC (3.80-5.40) m/uL Hgb (11.4-16.0) gm/dL Hct (34.0-46.0) % Lymphocytes # (1.0-4.8) k/uL BUN (7-17) mg/dL Creatinine (0.52-1.04) mg/dL Glucose (74-99) mg/dL POC Glucose (mg/dL) 425 H 365 H 376 H (75-99) mg/dL 06/07/18 Range/Units 20:28 RBC (3.80-5.40) m/uL Hgb (11.4-16.0) gm/dL Hct (34.0-46.0) % Lymphocytes # (1.0-4.8) k/uL BUN (7-17) mg/dL Creatinine (0.52-1.04) mg/dL Glucose (74-99) mg/dL POC Glucose (mg/dL) 392 H (75-99) mg/dL Assessment and Plan Assessment: -Acute on chronic hypercapnic respiratory failure: Secondary to COPD exacerbation and mild CHF Exac., diastolic dysfunction -Ongoing nicotine use. -Morbid obesity, BMI 42.7 -Acute renal failure, worsening secondary to diuretics -Hyperkalemia secondary to acute renal failure, improving -diabetes mellitus blood sugars , with steroid-induced hyperglycemia -Diuretic peripheral neuropathy -History of marijuana use Plan: Continue on current medication regime ,monitoring and symptomatic treatment. Maintain nebulized bronchodilators, steroids, antibiotics. Diuretics on hold related to worsening renal function. Hyperglycemic, meds adjusted, close monitoring of Accu-Cheks. Tapering steroids. The impression and plan of care has been dictated as directed. : I performed a history and examination of this patient, discussed the same with the dictator. I agree with the dictator's note ,documented as a scribe. Any additional findings or plans will be noted.
--- NOTE | 2018-06-08 22:18 | P.PN ---
Subjective Progress Note Date: 06/08/18 Progress note being dictated for Dr. Maciel Interval history:68-year-old the female with a history of chronic epigastric respiratory failure resolves and at home came in with compensative shortness of breath found to be in severe COPD examination patient is dropping a little flat elevation phlegm patient was on BiPAP yesterday. Patient does have advanced COPD continues to smoke. Patient denied any fever chills chest x-ray did not show any pneumonic process patient had history of stress-induced cardiomyopathy in the past although patient does not appear to be in severe COPD exacerbation had a normal ejection fraction normal coronary arteries in the past. Review of Systems REVIEW OF SYSTEMS: CONSTITUTIONAL: No fever, no malaise, no fatigue. HEENT: No recent visual problems or hearing problems. Denied any sore throat. CARDIOVASCULAR: No chest pain, orthopnea, PND, no palpitations, no syncope. PULMONARY: As mentioned in HPI GASTROINTESTINAL: No diarrhea, no nausea, no vomiting, no abdominal pain. Normoactive bowel sounds. NEUROLOGICAL: No headaches, no weakness, no numbness. HEMATOLOGICAL: Denies any bleeding or petechiae. GENITOURINARY: Denies any burning micturition, frequency, or urgency. MUSCULOSKELETAL/RHEUMATOLOGICAL: Denies any joint pain, swelling, or any muscle pain. ENDOCRINE: Denies any polyuria or polydipsia. The rest of the 14-point review of systems is negative. 06/05/2018 chest x-ray reporting basilar increased density, COPD. Worsening renal function, creatinine 2.2 and Lasix discontinued. Denies chest pain, palpitations. PRN BiPAP. Maintaining O2 sats of high 90s on 4 L cannula. Heart rate controlled on Cardizem. Afebrile. 06/06/2018 maintained on nebulized bronchodilators, steroids, antibiotics.Diffuse wheezing, maintaining O2 sats of high 90s on 4 L nasal cannula. Afebrile.Lasix had been placed on hold for worsening renal function; continues to worsen. Hyperglycemia, Levemir increased, IV steroids decreased 06/07/2018 breathing better. Maintaining O2 sats in the high 90s on 4 L nasal cannula. Afebrile. Renal function remains elevated, Lasix on hold. 06/08/2018 Diuretics remain on hold. continues on 4 L nasal cannula, maintaining O2 sats in the high 90s. Minimal ambulation/activity. Steroid tapering in progress. Objective - Vital Signs Vital signs: Vital Signs Temp 98.6 F 06/08/18 14:42 Pulse 90 06/08/18 20:32 Resp 15 06/08/18 14:42 BP 157/76 06/08/18 14:42 Pulse Ox 98 06/08/18 14:42 Intake & Output 06/08/18 06/08/18 06/09/18 06:59 18:59 06:59 Intake Total 150 Balance 150 Intake: Oral 150 Other: Voiding Method Bedside Commode # Voids 2 2 - Exam GENERAL: The patient is alert and oriented x3, respiratory effort mildly increased HEENT: Pupils are round and equally reacting to light. EOMI. No scleral icterus. No conjunctival pallor. Normocephalic, atraumatic CARDIOVASCULAR: S1 and S2 present. No murmurs, rubs, or gallops. PULMONARY: Regular. Improving Diffuse Expiratory wheezing ABDOMEN: Soft, nontender, nondistended, normoactive bowel sounds. No palpable organomegaly. MUSCULOSKELETAL: No joint swelling or deformity. EXTREMITIES: No cyanosis, clubbing, or pedal edema. NEUROLOGICAL: Gross neurological examination did not reveal any focal deficits. - Labs CBC & Chem 7: 06/07/18 07:53 06/07/18 07:53 Labs: Abnormal Lab Results - Last 24 Hours (Table) 06/08/18 06/08/18 06/08/18 Range/Units 06:59 11:37 16:49 POC Glucose (mg/dL) 178 H 272 H 288 H (75-99) mg/dL 06/08/18 Range/Units 20:52 POC Glucose (mg/dL) 304 H (75-99) mg/dL Assessment and Plan Assessment: -Acute on chronic hypercapnic respiratory failure: Secondary to COPD exacerbation and mild CHF Exac., diastolic dysfunction -Ongoing nicotine use. -Morbid obesity, BMI 42.7 -Acute renal failure, worsening secondary to diuretics -diabetes mellitus blood sugars , with steroid-induced hyperglycemia -Diuretic peripheral neuropathy -History of marijuana use Plan: Continue on current medication regime ,monitoring and symptomatic treatment. Maintain nebulized bronchodilators, steroids, doxycycline. Continue holding Diuretics with repeat labs ordered for a.m. close monitoring of Accu-Cheks, meds adjusted. Increase ambulation.Discharge planning in progress for tomorrow. The impression and plan of care has been dictated as directed. : I performed a history and examination of this patient, discussed the same with the dictator. I agree with the dictator's note ,documented as a scribe. Any additional findings or plans will be noted.
[2018-06-08] MEDS ORDERED: INSULIN DETEMIR 100 UNIT/ML 10 ML VIAL SQ ONE (22:30)
[2018-06-09] MEDS: LEVOTHYROXINE 100 MCG TAB PO SCH (06:15)
[2018-06-09] MEDS: LEVOTHYROXINE 75 MCG TAB PO SCH (06:15)
[2018-06-09] MEDS: HYDROcodone/APAP 7.5-325MG 1 EACH TAB PO PRN (06:15)
[2018-06-09 07:14] VITALS: TEMP 98.7
[2018-06-09] MEDS: ISOSORBIDE MONONITRATE ER 15 MG TAB PO SCH (07:16)
[2018-06-09] MEDS: FLUoxetine HCL 20 MG CAP PO SCH (07:16)
[2018-06-09] MEDS: DILTIAZEM ORAL 30 MG TAB PO SCH ×2 (07:16→15:18)
[2018-06-09] MEDS: GABAPENTIN 100 MG CAP PO SCH ×2 (07:16→15:18)
[2018-06-09] MEDS: MONTELUKAST 10 MG TAB PO SCH (07:16)
[2018-06-09] MEDS: FERROUS SULFATE 325 MG TAB PO SCH (07:17)
[2018-06-09] MEDS: ASPIRIN 81 MG PO SCH (07:21)
[2018-06-09] MEDS: guaiFENesin 600 MG TABLET.ER PO SCH (07:21)
[2018-06-09] MEDS: FAMOTIDINE 20 MG TAB PO SCH (07:21)
[2018-06-09] MEDS: PANTOPRAZOLE 40 MG/10 ML VIAL IVP SCH (07:22)
[2018-06-09] MEDS: methylPREDNISolone SOD SUCCI 40 MG/ML 1 ML VIAL IV SCH (07:24)
[2018-06-09] MEDS: INSULIN ASPART 100 UNIT/ML 1 ML 10 ML VIAL SQ SCH ×4 (07:32→12:20)
[2018-06-09 07:41] LABS: Glucose,Whole Blood 242 mg/dL (75-99)
[2018-06-09 08:21] LABS: HCT 32.8 % (34.0-46.0); HGB 10.3 gm/dL (11.4-16.0); MCH 31.2 pg (25.0-35.0); MCHC 31.3 g/dL (31.0-37.0); MCV 99.7 fL (80.0-100.0); Mean Platelet Volume 7.1; Platelet Count 298 k/uL (150-450); RBC 3.29 m/uL (3.80-5.40); RDW 13.5 % (11.5-15.5); WBC 18.7 k/uL (3.8-10.6)
[2018-06-09] MEDS: IPRATROPIUM-ALBUTEROL 3 ML NEB INHALATION PRN ×2 (08:24→12:20)
[2018-06-09 08:42] LABS: Calcium 9.1 mg/dL (8.4-10.2); Potassium 5.6 mmol/L (3.5-5.1)
[2018-06-09] MEDS: SYMBICORT 160-4.5 MCG INHALER INHALATION SCH (09:12)
[2018-06-09 10:06] LABS: Band Neutrophils % 4 %; Lymphocytes # (M) 2.99 k/uL (1.0-4.8); Metamyelocytes # (M) 0.56 k/uL (0); Metamyelocytes % 3 %; Monocytes # (M) 0.75 k/uL (0-1.0); Myelocytes # (M) 0.56 k/uL (0); Myelocytes % 3 %; Neutrophils % (M) 72 %; Nucleated Red Blood Cells 0 /100 WBC (0-0); Total Cells Counted 200
--- NOTE | 2018-06-09 11:25 | P.PN ---
Subjective Progress Note Date: 06/09/18 Principal diagnosis: Acute on chronic hypoxic and hypercapnic respiratory failure secondary to COPD and diastolic congestive heart failure This is a 68-year-old female with history of chronic hypoxic respiratory failure , chronic hypercapnic respiratory failure, maintained on oxygen at home and she is also on noninvasive positive pressure ventilator, avaps, except as a tidal volume of 450 people 5 pressure support of 8-14. Rate of 15. Patient usually sees Dr. Clements in our office, and she is maintained on multiple bronchodilators for underlying COPD. Patient had previous history of takustubo syndrome, but that has recovered, and cardiac workup in the last one year including echocardiogram and cardiac catheterization showed normal LV function and normal coronaries. Patient was brought in yesterday to the ER as a transfer from another emergency room I believe was [facility], patient apparently was brought in by EMS with profound shortness of breath, tachypnea, tachycardia, coughing, and wheezing. Chest x-ray showed mild congestive heart failure changes, patient was given Lasix, Solu-Medrol, updrafts, not much improvement noted, hence she was placed on BiPAP, transferred to our facility and she was eventually admitted. Patient remains on BiPAP at present, seems to be doing well, however cannot tolerate coming off BiPAP at least at this point. I reviewed her chest x-ray, and it is suggestive of mild congestive heart failure with bilateral pleural effusions, hence I increased the dose of Lasix which was initially started by Dr. Ashby earlier. The dose is now 40 mg IV push every 12 hours. Reviewed all her meds, patient is on proper bronchodilators, steroids, antibiotics. And I added Symbicort. During my evaluation, patient complained of shortness of breath, cough, wheezing , no chest pain, no nausea, no vomiting, no abdominal pain. No headache no blurred vision no dizziness, no dysuria and no frequency no urgency. No melena and no hematemesis. On 06/05/2018 patient seen in follow-up on selective care unit. Patient states she is feeling a lot better today, she remains on 4 L per nasal cannula, her pulse ox is 97%, afebrile, hemodynamically stable. Lung sounds are positive for some scattered wheezes. Today's chest x-ray has been reviewed, and shows changes consistent with congestive heart failure, bilateral pleural effusions. He remains on IV steroids, nebulized bronchodilators, and empiric antibiotics. Today's labs were negative for any leukocytosis, hemoglobin is 9.3, electrolytes are within normal limits, BUN is 87 and creatinine is 2.22. No chest pain. Doing better today. On 06/06/2018 patient seen in follow-up. Patient is resting in bed, she is audibly wheezy today's exam. Pulse ox on 4 L per nasal cannula was 98%, patient is afebrile. Hemodynamically stable. She continues on nebulized bronchodilators, oral Lasix, steroids at 60 mg every 6 hours, Singulair, Mucinex , we will switch to Symbicort to Pulmicort and Perforomist. We'll continue with current plan of treatment. No new labs or chest x-ray today On 06/07/2018 patient seen in follow-up. She reports her breathing has improved , still has some diffuse wheezes, she states this is her baseline. She is moving good air. Currently pulse ox is at 99% on 4 L per nasal cannula. Patient is afebrile, hemodynamically stable. Today's labs have been reviewed, slightly improved, down to 2.35 from 2.62, BUN is 109. Electrolytes within normal limits. WBC 7.6, hemoglobin is 10.1. No cultures were sent. Patient's diuretics are on hold. On 06/08/2018 patient seen in follow-up on medical surgical unit. She is awake and alert, she is resting in bed, denies any distress, she states her breathing is improving, she has been get not and ambulating about the room, tolerating activity fairly well, patient is currently on 4 L per nasal cannula, at home she wears 3-1/2 L. Lung sounds reveal some scattered expiratory wheezing, but overall improved, she is moving good air, states this is pretty much her baseline. Vital signs remain stable, pulse ox on 4 L per nasal cannula is 99%. She has been treated with empiric antibiotics in the form of doxycycline, nebulized bronchodilators, we will switch the IV steroids to oral prednisone, and Symbicort. Diuretics remain on hold. Patient is voiding, no worsening shortness of breath or chest pain. Increase activity as tolerated, chest x- rays or lab work today. From pulmonary perspective patient is improving, and could be considered for discharge in next 24 hours. On 06/09/2018 patient seen in follow-up on medical surgical floor. She is resting comfortably in bed, she continues to improve, lung sounds are positive for diffuse crackles, and some faint wheezes, overall much improved. He is on 4 L per nasal cannula, her pulse ox is 98%, she is afebrile, she is hemodynamically stable, does get exertional dyspnea. Denies any fever or chills , today's lab work was reviewed, WBC 18.7, hemoglobin is 10.3, potassium is 5.6 , sodium is 138, chloride is 104, BUN is 57, and creatinine is 1.17, has been significant improvement in patient's renal profile. No new chest x-rays today, clinically patient is improving Objective - Vital Signs Vital signs: Vital Signs Temp 98.7 F 06/09/18 07:00 Pulse 96 06/09/18 08:35 Resp 17 06/09/18 07:52 BP 145/64 06/09/18 07:00 Pulse Ox 98 06/09/18 00:23 Intake & Output 06/08/18 06/09/18 06/09/18 18:59 06:59 18:59 Intake Total 320 Balance 320 Weight 92.9 kg Intake: Oral 320 Other: Voiding Method Toilet Toilet # Voids 2 3 - Exam Initial Comments: GENERAL: Obese female in mild respiratory distress on BiPAP HENT: Normocephalic, Atraumatic. PERRLA, EOMI, no neck masses no JVD, no carotid bruits. EYES: PERRL, EOMI, no icterus. PULMONARY: Diffuse crackles throughout the lung [place], faint expiratory wheezes overall improved CARDIOVASCULAR: Tachycardic, no murmurs ABDOMEN: Obese, soft, nontender, no megaly, no rebound, no guarding. SKIN: No erythema, no rashes, no rashes, good skin turgor noted. NEUROLOGIC: Alert oriented 3, no gross focal neurologic deficits. MUSCULOSKELETAL: Normal range of motion, no deformities noted. LYMPHATICS: No lymphadenopathy is noted PSYCHIATRIC: Normal psychiatric evaluation. Normal mood, affect, and mental status examination. Limitations: no limitations - Labs CBC & Chem 7: 06/09/18 06:45 06/09/18 06:45 Labs: Abnormal Lab Results - Last 24 Hours (Table) 06/08/18 06/08/18 06/08/18 Range/Units 11:37 16:49 20:52 WBC (3.8-10.6) k/uL RBC (3.80-5.40) m/uL Hgb (11.4-16.0) gm/dL Hct (34.0-46.0) % Neutrophils # (Manual) (1.3-7.7) k/uL Metamyelocytes # (Man) (0) k/uL Myelocytes # (Manual) (0) k/uL Potassium (3.5-5.1) mmol/L BUN (7-17) mg/dL Creatinine (0.52-1.04) mg/dL Glucose (74-99) mg/dL POC Glucose (mg/dL) 272 H 288 H 304 H (75-99) mg/dL 06/09/18 06/09/18 06/09/18 Range/Units 06:45 06:45 07:29 WBC 18.7 H (3.8-10.6) k/uL RBC 3.29 L (3.80-5.40) m/uL Hgb 10.3 L (11.4-16.0) gm/dL Hct 32.8 L (34.0-46.0) % Neutrophils # (Manual) 14.20 H (1.3-7.7) k/uL Metamyelocytes # (Man) 0.56 H (0) k/uL Myelocytes # (Manual) 0.56 H (0) k/uL Potassium 5.6 H (3.5-5.1) mmol/L BUN 57 H (7-17) mg/dL Creatinine 1.17 H (0.52-1.04) mg/dL Glucose 207 H (74-99) mg/dL POC Glucose (mg/dL) 242 H (75-99) mg/dL Assessment and Plan Plan: Assessment: 1 acute on chronic hypoxic and hypercapnic respiratory failure secondary to COPD and diastolic congestive heart failure. 2 Chronic and ongoing tobacco dependence. 3 Morbid obesity with obstructive sleep apnea and obesity/hypoventilation syndrome. 4 History of marijuana use. 5 History of ventilatory dependent respiratory failure. 6 History of Takotsubo syndrome with normal coronary arteries. 7 Hypertension. 8 Hyperlipidemia. 9 Diabetes mellitus, type II with diabetic neuropathy, steroid-induced hyperglycemia requiring insulin drip. 10 Generalized anxiety disorder. 11 Poor overall functional performance based on the above-mentioned multiple comorbidities. Recommendation: Patient continues to improve, no acute events overnight, increase activity, increase ambulation. Renal profile is improving. No fever, no chills, no worsening dyspnea. From pulmonary perspective patient is stable for discharge home today. I performed a history & physical examination of the patient and discussed their management with my nurse practitioner, Sophia Lombardi. I reviewed the nurse practitioner's note and agree with the documented findings and plan of care. Lung sounds are positive for diffuse crackles and faint wheezes. The findings and the impression was discussed with the patient. I attest to the documentation by the nurse practitioner. Time with Patient: Less than 30
[2018-06-09 12:04] LABS: Glucose,Whole Blood 255 mg/dL (75-99)
[2018-06-09] MEDS: LEVOFLOXACIN 500MG-D5W PMX 500 MG in DEXTROSE/WATER 1 100ML.BAG IVPB SCH (15:19)
[2018-06-09] MEDS ORDERED: SODIUM POLYSTYRENE SULFONATE 30 GM/120 ML BOTTLE RECTAL STA (15:33)
--- NOTE | 2018-06-09 15:52 | P.DS ---
Providers Date of admission: 06/03/18 23:30 Expected date of discharge: 06/09/18 Attending physician: Anali Maciel Consults: 06/03/18 23:30 Consult Physician Routine Consulting Provider: Ruben Burgess Consult Reason/Comments: established pt, CHF exacerbation Do you want consulting provider notified?: Yes, Notify in am Consult Physician Routine Consulting Provider: Soledad Clements Consult Reason/Comments: COPD, established patient Do you want consulting provider notified?: Yes, Notify in am Primary care physician: Alex Dowling [facility] Hospital Course: Final Diagnoses: -Acute on chronic hypercapnic respiratory failure: Secondary to COPD exacerbation and mild CHF Exac., diastolic dysfunction -Ongoing nicotine use. -Morbid obesity, BMI 42.7 -Acute renal failure, worsening secondary to diuretics -diabetes mellitus blood sugars , with steroid-induced hyperglycemia -Diuretic peripheral neuropathy -History of marijuana use Hospital course: This is a 68-year-old the female with a history of chronic epigastric respiratory failure resolves and at home came in with compensative shortness of breath found to be in severe COPD examination patient is dropping a little flat elevation phlegm patient was on BiPAP yesterday. Patient does have advanced COPD continues to smoke. Patient denied any fever chills chest x- ray did not show any pneumonic process patient had history of stress-induced cardiomyopathy in the past although patient does not appear to be in severe COPD exacerbation had a normal ejection fraction normal coronary arteries in the past. Evaluated by pulmonary, cardiology. Maintained on nebulized bronchodilators, steroids, antibiotics. Lasix remains on hold related to acute renal failure .Significant clinical improvement. Cleared by both pulmonary cardiology for discharge. Patient is being discharged home in stable condition with guarded prognosis. - Exam GENERAL: The patient is alert and oriented x3, no acute distress CARDIOVASCULAR: S1 and S2 present. No murmurs, rubs, or gallops. PULMONARY: Regular. Improving Diffuse Expiratory wheezing ABDOMEN: Soft, nontender, nondistended, normoactive bowel sounds. No palpable organomegaly. NEUROLOGICAL: Gross neurological examination did not reveal any focal deficits. The impression and plan of care has been dictated as directed. : I performed a history and examination of this patient, discussed the same with the dictator. I agree with the dictator's note ,documented as a scribe. Any additional findings or plans will be noted. Time taken on 35 min. Patient Condition at Discharge: Stable Plan - Discharge Summary New Discharge Prescriptions: New Budesonide-Formot 160-4.5 Mcg [Symbicort 160-4.5 Mcg Inhaler] 2 puff INHALATION RT-BID puff Diltiazem Oral [Cardizem*] 30 mg PO TID #90 tab Gabapentin [Neurontin] 200 mg PO TID #180 cap Insulin Detemir [Levemir] 10 unit SQ HS #1 syr predniSONE 10 mg PO DIRECTED #30 tab Continue glyBURIDE/METFORMIN HCL [glyBURIDE/METFORMIN HCL 2.5-500 mg] 1 tab PO QID ALPRAZolam [Xanax] 1 mg PO TID PRN PRN Reason: Anxiety Theophylline 24 Hour [Chris-24] 300 mg PO BID guaiFENesin [Mucinex] 1,200 mg PO BID Hydrocodone/Acetaminophen [[place] 7.5-325] 1 tab PO TID PRN PRN Reason: Pain Montelukast [Singulair] 10 mg PO DAILY FLUoxetine HCL [PROzac] 20 mg PO DAILY Simvastatin [Zocor] 40 mg PO HS #30 tab Aspirin 81 mg PO DAILY Budesonide [Pulmicort] 0.5 mg INHALATION RT-BID diphenhydrAMINE HCL [Benadryl] 50 mg PO Q6H PRN PRN Reason: Allergy Symptoms Isosorbide Mononitrate ER [Imdur] 15 mg PO DAILY #30 dose guaiFENesin-DM 100-10MG/5ML [Robitussin DM] 3.5 ml PO Q4H PRN PRN Reason: Cough Ipratropium-Albuterol Nebulize [Duoneb 0.5 mg-3 mg/3 ml Soln] 3 ml INHALATION RT-QID #0 predniSONE 10 mg PO DAILY #0 Fluticasone Propionate [Flonase Allergy Relief] 2 spray EA NOSTRIL DAILY Ibandronate Sodium [Boniva] 150 mg PO Q30D Ferrous Sulfate [Iron (65 MG Elemental)] 325 mg PO DAILY Ranitidine HCl [Zantac] 150 mg PO BID Ipratropium/Albuterol Sulfate [Combivent Respimat Inhaler] 1 puff INHALATION RT-QID Insulin Aspart [NovoLOG (formulary)] See Protocol SQ ACHS PRN PRN Reason: Blood Sugar - High Levofloxacin [Levaquin] 750 mg PO DAILY #5 tab Levothyroxine Sodium [Synthroid] 175 mcg PO DAILY Discontinued Gabapentin [Neurontin] 600 mg PO TID Furosemide [Lasix] 40 mg PO DAILY PRN PRN Reason: Edema Potassium Chloride [Klor-Con 10] 10 meq PO BID PRN PRN Reason: TAKE W/LASIX Lisinopril [Zestril] 20 mg PO BID Discharge Medication List ALPRAZolam [Xanax] 1 mg PO TID PRN 08/25/15 [History] FLUoxetine HCL [PROzac] 20 mg PO DAILY 08/25/15 [History] Hydrocodone/Acetaminophen [[place] 7.5-325] 1 tab PO TID PRN 08/25/15 [History] Montelukast [Singulair] 10 mg PO DAILY 08/25/15 [History] Theophylline 24 Hour [Chris-24] 300 mg PO BID 08/25/15 [History] glyBURIDE/METFORMIN HCL [glyBURIDE/METFORMIN HCL 2.5-500 mg] 1 tab PO QID [History] guaiFENesin [Mucinex] 1,200 mg PO BID 08/25/15 [History] Simvastatin [Zocor] 40 mg PO HS #30 tab 08/28/15 [Rx] Aspirin 81 mg PO DAILY 11/18/16 [History] Budesonide [Pulmicort] 0.5 mg INHALATION RT-BID 11/18/16 [History] diphenhydrAMINE HCL [Benadryl] 50 mg PO Q6H PRN 11/18/16 [History] Isosorbide Mononitrate ER [Imdur] 15 mg PO DAILY #30 dose 11/23/16 [Rx] guaiFENesin-DM 100-10MG/5ML [Robitussin DM] 3.5 ml PO Q4H PRN 01/23/17 [History] Ipratropium-Albuterol Nebulize [Duoneb 0.5 mg-3 mg/3 ml Soln] 3 ml INHALATION RT -QID #0 01/26/17 [Rx] predniSONE 10 mg PO DAILY #0 01/26/17 [Rx] Ferrous Sulfate [Iron (65 MG Elemental)] 325 mg PO DAILY 08/08/17 [History] Fluticasone Propionate [Flonase Allergy Relief] 2 spray EA NOSTRIL DAILY [History] Ibandronate Sodium [Boniva] 150 mg PO Q30D 08/08/17 [History] Insulin Aspart [NovoLOG (formulary)] See Protocol SQ ACHS PRN 08/08/17 [History] Ipratropium/Albuterol Sulfate [Combivent Respimat Inhaler] 1 puff INHALATION RT- QID 08/08/17 [History] Ranitidine HCl [Zantac] 150 mg PO BID 08/08/17 [History] Levofloxacin [Levaquin] 750 mg PO DAILY #5 tab 08/11/17 [Rx] Levothyroxine Sodium [Synthroid] 175 mcg PO DAILY 06/04/18 [History] Budesonide-Formot 160-4.5 Mcg [Symbicort 160-4.5 Mcg Inhaler] 2 puff INHALATION RT-BID puff 06/09/18 [Rx] Diltiazem Oral [Cardizem*] 30 mg PO TID #90 tab 06/09/18 [Rx] Gabapentin [Neurontin] 200 mg PO TID #180 cap 06/09/18 [Rx] Insulin Detemir [Levemir] 10 unit SQ HS #1 syr 06/09/18 [Rx] predniSONE 10 mg PO DIRECTED #30 tab 06/09/18 [Rx] Follow up Appointment(s)/Referral(s): Ruben Burgess MD [STAFF PHYSICIAN] - 2 Weeks Alex Vera MD [Primary Care Provider] - 3 Days Ambulatory/Diagnostic Orders: Complete Blood Count w/diff [LAB.AMB] Time Frame: 3 Days, Location: None Selected Activity/Diet/Wound Care/Special Instructions: Home Care - [facility] Care - [phone] 3L nasal cannula O2-has at home Diet: Consistent carb Accu-Cheks before meals and at bedtime, maintain log intake to follow-up visit with PCP for further recommendations. Activity: Limited until follow up
[2018-06-09 16:23] VITALS: BP 179/83; PULSE 80; RESP 16
[2018-06-09] MEDS ORDERED: INSULIN DETEMIR 100 UNIT/ML 10 ML VIAL SQ SCH (21:00)
[2018-06-10] MEDS ORDERED: LEVOFLOXACIN 250MG-D5W PMX 250 MG in DEXTROSE/WATER 1 50ML.BAG IVPB SCH (14:00)
== END 2018-06-09 16:34 | disposition home or self-care (01) | DRG 190 ==
LOC: EC 23:18 → 6SEL 23:30 → 3SCARD 06-04 11:26 → 4SSUR 06-04 23:38
PROVIDERS: ADMIT Internal Medicine; ATTEND Internal Medicine
DX: J44.1 Chronic obstructive pulmonary disease with (acute) exacerbation (principal); I50.33 Acute on chronic diastolic (congestive) heart failure; J96.21 Acute and chronic respiratory failure with hypoxia; J96.22 Acute and chronic respiratory failure with hypercapnia; E66.2 Morbid (severe) obesity with alveolar hypoventilation; N17.9 Acute kidney failure, unspecified; Z68.41 Body mass index [BMI] 40.0-44.9, adult; D72.829 Elevated white blood cell count, unspecified; E03.9 Hypothyroidism, unspecified; E11.42 Type 2 diabetes mellitus with diabetic polyneuropathy; E11.65 Type 2 diabetes mellitus with hyperglycemia; E78.5 Hyperlipidemia, unspecified; E87.5 Hyperkalemia; F17.200 Nicotine dependence, unspecified, uncomplicated; F32.9 Major depressive disorder, single episode, unspecified; F41.1 Generalized anxiety disorder; I11.0 Hypertensive heart disease with heart failure; I35.0 Nonrheumatic aortic (valve) stenosis; K21.9 Gastro-esophageal reflux disease without esophagitis; T38.0X5A Adverse effect of glucocorticoids and synthetic analogues, initial encounter; T50.2X5A Adverse effect of carbonic-anhydrase inhibitors, benzothiadiazides and other diuretics, initial encounter; Z79.4 Long term (current) use of insulin; Z79.52 Long term (current) use of systemic steroids; Z79.82 Long term (current) use of aspirin; Z80.49 Family history of malignant neoplasm of other genital organs; Z96.653 Presence of artificial knee joint, bilateral; Z99.81 Dependence on supplemental oxygen; Z79.899 Other long term (current) drug therapy; Z79.890 Hormone replacement therapy; Z79.51 Long term (current) use of inhaled steroids; Z88.1 Allergy status to other antibiotic agents; Z88.7 Allergy status to serum and vaccine; Z88.8 Allergy status to other drugs, medicaments and biological substances; Z90.49 Acquired absence of other specified parts of digestive tract; Z98.51 Tubal ligation status; Z71.6 Tobacco abuse counseling
CPT/HCPCS: 36415; 71045; 80048; 80053; 82550; 82553; 82803; 83036; 83880; 84484; 85025; 85610; 85730; 93005; 93306; 94640; 94660; 94760; 96374; 99285

== ENCOUNTER 2019-02-22 23:27 | Inpatient (IN) | payer MEDICARE ==
--- NOTE | 2019-02-22 23:40 | ED ---
SOB HPI - General Chief Complaint: Shortness of Breath Stated Complaint: MAR Time Seen by Provider: 02/22/19 23:38 Source: patient, EMS Mode of arrival: EMS Limitations: no limitations - History of Present Illness Initial Comments: This patient is a 68-year-old woman with history of COPD. She states that she usually sees Dr. Clements for her lung disease. The patient states that she started having increasing symptoms related to her COPD tonight. She was having shortness of breath, coughing and wheezing. She went to [facility] where she was evaluated and felt that she would require hospital admission. She was transferred here. MD Complaint: shortness of breath, cough Onset/Timin -: hour(s) Severity: moderate Quality: dull Consistency: constant Improves With: oxygen, bronchodilators, upright position Worsens With: coughing Known History Of: COPD, asthma Associated Symptoms: fever, cough, sputum production Treatments Prior to Arrival: oxygen, bronchodilator - Related Data Home Oxygen Therapy: Yes Home Medications Medication Instructions Recorded Confirmed ALPRAZolam [Xanax] 1 mg PO TID PRN 08/25/15 02/23/19 FLUoxetine HCL [PROzac] 20 mg PO DAILY 08/25/15 02/23/19 Hydrocodone/Acetaminophen [[place] 1 tab PO TID PRN 08/25/15 02/23/19 7.5-325] Montelukast [Singulair] 10 mg PO DAILY 08/25/15 02/23/19 Theophylline 24 Hour [Chris-24] 300 mg PO BID 08/25/15 02/23/19 Budesonide [Pulmicort] 0.5 mg INHALATION RT-BID 11/18/16 02/23/19 Ibandronate Sodium [Boniva] 150 mg PO Q30D 08/08/17 02/23/19 Ipratropium/Albuterol Sulfate 1 puff INHALATION RT-QID 08/08/17 02/23/19 [Combivent Respimat Inhaler] Albuterol Inhaler [Ventolin Hfa 2 puff INHALATION RT-Q4H PRN 02/23/19 02/23/19 Inhaler] Furosemide [Lasix] 40 mg PO DAILY PRN 02/23/19 02/23/19 Gabapentin 800 mg PO TID 02/23/19 02/23/19 Ibandronate Sodium 150 mg PO DIRECTED 02/23/19 02/23/19 Ipratropium-Albuterol Nebulize 3 ml INHALATION Q6HR 02/23/19 02/23/19 [Duoneb 0.5 mg-3 mg/3 ml Soln] Ipratropium/Albuterol Sulfate 1 puff INHALATION Q6HR 02/23/19 02/23/19 [Combivent Respimat Inhaler] Levothyroxine Sodium [Synthroid] 200 mcg PO DAILY 02/23/19 02/23/19 Lisinopril 20 mg PO BID 02/23/19 02/23/19 Lisinopril [Zestril] 40 mg PO BID 02/23/19 02/23/19 Potassium Chloride 10 meq PO DAILY PRN 02/23/19 02/23/19 Previous Rx's Medication Instructions Recorded Simvastatin [Zocor] 40 mg PO HS #30 tab 08/28/15 Isosorbide Mononitrate ER [Imdur] 15 mg PO DAILY #30 dose 11/23/16 Ipratropium-Albuterol Nebulize 3 ml INHALATION RT-QID #0 01/26/17 [Duoneb 0.5 mg-3 mg/3 ml Soln] predniSONE 10 mg PO DAILY #0 01/26/17 Allergies Allergy/AdvReac Type Severity Reaction Status Date / Time cefotaxime sodium Allergy Rash/Hives Verified 02/22/19 23:48 [From Claforan] glucose [From Gammagard S/D] Allergy Dyspnea Verified 02/22/19 23:48 glycine [From Gammagard S/D] Allergy Dyspnea Verified 02/22/19 23:48 IgA less than or equal to 50 Allergy Dyspnea Verified 02/22/19 23:48 mcg/mL [From Gammagard S/D] immune globulin,gamma (IgG) Allergy Dyspnea Verified 02/22/19 23:48 human [From Gammagard S/D] vancomycin Allergy Seizure/hyp Verified 02/22/19 23:48 oglycemia zoster vaccine live AdvReac Unknown Verified 02/22/19 23:48 [From Zostavax (PF)] Review of Systems ROS Statement: Those systems with pertinent positive or pertinent negative responses have been documented in the HPI. ROS Other: All systems not noted in ROS Statement are negative. Constitutional: Denies: fever, chills Respiratory: Reports: cough, dyspnea, wheezes. Denies: hemoptysis Cardiovascular: Denies: chest pain, palpitations, edema, syncope Gastrointestinal: Denies: abdominal pain, nausea, vomiting, diarrhea, constipation Genitourinary: Denies: dysuria, hematuria Musculoskeletal: Denies: back pain Skin: Denies: rash Neurological: Denies: headache, weakness, numbness Past Medical History Past Medical History: Asthma, Heart Failure, COPD, Diabetes Mellitus, GERD/Reflux, Hyperlipidemia, Hypertension, Osteoarthritis (OA), Pneumonia, Respiratory Disorder, Skin Disorder, Sleep Apnea/CPAP/BIPAP, Thyroid Disorder Additional Past Medical History / Comment(s): Advanced COPD with chronic hypoxic respiratory failure [facility].. CHF with an ejection fraction of 35-40%,leg edema, history of takotsubo syndrome and normal coronaries as evident on her cardiac catheterization, diabetes mellitus type 2, obesity, obstructive sleep apnea-uses noninvasive ventilator, hypothyroidism, peripheral neuropathy secondary to diabetes mellitus-bilateral feet, arthritis multiple joints and entire back, psoriasis, sinus problems. History of Any Multi-Drug Resistant Organisms: None Reported Past Surgical History: Appendectomy, Cholecystectomy, Heart Catheterization, Joint Replacement, Tonsillectomy, Tubal Ligation Additional Past Surgical History / Comment(s): 08/2015 normal cardiac cath, 06/2016 normal cardiac cath, bilateral total knee arthroplasty. Past Anesthesia/Blood Transfusion Reactions: No Reported Reaction Past Psychological History: Anxiety, Depression Smoking Status: Current every day smoker Past Alcohol Use History: Occasional Past Drug Use History: Marijuana - Past Family History Father History Unknown: Yes Family Medical History: No Reported History Mother Family Medical History: Cancer Additional Family Medical History / Comment(s): uterine cancer General Exam Limitations: no limitations General appearance: alert, in distress Head exam: Present: atraumatic, normocephalic Eye exam: Present: normal appearance. Absent: scleral icterus, conjunctival inj ection ENT exam: Present: mucous membranes dry Neck exam: Present: normal inspection Respiratory exam: Present: respiratory distress, wheezes, accessory muscle use, decreased breath sounds. Absent: rales, rhonchi, stridor, prolonged expiratory Cardiovascular Exam: Present: regular rate, normal rhythm, normal heart sounds. Absent: systolic murmur, diastolic murmur, rubs, gallop GI/Abdominal exam: Present: soft. Absent: distended, tenderness, guarding, rebound, rigid, mass Extremities exam: Present: normal inspection, normal capillary refill. Absent: pedal edema, calf tenderness Back exam: Present: normal inspection Neurological exam: Present: alert Skin exam: Present: warm, dry, intact, normal color. Absent: rash Course Vital Signs 02/22/19 02/23/19 02/23/19 23:29 00:41 01:10 Temperature 99.0 F 98.8 F Pulse Rate 93 84 82 Respiratory 20 24 22 Rate Blood Pressure 141/61 146/57 O2 Sat by Pulse 99 99 Oximetry 02/23/19 02/23/19 01:21 03:15 Temperature 98.2 F Pulse Rate 80 81 Respiratory 24 20 Rate Blood Pressure 135/65 O2 Sat by Pulse 99 Oximetry Medical Decision Making - Lab Data Result diagrams: 02/22/19 23:43 02/22/19 23:43 Lab Results 02/22/19 02/22/19 02/22/19 Range/Units 23:43 23:43 23:43 WBC 36.2 H (3.8-10.6) k/uL RBC 3.09 L (3.80-5.40) m/uL Hgb 9.4 L (11.4-16.0) gm/dL Hct 30.3 L (34.0-46.0) % MCV 97.9 (80.0-100.0) fL MCH 30.5 (25.0-35.0) pg MCHC 31.1 (31.0-37.0) g/dL RDW 16.0 H (11.5-15.5) % Plt Count 387 (150-450) k/uL Neutrophils % (Manual) 91 % Band Neutrophils % 3 % Lymphocytes % (Manual) 2 % Monocytes % (Manual) 4 % Neutrophils # (Manual) 34.00 H (1.3-7.7) k/uL Lymphocytes # (Manual) 0.72 L (1.0-4.8) k/uL Monocytes # (Manual) 1.45 H (0-1.0) k/uL Nucleated RBCs 0 (0-0) /100 WBC Manual Slide Review Performed Polychromasia Present Hypochromasia Slight Macrocytosis Slight PT 10.7 (9.0-12.0) sec INR 1.0 (<1.2) APTT 23.9 (22.0-30.0) sec Sodium 136 L (137-145) mmol/L Potassium 5.4 H (3.5-5.1) mmol/L Chloride 100 (98-107) mmol/L Carbon Dioxide 25 (22-30) mmol/L Anion Gap 11 mmol/L BUN 23 H (7-17) mg/dL Creatinine 0.89 (0.52-1.04) mg/dL Est GFR (CKD-EPI)AfAm 77 (>60 ml/min/1.73 sqM) Est GFR (CKD-EPI)NonAf 67 (>60 ml/min/1.73 sqM) Glucose 353 H (74-99) mg/dL Calcium 8.8 (8.4-10.2) mg/dL Magnesium 2.0 (1.6-2.3) mg/dL Total Bilirubin 0.5 (0.2-1.3) mg/dL AST 20 (14-36) U/L ALT 14 (9-52) U/L Alkaline Phosphatase 77 (38-126) U/L Troponin I (0.000-0.034) ng/mL NT-Pro-B Natriuret Pep pg/mL Total Protein 6.8 (6.3-8.2) g/dL Albumin 4.2 (3.5-5.0) g/dL 02/22/19 02/22/19 Range/Units 23:43 23:43 WBC (3.8-10.6) k/uL RBC (3.80-5.40) m/uL Hgb (11.4-16.0) gm/dL Hct (34.0-46.0) % MCV (80.0-100.0) fL MCH (25.0-35.0) pg MCHC (31.0-37.0) g/dL RDW (11.5-15.5) % Plt Count (150-450) k/uL Neutrophils % (Manual) % Band Neutrophils % % Lymphocytes % (Manual) % Monocytes % (Manual) % Neutrophils # (Manual) (1.3-7.7) k/uL Lymphocytes # (Manual) (1.0-4.8) k/uL Monocytes # (Manual) (0-1.0) k/uL Nucleated RBCs (0-0) /100 WBC Manual Slide Review Polychromasia Hypochromasia Macrocytosis PT (9.0-12.0) sec INR (<1.2) APTT (22.0-30.0) sec Sodium (137-145) mmol/L Potassium (3.5-5.1) mmol/L Chloride (98-107) mmol/L Carbon Dioxide (22-30) mmol/L Anion Gap mmol/L BUN (7-17) mg/dL Creatinine (0.52-1.04) mg/dL Est GFR (CKD-EPI)AfAm (>60 ml/min/1.73 sqM) Est GFR (CKD-EPI)NonAf (>60 ml/min/1.73 sqM) Glucose (74-99) mg/dL Calcium (8.4-10.2) mg/dL Magnesium (1.6-2.3) mg/dL Total Bilirubin (0.2-1.3) mg/dL AST (14-36) U/L ALT (9-52) U/L Alkaline Phosphatase (38-126) U/L Troponin I 0.152 H* (0.000-0.034) ng/mL NT-Pro-B Natriuret Pep 1060 pg/mL Total Protein (6.3-8.2) g/dL Albumin (3.5-5.0) g/dL - EKG Data -: EKG Interpreted by Me EKG shows normal: sinus rhythm, axis (Normal), intervals (Normal), QRS complexes (Normal), ST-T waves (Normal) Rate: normal (Rate 92 bpm) Interpretation: normal EKG Critical Care Time Critical Care Time: Yes (30 minutes) Disposition Clinical Impression: Leukocytosis, Pneumonia, COPD exacerbation, Elevated troponin I level Disposition: ADMITTED IP TO THIS [facility] Condition: Serious
[2019-02-23] LABS: HCT 30.3 % (34.0-46.0); HGB 9.4 gm/dL (11.4-16.0); Hypochromasia Slight; MCH 30.5 pg (25.0-35.0); MCHC 31.1 g/dL (31.0-37.0); MCV 97.9 fL (80.0-100.0); Macrocytosis Slight; Mean Platelet Volume 7.2; Platelet Count 387 k/uL (150-450); RBC 3.09 m/uL (3.80-5.40); WBC 36.2 k/uL (3.8-10.6)
[2019-02-23 00:08] LABS: Albumin 4.2 g/dL (3.5-5.0); Calcium 8.8 mg/dL (8.4-10.2); Partial Thromboplastin Time 23.9 sec (22.0-30.0); Potassium 5.4 mmol/L (3.5-5.1); Prothrombin Time 10.7 sec (9.0-12.0); Total Bilirubin 0.5 mg/dL (0.2-1.3); Total Protein 6.8 g/dL (6.3-8.2)
--- NOTE | 2019-02-23 00:18 | XR ---
EXAM: XR Chest, 1 View CLINICAL HISTORY: Hx of COPD and Asthma. TECHNIQUE: Frontal view of the chest. COMPARISON: 06/05/2018 FINDINGS: Lungs: Mild diffuse airspace opacities throughout both lungs, slightly more on the right, similar to the prior study. Pleural space: Unremarkable. No pneumothorax. Heart: Unremarkable. No cardiomegaly. Mediastinum: Unremarkable. Bones/joints: Unremarkable. IMPRESSION: Mild diffuse airspace opacities throughout both lungs, slightly more on the right, similar to the prior study, suggest recurrent mild pulmonary edema versus pneumonia. Pneumonia is especially a concern over right upper lung zone
[2019-02-23 00:25] LABS: Band Neutrophils % 3 %; Lymphocytes # (M) 0.72 k/uL (1.0-4.8); Monocytes # (M) 1.45 k/uL (0-1.0); Neutrophils % (M) 91 %; Nucleated Red Blood Cells 0 /100 WBC (0-0); Polychromasia Present; Total Cells Counted 100
[2019-02-23] MEDS ORDERED: IPRATROPIUM-ALBUTEROL 3 ML NEB INHALATION STA (00:55)
[2019-02-23] MEDS ORDERED: PIPERACILLIN-TAZOBACTAM 3.375 GM in SODIUM CHLORIDE 0.9% 100 ML IVPB STA (02:20)
[2019-02-23] MEDS ORDERED: LEVOFLOXACIN 750MG-D5W PMX 750 MG in DEXTROSE/WATER 1 150ML.BAG IVPB STA (02:20)
[2019-02-23] MEDS ORDERED: PNEUMONIA PROTOCOL UTILIZED 1 EACH MISC PO PRN (02:20)
[2019-02-23] MEDS ORDERED: INSULIN REGULAR 100 UNIT/ML VIAL SQ STA (02:54)
[2019-02-23] MEDS: SODIUM CHLORIDE 0.9% 1,000 ML IV SCH (02:59)
[2019-02-23 06:14] VITALS: BMI 39.4
[2019-02-23 06:44] LABS: Glucose,Whole Blood 370 mg/dL (75-99)
[2019-02-23] MEDS ORDERED: FUROSEMIDE 40 MG TAB PO PRN (09:17)
[2019-02-23] MEDS ORDERED: POTASSIUM CHLORIDE ER 10 MEQ TAB.ER.PRT PO PRN (09:17)
--- NOTE | 2019-02-23 09:29 | P.CRDCN ---
History of Present Illness Consult date: 02/23/19 Requesting physician: Monet Maciel Reason for Consult (text): elevated troponin Chief complaint: shortness of breath History of present illness: This is a pleasant 68-year-old patient who follows with Dr. Burgess in the office. 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 He presented to [facility] in [place] with complaints of sudden onset shortness of breath and was found to have temperature of 10 2F and was hypoxic upon arrival of EMS. In the emergency department, wbc's were noted to be elevated at greater than 30,000 and chest x-ray showed evidence of new left lower lobe pneumonia. Troponin was noted to be mildly elevated at 0.08 with subsequent troponins here of 0.152 and 0.116. She denies any complaints of chest discomfort. She's had no dizziness, lightheadedness, orthopnea or edema. EKG showed sinus tachycardia with no ST-T wave abnormalities indicative of ischemia. Chest x-ray on arrival here showed mild diffuse airspace opacities throughout both lungs, slightly more on the right, similar to prior study, suggest recurrent mild pulmonary edema versus pneumonia. Pneumonia is especially concerned over right upper lung zone. Since arrival, vital signs stable she remains on high flow nasal cannula and has been afebrile. She has been started on IV Levaquin and Zosyn. She feels her breathing has improved. She does continue to complain of wheezing and a cough with thick white sputum. Past Medical History Past Medical History: Asthma, Heart Failure, COPD, Diabetes Mellitus, GERD/Refl ux, Hyperlipidemia, Hypertension, Osteoarthritis (OA), Pneumonia, Respiratory Disorder, Skin Disorder, Sleep Apnea/CPAP/BIPAP, Thyroid Disorder Additional Past Medical History / Comment(s): Advanced COPD with chronic hypoxic respiratory failure has been on vent at [facility] in past.. CHF with an ejection fraction of 35-40%,leg edema, history of takotsubo syndrome and normal coronaries as evident on her cardiac catheterization, diabetes mellitus type 2, obesity, obstructive sleep apnea-uses noninvasive ventilator, hypothyroidism, peripheral neuropathy secondary to diabetes mellitus-bilateral feet, arthritis multiple joints and entire back, psoriasis, sinus problems. History of Any Multi-Drug Resistant Organisms: None Reported Past Surgical History: Appendectomy, Cholecystectomy, Heart Catheterization, Joint Replacement, Tonsillectomy, Tubal Ligation Additional Past Surgical History / Comment(s): 08/2015 normal cardiac cath, 06/2016 normal cardiac cath, bilateral total knee arthroplasty. Past Anesthesia/Blood Transfusion Reactions: No Reported Reaction Past Psychological History: Anxiety, Depression Additional Psychological History / Comment(s): Pt lives with her son and daughter. She has O2 at 3.5L/NC ATC. She has a noninvasive ventilator. also has cane, walker, rolling walker, bsc, hospital bed, nebulizer, glucometer. Smoking Status: Current every day smoker Past Alcohol Use History: Occasional Additional Past Alcohol Use History / Comment(s): Pt started smoking in 1962(age 12) smokes 1 ppd Past Drug Use History: Marijuana Additional Drug Use History / Comment(s): Patient states she has used marijuana (edibles) to help with pain on occasion. - Past Family History Father History Unknown: Yes Family Medical History: No Reported History Mother Family Medical History: Cancer Additional Family Medical History / Comment(s): uterine cancer Medications and Allergies Home Medications Medication Instructions Recorded Confirmed Type ALPRAZolam [Xanax] 1 mg PO TID PRN 08/25/15 02/23/19 History FLUoxetine HCL [PROzac] 20 mg PO DAILY 08/25/15 02/23/19 History Hydrocodone/Acetaminophen [[place] 1 tab PO TID PRN 08/25/15 02/23/19 History 7.5-325] Montelukast [Singulair] 10 mg PO DAILY 08/25/15 02/23/19 History Theophylline 24 Hour [Chris-24] 300 mg PO BID 08/25/15 02/23/19 History Simvastatin [Zocor] 40 mg PO HS #30 tab 08/28/15 02/23/19 Rx Budesonide [Pulmicort] 0.5 mg INHALATION RT-BID 11/18/16 02/23/19 History Isosorbide Mononitrate ER [Imdur] 15 mg PO DAILY #30 dose 11/23/16 02/23/19 Rx Ipratropium-Albuterol Nebulize 3 ml INHALATION RT-QID #0 01/26/17 02/23/19 Rx [Duoneb 0.5 mg-3 mg/3 ml Soln] predniSONE 10 mg PO DAILY #0 01/26/17 02/23/19 Rx Ibandronate Sodium [Boniva] 150 mg PO Q30D 08/08/17 02/23/19 History Ipratropium/Albuterol Sulfate 1 puff INHALATION RT-QID 08/08/17 02/23/19 History [Combivent Respimat Inhaler] Albuterol Inhaler [Ventolin Hfa 2 puff INHALATION RT-Q4H PRN 02/23/19 02/23/19 History Inhaler] Furosemide [Lasix] 40 mg PO DAILY PRN 02/23/19 02/23/19 History Gabapentin 800 mg PO TID 02/23/19 02/23/19 History Ibandronate Sodium 150 mg PO DIRECTED 02/23/19 02/23/19 History Ipratropium-Albuterol Nebulize 3 ml INHALATION Q6HR 02/23/19 02/23/19 History [Duoneb 0.5 mg-3 mg/3 ml Soln] Ipratropium/Albuterol Sulfate 1 puff INHALATION Q6HR 02/23/19 02/23/19 History [Combivent Respimat Inhaler] Levothyroxine Sodium [Synthroid] 200 mcg PO DAILY 02/23/19 02/23/19 History Lisinopril 20 mg PO BID 02/23/19 02/23/19 History Lisinopril [Zestril] 40 mg PO BID 02/23/19 02/23/19 History Potassium Chloride 10 meq PO DAILY PRN 02/23/19 02/23/19 History Allergies Allergy/AdvReac Type Severity Reaction Status Date / Time cefotaxime sodium Allergy Rash/Hives Verified 02/22/19 23:48 [From Claforan] glucose [From Gammagard S/D] Allergy Dyspnea Verified 02/22/19 23:48 glycine [From Gammagard S/D] Allergy Dyspnea Verified 02/22/19 23:48 IgA less than or equal to 50 Allergy Dyspnea Verified 02/22/19 23:48 mcg/mL [From Gammagard S/D] immune globulin,gamma (IgG) Allergy Dyspnea Verified 02/22/19 23:48 human [From Gammagard S/D] vancomycin Allergy Seizure/hyp Verified 02/22/19 23:48 oglycemia zoster vaccine live AdvReac Unknown Verified 02/22/19 23:48 [From Zostavax (PF)] Physical Exam Vitals: Vital Signs Temp Pulse Pulse Resp BP BP Pulse Ox 02/23/19 08:00 98.6 F 89 18 140/62 99 02/23/19 04:00 78 20 02/23/19 03:45 99.0 F 78 20 128/55 99 02/23/19 03:15 98.2 F 81 20 135/65 99 02/23/19 01:21 80 24 02/23/19 01:10 82 22 02/23/19 00:41 98.8 F 84 24 146/57 99 02/22/19 23:29 99.0 F 93 20 141/61 99 Intake and Output 02/22/19 02/23/19 02/23/19 22:59 06:59 14:59 Intake Total 40 Balance 40 Intake: Intake, IV Titration 40 Amount Sodium Chloride 0.9% 1, 40 000 ml @ 20 mls/hr IV . Q24H [facility] Rx#:[id number] Other: Voiding Method Bedside Commode # Voids 2 # Bowel Movements 1 Weight 86.5 kg PHYSICAL EXAMINATION: HEENT: [Head is atraumatic, normocephalic. Pupils equal, round. Neck is supple. There is no elevated jugular venous pressure.] HEART EXAMINATION: [Heart sounds regular, S1 and S2 with a systolic murmur.] CHEST EXAMINATION:[ Lungs reveal diffuse inspiratory wheezing throughout. No chest wall tenderness is noted on palpation or with deep breathing.] ABDOMEN: [ Soft, obese, nontender. Bowel sounds are heard. No organomegaly noted ]. EXTREMITIES:[ 2+ peripheral pulses with no evidence of peripheral edema and no calf tenderness noted]. NEUROLOGIC [patient is awake, alert and oriented x3.] . Results 02/24/19 06:19 02/24/19 06:19 Cardiac Enzymes 02/22/19 02/22/19 02/23/19 Range/Units 23:43 23:43 06:08 AST 20 (14-36) U/L Troponin I 0.152 H* 0.116 H* (0.000-0.034) ng/mL Coagulation 02/22/19 Range/Units 23:43 PT 10.7 (9.0-12.0) sec APTT 23.9 (22.0-30.0) sec CBC 02/22/19 Range/Units 23:43 WBC 36.2 H (3.8-10.6) k/uL RBC 3.09 L (3.80-5.40) m/uL Hgb 9.4 L (11.4-16.0) gm/dL Hct 30.3 L (34.0-46.0) % Plt Count 387 (150-450) k/uL Comprehensive Metabolic Panel 02/22/19 Range/Units 23:43 Sodium 136 L (137-145) mmol/L Potassium 5.4 H (3.5-5.1) mmol/L Chloride 100 (98-107) mmol/L Carbon Dioxide 25 (22-30) mmol/L BUN 23 H (7-17) mg/dL Creatinine 0.89 (0.52-1.04) mg/dL Glucose 353 H (74-99) mg/dL Calcium 8.8 (8.4-10.2) mg/dL AST 20 (14-36) U/L ALT 14 (9-52) U/L Alkaline Phosphatase 77 (38-126) U/L Total Protein 6.8 (6.3-8.2) g/dL Albumin 4.2 (3.5-5.0) g/dL Current Medications Generic Name Dose Route Start Last Admin Trade Name Freq PRN Reason Stop Dose Admin Levofloxacin 750 mg/ IV 150 mls @ 100 mls/hr 02/25/19 02:22 Solution IVPB Q48H EMERITA Piperacillin Sod/Tazobactam 100 mls @ 25 mls/hr 02/23/19 11:00 Sod 3.375 gm/ Sodium Chloride IVPB Q8H EMERITA Sodium Chloride 1,000 mls @ 20 mls/hr 02/23/19 02:30 02/23/19 02:59 Saline 0.9% IV 20 mls/hr .Q24H EMERITA Administration Miscellaneous Information 1 each 02/23/19 02:20 Pneumonia Protocol Utilized PO ONCE PRN Per Protocol Intake and Output 02/22/19 02/23/19 02/23/19 22:59 06:59 14:59 Intake Total 40 Balance 40 Intake: Intake, IV Titration 40 Amount Sodium Chloride 0.9% 1, 40 000 ml @ 20 mls/hr IV . Q24H [facility] Rx#:[id number] Other: Voiding Method Bedside Commode # Voids 2 # Bowel Movements 1 Weight 86.5 kg 02/22/19 23:43 02/22/19 23:43 EKG Interpretations (text) Sinus tachycardia and subsequently sinus rhythm Assessment and Plan Assessment: #1 symptoms of sudden onset shortness of breath likely secondary more to acute exacerbation COPD and pneumonia with only minimal elevation of an NT proBNP #2 elevated troponins, likely secondary to acute hypoxia, supply demand mismatch #3 history of Takostubo cardiomyopathy with most recent echocardiogram showing an ejection fraction of 50-55% #4 nicotine dependence #5 hypertension #6 diabetes mellitus #7 obesity Plan: From cardiology's perspective, patient's symptoms of shortness of breath seemed to be more related to COPD exacerbation and underlying pneumonia. Elevation of troponins likely secondary to supply demand mismatch. We will obtain a 2-D echo to assess LV systolic function and to assess for wall motion abnormalities. Further recommendations to follow. NURSING UNIT COORDINATOR note has been reviewed, I agree with a documented findings and plan of care. Patient was seen and examined.
[2019-02-23] MEDS: LISINOPRIL 20 MG TAB PO SCH ×2 (11:21→20:43)
[2019-02-23] MEDS: PIPERACILLIN-TAZOBACTAM 3.375 GM in SODIUM CHLORIDE 0.9% 100 ML IVPB SCH ×2 (11:21→20:43)
[2019-02-23] MEDS: ISOSORBIDE MONONITRATE ER 15 MG TAB PO SCH (11:21)
--- NOTE | 2019-02-23 11:35 | CDI ---
Documentation Clarification Form Date: 02/23/2019 10:57:13 AM From: Eli Torres RN, CCDS Admit Date: 02/23/2019 2:20:00 AM Patient Name: Sima Kelley Visit Number: [id number] Discharge Date: ATTENTION: The Clinical Documentation Specialists (CDI) and [facility] Coding Staff appreciate your assistance in clarifying documentation. Please respond to the clarification below the line at the bottom and electronically sign. The CDI & [facility] Coding staff will review the response and follow-up if needed. Please note: Queries are made part of the Legal Health Record. If you have any questions, please contact the author of this message via ITS. Dr. Akshat Wilson 02/23/19 Cardiology consult: Elevated troponins, likely secondary to supply demand mismatch. History/Risk Factors: COPD, Takostubo syndrome , Diabetes mellitus, Hypertension, CHF, current every day smoker Clinical Indicators: 68-year-old present with complaints of sudden onset shortness of breath and was hypoxic upon arrival of EMS. In the ED troponin was noted to be mildly elevated at 0.08, with subsequent troponins here of 0.152 and 0.116. She denies any complaints of chest discomfort. EKG showed sinus tachycardia with no ST-T wave abnormalities indicative of ischemia. CXR: Mild diffuse airspace opacities. suggestive recurrent mild pulmonary edema versus pneumonia. Vital signs: 141/61 93 20 99 % 5/L NC ECHO (06/05/18) EF 50-55 % Repeat ECHO -Pending Other Clinical Indicators: Respiratory exam: respiratory distress, wheezes, accessory muscle use, decreased breath sounds. Treatment: Telemetry monitoring Monitor labs Zosyn IV, Levaquin IV Imdur Po Lasix PO Zestril Po, In your professional opinion, can you please further clarify elevated troponins, likely secondary to acute hypoxic, supply demand mismatch ? Type 2 Myocardial infarction Non-ST elevated WA Ruled in Non-ST elevated WA Ruled out XXXXX Demand ischemia without WA Other, please specify Unable to determine (Last Revision: November 2017) MTDD
[2019-02-23 12:20] LABS: Glucose,Whole Blood 270 mg/dL (75-99)
[2019-02-23 13:34] LABS: Appearance,Urine Clear (Clear); Bilirubin,Urine Negative (Negative); Blood,Urine Negative (Negative); Color,Urine Yellow; Glucose,Urine (UA) 4+ (Negative); Ketones,Urine Negative (Negative); Leukocyte Esterase,Urine Negative (Negative); Nitrite,Urine Negative (Negative); PH, Urine 5.5 (5.0-8.0); Protein,Urine Negative (Negative); Specific Gravity,Urine 1.021 (1.001-1.035); Urobilinogen,Urine <2.0 mg/dL (<2.0)
--- NOTE | 2019-02-23 13:55 | ECHOF ---
Referral Reason:CHF MEASUREMENTS -------- HEIGHT: 149.9 cm WEIGHT: 86.2 kg BP: 140/62 IVSd: 1.2 cm (0.6 - 1.1) LVIDd: 5.5 cm (3.9 - 5.3) LVPWd: 1.2 cm (0.6 - 1.1) IVSs: 1.9 cm LVIDs: 4.3 cm LVPWs: 1.7 cm LA Diam: 3.6 cm (2.7 - 3.8) RVIDd: 2.5 cm (< 3.3) LAESV Index (A-L): 21.34 ml/m Ao Diam: 2.5 cm (2.0 - 3.7) EPSS: 0.6 cm MV E Pool: 1.25 m/s MV DecT: 234 ms MV A Pool: 1.18 m/s MV E/A Ratio: 1.05 AV maxP.74 mmHg AV meanP.69 mmHg RAP: 15.00 mmHg RVSP: 28.61 mmHg MV EF SLOPE: 44.16 mm/s (70 - 150) MV EXCURSION: 17.70 mm (> 18.000) FINDINGS -------- Sinus rhythm. This was a technically adequate study. The left ventricle is mildly dilated. There is borderline concentric left ventricular hypertrophy. Overall left ventricular systolic function is normal with, an EF between 60 - 65 %. The right ventricle is normal in size. The global wall thickness of the right ventricle is mildly e nlarged. Normal LA size by volume 22+/-6 ml/m2. The right atrium is normal in size. Lipomatous Hypertrophy of the atrial septum is present There is mild aortic valve sclerosis. Peak/mean gradient across the Aortic Valve is 12.74mmHg / 5.6 9mmHg. The mitral valve is normal. Trace tricuspid regurgitation present. Right ventricular systolic pressure is normal at < 35 mmHg. The pulmonic valve was not well visualized. The aortic root size is normal. The inferior vena cava is dilated with poor inspiratory collapse which is consistent with estimated r ight atrial pressure of 15 mmHg. Echo free space indicative of a pericardial fat pad. CONCLUSIONS -------- 1. Sinus rhythm. 2. This was a technically adequate study. 3. The left ventricle is mildly dilated. 4. There is borderline concentric left ventricular hypertrophy. 5. Overall left ventricular systolic function is normal with, an EF between 60 - 65 %. 6. The right ventricle is normal in size. 7. The global wall thickness of the right ventricle is mildly enlarged. 8. Normal LA size by volume 22+/-6 ml/m2. 9. The right atrium is normal in size. 10. Lipomatous Hypertrophy of the atrial septum is present 11. There is mild aortic valve sclerosis. 12. Peak/mean gradient across the Aortic Valve is 12.74mmHg / 5.69mmHg. 13. The mitral valve is normal. 14. Trace tricuspid regurgitation present. 15. Right ventricular systolic pressure is normal at < 35 mmHg. 16. The pulmonic valve was not well visualized. 17. The aortic root size is normal. 18. The inferior vena cava is dilated with poor inspiratory collapse which is consistent with estimat ed right atrial pressure of 15 mmHg. 19. Echo free space indicative of a pericardial fat pad. GEAR ROLLER: Sharon Muhammad RDCS
[2019-02-23] MEDS ORDERED: ACETAMINOPHEN TAB 500 MG TAB PO PRN (14:42)
[2019-02-23] MEDS ORDERED: TEMAZEPAM 15 MG CAP PO PRN (14:42)
[2019-02-23] MEDS: GABAPENTIN 400 MG CAP PO SCH ×2 (15:42→22:12)
[2019-02-23] MEDS: FLUoxetine HCL 20 MG CAP PO SCH (15:43)
[2019-02-23] MEDS: NICOTINE 14MG/24HR PATCH TRANSDERM SCH (15:43)
[2019-02-23] MEDS: methylPREDNISolone SOD SUCCI 125 MG/2 ML VIAL IV SCH ×3 (15:43→23:31)
[2019-02-23] MEDS: IPRATROPIUM-ALBUTEROL 3 ML NEB INHALATION SCH ×2 (16:30→20:27)
--- NOTE | 2019-02-23 16:38 | P.CNPUL ---
History of Present Illness Consult date: 02/23/19 Requesting physician: Monet Maciel Reason for consult: dyspnea, cough, COPD, pneumonia Chief complaint: Acute hypoxemic respiratory failure related to COPD exacerbation, pneumonia History of present illness: This 68-year-old white female patient with stage II COPD, with underlying FEV1 of 64% of predicted, prednisone dependent and regular use of AVAPS/BiPap at home for history of obstructive sleep apnea syndrome, chronic and ongoing nicotine dependence, common variable agammaglobulinemia and patient was unable to tolerate replacement therapy related to side effects, diabetes mellitus type 2, chronic sinusitis, hyperlipidemia, hypothyroidism, obesity, anxiety/depression, history of asthma, and patient is on a combination of Spiriva, Perforomist, Pulmicort, addition to maintenance dose of prednisone 10 mg daily for her COPD. She follows with Dr. Clements in the pulmonary clinic. She follows with Dr. Vera for primary care services. She presented to the hospital on 02/22/2019 with complaints of increasing symptoms of dyspnea, coughing, wheezing. Patient initially went to [facility] where she was evaluated and felt that she would require hospital admission and she was transferred to [facility] for further management. Lab work revealed significant leukocytosis, with white blood cell count of 36.2, hemoglobin was 9.4, lately count was 387, sodium was 136, potassium is 5.4, chloride was 100, CO2 is 25, B1 is 23, creatinine 0.89, proBNP was mildly elevated at 1060, patient had evidence of elevated troponins of 0.152, 0.116, and 0.078. Patient does have history of chronic hypoxic respiratory failure, and history of chronic congestive heart failure with ejection fraction of 35-40%, history of takotsubo syndrome, and there was no evidence of coronary artery disease on coronary angiography in 2016. Chest x-ray was completed at [facility] showing evidence of new left lower lobe pneumonia. Chest x-ray on arrival at [facility] showed mild diffuse airspace opacities throughout both lungs greater on the right suggesting mild pulmonary edema versus pneumonia, with an area of concern in the right upper lobe. Patient has been started on Zosyn and Levaquin, breathing treatments, IV steroids and nebulized bronchodilators. She was evaluated with cardiology, she denies any chest pain, and EKG showed sinus rhythm without ischemic changes. Currently her FiO2 is at 7 L/m, and her pulse ox is 100%. Patient has been afebrile since admission, hemodynamically stable, she still has some shortness of breath cough and congestion production of some phlegm. Blood cultures and sputum cultures have been ordered. Review of Systems All systems: negative Constitutional: Denies chills, Denies fever Eyes: denies blurred vision, denies pain Ears, nose, mouth and throat: Denies headache, Denies sore throat Cardiovascular: Denies chest pain, Denies shortness of breath Respiratory: Reports cough with sputum, Reports dyspnea, Reports home oxygen, Reports respiratory infections, Reports wheezing, Denies cough Gastrointestinal: Denies abdominal pain, Denies diarrhea, Denies nausea, Denies vomiting Genitourinary: Denies dysuria, Denies hematuria Musculoskeletal: Denies myalgias Integumentary: Denies pruritus, Denies rash Neurological: Denies numbness, Denies weakness Psychiatric: Denies anxiety, Denies depression Endocrine: Denies fatigue, Denies weight change Past Medical History Past Medical History: Asthma, Heart Failure, COPD, Diabetes Mellitus, GERD/Reflux, Hyperlipidemia, Hypertension, Osteoarthritis (OA), Pneumonia, Respi ratory Disorder, Skin Disorder, Sleep Apnea/CPAP/BIPAP, Thyroid Disorder Additional Past Medical History / Comment(s): Advanced COPD with chronic hypoxic respiratory failure has been on vent at [facility] in past.. CHF with an ejection fraction of 35-40%,leg edema, history of takotsubo syndrome and normal coronaries as evident on her cardiac catheterization, diabetes mellitus type 2, obesity, obstructive sleep apnea-uses noninvasive ventilator, hypothyroidism, peripheral neuropathy secondary to diabetes mellitus-bilateral feet, arthritis multiple joints and entire back, psoriasis, sinus problems. History of Any Multi-Drug Resistant Organisms: None Reported Past Surgical History: Appendectomy, Cholecystectomy, Heart Catheterization, Joint Replacement, Tonsillectomy, Tubal Ligation Additional Past Surgical History / Comment(s): 08/2015 normal cardiac cath, 06/2016 normal cardiac cath, bilateral total knee arthroplasty. Past Anesthesia/Blood Transfusion Reactions: No Reported Reaction Past Psychological History: Anxiety, Depression Smoking Status: Current every day smoker Past Alcohol Use History: Occasional Past Drug Use History: Marijuana - Past Family History Father History Unknown: Yes Family Medical History: No Reported History Mother Family Medical History: Cancer Additional Family Medical History / Comment(s): uterine cancer Medications and Allergies Home Medications Medication Instructions Recorded Confirmed Type ALPRAZolam [Xanax] 1 mg PO TID PRN 08/25/15 02/23/19 History FLUoxetine HCL [PROzac] 20 mg PO DAILY 08/25/15 02/23/19 History Hydrocodone/Acetaminophen [[place] 1 tab PO TID PRN 08/25/15 02/23/19 History 7.5-325] Montelukast [Singulair] 10 mg PO DAILY 08/25/15 02/23/19 History Theophylline 24 Hour [Chris-24] 300 mg PO BID 08/25/15 02/23/19 History Simvastatin [Zocor] 40 mg PO HS #30 tab 08/28/15 02/23/19 Rx Budesonide [Pulmicort] 0.5 mg INHALATION RT-BID 11/18/16 02/23/19 History Isosorbide Mononitrate ER [Imdur] 15 mg PO DAILY #30 dose 11/23/16 02/23/19 Rx Ipratropium-Albuterol Nebulize 3 ml INHALATION RT-QID #0 01/26/17 02/23/19 Rx [Duoneb 0.5 mg-3 mg/3 ml Soln] predniSONE 10 mg PO DAILY #0 01/26/17 02/23/19 Rx Ibandronate Sodium [Boniva] 150 mg PO Q30D 08/08/17 02/23/19 History Ipratropium/Albuterol Sulfate 1 puff INHALATION RT-QID 08/08/17 02/23/19 History [Combivent Respimat Inhaler] Albuterol Inhaler [Ventolin Hfa 2 puff INHALATION RT-Q4H PRN 02/23/19 02/23/19 History Inhaler] Furosemide [Lasix] 40 mg PO DAILY PRN 02/23/19 02/23/19 History Gabapentin 800 mg PO TID 02/23/19 02/23/19 History Ibandronate Sodium 150 mg PO DIRECTED 02/23/19 02/23/19 History Ipratropium-Albuterol Nebulize 3 ml INHALATION Q6HR 02/23/19 02/23/19 History [Duoneb 0.5 mg-3 mg/3 ml Soln] Ipratropium/Albuterol Sulfate 1 puff INHALATION Q6HR 02/23/19 02/23/19 History [Combivent Respimat Inhaler] Levothyroxine Sodium [Synthroid] 200 mcg PO DAILY 02/23/19 02/23/19 History Lisinopril 20 mg PO BID 02/23/19 02/23/19 History Lisinopril [Zestril] 40 mg PO BID 02/23/19 02/23/19 History Potassium Chloride 10 meq PO DAILY PRN 02/23/19 02/23/19 History Allergies Allergy/AdvReac Type Severity Reaction Status Date / Time cefotaxime sodium Allergy Rash/Hives Verified 02/22/19 23:48 [From Claforan] glucose [From Gammagard S/D] Allergy Dyspnea Verified 02/22/19 23:48 glycine [From Gammagard S/D] Allergy Dyspnea Verified 02/22/19 23:48 IgA less than or equal to 50 Allergy Dyspnea Verified 02/22/19 23:48 mcg/mL [From Gammagard S/D] immune globulin,gamma (IgG) Allergy Dyspnea Verified 02/22/19 23:48 human [From Gammagard S/D] vancomycin Allergy Seizure/hyp Verified 02/22/19 23:48 oglycemia zoster vaccine live AdvReac Unknown Verified 02/22/19 23:48 [From Zostavax (PF)] Physical Exam Vitals: Vital Signs Temp Pulse Pulse Resp BP BP Pulse Ox 02/23/19 12:00 82 02/23/19 11:21 98.1 F 82 18 120/59 100 02/23/19 08:00 98.6 F 89 18 140/62 99 02/23/19 04:00 78 20 02/23/19 03:45 99.0 F 78 20 128/55 99 02/23/19 03:15 98.2 F 81 20 135/65 99 02/23/19 01:21 80 24 02/23/19 01:10 82 22 02/23/19 00:41 98.8 F 84 24 146/57 99 02/22/19 23:29 99.0 F 93 20 141/61 99 Intake and Output 02/23/19 02/23/19 02/23/19 06:59 14:59 22:59 Intake Total 40 Balance 40 Intake: Intake, IV Titration 40 Amount Sodium Chloride 0.9% 1, 40 000 ml @ 20 mls/hr IV . Q24H [facility] Rx#:[id number] Other: Voiding Method Bedside Commode # Voids 2 # Bowel Movements 1 Weight 86.5 kg GENERAL EXAM: Alert, pleasant, 68-year-old white female on 7 L of oxygen with a pulse ox of 100% comfortable in no apparent distress. HEAD: Normocephalic/atraumatic. EYES: Normal reaction of pupils, equal size. Conjunctiva pink, sclera white. NOSE: Clear with pink turbinates. THROAT: No erythema or exudates. NECK: No masses, no JVD, no thyroid enlargement, no adenopathy. CHEST: No chest wall deformity. Symmetrical expansion. LUNGS: Equal air entry with scattered rhonchi and wheezes CVS: Regular rate and rhythm, normal S1 and S2, no gallops, no murmurs, no rubs ABDOMEN: Soft, nontender. No hepatosplenomegaly, normal bowel sounds, no guarding or rigidity. EXTREMITIES: No clubbing, no edema, no cyanosis, 2+ pulses and upper and lower extremities. MUSCULOSKELETAL: Muscle strength and tone normal. SPINE: No scoliosis or deformity SKIN: No rashes CENTRAL NERVOUS SYSTEM: Alert and oriented -3. No focal deficits, tone is normal in all 4 extremities. PSYCHIATRIC: Alert and oriented -3. Appropriate affect. Intact judgment and insight. Results - Laboratory Findings CBC and BMP: 02/22/19 23:43 02/22/19 23:43 PT/INR, D-dimer PT 10.7 sec (9.0-12.0) 02/22/19 23:43 INR 1.0 (<1.2) 02/22/19 23:43 Abnormal lab findings: Abnormal Labs 02/22/19 02/22/19 02/22/19 23:43 23:43 23:43 WBC 36.2 H RBC 3.09 L Hgb 9.4 L Hct 30.3 L RDW 16.0 H Neutrophils # (Manual) 34.00 H Lymphocytes # (Manual) 0.72 L Monocytes # (Manual) 1.45 H Sodium 136 L Potassium 5.4 H BUN 23 H Glucose 353 H POC Glucose (mg/dL) Troponin I 0.152 H* Urine Glucose (UA) 02/23/19 02/23/19 02/23/19 06:08 06:41 09:23 WBC RBC Hgb Hct RDW Neutrophils # (Manual) Lymphocytes # (Manual) Monocytes # (Manual) Sodium Potassium BUN Glucose POC Glucose (mg/dL) 370 H Troponin I 0.116 H* 0.078 H* Urine Glucose (UA) 02/23/19 02/23/19 11:51 13:15 WBC RBC Hgb Hct RDW Neutrophils # (Manual) Lymphocytes # (Manual) Monocytes # (Manual) Sodium Potassium BUN Glucose POC Glucose (mg/dL) 270 H Troponin I Urine Glucose (UA) 4+ H - Diagnostic Findings Chest x-ray: report reviewed, image reviewed Additional studies: EKG reviewed Assessment and Plan Plan: Assessment: #1. Acute on chronic hypoxic respiratory failure related to acute exacerbation of COPD complicated by pneumonia, community acquired #2. Stage III COPD, steroid and oxygen dependent, with FEV1 of 1.02 L or 54% of predicted #3. Troponin elevation, possibly related to worsening hypoxic respiratory failure cardiology is following #4. Acute leukocytosis related to ammonia #5. Steroid-induced hyperglycemia #6. Objective sleep apnea, and patient is on AVAPS/BIpap at home #7. Morbid obesity #8. Common variable agammaglobulinemia, unable to tolerate replacement therapy due to side effects #9. History of pulmonary pseudomonal infection #10. Chronic and ongoing history of nicotine abuse, patient carries at least [id number] smoking history #11. History of Tacotsubo cardiomyopathy with most recent echocardiogram with EF of 50-55% #12. Hypertention #13. Diabetes mellitus with peripheral neuropathy #14. Anxiety/depression Plan: Continue current antibiotic coverage, Levaquin and Zosyn, continue nebulized bronchodilators, Pulmicort and Perforomist, IV steroids, place the patient on the house BiPAP machine with AVAPS mode at bedtime, with the target tidal volume of 450, PEEP of 5, pressure support of 14, maximum and minimal of 8 and respiratory rate of 15. Smoking cessation counseling was done. Chest x-rays reviewed, showing bilateral infiltrates, likely related to pneumonia. Obtain sputum culture. We'll continue to follow I performed a history & physical examination of the patient and discussed their management with my nurse practitioner, Sophia Lombardi. I reviewed the nurse practitioner's note and agree with the documented findings and plan of care. Lung sounds are positive for wheezes and rhonchi. The findings and the impression was discussed with the patient. I attest to the documentation by the nurse practitioner. Time with Patient: Greater than 30
[2019-02-23 17:04] LABS: Glucose,Whole Blood 203 mg/dL (75-99)
[2019-02-23] MEDS ORDERED: NON-FORMULARY DRUG (Ipratropium/Albuterol Sulfate [Combivent Respimat Inhaler] 1 PUFF) INHALATION SCH (18:00)
[2019-02-23] MEDS: INSULIN ASPART (NovoLOG) 100 UNIT/ML VIAL SQ SCH ×2 (19:09→20:47)
[2019-02-23] MEDS: FORMOTEROL FUMARATE 20 MCG/2 ML NEBU INHALATION SCH (20:27)
[2019-02-23] MEDS: BUDESONIDE 1 MG/2 ML NEBU INHALATION SCH (20:27)
--- NOTE | 2019-02-23 20:28 | HP ---
HISTORY AND PHYSICAL DATE OF SERVICE: 02/23/2019 CHIEF COMPLAINT: Shortness of breath. HISTORY OF PRESENT ILLNESS: This 68-year-old woman with a past medical history of multiple medical problems, including asthma, CHF, COPD, diabetes mellitus, type 2, GERD, hypertension, hyperlipidemia, history of DJD, history of sleep apnea, history of hypothyroidism, history of cholecystectomy, appendectomy, cardiac catheterization, being followed by Dr. Vera in the outpatient setting, was complaining of increasing shortness of breath and cough and sputum for the past several days. The patient came to [facility]. Bilateral pneumonia, right more the left, was suspected. The patient was admitted for further evaluation and treatment. COPD, acute exacerbation, was also diagnosed. The patient also had chronic hypoxic respiratory failure. There is no history of any fever, rigor or chills. No history of headache, loss of consciousness, seizures. Troponins were slightly elevated. PAST MEDICAL HISTORY: 1. Asthma. 2. CHF. 3. COPD. 4. Diabetes mellitus. 5. GERD. 6. Hypertension. 7. Hyperlipidemia. 8. History of DJD. 9. History of sleep apnea. 10.Hypothyroidism. HOME MEDICATIONS: 1. Prednisone 10 mg p.o. daily. 2. Theophylline 300 mg p.o. b.i.d. 3. Zocor 40 mg p.o. daily. 4. Singulair 10 mg p.o. daily. 5. Zestril 40 mg b.i.d. 6. Lisinopril 20 mg b.i.d. 7. Synthroid 200 mcg p.o. daily. 8. Imdur 50 mg daily. 9. Combivent. 10.DuoNeb q.i.d. and p.r.n. 11.Boniva 150 mg q.30 days. 12.Ibandronate 150 mg p.r.n. 13.[place] 7.5 t.i.d. p.r.n. 14.Gabapentin 800 mg t.i.d. 15.Lasix 40 mg daily p.r.n. 16.Prozac 20 mg p.o. daily. 17.Pulmicort 0.5 mg b.i.d. 18.Ventolin HFA 2 puffs q.4 p.r.n. 19.Xanax 1 mg p.o. t.i.d. p.r.n. 20.Potassium 10 mEq p.o. daily p.r.n. ALLERGIES: 1. CLAFORAN. 2. GLYCINE. 3. IGA. 4. VANCOMYCIN. 5. ZOSTER. FAMILY HISTORY: History of uterine cancer in the family. SOCIAL HISTORY: History of continued ongoing smoking. History of THC. History of alcohol. REVIEW OF SYSTEMS: ENT: Diminished hearing. Diminished vision. CARDIOVASCULAR SYSTEM: As mentioned earlier. RESPIRATORY SYSTEM: As mentioned earlier. GI: No nausea, vomiting. : No dysuria or retention. NERVOUS SYSTEM: No numbness, weakness. ALLERGY/IMMUNOLOGY: No asthma, hayfever. MUSCULOSKELETAL: As mentioned earlier. HEMATOLOGY/ONCOLOGY: No history of anemia. ENDOCRINE: History of diabetes mellitus and hypothyroidism. CONSTITUTIONAL: As mentioned earlier. DERMATOLOGY: Negative. RHEUMATOLOGY: Negative. PSYCHIATRY: As mentioned earlier. PHYSICAL EXAMINATION: Patient is alert, oriented x3. Pulse 77, blood pressure 120/50, respiration 18, temperature 98.1, pulse ox 94% on 6 L. HEENT: Conjunctivae normal. Oral mucosa moist. NECK: No jugular venous distention. No carotid bruit. No lymph node enlargement. CARDIOVASCULAR SYSTEM: S1, S2 muffled. No S3. No S4. RESPIRATORY SYSTEM: Breath sounds diminished at the bases. Bilateral scattered rhonchi and crackles. Expiratory wheezing also present. ABDOMEN: Soft, non-tender. No mass palpable. LEGS: No edema. No swelling. NERVOUS SYSTEM: Higher functions as mentioned earlier. Moves all 4 limbs. No focal motor or sensory deficit. LYMPHATICS: No lymph node palpable in neck, axillae or groin. SKIN: No ulcer, rash, bleeding. JOINTS: No active deforming arthropathy. LABS: WBC 36.2, hemoglobin 9.4. Neutrophils 34. Sodium 136, potassium 5.4. Glucose 353. Troponin 0.152. ASSESSMENT: 1. Chronic obstructive pulmonary disease, acute exacerbation, with bilateral pneumonia, right more than the left, possibly gram-negative, with acute hypoxic respiratory failure. 2. Increased white count. 3. Anemia; normocytic anemia of chronic disease. 4. Hyponatremia. 5. Hyperkalemia. 6. Diabetes mellitus, type 2, uncontrolled. 7. Troponin 0.152. Rule out acute oym-ML-habusik-elevation myocardial infarction. 8. History of takotsubo cardiomyopathy with most recent echocardiogram showing ejection fraction about 50% to 55%. 9. History of asthma, chronic obstructive pulmonary disease. 10.History of congestive heart failure. 11.Diabetes mellitus, type 2. 12.Gastroesophageal reflux disease. 13.Hypertension. 14.Hyperlipidemia. 15.Pneumonia. 16.History of sleep apnea. 17.History of advanced chronic obstructive pulmonary disease. 18.History of cardiac catheterization with normal coronary arteries. 19.History of anxiety, depression. RECOMMENDATIONS AND DISCUSSION: In this 68-year-old woman who presented with multiple complex medical issues, we will monitor the patient closely, continue the current management, continue symptomatic treatment. Otherwise at this time, intensive bronchodilators and antibiotics will be initiated, including steroids. Monitor blood sugars closely. Cardiology and pulmonary consultations, as mentioned earlier. The patient had a cardiac catheterization previously for takotsubo syndrome. The troponin is elevated, which possibly might indicate type 2 myocardial infarction indicating a supply/demand mismatch. Will closely monitor. Resume the rest of the medications. Prognosis guarded. Discussed with the patient, who understands and agrees. Further recommendations to follow. A copy of this dictation is forwarded to Dr. Vera, who is the primary physician. The patient was started on IV Zosyn as well as Levaquin. MMODL / IJN: [id number] /
[2019-02-23] MEDS: THEOPHYLLINE 24 HOUR 300 MG CAP.ER.24H PO SCH (20:43)
[2019-02-23] MEDS: ATORVASTATIN 20 MG TAB PO SCH (20:43)
[2019-02-23] MEDS: HEPARIN SODIUM,PORCINE 5,000 UNIT/ML 1 ML VIAL SQ SCH (20:44)
[2019-02-23 20:45] LABS: Glucose,Whole Blood 328 mg/dL (75-99)
[2019-02-24] MEDS: SODIUM CHLORIDE 0.9% 1,000 ML IV SCH ×2 (02:38→23:02)
[2019-02-24] MEDS: PIPERACILLIN-TAZOBACTAM 3.375 GM in SODIUM CHLORIDE 0.9% 100 ML IVPB SCH ×3 (03:35→17:11)
[2019-02-24 06:20] LABS: Glucose,Whole Blood 341 mg/dL (75-99)
[2019-02-24] MEDS ORDERED: INSULIN ASPART (NovoLOG) 100 UNIT/ML VIAL SQ ONE (06:46)
[2019-02-24] MEDS: methylPREDNISolone SOD SUCCI 125 MG/2 ML VIAL IV SCH ×4 (06:51→23:01)
[2019-02-24] MEDS: LEVOTHYROXINE 100 MCG TAB PO SCH (06:51)
[2019-02-24] MEDS: INSULIN ASPART (NovoLOG) 100 UNIT/ML VIAL SQ SCH ×4 (06:52→21:29)
[2019-02-24] MEDS: PANTOPRAZOLE 40 MG TABLET PO SCH (06:56)
[2019-02-24 07:26] LABS: Calcium 8.1 mg/dL (8.4-10.2); Potassium 4.9 mmol/L (3.5-5.1)
[2019-02-24 07:43] LABS: Basophils % (A) 0 %; Eosinophils % (A) 0 %; HCT 25.7 % (34.0-46.0); Hypochromasia Moderate; Lymphocytes # (A) 0.7 k/uL (1.0-4.8); Lymphocytes % (A) 4 %; MCV 100.2 fL (80.0-100.0); Macrocytosis Slight; Monocytes # (A) 0.4 k/uL (0-1.0); Monocytes % (A) 2 %; Neutrophils # (A) 15.5 k/uL (1.3-7.7); Neutrophils % (A) 93 %; Platelet Count 308 k/uL (150-450); RBC 2.57 m/uL (3.80-5.40); RDW 15.2 % (11.5-15.5); WBC 16.8 k/uL (3.8-10.6)
[2019-02-24 07:45] LABS: HGB 7.7 gm/dL (11.4-16.0)
[2019-02-24] MEDS: NICOTINE 14MG/24HR PATCH TRANSDERM SCH (08:19)
[2019-02-24] MEDS: BUDESONIDE 1 MG/2 ML NEBU INHALATION SCH ×2 (08:19→19:42)
[2019-02-24] MEDS: FORMOTEROL FUMARATE 20 MCG/2 ML NEBU INHALATION SCH ×2 (08:19→19:42)
[2019-02-24] MEDS: IPRATROPIUM-ALBUTEROL 3 ML NEB INHALATION SCH ×4 (08:19→19:42)
[2019-02-24] MEDS: MONTELUKAST 10 MG TAB PO SCH (08:28)
[2019-02-24] MEDS: HEPARIN SODIUM,PORCINE 5,000 UNIT/ML 1 ML VIAL SQ SCH ×2 (08:28→20:13)
[2019-02-24] MEDS: GABAPENTIN 400 MG CAP PO SCH ×3 (08:28→22:45)
[2019-02-24] MEDS: FLUoxetine HCL 20 MG CAP PO SCH (08:28)
[2019-02-24] MEDS: THEOPHYLLINE 24 HOUR 300 MG CAP.ER.24H PO SCH ×2 (08:28→20:14)
[2019-02-24] MEDS: LISINOPRIL 20 MG TAB PO SCH ×2 (08:28→20:14)
[2019-02-24] MEDS: ISOSORBIDE MONONITRATE ER 15 MG TAB PO SCH (08:29)
--- NOTE | 2019-02-24 10:14 | PN ---
PROGRESS NOTE Mrs. Kelley is a 68-year-old female with known history of severe chronic obstructive lung disease who presented to the hospital with symptoms of worsening dyspnea, had minimal troponin elevation. Cardiology consultation was requested. She is feeling better today. Her breathing is better. She still continues to have a cough. She denies any dizziness or palpitations. She denies any nausea. She has prior history of takotsubo syndrome. She had a repeat echocardiogram yesterday that revealed a preserved left ventricular size and systolic function with no evidence of pulmonary hypertension. She was seen by Dr. Clements and continues to be at this time on Lipitor 20 mg daily, heparin subcutaneously, isosorbide mononitrate 15 mg daily, lisinopril 20 mg twice a day. PHYSICAL EXAMINATION: Blood pressure 124/70 with a heart rate in the 80s. LUNGS: Decreased air exchange with scattered wheezes. HEART: Regular rate and rhythm. S1, S2. No S3. No rub. ABDOMEN: Soft, nontender. EXTREMITIES: No edema. LAB DATA: Hemoglobin 7.7, white blood cells of 16.8, BUN and creatinine of 38 and 0.82. IMPRESSION: 1. Exacerbation of chronic obstructive lung disease in a patient with known history of severe chronic obstructive lung disease and chronic tobacco user. 2. Obstructive sleep apnea. 3. History of takotsubo with no recurrence. 4. Elevation of the troponin related to hypoxemia and mismatch. 5. Obesity. 6. Anemia. RECOMMENDATIONS: From the cardiac standpoint, she is stable. I see no evidence for active ischemic heart disease. Will continue present cardiac treatment. Will see her on an as-needed basis. Please feel free to call us for any question. MMODL / IJN: [id number] /
[2019-02-24 12:19] LABS: Glucose,Whole Blood 314 mg/dL (75-99)
--- NOTE | 2019-02-24 13:23 | P.PN ---
Subjective Progress Note Date: 02/24/19 Principal diagnosis: Acute hypoxemic respiratory failure secondary to an acute exacerbation of chronic obstructive pulmonary disease and new left lower lobe pneumonia. This 68-year-old white female patient with stage II COPD, with underlying FEV1 of 64% of predicted, prednisone dependent and regular use of AVAPS/BiPap at home for history of obstructive sleep apnea syndrome, chronic and ongoing nicotine dependence, common variable agammaglobulinemia and patient was unable to tolerate replacement therapy related to side effects, diabetes mellitus type 2, chronic sinusitis, hyperlipidemia, hypothyroidism, obesity, anxiety/depression, history of asthma, and patient is on a combination of Spiriva, Perforomist, Pulmicort, addition to maintenance dose of prednisone 10 mg daily for her COPD. She follows with Dr. Clements in the pulmonary clinic. She follows with Dr. Vera for primary care services. She presented to the hospital on 02/22/2019 with complaints of increasing symptoms of dyspnea, coughing, wheezing. Patient initially went to [facility] where she was evaluated and felt that she would require hospital admission and she was transferred to [facility] for further management. Lab work revealed significant leukocytosis, with white blood cell count of 36.2, hemoglobin was 9.4, lately count was 387, sodium was 136, potassium is 5.4, chloride was 100, CO2 is 25, B1 is 23, creatinine 0.89, proBNP was mildly elevated at 1060, patient had evidence of elevated troponins of 0.152, 0.116, and 0.078. Patient does have history of chronic hypoxic respiratory failure, and history of chronic congestive heart failure with ejection fraction of 35-40%, history of takotsubo syndrome, and there was no evidence of coronary artery disease on coronary angiography in 2016. Chest x-ray was completed at [facility] showing evidence of new left lower lobe pneumonia. Chest x-ray on arrival at [facility] showed mild diffuse airspace opacities throughout both lungs greater on the right suggesting mild pulmonary edema versus pneumonia, with an area of concern in the right upper lobe. Patient has been started on Zosyn and Levaquin, breathing treatments, IV steroids and nebulized bronchodilators. She was evaluated with cardiology, she denies any chest pain, and EKG showed sinus rhythm without ischemic changes. Currently her FiO2 is at 7 L/m, and her pulse ox is 100%. Patient has been afebrile since admission, hemodynamically stable, she still has some shortness of breath cough and congestion production of some phlegm. Blood cultures and sputum cultures have been ordered. The patient is seen today 02/24/2019 in follow-up on the selective care unit. She is currently resting comfortably in bed. Awake and alert in no acute distress. Wheezing easier today as compared to yesterday. Currently on 4 L high flow nasal cannula and maintaining O2 saturations in the high 90s. She's afebrile. Hemodynamically stable. Blood culture reveals no growth to date. Sputum culture pending. White count 16.8. Hemoglobin 7.7. Creatinine 0.82. She remains on DuoNeb inhalations, Pulmicort and Perforomist inhalations, IV Solu-Medrol, theophylline. She is on antibiotics in the form of Zosyn. NicoDerm patch is in place. Objective - Vital Signs Vital signs: Vital Signs Temp 98.1 F 02/24/19 11:30 Pulse 96 02/24/19 11:47 Resp 18 02/24/19 11:50 BP 122/52 02/24/19 11:30 Pulse Ox 99 02/24/19 11:30 Intake & Output 02/23/19 02/24/19 02/24/19 18:59 06:59 18:59 Intake Total 240 30 20 Balance 240 30 20 Weight 89.5 kg Intake: IV 30 20 Invasive Line 2 30 20 Oral 240 Other: Voiding Method Bedside Commode # Voids 2 3 - Exam GENERAL EXAM: Alert, pleasant, 68-year-old white female on 4 L of oxygen with a pulse ox of 99% comfortable in no apparent distress. HEAD: Normocephalic/atraumatic. EYES: Normal reaction of pupils, equal size. Conjunctiva pink, sclera white. NOSE: Clear with pink turbinates. THROAT: No erythema or exudates. NECK: No masses, no JVD, no thyroid enlargement, no adenopathy. CHEST: No chest wall deformity. Symmetrical expansion. LUNGS: Equal air entry with scattered rhonchi and wheezes CVS: Regular rate and rhythm, normal S1 and S2, no gallops, no murmurs, no rubs ABDOMEN: Soft, nontender. No hepatosplenomegaly, normal bowel sounds, no guarding or rigidity. EXTREMITIES: No clubbing, no edema, no cyanosis, 2+ pulses and upper and lower extremities. MUSCULOSKELETAL: Muscle strength and tone normal. SPINE: No scoliosis or deformity SKIN: No rashes CENTRAL NERVOUS SYSTEM: No focal deficits, tone is normal in all 4 extremities. PSYCHIATRIC: Alert and oriented -3. Appropriate affect. Intact judgment and insight. - Labs CBC & Chem 7: 02/24/19 06:19 02/24/19 06:19 Labs: Abnormal Lab Results - Last 24 Hours (Table) 02/23/19 02/23/19 02/23/19 Range/Units 13:15 16:45 20:44 WBC (3.8-10.6) k/uL RBC (3.80-5.40) m/uL Hgb (11.4-16.0) gm/dL Hct (34.0-46.0) % MCV (80.0-100.0) fL MCHC (31.0-37.0) g/dL Neutrophils # (1.3-7.7) k/uL Lymphocytes # (1.0-4.8) k/uL BUN (7-17) mg/dL Glucose (74-99) mg/dL POC Glucose (mg/dL) 203 H 328 H (75-99) mg/dL Calcium (8.4-10.2) mg/dL Urine Glucose (UA) 4+ H (Negative) 02/24/19 02/24/19 02/24/19 Range/Units 06:19 06:19 06:19 WBC 16.8 H (3.8-10.6) k/uL RBC 2.57 L (3.80-5.40) m/uL Hgb 7.7 L D (11.4-16.0) gm/dL Hct 25.7 L (34.0-46.0) % MCV 100.2 H (80.0-100.0) fL MCHC 30.0 L (31.0-37.0) g/dL Neutrophils # 15.5 H (1.3-7.7) k/uL Lymphocytes # 0.7 L (1.0-4.8) k/uL BUN 38 H (7-17) mg/dL Glucose 318 H (74-99) mg/dL POC Glucose (mg/dL) 341 H (75-99) mg/dL Calcium 8.1 L (8.4-10.2) mg/dL Urine Glucose (UA) (Negative) 02/24/19 Range/Units 12:12 WBC (3.8-10.6) k/uL RBC (3.80-5.40) m/uL Hgb (11.4-16.0) gm/dL Hct (34.0-46.0) % MCV (80.0-100.0) fL MCHC (31.0-37.0) g/dL Neutrophils # (1.3-7.7) k/uL Lymphocytes # (1.0-4.8) k/uL BUN (7-17) mg/dL Glucose (74-99) mg/dL POC Glucose (mg/dL) 314 H (75-99) mg/dL Calcium (8.4-10.2) mg/dL Urine Glucose (UA) (Negative) Microbiology - Last 24 Hours (Table) 02/23/19 Unknown Gram Stain - Preliminary Sputum Sputum Culture - Preliminary 02/22/19 23:43 Blood Culture - Preliminary Blood No Growth after 24 hours Assessment and Plan Assessment: Assessment: #1. Acute on chronic hypoxic respiratory failure related to acute exacerbation of COPD complicated by pneumonia, community acquired #2. Stage III COPD, steroid and oxygen dependent, with FEV1 of 1.02 L or 54% of predicted #3. Troponin elevation, possibly related to worsening hypoxic respiratory failure cardiology is following #4. Acute leukocytosis related to ammonia #5. Steroid-induced hyperglycemia #6. Objective sleep apnea, and patient is on AVAPS/BIpap at home #7. Morbid obesity #8. Common variable agammaglobulinemia, unable to tolerate replacement therapy due to side effects #9. History of pulmonary pseudomonal infection #10. Chronic and ongoing history of nicotine abuse, patient carries at least [id number] smoking history #11. History of Takotsubo cardiomyopathy with most recent echocardiogram with EF of 50-55% #12. Hypertension #13. Diabetes mellitus with peripheral neuropathy #14. Anxiety/depression Plan: The patient was seen and evaluated by Dr. Clements. She is improved today as compared to yesterday. Continue the current treatment plan. Increase her activity as tolerated. We'll continue to follow and make further recommendations based on her clinical status. I, the cosigning physician, performed a history & physical examination of the patient. Lungs sounds bilateral end expiratory wheeze, crackles in the posterior bases. Maintaining good O2 saturations in the 90s on 4 L/m per nasal cannula. I discussed the assessment and plan of care with my nurse practitioner, Estrellita Carvalho. I attest to the above note as dictated by her.
[2019-02-24 16:53] LABS: Glucose,Whole Blood 333 mg/dL (75-99)
--- NOTE | 2019-02-24 17:05 | PN ---
PROGRESS NOTE DATE OF SERVICE: 02/24/2019 This 68-year-old woman who was admitted with significant shortness of breath and possible pneumonia as well as acute hypoxic respiratory failure was started on bronchodilators, antibiotics and IV steroids. The patient is feeling slightly better today. The patient was seen by Cardiology and Pulmonology, who was monitoring also. Cardiology is recommending continuing the current medications. The patient had takotsubo syndrome, but no evidence of recurrence at this time. Pulmonary has seen the patient and recommended continuing with bronchodilators, steroids and other medications. A 2D echo with Doppler was done during this admission which showed ejection fraction about 60% to 65%. Past medical history reviewed. REVIEW OF SYSTEMS: CARDIOVASCULAR SYSTEM: As mentioned earlier. RESPIRATORY SYSTEM: As mentioned earlier. GI: No nausea, vomiting. : No dysuria or retention. NERVOUS SYSTEM: No numbness, weakness. CURRENT MEDICATIONS: Reviewed. They include: 1. Tylenol 500 mg q.6 p.r.n. 2. [place] 7.5 t.i.d. p.r.n. 3. DuoNeb q.i.d. and p.r.n. 4. Xanax 1 mg p.o. t.i.d. p.r.n. 5. Lipitor 20 mg at bedtime. 6. Pulmicort 1 mg b.i.d. 7. Prozac 20 mg daily. 8. Perforomist 20 mg b.i.d. 9. Lasix 40 mg p.o. daily. 10.Neurontin 800 mg p.o. t.i.d. 11.Heparin 5000 units subcutaneously b.i.d. 12.NovoLog scale. 13.Imdur 15 mg p.o. daily. 14.Levaquin 750 mg q.48 hours. 15.Synthroid 200 mcg p.o. daily. 16.Zestril 20 mg p.o. b.i.d. 17.Solu-Medrol 60 IV q.6. 18.Singulair 10 mg p.o. daily. 19.Habitrol 14 daily. 20.Protonix 40 mg daily. 21.Zosyn 3.375 IV q.8. 22.Restoril 15 mg at bedtime. 23.Chris-24, 300 mg p.o. daily. PHYSICAL EXAMINATION: Patient is alert and oriented x3. Pulse 80, blood pressure 122/52, respiration 18, temperature 98.1, pulse ox 99% on 4 L. HEENT: Conjunctivae normal. NECK: No jugular venous distention. CARDIOVASCULAR SYSTEM: S1, S2 muffled. RESPIRATORY SYSTEM: Breath sounds diminished at the bases. Breathing efforts increased. Bilateral scattered rhonchi and expiratory wheezing and crackles. ABDOMEN: Soft, non-tender. No mass palpable. LEGS: No edema. No swelling. NERVOUS SYSTEM: Higher functions as mentioned earlier. Moves all 4 limbs. No focal motor or sensory deficit. LYMPHATICS: No lymph node palpable in neck, axillae or groin. SKIN: No ulcer, rash, bleeding. JOINTS: No active deforming arthropathy. LABS: WBC 16.8, hemoglobin 7.7. Glucose is 341. It is elevated. Hemoglobin was 9.4 previously. Hemoglobin is fluctuating. ASSESSMENT: 1. Chronic obstructive pulmonary disease, acute exacerbation, with bilateral pneumonia, right more than left, possibly gram-negative, with acute hypoxic respiratory failure. 2. Increased white count. 3. Anemia, normocytic; anemia of chronic disease, fluctuating. 4. Hyponatremia. 5. Hyperkalemia. 6. Diabetes mellitus, type 2, uncontrolled. 7. Troponin 0.152. Rule out acute [id number]-elevation myocardial infarction. 8. History of takotsubo cardiomyopathy with the most recent 2D echo showing ejection fraction improved to 50% to 55%. 9. History of asthma, chronic obstructive pulmonary disease. 10.History of congestive heart failure. 11.Diabetes mellitus, type 2. 12.Gastroesophageal reflux disease. 13.Hypertension. 14.Hyperlipidemia. 15.History of pneumonia. 16.History of sleep apnea. 17.History of advanced chronic obstructive pulmonary disease. 18.History of cardiac catheterization with normal coronary arteries. 19.History of anxiety, depression. RECOMMENDATIONS AND DISCUSSION: I recommend to continue current medications, continue with the monitoring, symptomatic treatment. Continue with the broad-spectrum IV antibiotics. Continue with steroids. Continue with the bronchodilators. We will continue to monitor. Cardiology and pulmonary input appreciated. We will monitor the hemoglobin closely. There is no evidence of any ny bleeding at this time; however, we will continue to monitor. Blood sugars also will be continuously monitored, and if the sugars are consistently more than 300, I would recommend insulin drip to control the blood sugars. Further recommendations to follow. MMODL / IJN: [id number] /
[2019-02-24] MEDS: ATORVASTATIN 20 MG TAB PO SCH (20:13)
[2019-02-24] MEDS: LEVOFLOXACIN 750 MG TAB PO SCH (20:13)
[2019-02-24 20:37] LABS: Hemoglobin A1C 7.9 % (4.0-6.0)
[2019-02-24] MEDS ORDERED: LEVOFLOXACIN 750MG-D5W PMX 750 MG in DEXTROSE/WATER 1 150ML.BAG IVPB SCH (21:00)
[2019-02-24 21:02] LABS: Glucose,Whole Blood 272 mg/dL (75-99)
[2019-02-24 23:27] LABS: Glucose,Whole Blood 271 mg/dL (75-99)
[2019-02-25] MEDS: PIPERACILLIN-TAZOBACTAM 3.375 GM in SODIUM CHLORIDE 0.9% 100 ML IVPB SCH ×3 (02:05→17:13)
[2019-02-25] MEDS: methylPREDNISolone SOD SUCCI 125 MG/2 ML VIAL IV SCH ×4 (05:37→23:28)
[2019-02-25] MEDS: ALPRAZolam 1 MG TAB PO PRN ×3 (05:37→21:02)
[2019-02-25] MEDS: LEVOTHYROXINE 100 MCG TAB PO SCH (05:37)
[2019-02-25] MEDS: PANTOPRAZOLE 40 MG TABLET PO SCH (05:40)
[2019-02-25 06:21] LABS: Glucose,Whole Blood 352 mg/dL (75-99)
[2019-02-25 06:22] LABS: Basophils % (A) 0 %; Eosinophils % (A) 0 %; HCT 21.9 % (34.0-46.0); Hypochromasia Moderate; Lymphocytes # (A) 1.2 k/uL (1.0-4.8); Lymphocytes % (A) 7 %; MCH 29.9 pg (25.0-35.0); MCV 99.5 fL (80.0-100.0); Macrocytosis Slight; Monocytes # (A) 0.5 k/uL (0-1.0); Monocytes % (A) 3 %; Neutrophils % (A) 87 %; Platelet Count 373 k/uL (150-450); RDW 15.2 % (11.5-15.5)
[2019-02-25] MEDS ORDERED: INSULIN REGULAR BOLUS (FROM DRIP BAG) IV ONE (06:31)
[2019-02-25 06:33] LABS: Calcium 8.1 mg/dL (8.4-10.2); Potassium 5.4 mmol/L (3.5-5.1)
[2019-02-25 06:36] LABS: HGB 6.6 gm/dL (11.4-16.0)
[2019-02-25] MEDS: INSULIN REGULAR 100 UNIT in SODIUM CHLORIDE 0.9% 100 ML IV SCH ×2 (06:58→22:49)
[2019-02-25] MEDS: INSULIN ASPART (NovoLOG) 100 UNIT/ML VIAL SQ SCH ×3 (07:16→17:13)
[2019-02-25 07:53] LABS: Glucose,Whole Blood 359 mg/dL (75-99)
[2019-02-25] MEDS: IPRATROPIUM-ALBUTEROL 3 ML NEB INHALATION SCH ×4 (08:19→19:06)
[2019-02-25] MEDS: FORMOTEROL FUMARATE 20 MCG/2 ML NEBU INHALATION SCH ×2 (08:19→19:05)
[2019-02-25] MEDS: BUDESONIDE 1 MG/2 ML NEBU INHALATION SCH ×2 (08:19→19:05)
[2019-02-25 08:28] LABS: Glucose,Whole Blood 286 mg/dL (75-99)
[2019-02-25] MEDS: NICOTINE 14MG/24HR PATCH TRANSDERM SCH (08:49)
[2019-02-25] MEDS: ISOSORBIDE MONONITRATE ER 15 MG TAB PO SCH (08:52)
[2019-02-25] MEDS: THEOPHYLLINE 24 HOUR 300 MG CAP.ER.24H PO SCH ×2 (08:52→21:03)
[2019-02-25] MEDS: HEPARIN SODIUM,PORCINE 5,000 UNIT/ML 1 ML VIAL SQ SCH ×2 (08:52→21:02)
[2019-02-25] MEDS: FLUoxetine HCL 20 MG CAP PO SCH (08:52)
[2019-02-25] MEDS: LISINOPRIL 20 MG TAB PO SCH ×2 (08:52→21:02)
[2019-02-25] MEDS: GABAPENTIN 400 MG CAP PO SCH ×3 (08:52→21:02)
[2019-02-25] MEDS: MONTELUKAST 10 MG TAB PO SCH (08:53)
[2019-02-25 08:55] LABS: Glucose,Whole Blood 281 mg/dL (75-99)
[2019-02-25 09:42] LABS: Glucose,Whole Blood 282 mg/dL (75-99)
[2019-02-25 10:54] LABS: Glucose,Whole Blood 173 mg/dL (75-99)
[2019-02-25] MEDS: HYDROcodone/APAP 7.5-325MG 1 EACH TAB PO PRN ×2 (11:01→21:01)
[2019-02-25] MEDS: PANTOPRAZOLE 40 MG/10 ML VIAL IVP SCH ×2 (12:37→21:02)
[2019-02-25 12:53] LABS: Glucose,Whole Blood 208 mg/dL (75-99)
--- NOTE | 2019-02-25 13:15 | P.PN ---
Subjective Progress Note Date: 02/25/19 Principal diagnosis: Acute hypoxemic respiratory failure secondary to an acute exacerbation of COPD and new left lower lobe pneumonia This 68-year-old white female patient with stage II COPD, with underlying FEV1 of 64% of predicted, prednisone dependent and regular use of AVAPS/BiPap at home for history of obstructive sleep apnea syndrome, chronic and ongoing nicotine dependence, common variable agammaglobulinemia and patient was unable to tolerate replacement therapy related to side effects, diabetes mellitus type 2, chronic sinusitis, hyperlipidemia, hypothyroidism, obesity, anxiety/depression, history of asthma, and patient is on a combination of Spiriva, Perforomist, Pulmicort, addition to maintenance dose of prednisone 10 mg daily for her COPD. She follows with Dr. Clements in the pulmonary clinic. She follows with Dr. Vera for primary care services. She presented to the hospital on 02/22/2019 with complaints of increasing symptoms of dyspnea, coughing, wheezing. Patient initially went to [facility] where she was evaluated and felt th at she would require hospital admission and she was transferred to [facility] for further management. Lab work revealed significant leukocytosis, with white blood cell count of 36.2, hemoglobin was 9.4, lately count was 387, sodium was 136, potassium is 5.4, chloride was 100, CO2 is 25, B1 is 23, creatinine 0.89, proBNP was mildly elevated at 1060, patient had evidence of elevated troponins of 0.152, 0.116, and 0.078. Patient does have history of chronic hypoxic respiratory failure, and history of chronic congestive heart failure with ejection fraction of 35-40%, history of takotsubo syndrome, and there was no evidence of coronary artery disease on coronary angiography in 2016. Chest x-ray was completed at [facility] showing evidence of new left lower lobe pneumonia. Chest x-ray on arrival at [facility] showed mild diffuse airspace opacities throughout both lungs greater on the right suggesting mild pulmonary edema versus pneumonia, with an area of concern in the right upper lobe. Patient has been started on Zosyn and Levaquin, breathing treatments, IV steroids and nebulized bronchodilators. She was evaluated with cardiology, she denies any chest pain, and EKG showed sinus rhythm without ischemic changes. Currently her FiO2 is at 7 L/m, and her pulse ox is 100%. Patient has been afebrile since admission, hemodynamically stable, she still has some shortness of breath cough and congestion production of some phlegm. Blood cultures and sputum cultures have been ordered. The patient is seen today 02/24/2019 in follow-up on the selective care unit. She is currently resting comfortably in bed. Awake and alert in no acute distr ess. Wheezing easier today as compared to yesterday. Currently on 4 L high flow nasal cannula and maintaining O2 saturations in the high 90s. She's afebrile. Hemodynamically stable. Blood culture reveals no growth to date. Sputum culture pending. White count 16.8. Hemoglobin 7.7. Creatinine 0.82. She remains on DuoNeb inhalations, Pulmicort and Perforomist inhalations, IV Solu-Medrol, theophylline. She is on antibiotics in the form of Zosyn. NicoDerm patch is in place. On 02/25/2019 patient seen in follow-up on selective care unit, apparently patient started passing dark tarry stools, and today's labs revealed a drop in hemoglobin to 6.6 from 7.7 on yesterday's labs. Patient is being transfused with 1 unit of packed red blood cells. Normotensive, not tachycardic, afebrile, on 3 L of oxygen her pulse ox of 99%. No worsening shortness of breath. Blood and sputum cultures are pending. Afebrile. He is on Levaquin and Zosyn for antibiotic coverage. Objective - Vital Signs Vital signs: Vital Signs Temp 98.1 F 02/25/19 11:34 Pulse 82 02/25/19 11:51 Resp 18 02/25/19 12:00 BP 133/74 02/25/19 11:34 Pulse Ox 99 02/25/19 11:34 Intake & Output 02/24/19 02/25/19 02/25/19 18:59 06:59 18:59 Intake Total 30 760 230.741 Output Total 650 Balance 30 110 230.741 Weight 85.8 kg Intake: IV 30 40 30 Invasive Line 1 30 30 Invasive Line 2 30 10 Intake, IV Titration 240 80.741 Amount Insulin Regular 100 unit 80.741 In Sodium Chloride 0.9% 100 ml @ Titrate IV .Q0M [facility] Rx#:[id number] Piperacillin-Tazobactam 3 200 .375 gm In Sodium Chloride 0.9% 100 ml @ 25 mls/hr IVPB Q8H [facility] Rx#: [id number] Sodium Chloride 0.9% 1, 40 000 ml @ 20 mls/hr IV . Q24H [facility] Rx#:[id number] Oral 480 120 Blood Product 0 Rc As-1 Unit 0 [id number] Output: Urine 650 Other: Voiding Method Bedside Commode # Voids 2 2 2 # Bowel Movements 2 - Exam GENERAL EXAM: Alert, pleasant, 68-year-old white female, on 3 L of oxygen, comfortable in no apparent distress. HEAD: Normocephalic/atraumatic. EYES: Normal reaction of pupils, equal size. Conjunctiva pink, sclera white. NOSE: Clear with pink turbinates. THROAT: No erythema or exudates. NECK: No masses, no JVD, no thyroid enlargement, no adenopathy. CHEST: No chest wall deformity. Symmetrical expansion. LUNGS: Equal air entry with scattered rhonchi, expiratory wheezing CVS: Regular rate and rhythm, normal S1 and S2, no gallops, no murmurs, no rubs ABDOMEN: Soft, nontender. No hepatosplenomegaly, normal bowel sounds, no guarding or rigidity. EXTREMITIES: No clubbing, no edema, no cyanosis, 2+ pulses and upper and lower extremities. MUSCULOSKELETAL: Muscle strength and tone normal. SPINE: No scoliosis or deformity SKIN: No rashes CENTRAL NERVOUS SYSTEM: Alert and oriented -3. No focal deficits, tone is normal in all 4 extremities. PSYCHIATRIC: Alert and oriented -3. Appropriate affect. Intact judgment and i nsight. - Labs CBC & Chem 7: 02/25/19 05:55 02/25/19 05:55 Labs: Abnormal Lab Results - Last 24 Hours (Table) 02/24/19 02/24/19 02/24/19 Range/Units 06:19 16:51 21:01 WBC (3.8-10.6) k/uL RBC (3.80-5.40) m/uL Hgb (11.4-16.0) gm/dL Hct (34.0-46.0) % MCHC (31.0-37.0) g/dL Neutrophils # (1.3-7.7) k/uL Potassium (3.5-5.1) mmol/L BUN (7-17) mg/dL Glucose (74-99) mg/dL POC Glucose (mg/dL) 333 H 272 H (75-99) mg/dL Hemoglobin A1c 7.9 H (4.0-6.0) % Calcium (8.4-10.2) mg/dL Crossmatch 02/24/19 02/25/19 02/25/19 Range/Units 23:26 05:55 05:55 WBC 16.0 H (3.8-10.6) k/uL RBC 2.20 L (3.80-5.40) m/uL Hgb 6.6 L* (11.4-16.0) gm/dL Hct 21.9 L (34.0-46.0) % MCHC 30.0 L (31.0-37.0) g/dL Neutrophils # 14.0 H (1.3-7.7) k/uL Potassium 5.4 H (3.5-5.1) mmol/L BUN 52 H (7-17) mg/dL Glucose 312 H (74-99) mg/dL POC Glucose (mg/dL) 271 H (75-99) mg/dL Hemoglobin A1c (4.0-6.0) % Calcium 8.1 L (8.4-10.2) mg/dL Crossmatch 02/25/19 02/25/19 02/25/19 Range/Units 06:20 06:55 07:32 WBC (3.8-10.6) k/uL RBC (3.80-5.40) m/uL Hgb (11.4-16.0) gm/dL Hct (34.0-46.0) % MCHC (31.0-37.0) g/dL Neutrophils # (1.3-7.7) k/uL Potassium (3.5-5.1) mmol/L BUN (7-17) mg/dL Glucose (74-99) mg/dL POC Glucose (mg/dL) 352 H 359 H (75-99) mg/dL Hemoglobin A1c (4.0-6.0) % Calcium (8.4-10.2) mg/dL Crossmatch See Detail 02/25/19 02/25/19 02/25/19 Range/Units 08:07 08:34 09:22 WBC (3.8-10.6) k/uL RBC (3.80-5.40) m/uL Hgb (11.4-16.0) gm/dL Hct (34.0-46.0) % MCHC (31.0-37.0) g/dL Neutrophils # (1.3-7.7) k/uL Potassium (3.5-5.1) mmol/L BUN (7-17) mg/dL Glucose (74-99) mg/dL POC Glucose (mg/dL) 286 H 281 H 282 H (75-99) mg/dL Hemoglobin A1c (4.0-6.0) % Calcium (8.4-10.2) mg/dL Crossmatch 02/25/19 02/25/19 Range/Units 10:33 12:33 WBC (3.8-10.6) k/uL RBC (3.80-5.40) m/uL Hgb (11.4-16.0) gm/dL Hct (34.0-46.0) % MCHC (31.0-37.0) g/dL Neutrophils # (1.3-7.7) k/uL Potassium (3.5-5.1) mmol/L BUN (7-17) mg/dL Glucose (74-99) mg/dL POC Glucose (mg/dL) 173 H 208 H (75-99) mg/dL Hemoglobin A1c (4.0-6.0) % Calcium (8.4-10.2) mg/dL Crossmatch Microbiology - Last 24 Hours (Table) 02/22/19 23:43 Blood Culture - Preliminary Blood No Growth after 48 hours 02/23/19 12:01 Blood Culture - Preliminary Blood No Growth after 24 hours 02/23/19 10:53 Blood Culture - Preliminary Blood No Growth after 24 hours Assessment and Plan Plan: Assessment: #1. Acute on chronic hypoxic respiratory failure related to acute exacerbation of COPD complicated by pneumonia, community acquired #2. Stage III COPD, steroid and oxygen dependent, with FEV1 of 1.02 L or 54% of predicted #3. Troponin elevation, possibly related to worsening hypoxic respiratory failure cardiology is following #4. Acute leukocytosis related to ammonia #5. Steroid-induced hyperglycemia #6. Obstructive sleep apnea, and patient is on AVAPS/BIpap at home #7. Morbid obesity #8. Common variable agammaglobulinemia, unable to tolerate replacement therapy due to side effects #9. History of pulmonary pseudomonal infection #10. Chronic and ongoing history of nicotine abuse, patient carries at least [id number] smoking history #11. History of Tacotsubo cardiomyopathy with most recent echocardiogram with EF of 50-55% #12. Hypertention #13. Diabetes mellitus with peripheral neuropathy #14. Anxiety/depression Plan: Continue current antibiotic treatment, continue PPI therapy, IV steroids, patient is receiving a unit of blood today, started passing dark tarry stools, will consult GI service. Afebrile, no growth on the cultures, final cultures are pending. We'll continue to follow. I performed a history & physical examination of the patient and discussed their management with my nurse practitioner, Sophia Lombardi. I reviewed the nurse practitioner's note and agree with the documented findings and plan of care. Lung sounds are positive for wheezes and rhonchi. The findings and the impre ssion was discussed with the patient. I attest to the documentation by the nurse practitioner. Time with Patient: Less than 30
[2019-02-25 14:56] LABS: Glucose,Whole Blood 222 mg/dL (75-99)
[2019-02-25 15:26] LABS: Anisocytosis Slight; Basophils % (A) 0 %; Eosinophils % (A) 0 %; HCT 23.7 % (34.0-46.0); HGB 7.5 gm/dL (11.4-16.0); Hypochromasia Slight; Lymphocytes # (A) 1.3 k/uL (1.0-4.8); Lymphocytes % (A) 7 %; MCH 29.7 pg (25.0-35.0); MCHC 31.6 g/dL (31.0-37.0); Mean Platelet Volume 7.1; Monocytes # (A) 0.7 k/uL (0-1.0); Monocytes % (A) 4 %; Neutrophils # (A) 16.5 k/uL (1.3-7.7); Neutrophils % (A) 88 %; Platelet Count 344 k/uL (150-450); RBC 2.52 m/uL (3.80-5.40); RDW 16.2 % (11.5-15.5); WBC 18.8 k/uL (3.8-10.6)
[2019-02-25 15:38] LABS: MCV 93.9 fL (80.0-100.0)
[2019-02-25 17:10] LABS: Glucose,Whole Blood 291 mg/dL (75-99)
[2019-02-25 18:42] LABS: Glucose,Whole Blood 347 mg/dL (75-99)
--- NOTE | 2019-02-25 20:05 | PN ---
PROGRESS NOTE DATE OF SERVICE: 02/25/2019. This 68-year-old woman was admitted with significant shortness of breath and possible pneumonia also had abdominal discomfort today. The patient also had melenic stools and hemoglobin dropped down to 6.6, and unit transfusion arranged at this time. The blood sugar is elevated. Multiple consultants are following the patient including Dr. Clements, gastroenterology evaluation has been sought. Repeat hemoglobin is recommended, which is found to be 7.5. PAST MEDICAL HISTORY: Reviewed. REVIEW OF SYSTEMS: CARDIOVASCULAR: No angina or palpitations. RESPIRATION: As mentioned earlier. GI: As mentioned earlier. : No dysuria. CENTRAL NERVOUS SYSTEM: No focal deficits. CURRENT MEDICATIONS: Reviewed and include: 1. Tylenol 500 mg q.6h p.r.n. 2. [place] 7.5. 3. DuoNeb q.i.d. and p.r.n. 4. Xanax 1 mg t.i.d. p.r.n. 5. Lipitor 20 mg q.h.s. 6. Pulmicort 1 mg b.i.d. 7. Prozac 20 mg daily. 8. Perforomist 20 mcg b.i.d. 9. Lasix 40 mg. 10.Neurontin 800 mg t.i.d. 11.Heparin 5000 subcu b.i.d. 12.NovoLog. 13.Imdur. 14.Levaquin. 15.Synthroid. 16.Zestril. 17.Solu-Medrol. 18.Protonix. 19.Zosyn IV. 20.Chris-24. 21.Doses reviewed. PHYSICAL EXAM: Patient is alert, oriented x3. Pulse is 80, blood pressure is 120/64, respiration 18, temperature 98.2, pulse ox 98% on 3 L. HEENT: Conjunctivae pale. Oral mucosa moist. NECK is no jugular venous distention. No carotid bruit. No lymph node enlargement. CARDIOVASCULAR SYSTEM: S1, S2 muffled. No S3, no S4. RESPIRATORY: Breath sounds diminished in the bases. Bilateral scattered rhonchi and crackles. Expiratory wheezing also present. ABDOMEN: Soft, nontender. LEGS: No edema. No swelling. NERVOUS SYSTEM as mentioned earlier. Moves all four limbs. No focal deficits. LYMPHATICS: No lymph nodes palpable in the neck, axillae or groin. SKIN: No ulcer, no rashes and no bleeding. JOINTS: No active deforming arthropathy. LABS: WBC 16, hemoglobin 6.6, sodium 138, potassium 5.4. ASSESSMENT: 1. Chronic obstructive pulmonary disease acute exacerbation with bilateral pneumonia, right more the left with possibly gram-negative possibly with acute hypoxic respiratory failure. 2. Possible upper gastrointestinal bleeding with blood loss anemia, rule out peptic ulcer disease, acute. 3. Increased WBC. 4. Hypernatremia. 5. Hyperkalemia. 6. Diabetes mellitus type 2, uncontrolled. 7. Troponin 0.052. Possible acute non ST segment elevation myocardial infarction. 8. History of takotsubo cardiomyopathy in the most recent 2D echo showing improved ejection fraction to 50-55 percent. 9. History of asthma. 10.Chronic obstructive pulmonary disease. 11.History of congestive heart failure. 12.Diabetes mellitus type 2. 13.Gastroesophageal reflux disease. 14.Hypertension. 15.History of hyperlipidemia. 16.History of pneumonia. 17.History of sleep apnea. 18.History of advanced chronic obstructive pulmonary disease. 19.History of cardiac catheterization with normal coronary arteries. 20.History of anxiety, depression. 21.NO CODE WITH INSTRUCTIONS. RECOMMENDATIONS AND DISCUSSION: In this 68-year-old woman who presented with multiple complex medical issues, we will monitor the patient closely, continue the current medications, continue symptomatic treatment. As mentioned earlier, 1 unit of transfusion has been arranged. I would recommend to type and cross at least 2 units and repeat hemoglobin and H and H q.6. If the hemoglobin drops less than 7, transfusion may be indicated. I would also recommend the patient to follow up closely with Gastroenterology who has been consulted at this time for possible endoscopies even though the patient does significant respiratory illnesses at this time. Otherwise, we will monitor the blood sugars closely. Continue the rest of medications. Avoid antiplatelets and NSAIDs. DVT prophylaxis to be continued. I would recommend repeat PT/INR., guarded prognosis because of multiple complex medical issues. Further recommendations to follow. MMODL / IJN: [id number] /
[2019-02-25 20:39] LABS: Glucose,Whole Blood 230 mg/dL (75-99)
[2019-02-25] MEDS: ATORVASTATIN 20 MG TAB PO SCH (21:02)
[2019-02-25 22:48] LABS: Glucose,Whole Blood 200 mg/dL (75-99)
[2019-02-26 00:34] LABS: Glucose,Whole Blood 178 mg/dL (75-99)
[2019-02-26 02:35] LABS: Glucose,Whole Blood 206 mg/dL (75-99)
[2019-02-26] MEDS: SODIUM CHLORIDE 0.9% 1,000 ML IV SCH (02:56)
[2019-02-26] MEDS: PIPERACILLIN-TAZOBACTAM 3.375 GM in SODIUM CHLORIDE 0.9% 100 ML IVPB SCH ×3 (05:01→20:22)
[2019-02-26 05:02] LABS: Glucose,Whole Blood 213 mg/dL (75-99)
[2019-02-26] MEDS: INSULIN ASPART (NovoLOG) 100 UNIT/ML VIAL SQ SCH ×4 (05:51→16:35)
[2019-02-26 06:39] LABS: Glucose,Whole Blood 207 mg/dL (75-99)
[2019-02-26] MEDS: methylPREDNISolone SOD SUCCI 125 MG/2 ML VIAL IV SCH (06:42)
[2019-02-26] MEDS: LEVOTHYROXINE 100 MCG TAB PO SCH (06:43)
[2019-02-26 07:27] LABS: Potassium 4.6 mmol/L (3.5-5.1)
[2019-02-26] MEDS: FORMOTEROL FUMARATE 20 MCG/2 ML NEBU INHALATION SCH ×2 (07:31→19:40)
[2019-02-26] MEDS: BUDESONIDE 1 MG/2 ML NEBU INHALATION SCH ×2 (07:31→19:40)
[2019-02-26] MEDS: IPRATROPIUM-ALBUTEROL 3 ML NEB INHALATION SCH ×4 (07:31→19:40)
[2019-02-26] MEDS: LISINOPRIL 20 MG TAB PO SCH ×2 (07:42→20:27)
[2019-02-26] MEDS: THEOPHYLLINE 24 HOUR 300 MG CAP.ER.24H PO SCH ×2 (07:42→20:27)
[2019-02-26] MEDS: FLUoxetine HCL 20 MG CAP PO SCH (07:42)
[2019-02-26] MEDS: MONTELUKAST 10 MG TAB PO SCH (07:42)
[2019-02-26] MEDS: GABAPENTIN 400 MG CAP PO SCH ×3 (07:42→20:27)
[2019-02-26] MEDS: PANTOPRAZOLE 40 MG/10 ML VIAL IVP SCH ×2 (07:42→20:30)
[2019-02-26] MEDS: ISOSORBIDE MONONITRATE ER 15 MG TAB PO SCH (07:42)
[2019-02-26] MEDS: NICOTINE 14MG/24HR PATCH TRANSDERM SCH (07:42)
[2019-02-26] MEDS: HEPARIN SODIUM,PORCINE 5,000 UNIT/ML 1 ML VIAL SQ SCH ×2 (07:42→20:29)
[2019-02-26] MEDS: HYDROcodone/APAP 7.5-325MG 1 EACH TAB PO PRN (07:46)
[2019-02-26] MEDS: ALPRAZolam 1 MG TAB PO PRN ×2 (07:46→20:27)
[2019-02-26 08:43] LABS: Glucose,Whole Blood 250 mg/dL (75-99)
[2019-02-26 10:07] LABS: Anisocytosis Slight; Basophils % (A) 0 %; Eosinophils % (A) 0 %; HCT 22.2 % (34.0-46.0); Hypochromasia Slight; Lymphocytes # (A) 1.1 k/uL (1.0-4.8); Lymphocytes % (A) 10 %; MCH 29.2 pg (25.0-35.0); MCHC 30.7 g/dL (31.0-37.0); MCV 95.4 fL (80.0-100.0); Mean Platelet Volume 7.2; Monocytes # (A) 0.6 k/uL (0-1.0); Monocytes % (A) 5 %; Neutrophils # (A) 9.1 k/uL (1.3-7.7); Neutrophils % (A) 83 %; Platelet Count 300 k/uL (150-450); RBC 2.33 m/uL (3.80-5.40); RDW 16.8 % (11.5-15.5)
[2019-02-26 10:10] LABS: HGB 6.8 gm/dL (11.4-16.0)
[2019-02-26 10:32] LABS: Glucose,Whole Blood 189 mg/dL (75-99)
[2019-02-26 10:33] LABS: Iron Saturation 24.91 (12.00-45.00)
--- NOTE | 2019-02-26 10:55 | XR ---
EXAMINATION TYPE: XR chest 2V DATE OF EXAM: 02/26/2019 COMPARISON: 02/22/2019 TECHNIQUE: PA and lateral views submitted. HISTORY: Follow-up pneumonia FINDINGS: Hyperinflation with cardiomegaly. Bilateral consolidation small effusion. No pneumothorax. Arthropath y shoulders. Mild interstitial prominence. IMPRESSION: 1. Basilar atelectasis or infiltrate with small effusion stable. 2. Correlate for COPD.
[2019-02-26 11:00] LABS: Crenated RBC Present; Poikilocytosis (M) Present
[2019-02-26 12:17] LABS: Glucose,Whole Blood 171 mg/dL (75-99)
--- NOTE | 2019-02-26 12:32 | P.CONS ---
History of Present Illness - Reason for Consult Consult date: 02/26/19 GI bleeding dark stools Requesting physician: Soledad Clements - Chief Complaint Shortness of breath - History of Present Illness 68-year-old female with a history of COPD admitted with shortness of breath coughing wheezing pneumonia transferred from [facility]. Past medical history of common variable agammaglobulinemia, obesity, anxiety depression, CHF, asthma, chronic prednisone usage. Patient reports multiple dark-colored bowel movements that started yesterday. Present hemoglobin 6.8. MCV 95. Platelet 300. BUN 39. Creatinine 0.8. Admission hemoglobin 9.4. BUN 23 increased to 52 yesterday. Previous hemoglobin over the past year ranges between 9-11. Previous EGD August 2015 for evaluation of anemia and chest pain small sliding hiatal hernia with no obvious esophagitis or complicated reflux disease. No ulcers or gastric outlet obstruction. No history of colonoscopy patient declines. Presently denies abdominal pain, afebrile. Tolerating regular diet. Denies hematemesis or hematochezia. No weight loss. Review of Systems Constitutional: Denies fever, chills, sweats, weight gain, or loss. HEENT: Negative for migraines, blurred vision or loss, earaches, drainage, tinnitus, oral mucosal lesions, dysphagia, or odynophagia. CARDIAC: Negative for chest pain, arrhythmias, or palpitation. RESPIRATORY: Admitted with shortness of breath with underlying chronic shortness of breath denies, hemoptysis, cough, or sputum production. GI: See HPI for pertinent findings. : Negative for hematuria, urgency, frequency, polyuria, or dysuria. GYNc: Denies possibility of . Negative vaginal discharge. MUSCULOSKELETAL: Negative for muscle aches, swelling, arthritis, and arthralgias. NEUROLOGIC: Negative for stroke or TIA. ENDOCRINE: Negative for thyroid problems. SKIN: Negative for rash or itching. PSYCHIATRIC: Negative history for depression and anxiety Past Medical History Past Medical History: Asthma, Heart Failure, COPD, Diabetes Mellitus, GERD/Reflux, Hyperlipidemia, Hypertension, Osteoarthritis (OA), Pneumonia, Respiratory Disorder, Skin Disorder, Sleep Apnea/CPAP/BIPAP, Thyroid Disorder Additional Past Medical History / Comment(s): Advanced COPD with chronic hypoxic respiratory failure has been on vent at [facility] in past.. CHF with an ejection fraction of 35-40%,leg edema, history of takotsubo syndrome and normal coronaries as evident on her cardiac catheterization, diabetes mellitus type 2, obesity, obstructive sleep apnea-uses noninvasive ventilator, hypothyroidism, peripheral neuropathy secondary to diabetes mellitus-bilateral feet, arthritis multiple joints and entire back, psoriasis, sinus problems. History of Any Multi-Drug Resistant Organisms: None Reported Past Surgical History: Appendectomy, Cholecystectomy, Heart Catheterization, Joint Replacement, Tonsillectomy, Tubal Ligation Additional Past Surgical History / Comment(s): 08/2015 normal cardiac cath, 06/2016 normal cardiac cath, bilateral total knee arthroplasty. Past Anesthesia/Blood Transfusion Reactions: No Reported Reaction Past Psychological History: Anxiety, Depression Additional Psychological History / Comment(s): Pt lives with her son and daughter. She has O2 at 3.5L/NC ATC. She has a noninvasive ventilator. also has cane, walker, rolling walker, bsc, hospital bed, nebulizer, glucometer. Smoking Status: Current every day smoker Past Alcohol Use History: Occasional Additional Past Alcohol Use History / Comment(s): Pt started smoking in 1962(age 12) smokes 1 ppd Past Drug Use History: Marijuana Additional Drug Use History / Comment(s): Patient states she has used marijuana (edibles) to help with pain on occasion. - Past Family History Father History Unknown: Yes Family Medical History: No Reported History Mother Family Medical History: Cancer Additional Family Medical History / Comment(s): uterine cancer Medications and Allergies Home Medications Medication Instructions Recorded Confirmed Type ALPRAZolam [Xanax] 1 mg PO TID PRN 08/25/15 02/23/19 History FLUoxetine HCL [PROzac] 20 mg PO DAILY 08/25/15 02/23/19 History Hydrocodone/Acetaminophen [[place] 1 tab PO TID PRN 08/25/15 02/23/19 History 7.5-325] Montelukast [Singulair] 10 mg PO DAILY 08/25/15 02/23/19 History Theophylline 24 Hour [Chris-24] 300 mg PO BID 08/25/15 02/23/19 History Simvastatin [Zocor] 40 mg PO HS #30 tab 08/28/15 02/23/19 Rx Budesonide [Pulmicort] 0.5 mg INHALATION RT-BID 11/18/16 02/23/19 History Isosorbide Mononitrate ER [Imdur] 15 mg PO DAILY #30 dose 11/23/16 02/23/19 Rx Ipratropium-Albuterol Nebulize 3 ml INHALATION RT-QID #0 01/26/17 02/23/19 Rx [Duoneb 0.5 mg-3 mg/3 ml Soln] predniSONE 10 mg PO DAILY #0 01/26/17 02/23/19 Rx Ibandronate Sodium [Boniva] 150 mg PO Q30D 08/08/17 02/23/19 History Ipratropium/Albuterol Sulfate 1 puff INHALATION RT-QID 08/08/17 02/23/19 History [Combivent Respimat Inhaler] Albuterol Inhaler [Ventolin Hfa 2 puff INHALATION RT-Q4H PRN 02/23/19 02/23/19 History Inhaler] Furosemide [Lasix] 40 mg PO DAILY PRN 02/23/19 02/23/19 History Gabapentin 800 mg PO TID 02/23/19 02/23/19 History Ibandronate Sodium 150 mg PO DIRECTED 02/23/19 02/23/19 History Ipratropium-Albuterol Nebulize 3 ml INHALATION Q6HR 02/23/19 02/23/19 History [Duoneb 0.5 mg-3 mg/3 ml Soln] Ipratropium/Albuterol Sulfate 1 puff INHALATION Q6HR 02/23/19 02/23/19 History [Combivent Respimat Inhaler] Levothyroxine Sodium [Synthroid] 200 mcg PO DAILY 02/23/19 02/23/19 History Lisinopril 20 mg PO BID 02/23/19 02/23/19 History Lisinopril [Zestril] 40 mg PO BID 02/23/19 02/23/19 History Potassium Chloride 10 meq PO DAILY PRN 02/23/19 02/23/19 History Allergies Allergy/AdvReac Type Severity Reaction Status Date / Time cefotaxime sodium Allergy Rash/Hives Verified 02/22/19 23:48 [From Claforan] glucose [From Gammagard S/D] Allergy Dyspnea Verified 02/22/19 23:48 glycine [From Gammagard S/D] Allergy Dyspnea Verified 02/22/19 23:48 IgA less than or equal to 50 Allergy Dyspnea Verified 02/22/19 23:48 mcg/mL [From Gammagard S/D] immune globulin,gamma (IgG) Allergy Dyspnea Verified 02/22/19 23:48 human [From Gammagard S/D] vancomycin Allergy Seizure/hyp Verified 02/22/19 23:48 oglycemia zoster vaccine live AdvReac Unknown Verified 02/22/19 23:48 [From Zostavax (PF)] Physical Exam Vitals: Vital Signs Temp Pulse Pulse Resp BP BP Pulse Ox 02/26/19 08:00 98.3 F 71 18 114/52 97 02/26/19 07:55 80 02/26/19 07:43 78 02/26/19 07:31 78 100 02/26/19 04:00 98.4 F 75 18 117/53 100 02/26/19 00:00 85 19 127/60 96 02/25/19 20:00 99.0 F 87 17 132/60 99 02/25/19 19:29 80 02/25/19 19:18 82 02/25/19 19:17 84 02/25/19 19:06 80 02/25/19 16:00 97.7 F 80 18 125/58 99 02/25/19 15:53 78 02/25/19 15:39 80 99 02/25/19 13:14 98.2 F 66 18 128/68 02/25/19 12:00 18 02/25/19 11:51 82 02/25/19 11:40 80 02/25/19 11:34 98.1 F 71 18 133/74 99 02/25/19 11:04 98.1 F 68 18 133/67 99 02/25/19 10:58 98.1 F 82 18 137/63 99 02/25/19 10:54 98.2 F 77 18 134/61 99 Intake and Output 02/25/19 02/26/19 02/26/19 22:59 06:59 14:59 Intake Total 160.259 37.742 360 Output Total 250 Balance 160.259 -212.258 360 Intake: IV 20 10 Invasive Line 1 20 10 Intake, IV Titration 20.259 27.742 Amount Insulin Regular 100 unit 20.259 27.742 In Sodium Chloride 0.9% 100 ml @ Titrate IV .Q0M [facility], [facility] Rx#:[id number] Oral 120 360 Output: Urine 250 Other: Voiding Method Bedside Commode Bedside Commode # Voids 1 1 Weight 89.6 kg General appearance: The patient is alert, oriented, in no acute distress. HET: Head is normocephalic and atraumatic. Pupils are equal and reactive. Oropharynx is clear without lesions. Neck: Supple without lymphadenopathy. Trachea midline. Heart: S1 S2. Regular rate and rhythm. Lungs: No crackles or wheezes are heard. Abdomen: Soft, nontender, nondistended with bowel sounds. No peritoneal signs. No palpable organomegaly or masses. Extremities: Normal skin color and turgor. No cyanosis, rash, ulceration, clubbing, or edema. Radial and pedal pulses are 2/4 bilaterally. Neurological: No focal deficits. Strength and sensation are grossly intact. Results CBC & Chem 7: 02/26/19 06:28 02/26/19 06:27 Labs: Abnormal Lab Results - Last 24 Hours (Table) 02/25/19 02/25/19 02/25/19 Range/Units 06:55 10:33 12:33 WBC (3.8-10.6) k/uL RBC (3.80-5.40) m/uL Hgb (11.4-16.0) gm/dL Hct (34.0-46.0) % MCHC (31.0-37.0) g/dL RDW (11.5-15.5) % Neutrophils # (1.3-7.7) k/uL Chloride (98-107) mmol/L BUN (7-17) mg/dL Glucose (74-99) mg/dL POC Glucose (mg/dL) 173 H 208 H (75-99) mg/dL Calcium (8.4-10.2) mg/dL Crossmatch See Detail 02/25/19 02/25/19 02/25/19 Range/Units 14:35 14:35 16:46 WBC 18.8 H (3.8-10.6) k/uL RBC 2.52 L (3.80-5.40) m/uL Hgb 7.5 L (11.4-16.0) gm/dL Hct 23.7 L (34.0-46.0) % MCHC (31.0-37.0) g/dL RDW 16.2 H (11.5-15.5) % Neutrophils # 16.5 H (1.3-7.7) k/uL Chloride (98-107) mmol/L BUN (7-17) mg/dL Glucose (74-99) mg/dL POC Glucose (mg/dL) 222 H 291 H (75-99) mg/dL Calcium (8.4-10.2) mg/dL Crossmatch 02/25/19 02/25/19 02/25/19 Range/Units 18:40 20:37 22:36 WBC (3.8-10.6) k/uL RBC (3.80-5.40) m/uL Hgb (11.4-16.0) gm/dL Hct (34.0-46.0) % MCHC (31.0-37.0) g/dL RDW (11.5-15.5) % Neutrophils # (1.3-7.7) k/uL Chloride (98-107) mmol/L BUN (7-17) mg/dL Glucose (74-99) mg/dL POC Glucose (mg/dL) 347 H 230 H 200 H (75-99) mg/dL Calcium (8.4-10.2) mg/dL Crossmatch 02/26/19 02/26/19 02/26/19 Range/Units 00:25 02:33 04:50 WBC (3.8-10.6) k/uL RBC (3.80-5.40) m/uL Hgb (11.4-16.0) gm/dL Hct (34.0-46.0) % MCHC (31.0-37.0) g/dL RDW (11.5-15.5) % Neutrophils # (1.3-7.7) k/uL Chloride (98-107) mmol/L BUN (7-17) mg/dL Glucose (74-99) mg/dL POC Glucose (mg/dL) 178 H 206 H 213 H (75-99) mg/dL Calcium (8.4-10.2) mg/dL Crossmatch 02/26/19 02/26/19 02/26/19 Range/Units 06:27 06:28 06:38 WBC 11.0 H (3.8-10.6) k/uL RBC 2.33 L (3.80-5.40) m/uL Hgb 6.8 L* (11.4-16.0) gm/dL Hct 22.2 L (34.0-46.0) % MCHC 30.7 L (31.0-37.0) g/dL RDW 16.8 H (11.5-15.5) % Neutrophils # (1.3-7.7) k/uL Chloride 109 H (98-107) mmol/L BUN 39 H (7-17) mg/dL Glucose 184 H (74-99) mg/dL POC Glucose (mg/dL) 207 H (75-99) mg/dL Calcium 8.0 L (8.4-10.2) mg/dL Crossmatch 02/26/19 Range/Units 08:40 WBC (3.8-10.6) k/uL RBC (3.80-5.40) m/uL Hgb (11.4-16.0) gm/dL Hct (34.0-46.0) % MCHC (31.0-37.0) g/dL RDW (11.5-15.5) % Neutrophils # (1.3-7.7) k/uL Chloride (98-107) mmol/L BUN (7-17) mg/dL Glucose (74-99) mg/dL POC Glucose (mg/dL) 250 H (75-99) mg/dL Calcium (8.4-10.2) mg/dL Crossmatch Microbiology - Last 24 Hours (Table) 02/22/19 23:43 Blood Culture - Preliminary Blood No Growth after 72 hours 02/23/19 12:01 Blood Culture - Preliminary Blood No Growth after 48 hours 02/23/19 10:53 Blood Culture - Preliminary Blood No Growth after 48 hours Assessment and Plan Assessment: Impression: 1. Normocytic anemia hypochromic with component of acute blood loss reports of dark-colored bowel movements progressive elevated BUN suspect upper GI pathology however small bowel colonic source can't be excluded. 2. Acute on chronic hypoxic respiratory failure related to acute exacerbation of COPD, complicated by pneumonia community-acquired. 3. Stage III COPD O2 steroid dependent. 4. Morbid obesity. Plan: 1. EGD colonoscopy was advised however she declines colonoscopy. We'll proceed with EGD evaluation. Case was discussed with pulmonology team they agreeable for EGD evaluation. CBC monitoring. Protonix 40 mg daily. We'll follow closely with you. Plan: 1. Protonix 40 mg twice daily. EGD evaluation if agreeable with pulmonary team tomorrow versus Tuesday. CBC monitoring. Clear liquids in am for possible afternoon EGD. Will follow closely with you. Thank you for this kind referral and the opportunity to participate in the care of your patient. This consultation was discussed with Dr. Burgess. The impression and plan of care have been directed as dictated.
--- NOTE | 2019-02-26 13:33 | P.PN ---
Subjective Progress Note Date: 02/26/19 Principal diagnosis: Acute hypoxemic respiratory failure secondary to an acute exacerbation of COPD and new left lower lobe pneumonia This 68-year-old white female patient with stage II COPD, with underlying FEV1 of 64% of predicted, prednisone dependent and regular use of AVAPS/BiPap at home for history of obstructive sleep apnea syndrome, chronic and ongoing nicotine dependence, common variable agammaglobulinemia and patient was unable to tolerate replacement therapy related to side effects, diabetes mellitus type 2, chronic sinusitis, hyperlipidemia, hypothyroidism, obesity, anxiety/depression, history of asthma, and patient is on a combination of Spiriva, Perforomist, Pulmicort, addition to maintenance dose of prednisone 10 mg daily for her COPD. She follows with Dr. Clements in the pulmonary clinic. She follows with Dr. Vera for primary care services. She presented to the hospital on 02/22/2019 with complaints of increasing symptoms of dyspnea, coughing, wheezing. Patient initially went to [facility] where she was evaluated and felt th at she would require hospital admission and she was transferred to [facility] for further management. Lab work revealed significant leukocytosis, with white blood cell count of 36.2, hemoglobin was 9.4, lately count was 387, sodium was 136, potassium is 5.4, chloride was 100, CO2 is 25, B1 is 23, creatinine 0.89, proBNP was mildly elevated at 1060, patient had evidence of elevated troponins of 0.152, 0.116, and 0.078. Patient does have history of chronic hypoxic respiratory failure, and history of chronic congestive heart failure with ejection fraction of 35-40%, history of takotsubo syndrome, and there was no evidence of coronary artery disease on coronary angiography in 2016. Chest x-ray was completed at [facility] showing evidence of new left lower lobe pneumonia. Chest x-ray on arrival at [facility] showed mild diffuse airspace opacities throughout both lungs greater on the right suggesting mild pulmonary edema versus pneumonia, with an area of concern in the right upper lobe. Patient has been started on Zosyn and Levaquin, breathing treatments, IV steroids and nebulized bronchodilators. She was evaluated with cardiology, she denies any chest pain, and EKG showed sinus rhythm without ischemic changes. Currently her FiO2 is at 7 L/m, and her pulse ox is 100%. Patient has been afebrile since admission, hemodynamically stable, she still has some shortness of breath cough and congestion production of some phlegm. Blood cultures and sputum cultures have been ordered. The patient is seen today 02/24/2019 in follow-up on the selective care unit. She is currently resting comfortably in bed. Awake and alert in no acute distr ess. Wheezing easier today as compared to yesterday. Currently on 4 L high flow nasal cannula and maintaining O2 saturations in the high 90s. She's afebrile. Hemodynamically stable. Blood culture reveals no growth to date. Sputum culture pending. White count 16.8. Hemoglobin 7.7. Creatinine 0.82. She remains on DuoNeb inhalations, Pulmicort and Perforomist inhalations, IV Solu-Medrol, theophylline. She is on antibiotics in the form of Zosyn. NicoDerm patch is in place. On 02/25/2019 patient seen in follow-up on selective care unit, apparently patient started passing dark tarry stools, and today's labs revealed a drop in hemoglobin to 6.6 from 7.7 on yesterday's labs. Patient is being transfused with 1 unit of packed red blood cells. Normotensive, not tachycardic, afebrile, on 3 L of oxygen her pulse ox of 99%. No worsening shortness of breath. Blood and sputum cultures are pending. Afebrile. He is on Levaquin and Zosyn for antibiotic coverage. On 02/26/2019 patient is seen in follow-up care unit. She is awake and alert, no acute distress, she is currently down to 2 L of oxygen and the pulse ox of 99%, she is afebrile, hemodynamically patient is stable. Sounds reveal a few rales and rhonchi. Otherwise no acute distress, is no cough with production of whitish sputum. No fever or chills. Hemoptysis, no chest pain. Yesterday patient had 3 episodes of dark tarry stools, one episode through the night. Today's hemoglobin is 6.8, and patient will be given another unit of packed red blood cells, GI service consultation been requested, and patient is being scheduled for EGD. Objective - Vital Signs Vital signs: Vital Signs Temp 98 F 02/26/19 12:29 Pulse 74 02/26/19 12:29 Resp 18 02/26/19 12:29 BP 124/58 02/26/19 12:29 Pulse Ox 97 02/26/19 12:29 Intake & Output 02/25/19 02/26/19 02/26/19 18:59 06:59 18:59 Intake Total 687.608 51.134 604.355 Output Total 250 Balance 687.608 -198.866 604.355 Weight 89.6 kg Intake: IV 40 20 Invasive Line 1 40 20 Intake, IV Titration 97.608 31.134 22.355 Amount Insulin Regular 100 unit 97.608 31.134 22.355 In Sodium Chloride 0.9% 100 ml @ Titrate IV .Q0M [facility] Rx#:[id number] Oral 240 582 Blood Product 310 0 Rc As-1 Unit 0 [id number] Rc As-1 Unit 310 [id number] Output: Urine 250 Other: Voiding Method Bedside Commode # Voids 1 1 # Bowel Movements 2 - Exam GENERAL EXAM: Alert, pleasant, 68-year-old white female, on 2 L of oxygen, com fortable in no apparent distress. HEAD: Normocephalic/atraumatic. EYES: Normal reaction of pupils, equal size. Conjunctiva pink, sclera white. NOSE: Clear with pink turbinates. THROAT: No erythema or exudates. NECK: No masses, no JVD, no thyroid enlargement, no adenopathy. CHEST: No chest wall deformity. Symmetrical expansion. LUNGS: Equal air entry with scattered rhonchi, and a few rales CVS: Regular rate and rhythm, normal S1 and S2, no gallops, no murmurs, no rubs ABDOMEN: Soft, nontender. No hepatosplenomegaly, normal bowel sounds, no guarding or rigidity. EXTREMITIES: No clubbing, no edema, no cyanosis, 2+ pulses and upper and lower extremities. MUSCULOSKELETAL: Muscle strength and tone normal. SPINE: No scoliosis or deformity SKIN: No rashes CENTRAL NERVOUS SYSTEM: Alert and oriented -3. No focal deficits, tone is normal in all 4 extremities. PSYCHIATRIC: Alert and oriented -3. Appropriate affect. Intact judgment and insight. - Labs CBC & Chem 7: 02/26/19 06:28 02/26/19 06:27 Labs: Abnormal Lab Results - Last 24 Hours (Table) 07/07/19 07/07/19 07/07/19 Range/Units 05:55 06:55 14:35 WBC 18.8 H (3.8-10.6) k/uL RBC 2.52 L (3.80-5.40) m/uL Hgb 7.5 L (11.4-16.0) gm/dL Hct 23.7 L (34.0-46.0) % MCHC (31.0-37.0) g/dL RDW 16.2 H (11.5-15.5) % Neutrophils # 16.5 H (1.3-7.7) k/uL Chloride (98-107) mmol/L BUN (7-17) mg/dL Glucose (74-99) mg/dL POC Glucose (mg/dL) (75-99) mg/dL Calcium (8.4-10.2) mg/dL Vitamin B12 1313.0 H (200.0-944.0) pg/mL Crossmatch See Detail 02/25/19 02/25/19 02/25/19 Range/Units 14:35 16:46 18:40 WBC (3.8-10.6) k/uL RBC (3.80-5.40) m/uL Hgb (11.4-16.0) gm/dL Hct (34.0-46.0) % MCHC (31.0-37.0) g/dL RDW (11.5-15.5) % Neutrophils # (1.3-7.7) k/uL Chloride (98-107) mmol/L BUN (7-17) mg/dL Glucose (74-99) mg/dL POC Glucose (mg/dL) 222 H 291 H 347 H (75-99) mg/dL Calcium (8.4-10.2) mg/dL Vitamin B12 (200.0-944.0) pg/mL Crossmatch 02/25/19 02/25/19 02/26/19 Range/Units 20:37 22:36 00:25 WBC (3.8-10.6) k/uL RBC (3.80-5.40) m/uL Hgb (11.4-16.0) gm/dL Hct (34.0-46.0) % MCHC (31.0-37.0) g/dL RDW (11.5-15.5) % Neutrophils # (1.3-7.7) k/uL Chloride (98-107) mmol/L BUN (7-17) mg/dL Glucose (74-99) mg/dL POC Glucose (mg/dL) 230 H 200 H 178 H (75-99) mg/dL Calcium (8.4-10.2) mg/dL Vitamin B12 (200.0-944.0) pg/mL Crossmatch 02/26/19 02/26/19 02/26/19 Range/Units 02:33 04:50 06:27 WBC (3.8-10.6) k/uL RBC (3.80-5.40) m/uL Hgb (11.4-16.0) gm/dL Hct (34.0-46.0) % MCHC (31.0-37.0) g/dL RDW (11.5-15.5) % Neutrophils # (1.3-7.7) k/uL Chloride 109 H (98-107) mmol/L BUN 39 H (7-17) mg/dL Glucose 184 H (74-99) mg/dL POC Glucose (mg/dL) 206 H 213 H (75-99) mg/dL Calcium 8.0 L (8.4-10.2) mg/dL Vitamin B12 (200.0-944.0) pg/mL Crossmatch 02/26/19 02/26/19 02/26/19 Range/Units 06:28 06:38 08:40 WBC 11.0 H (3.8-10.6) k/uL RBC 2.33 L (3.80-5.40) m/uL Hgb 6.8 L* (11.4-16.0) gm/dL Hct 22.2 L (34.0-46.0) % MCHC 30.7 L (31.0-37.0) g/dL RDW 16.8 H (11.5-15.5) % Neutrophils # 9.1 H (1.3-7.7) k/uL Chloride (98-107) mmol/L BUN (7-17) mg/dL Glucose (74-99) mg/dL POC Glucose (mg/dL) 207 H 250 H (75-99) mg/dL Calcium (8.4-10.2) mg/dL Vitamin B12 (200.0-944.0) pg/mL Crossmatch 02/26/19 02/26/19 Range/Units 10:30 12:10 WBC (3.8-10.6) k/uL RBC (3.80-5.40) m/uL Hgb (11.4-16.0) gm/dL Hct (34.0-46.0) % MCHC (31.0-37.0) g/dL RDW (11.5-15.5) % Neutrophils # (1.3-7.7) k/uL Chloride (98-107) mmol/L BUN (7-17) mg/dL Glucose (74-99) mg/dL POC Glucose (mg/dL) 189 H 171 H (75-99) mg/dL Calcium (8.4-10.2) mg/dL Vitamin B12 (200.0-944.0) pg/mL Crossmatch Microbiology - Last 24 Hours (Table) 02/23/19 10:53 Blood Culture - Preliminary Blood No Growth after 72 hours 02/23/19 Unknown Gram Stain - Final Sputum Sputum Culture - Final 02/22/19 23:43 Blood Culture - Preliminary Blood No Growth after 72 hours 02/23/19 12:01 Blood Culture - Preliminary Blood No Growth after 48 hours Assessment and Plan Plan: Assessment: #1. Acute on chronic hypoxic respiratory failure related to acute exacerbation of COPD complicated by pneumonia, community acquired #2. Stage III COPD, steroid and oxygen dependent, with FEV1 of 1.02 L or 54% of predicted #3. Troponin elevation, possibly related to worsening hypoxic respiratory failure cardiology is following #4. Acute leukocytosis related to pneumonia, improving #5. Steroid-induced hyperglycemia #6. Obstructive sleep apnea, and patient is on AVAPS/BIpap at home #7. Morbid obesity #8. Common variable agammaglobulinemia, unable to tolerate replacement therapy due to side effects #9. History of pulmonary pseudomonal infection #10. Chronic and ongoing history of nicotine abuse, patient carries at least 14-uvre-xenp smoking history #11. History of Tacotsubo cardiomyopathy with most recent echocardiogram with EF of 50-55% #12. Hypertention #13. Diabetes mellitus with peripheral neuropathy #14. Anxiety/depression #15. Acute GI blood loss anemia, requiring transfusion with 2 units of packed red blood cells, patient is passing dark stools Plan: She is doing well from pulmonary perspective, follow up chest x-ray has been reviewed, showing some basilar atelectasis with small pleural effusions, improving, no fever or chills, FiO2 is down to 2 L. No significant cough or congestion. GI service is planning on endoscopic studies in regards to bleeding, patient is cleared from pulmonary perspective I performed a history & physical examination of the patient and discussed their management with my nurse practitioner, Sophia Lombardi. I reviewed the nurse practitioner's note and agree with the documented findings and plan of care. Lung sounds are positive for wheezes and rhonchi. The findings and the impression was discussed with the patient. I attest to the documentation by the nurse practitioner. Time with Patient: Less than 30
[2019-02-26 14:17] LABS: Glucose,Whole Blood 211 mg/dL (75-99)
[2019-02-26 16:31] LABS: Glucose,Whole Blood 234 mg/dL (75-99)
[2019-02-26] MEDS: methylPREDNISolone SOD SUCCI 40 MG/ML 1 ML VIAL IV SCH ×2 (16:35→23:33)
[2019-02-26 16:41] LABS: Anisocytosis Slight; Basophils % (A) 0 %; Eosinophils # (A) 0.1 k/uL (0-0.7); Eosinophils % (A) 1 %; HCT 24.6 % (34.0-46.0); HGB 7.8 gm/dL (11.4-16.0); Hypochromasia Slight; Lymphocytes # (A) 1.6 k/uL (1.0-4.8); Lymphocytes % (A) 11 %; MCH 29.4 pg (25.0-35.0); MCHC 31.9 g/dL (31.0-37.0); MCV 92.2 fL (80.0-100.0); Mean Platelet Volume 7.3; Monocytes # (A) 0.9 k/uL (0-1.0); Monocytes % (A) 6 %; Neutrophils # (A) 11.6 k/uL (1.3-7.7); Neutrophils % (A) 79 %; Platelet Count 279 k/uL (150-450); RBC 2.66 m/uL (3.80-5.40); WBC 14.6 k/uL (3.8-10.6)
--- NOTE | 2019-02-26 16:53 | P.PN ---
Subjective Progress Note Date: 02/26/19 Principal diagnosis: This is a pleasant 68-year-old female who was admitted with shortness of breath, possible pneumonia, and had abdominal pain with dark stools. Patient is still h aving some shortness of breath with cough and phlegm production today. Patient states that she had one formed black stool yesterday otherwise is asymptomatic of any active bleeding. Patient states she is still awaiting gastroenterology consult at this time. Patient states that she continues to have elevated blood sugars but believes it is due to the steroids she is taking. The patient is being closely monitored at this time. Patient denies any chest pain or palpitations. Patient denies any fevers at this time. Patient was given 1 unit of PRBCs yesterday and awaiting another transfusion today for a hemoglobin of 6.8 Objective - Vital Signs Vital signs: Vital Signs Temp 98.1 F 02/26/19 13:59 Pulse 80 02/26/19 15:39 Resp 18 02/26/19 13:59 BP 130/60 02/26/19 13:59 Pulse Ox 97 02/26/19 13:59 Intake & Output 02/25/19 02/26/19 02/26/19 18:59 06:59 18:59 Intake Total 687.608 51.134 928.833 Output Total 250 Balance 687.608 -198.866 928.833 Weight 89.6 kg Intake: IV 40 20 Invasive Line 1 40 20 Intake, IV Titration 97.608 31.134 36.833 Amount Insulin Regular 100 unit 97.608 31.134 36.833 In Sodium Chloride 0.9% 100 ml @ Titrate IV .Q0M [facility] Rx#:[id number] Oral 240 582 Blood Product 310 310 As-1 Unit 310 [id number] As-1 Unit 310 [id number] Output: Urine 250 Other: Voiding Method Bedside Commode # Voids 1 1 # Bowel Movements 2 - Exam On exam patient is a&o 3 and receiving a breathing treatment at this time. Vital signs are stable. HEENT: Conjunctivae is pale, EOMs intact Neck: No JVD noted, supple Cardiovascular: S1, S2 muffled, no murmurs heard Respiratory: Breath sounds diminished bilaterally in the lower lobes, scattered rhonchi and crackles noted throughout, expiratory wheezing noted Abdomen: Soft, non-tender Legs: No edema or swelling noted Nervous system: No focal deficits, moves all 4 limbs equally Skin: No rashes or ulcers noted Labs: Hemoglobin 6.8, WBCs 11.0, sodium 139, potassium 4.6, current glucose 234 Assessment: 1. Chronic obstructive pulmonary disease, acute exacerbation with bilateral pneumonia, right more than left with possibly gram-negative possibly with acute hypoxic respiratory failure 2. Possible upper gastrointestinal bleeding with blood loss anemia, rule out peptic ulcer disease, acute 3. Increased WBC 4. Hypernatremia 5. Hyperkalemia 6. Diabetes mellitus type 2, uncontrolled 7. Troponin 0.05 to. Possible acute non-ST segment elevation myocardial infarction 8. History of takotsubo cardiomyopathy and the most recent 2-D echo showing improved ejection fraction of 50-55% 9. History of asthma 10. Chronic obstructive pulmonary disease 11. History of congestive heart failure 12. Diabetes mellitus 2 13. Gastroesophageal reflux disease 14. Hypertension 15. Hyperlipidemia 16. History of pneumonia 17. History of sleep apnea 18. History of advanced chronic obstructive pulmonary disease 19. History of cardiac catheterization with normal coronary arteries 20. History of anxiety, depression 21. No code with instructions Recommendations and discussion: In this 68-year-old woman who is presented with multiple complex medical issues, we will continue to monitor the patient closely. Continue with the current medications and symptomatic treatment. We'll continue with hemoglobin and hematocrit labs every 6 hours. patient is to receive another unit of PRBCs today. We'll monitor labs closely. Will await gastroenterology consult. We will continue to monitor the blood sugars closely and continued steroid therapy. We'll decrease the dose of steroids to 40 mg every 8 hours. Will recheck with a.m. labs. Guarded prognosis due to the multiple complex medical issues. Further recommendations to follow - Constitutional General appearance: Present: mild distress, obese - Labs CBC & Chem 7: 02/26/19 06:28 02/26/19 06:27 Labs: Abnormal Lab Results - Last 24 Hours (Table) 02/25/19 02/25/19 02/25/19 Range/Units 05:55 06:55 16:46 WBC (3.8-10.6) k/uL RBC (3.80-5.40) m/uL Hgb (11.4-16.0) gm/dL Hct (34.0-46.0) % MCHC (31.0-37.0) g/dL RDW (11.5-15.5) % Neutrophils # (1.3-7.7) k/uL Chloride (98-107) mmol/L BUN (7-17) mg/dL Glucose (74-99) mg/dL POC Glucose (mg/dL) 291 H (75-99) mg/dL Calcium (8.4-10.2) mg/dL Vitamin B12 1313.0 H (200.0-944.0) pg/mL Crossmatch See Detail 02/25/19 02/25/19 02/25/19 Range/Units 18:40 20:37 22:36 WBC (3.8-10.6) k/uL RBC (3.80-5.40) m/uL Hgb (11.4-16.0) gm/dL Hct (34.0-46.0) % MCHC (31.0-37.0) g/dL RDW (11.5-15.5) % Neutrophils # (1.3-7.7) k/uL Chloride (98-107) mmol/L BUN (7-17) mg/dL Glucose (74-99) mg/dL POC Glucose (mg/dL) 347 H 230 H 200 H (75-99) mg/dL Calcium (8.4-10.2) mg/dL Vitamin B12 (200.0-944.0) pg/mL Crossmatch 02/26/19 02/26/19 02/26/19 Range/Units 00:25 02:33 04:50 WBC (3.8-10.6) k/uL RBC (3.80-5.40) m/uL Hgb (11.4-16.0) gm/dL Hct (34.0-46.0) % MCHC (31.0-37.0) g/dL RDW (11.5-15.5) % Neutrophils # (1.3-7.7) k/uL Chloride (98-107) mmol/L BUN (7-17) mg/dL Glucose (74-99) mg/dL POC Glucose (mg/dL) 178 H 206 H 213 H (75-99) mg/dL Calcium (8.4-10.2) mg/dL Vitamin B12 (200.0-944.0) pg/mL Crossmatch 02/26/19 02/26/19 02/26/19 Range/Units 06:27 06:28 06:38 WBC 11.0 H (3.8-10.6) k/uL RBC 2.33 L (3.80-5.40) m/uL Hgb 6.8 L* (11.4-16.0) gm/dL Hct 22.2 L (34.0-46.0) % MCHC 30.7 L (31.0-37.0) g/dL RDW 16.8 H (11.5-15.5) % Neutrophils # 9.1 H (1.3-7.7) k/uL Chloride 109 H (98-107) mmol/L BUN 39 H (7-17) mg/dL Glucose 184 H (74-99) mg/dL POC Glucose (mg/dL) 207 H (75-99) mg/dL Calcium 8.0 L (8.4-10.2) mg/dL Vitamin B12 (200.0-944.0) pg/mL Crossmatch 02/26/19 02/26/19 02/26/19 Range/Units 08:40 10:30 12:10 WBC (3.8-10.6) k/uL RBC (3.80-5.40) m/uL Hgb (11.4-16.0) gm/dL Hct (34.0-46.0) % MCHC (31.0-37.0) g/dL RDW (11.5-15.5) % Neutrophils # (1.3-7.7) k/uL Chloride (98-107) mmol/L BUN (7-17) mg/dL Glucose (74-99) mg/dL POC Glucose (mg/dL) 250 H 189 H 171 H (75-99) mg/dL Calcium (8.4-10.2) mg/dL Vitamin B12 (200.0-944.0) pg/mL Crossmatch 02/26/19 02/26/19 Range/Units 14:15 16:29 WBC (3.8-10.6) k/uL RBC (3.80-5.40) m/uL Hgb (11.4-16.0) gm/dL Hct (34.0-46.0) % MCHC (31.0-37.0) g/dL RDW (11.5-15.5) % Neutrophils # (1.3-7.7) k/uL Chloride (98-107) mmol/L BUN (7-17) mg/dL Glucose (74-99) mg/dL POC Glucose (mg/dL) 211 H 234 H (75-99) mg/dL Calcium (8.4-10.2) mg/dL Vitamin B12 (200.0-944.0) pg/mL Crossmatch Microbiology - Last 24 Hours (Table) 02/23/19 12:01 Blood Culture - Preliminary Blood No Growth after 72 hours 02/23/19 10:53 Blood Culture - Preliminary Blood No Growth after 72 hours 02/23/19 Unknown Gram Stain - Final Sputum Sputum Culture - Final 02/22/19 23:43 Blood Culture - Preliminary Blood No Growth after 72 hours
[2019-02-26 19:32] LABS: Glucose,Whole Blood 304 mg/dL (75-99)
[2019-02-26] MEDS: ATORVASTATIN 20 MG TAB PO SCH (20:27)
[2019-02-26] MEDS: LEVOFLOXACIN 750 MG TAB PO SCH (20:27)
[2019-02-26 21:26] LABS: Glucose,Whole Blood 236 mg/dL (75-99)
[2019-02-26] MEDS: INSULIN REGULAR 100 UNIT in SODIUM CHLORIDE 0.9% 100 ML IV SCH (22:05)
[2019-02-26 23:34] LABS: Glucose,Whole Blood 219 mg/dL (75-99)
[2019-02-27 01:30] LABS: Glucose,Whole Blood 181 mg/dL (75-99)
[2019-02-27 03:24] LABS: Glucose,Whole Blood 183 mg/dL (75-99)
[2019-02-27] MEDS: PIPERACILLIN-TAZOBACTAM 3.375 GM in SODIUM CHLORIDE 0.9% 100 ML IVPB SCH ×3 (03:28→20:55)
[2019-02-27] MEDS: SODIUM CHLORIDE 0.9% 1,000 ML IV SCH (05:18)
[2019-02-27 05:38] LABS: Glucose,Whole Blood 190 mg/dL (75-99)
[2019-02-27] MEDS: LEVOTHYROXINE 100 MCG TAB PO SCH (06:15)
[2019-02-27] MEDS: INSULIN ASPART (NovoLOG) 100 UNIT/ML VIAL SQ SCH ×3 (07:09→17:26)
[2019-02-27 07:10] LABS: Glucose,Whole Blood 180 mg/dL (75-99)
[2019-02-27 07:36] LABS: Anisocytosis Slight; Basophils # (A) 0.1 k/uL (0-0.2); Basophils % (A) 1 %; Eosinophils % (A) 0 %; HGB 7.7 gm/dL (11.4-16.0); Hypochromasia Slight; Lymphocytes # (A) 1.1 k/uL (1.0-4.8); Lymphocytes % (A) 9 %; MCH 29.3 pg (25.0-35.0); MCV 91.8 fL (80.0-100.0); Mean Platelet Volume 7.2; Monocytes # (A) 0.7 k/uL (0-1.0); Monocytes % (A) 5 %; Neutrophils # (A) 10.7 k/uL (1.3-7.7); Neutrophils % (A) 83 %; Platelet Count 235 k/uL (150-450); RBC 2.61 m/uL (3.80-5.40); RDW 17.8 % (11.5-15.5)
[2019-02-27 07:48] LABS: Potassium 4.7 mmol/L (3.5-5.1)
[2019-02-27] MEDS: FORMOTEROL FUMARATE 20 MCG/2 ML NEBU INHALATION SCH ×2 (08:02→20:21)
[2019-02-27] MEDS: IPRATROPIUM-ALBUTEROL 3 ML NEB INHALATION SCH ×4 (08:02→20:09)
[2019-02-27] MEDS: BUDESONIDE 1 MG/2 ML NEBU INHALATION SCH ×2 (08:02→20:09)
[2019-02-27] MEDS: PANTOPRAZOLE 40 MG/10 ML VIAL IVP SCH ×2 (09:17→20:53)
[2019-02-27] MEDS: THEOPHYLLINE 24 HOUR 300 MG CAP.ER.24H PO SCH ×2 (09:17→20:54)
[2019-02-27] MEDS: HYDROcodone/APAP 7.5-325MG 1 EACH TAB PO PRN ×2 (09:17→17:01)
[2019-02-27] MEDS: LISINOPRIL 20 MG TAB PO SCH ×2 (09:18→20:54)
[2019-02-27] MEDS: GABAPENTIN 400 MG CAP PO SCH ×3 (09:18→20:54)
[2019-02-27] MEDS: FLUoxetine HCL 20 MG CAP PO SCH (09:18)
[2019-02-27] MEDS: MONTELUKAST 10 MG TAB PO SCH (09:18)
[2019-02-27] MEDS: methylPREDNISolone SOD SUCCI 40 MG/ML 1 ML VIAL IV SCH ×2 (09:18→17:02)
[2019-02-27] MEDS: HEPARIN SODIUM,PORCINE 5,000 UNIT/ML 1 ML VIAL SQ SCH ×2 (09:18→20:53)
[2019-02-27] MEDS: NICOTINE 14MG/24HR PATCH TRANSDERM SCH (09:19)
[2019-02-27] MEDS: ISOSORBIDE MONONITRATE ER 15 MG TAB PO SCH (09:28)
[2019-02-27] MEDS: ALPRAZolam 1 MG TAB PO PRN ×2 (09:28→17:01)
[2019-02-27 09:38] LABS: Glucose,Whole Blood 161 mg/dL (75-99)
--- NOTE | 2019-02-27 10:15 | CDI ---
Documentation Clarification Form Date: 02/23/2019 10:57:00 AM From: Eli Torres RN, CCDS Admit Date: 02/23/2019 2:20:00 AM Patient Name: Sima Kelley Visit Number: [id number] Discharge Date: ATTENTION: The Clinical Documentation Specialists (CDI) and [facility] Coding Staff appreciate your assistance in clarifying documentation. Please respond to the clarification below the line at the bottom and electronically sign. The CDI & [facility] Coding staff will review the response and follow-up if needed. Please note: Queries are made part of the Legal Health Record. If you have any questions, please contact the author of this message via ITS. Dr. Akshat Wilson 02/23/19 Cardiology consult: Elevated troponins, likely secondary to supply demand mismatch. History/Risk Factors: COPD, Takostubo syndrome , Diabetes mellitus, Hypertension, CHF, current every day smoker Clinical Indicators: 68-year-old present with complaints of sudden onset shortness of breath and was hypoxic upon arrival of EMS. In the ED troponin was noted to be mildly elevated at 0.08, with subsequent troponins here of 0.152 and 0.116. She denies any complaints of chest discomfort. EKG showed sinus tachycardia with no ST-T wave abnormalities indicative of ischemia. CXR: Mild diffuse airspace opacities. suggestive recurrent mild pulmonary edema versus pneumonia. Vital signs: 141/61 93 20 99 % 5/L NC ECHO (06/05/18) EF 50-55 % Repeat ECHO -Pending Other Clinical Indicators: Respiratory exam: respiratory distress, wheezes, accessory muscle use, decreased breath sounds. Treatment: Telemetry monitoring Monitor labs Zosyn IV, Levaquin IV Imdur Po Lasix PO Zestril Po, In your professional opinion, can you please further clarify elevated troponins, likely secondary to acute hypoxic, supply demand mismatch ? Type 2 Myocardial infarction Non-ST elevated FL Ruled in Non-ST elevated FL Ruled out XXXX Demand ischemia without FL Other, please specify Unable to determine (Last Revision: November 2017) MTDD
[2019-02-27 11:24] VITALS: RESP 16
[2019-02-27 12:21] LABS: Glucose,Whole Blood 100 mg/dL (75-99)
--- NOTE | 2019-02-27 14:05 | P.PN ---
Subjective Progress Note Date: 02/27/19 Principal diagnosis: Acute hypoxemic respiratory failure secondary to an acute exacerbation of COPD and new left lower lobe pneumonia This 68-year-old white female patient with stage II COPD, with underlying FEV1 of 64% of predicted, prednisone dependent and regular use of AVAPS/BiPap at home for history of obstructive sleep apnea syndrome, chronic and ongoing nicotine dependence, common variable agammaglobulinemia and patient was unable to tolerate replacement therapy related to side effects, diabetes mellitus type 2, chronic sinusitis, hyperlipidemia, hypothyroidism, obesity, anxiety/depression, history of asthma, and patient is on a combination of Spiriva, Perforomist, Pulmicort, addition to maintenance dose of prednisone 10 mg daily for her COPD. She follows with Dr. Clements in the pulmonary clinic. She follows with Dr. Vera for primary care services. She presented to the hospital on 02/22/2019 with complaints of increasing symptoms of dyspnea, coughing, wheezing. Patient initially went to [facility] where she was evaluated and felt th at she would require hospital admission and she was transferred to [facility] for further management. Lab work revealed significant leukocytosis, with white blood cell count of 36.2, hemoglobin was 9.4, lately count was 387, sodium was 136, potassium is 5.4, chloride was 100, CO2 is 25, B1 is 23, creatinine 0.89, proBNP was mildly elevated at 1060, patient had evidence of elevated troponins of 0.152, 0.116, and 0.078. Patient does have history of chronic hypoxic respiratory failure, and history of chronic congestive heart failure with ejection fraction of 35-40%, history of takotsubo syndrome, and there was no evidence of coronary artery disease on coronary angiography in 2016. Chest x-ray was completed at [facility] showing evidence of new left lower lobe pneumonia. Chest x-ray on arrival at [facility] showed mild diffuse airspace opacities throughout both lungs greater on the right suggesting mild pulmonary edema versus pneumonia, with an area of concern in the right upper lobe. Patient has been started on Zosyn and Levaquin, breathing treatments, IV steroids and nebulized bronchodilators. She was evaluated with cardiology, she denies any chest pain, and EKG showed sinus rhythm without ischemic changes. Currently her FiO2 is at 7 L/m, and her pulse ox is 100%. Patient has been afebrile since admission, hemodynamically stable, she still has some shortness of breath cough and congestion production of some phlegm. Blood cultures and sputum cultures have been ordered. The patient is seen today 02/24/2019 in follow-up on the selective care unit. She is currently resting comfortably in bed. Awake and alert in no acute distr ess. Wheezing easier today as compared to yesterday. Currently on 4 L high flow nasal cannula and maintaining O2 saturations in the high 90s. She's afebrile. Hemodynamically stable. Blood culture reveals no growth to date. Sputum culture pending. White count 16.8. Hemoglobin 7.7. Creatinine 0.82. She remains on DuoNeb inhalations, Pulmicort and Perforomist inhalations, IV Solu-Medrol, theophylline. She is on antibiotics in the form of Zosyn. NicoDerm patch is in place. On 02/25/2019 patient seen in follow-up on selective care unit, apparently patient started passing dark tarry stools, and today's labs revealed a drop in hemoglobin to 6.6 from 7.7 on yesterday's labs. Patient is being transfused with 1 unit of packed red blood cells. Normotensive, not tachycardic, afebrile, on 3 L of oxygen her pulse ox of 99%. No worsening shortness of breath. Blood and sputum cultures are pending. Afebrile. He is on Levaquin and Zosyn for antibiotic coverage. On 02/26/2019 patient is seen in follow-up care unit. She is awake and alert, no acute distress, she is currently down to 2 L of oxygen and the pulse ox of 99%, she is afebrile, hemodynamically patient is stable. Sounds reveal a few rales and rhonchi. Otherwise no acute distress, is no cough with production of whitish sputum. No fever or chills. Hemoptysis, no chest pain. Yesterday patient had 3 episodes of dark tarry stools, one episode through the night. Today's hemoglobin is 6.8, and patient will be given another unit of packed red blood cells, GI service consultation been requested, and patient is being scheduled for EGD. On 02/27/2019 patient seen in follow-up on selective care unit, she is resting c omfortably in bed, she has not had any further episodes of bleeding since the night before last. She states her breathing is improving, although her lung sounds are still positive for some congestion, scattered rhonchi and today's exam, FiO2 is currently at 3.5 L and her pulse ox is 100%, can probably turned down further. no Fever or chills, complains of abdominal pain, today's labs have been reviewed, showing hemoglobin of 7.7, Objective - Vital Signs Vital signs: Vital Signs Temp 98.8 F 02/27/19 08:00 Pulse 81 02/27/19 12:00 Resp 16 02/27/19 12:00 BP 146/89 02/27/19 12:00 Pulse Ox 100 02/27/19 08:02 Intake & Output 02/26/19 02/27/19 02/27/19 18:59 06:59 18:59 Intake Total 1164.833 73.199 364.7 Balance 1164.833 73.199 364.7 Weight 87 kg Intake: IV 10 Invasive Line 3 10 Intake, IV Titration 36.833 63.199 4.7 Amount Insulin Regular 100 unit 36.833 63.199 4.7 In Sodium Chloride 0.9% 100 ml @ Titrate IV .Q0M EMERITA Rx#:[id number] Oral 818 360 Blood Product 310 Rc As-1 Unit 310 [id number] Other: Voiding Method Toilet Toilet # Voids 2 1 - Exam GENERAL EXAM: Alert, pleasant, 68-year-old white female, on 3 L of oxygen, comfortable in no apparent distress. HEAD: Normocephalic/atraumatic. EYES: Normal reaction of pupils, equal size. Conjunctiva pink, sclera white. NOSE: Clear with pink turbinates. THROAT: No erythema or exudates. NECK: No masses, no JVD, no thyroid enlargement, no adenopathy. CHEST: No chest wall deformity. Symmetrical expansion. LUNGS: Equal air entry with scattered rhonchi, and a few rales CVS: Regular rate and rhythm, normal S1 and S2, no gallops, no murmurs, no rubs ABDOMEN: Soft, nontender. No hepatosplenomegaly, normal bowel sounds, no guarding or rigidity. EXTREMITIES: No clubbing, no edema, no cyanosis, 2+ pulses and upper and lower extremities. MUSCULOSKELETAL: Muscle strength and tone normal. SPINE: No scoliosis or deformity SKIN: No rashes CENTRAL NERVOUS SYSTEM: Alert and oriented -3. No focal deficits, tone is normal in all 4 extremities. PSYCHIATRIC: Alert and oriented -3. Appropriate affect. Intact judgment and insight. - Labs CBC & Chem 7: 02/27/19 06:58 02/27/19 06:58 Labs: Abnormal Lab Results - Last 24 Hours (Table) 02/25/19 02/25/19 02/26/19 Range/Units 05:55 06:55 14:15 WBC (3.8-10.6) k/uL RBC (3.80-5.40) m/uL Hgb (11.4-16.0) gm/dL Hct (34.0-46.0) % RDW (11.5-15.5) % Neutrophils # (1.3-7.7) k/uL Chloride (98-107) mmol/L BUN (7-17) mg/dL Glucose (74-99) mg/dL POC Glucose (mg/dL) 211 H (75-99) mg/dL Calcium (8.4-10.2) mg/dL RBC Folate 1,286 H (280 - 791) ng/mL Crossmatch See Detail 02/26/19 02/26/19 02/26/19 Range/Units 16:22 16:29 19:13 WBC 14.6 H (3.8-10.6) k/uL RBC 2.66 L (3.80-5.40) m/uL Hgb 7.8 L (11.4-16.0) gm/dL Hct 24.6 L (34.0-46.0) % RDW 17.0 H (11.5-15.5) % Neutrophils # 11.6 H (1.3-7.7) k/uL Chloride (98-107) mmol/L BUN (7-17) mg/dL Glucose (74-99) mg/dL POC Glucose (mg/dL) 234 H 304 H (75-99) mg/dL Calcium (8.4-10.2) mg/dL RBC Folate (280 - 791) ng/mL Crossmatch 02/26/19 02/26/19 02/27/19 Range/Units 21:25 23:32 01:28 WBC (3.8-10.6) k/uL RBC (3.80-5.40) m/uL Hgb (11.4-16.0) gm/dL Hct (34.0-46.0) % RDW (11.5-15.5) % Neutrophils # (1.3-7.7) k/uL Chloride (98-107) mmol/L BUN (7-17) mg/dL Glucose (74-99) mg/dL POC Glucose (mg/dL) 236 H 219 H 181 H (75-99) mg/dL Calcium (8.4-10.2) mg/dL RBC Folate (280 - 791) ng/mL Crossmatch 02/27/19 02/27/19 02/27/19 Range/Units 03:23 05:33 06:58 WBC 13.0 H (3.8-10.6) k/uL RBC 2.61 L (3.80-5.40) m/uL Hgb 7.7 L (11.4-16.0) gm/dL Hct 24.0 L (34.0-46.0) % RDW 17.8 H (11.5-15.5) % Neutrophils # 10.7 H (1.3-7.7) k/uL Chloride (98-107) mmol/L BUN (7-17) mg/dL Glucose (74-99) mg/dL POC Glucose (mg/dL) 183 H 190 H (75-99) mg/dL Calcium (8.4-10.2) mg/dL RBC Folate (280 - 791) ng/mL Crossmatch 02/27/19 02/27/19 02/27/19 Range/Units 06:58 07:09 09:35 WBC (3.8-10.6) k/uL RBC (3.80-5.40) m/uL Hgb (11.4-16.0) gm/dL Hct (34.0-46.0) % RDW (11.5-15.5) % Neutrophils # (1.3-7.7) k/uL Chloride 109 H (98-107) mmol/L BUN 35 H (7-17) mg/dL Glucose 165 H (74-99) mg/dL POC Glucose (mg/dL) 180 H 161 H (75-99) mg/dL Calcium 8.0 L (8.4-10.2) mg/dL RBC Folate (280 - 791) ng/mL Crossmatch 02/27/19 Range/Units 11:49 WBC (3.8-10.6) k/uL RBC (3.80-5.40) m/uL Hgb (11.4-16.0) gm/dL Hct (34.0-46.0) % RDW (11.5-15.5) % Neutrophils # (1.3-7.7) k/uL Chloride (98-107) mmol/L BUN (7-17) mg/dL Glucose (74-99) mg/dL POC Glucose (mg/dL) 100 H (75-99) mg/dL Calcium (8.4-10.2) mg/dL RBC Folate (280 - 791) ng/mL Crossmatch Microbiology - Last 24 Hours (Table) 02/23/19 10:53 Blood Culture - Preliminary Blood No Growth after 96 hours 02/22/19 23:43 Blood Culture - Preliminary Blood No Growth after 96 hours 02/23/19 12:01 Blood Culture - Preliminary Blood No Growth after 72 hours 02/23/19 Unknown Gram Stain - Final Sputum Sputum Culture - Final Assessment and Plan Plan: Assessment: #1. Acute on chronic hypoxic respiratory failure related to acute exacerbation of COPD complicated by pneumonia, community acquired #2. Stage III COPD, steroid and oxygen dependent, with FEV1 of 1.02 L or 54% of predicted #3. Troponin elevation, possibly related to worsening hypoxic respiratory failure cardiology is following #4. Acute leukocytosis related to pneumonia, improving #5. Steroid-induced hyperglycemia #6. Obstructive sleep apnea, and patient is on AVAPS/BIpap at home #7. Morbid obesity #8. Common variable agammaglobulinemia, unable to tolerate replacement therapy due to side effects #9. History of pulmonary pseudomonal infection #10. Chronic and ongoing history of nicotine abuse, patient carries at least [id number] smoking history #11. History of Tacotsubo cardiomyopathy with most recent echocardiogram with EF of 50-55% #12. Hypertention #13. Diabetes mellitus with peripheral neuropathy #14. Anxiety/depression #15. Acute GI blood loss anemia, requiring transfusion with 2 units of packed red blood cells, patient is passing dark stools Plan: Will continue current medical treatment, IV steroids, nebulized bronchodilators, oral Lasix. No further bleeding last 24 hours, today's hemoglobin is 7.7, remains on PPI therapy, EGD planned for tomorrow. Wean FiO2, increase activity as tolerated, cultures are negative thus far, continues is on Zosyn and Levaquin. From pulmonary perspective patient is doing well, and he considered for discharge home once cleared from GI perspective I performed a history & physical examination of the patient and discussed their management with my nurse practitioner, oSphia Lombardi. I reviewed the nurse pra ctitioner's note and agree with the documented findings and plan of care. Lung sounds are positive for wheezes and rhonchi. The findings and the impression was discussed with the patient. I attest to the documentation by the nurse practitioner. Time with Patient: Less than 30
--- NOTE | 2019-02-27 14:13 | P.PN ---
Subjective Progress Note Date: 02/27/19 Principal diagnosis: GI bleed anemia melena No active bleeding. Hemoglobin 7.7. Tolerating diet. Denies abdominal pain. Objective - Vital Signs Vital signs: Vital Signs Temp 98.8 F 02/27/19 08:00 Pulse 81 02/27/19 12:00 Resp 16 02/27/19 12:00 BP 146/89 02/27/19 12:00 Pulse Ox 100 02/27/19 08:02 Intake & Output 02/26/19 02/27/19 02/27/19 18:59 06:59 18:59 Intake Total 1164.833 73.199 364.7 Balance 1164.833 73.199 364.7 Weight 87 kg Intake: IV 10 Invasive Line 3 10 Intake, IV Titration 36.833 63.199 4.7 Amount Insulin Regular 100 unit 36.833 63.199 4.7 In Sodium Chloride 0.9% 100 ml @ Titrate IV .Q0M EMERITA Rx#:[id number] Oral 818 360 Blood Product 310 Rc As-1 Unit 310 [id number] Other: Voiding Method Toilet Toilet # Voids 2 1 - Exam General appearance: The patient is alert, oriented, in no acute distress. HET: Head is normocephalic and atraumatic. Pupils are equal and reactive. Oropharynx is clear without lesions. Neck: Supple without lymphadenopathy. Trachea midline. Heart: S1 S2. Regular rate and rhythm. Lungs: Slight diminishment in bilateral bases. Abdomen: Soft, nontender, nondistended with bowel sounds. No peritoneal signs. No palpable organomegaly or masses. Extremities: Normal skin color and turgor. No cyanosis, rash, ulceration, clubbing, or edema. Radial and pedal pulses are 2/4 bilaterally. Neurological: No focal deficits. Strength and sensation are grossly intact. - Labs CBC & Chem 7: 02/27/19 06:58 02/27/19 06:58 Labs: Abnormal Lab Results - Last 24 Hours (Table) 02/25/19 02/26/19 02/26/19 Range/Units 05:55 14:15 16:22 WBC 14.6 H (3.8-10.6) k/uL RBC 2.66 L (3.80-5.40) m/uL Hgb 7.8 L (11.4-16.0) gm/dL Hct 24.6 L (34.0-46.0) % RDW 17.0 H (11.5-15.5) % Neutrophils # 11.6 H (1.3-7.7) k/uL Chloride (98-107) mmol/L BUN (7-17) mg/dL Glucose (74-99) mg/dL POC Glucose (mg/dL) 211 H (75-99) mg/dL Calcium (8.4-10.2) mg/dL RBC Folate 1,286 H (280 - 791) ng/mL 02/26/19 02/26/19 02/26/19 Range/Units 16:29 19:13 21:25 WBC (3.8-10.6) k/uL RBC (3.80-5.40) m/uL Hgb (11.4-16.0) gm/dL Hct (34.0-46.0) % RDW (11.5-15.5) % Neutrophils # (1.3-7.7) k/uL Chloride (98-107) mmol/L BUN (7-17) mg/dL Glucose (74-99) mg/dL POC Glucose (mg/dL) 234 H 304 H 236 H (75-99) mg/dL Calcium (8.4-10.2) mg/dL RBC Folate (280 - 791) ng/mL 02/26/19 02/27/19 02/27/19 Range/Units 23:32 01:28 03:23 WBC (3.8-10.6) k/uL RBC (3.80-5.40) m/uL Hgb (11.4-16.0) gm/dL Hct (34.0-46.0) % RDW (11.5-15.5) % Neutrophils # (1.3-7.7) k/uL Chloride (98-107) mmol/L BUN (7-17) mg/dL Glucose (74-99) mg/dL POC Glucose (mg/dL) 219 H 181 H 183 H (75-99) mg/dL Calcium (8.4-10.2) mg/dL RBC Folate (280 - 791) ng/mL 02/27/19 02/27/19 02/27/19 Range/Units 05:33 06:58 06:58 WBC 13.0 H (3.8-10.6) k/uL RBC 2.61 L (3.80-5.40) m/uL Hgb 7.7 L (11.4-16.0) gm/dL Hct 24.0 L (34.0-46.0) % RDW 17.8 H (11.5-15.5) % Neutrophils # 10.7 H (1.3-7.7) k/uL Chloride 109 H (98-107) mmol/L BUN 35 H (7-17) mg/dL Glucose 165 H (74-99) mg/dL POC Glucose (mg/dL) 190 H (75-99) mg/dL Calcium 8.0 L (8.4-10.2) mg/dL RBC Folate (280 - 791) ng/mL 02/27/19 02/27/19 02/27/19 Range/Units 07:09 09:35 11:49 WBC (3.8-10.6) k/uL RBC (3.80-5.40) m/uL Hgb (11.4-16.0) gm/dL Hct (34.0-46.0) % RDW (11.5-15.5) % Neutrophils # (1.3-7.7) k/uL Chloride (98-107) mmol/L BUN (7-17) mg/dL Glucose (74-99) mg/dL POC Glucose (mg/dL) 180 H 161 H 100 H (75-99) mg/dL Calcium (8.4-10.2) mg/dL RBC Folate (280 - 791) ng/mL Microbiology - Last 24 Hours (Table) 02/23/19 12:01 Blood Culture - Preliminary Blood No Growth after 96 hours 02/23/19 10:53 Blood Culture - Preliminary Blood No Growth after 96 hours 02/22/19 23:43 Blood Culture - Preliminary Blood No Growth after 96 hours 02/23/19 Unknown Gram Stain - Final Sputum Sputum Culture - Final Assessment and Plan Assessment: Impression: 1. Normocytic anemia hypochromic with component of acute blood loss reports of dark-colored bowel movements progressive elevated BUN suspect upper GI pathology however small bowel colonic source can't be excluded. 2. Acute on chronic hypoxic respiratory failure related to acute exacerbation of COPD, complicated by pneumonia community-acquired. 3. Stage III COPD O2 steroid dependent. 4. Morbid obesity. Plan: 1. EGD colonoscopy was advised however she declines colonoscopy. We'll proceed with EGD evaluation. Case was discussed with pulmonology team they agreeable for EGD evaluation. CBC monitoring. Protonix 40 mg daily. We'll follow closely with you. Plan: 1. Protonix 40 mg twice daily. EGD evaluation in a.m. CBC monitoring. Nothing by mouth after midnight. Will follow closely with you. The mail room clerk has discussed the risks, benefits and alternative therapies for the above-mentioned procedure and for both sedation/analgesia as well as necessary blood product administration, if indicated, as they pertain to this patient. The patient has indicated understanding and acceptance of the risks and procedures discussed. Assessment and plan a care discussed with Dr. Burgess
[2019-02-27 14:51] LABS: Glucose,Whole Blood 240 mg/dL (75-99)
[2019-02-27 17:29] LABS: Glucose,Whole Blood 259 mg/dL (75-99)
--- NOTE | 2019-02-27 19:14 | P.PN ---
Subjective Progress Note Date: 02/27/19 Principal diagnosis: Acute on chronic hypoxic respiratory failure secondary to COPD Anemia possibly due to blood loss This is a pleasant 68-year-old female who was admitted with shortness of breath, possible pneumonia, and had abdominal pain with dark stools. Patient is still having some shortness of breath with cough and phlegm production today. Patient states that she had one formed black stool yesterday otherwise is asymptomatic of any active bleeding. Patient states she is still awaiting gastroenterology consult at this time. Patient states that she continues to have elevated blood sugars but believes it is due to the steroids she is taking. The patient is being closely monitored at this time. Patient denies any chest pain or palpitations. Patient denies any fevers at this time. Patient was given 1 unit of PRBCs yesterday and awaiting another transfusion today for a hemoglobin of 6.8 02/27/2019 Patient says that her breathing is better. No complaints of chest pain. Hemoglobin is 7.7 today. GI is planning for endoscopy tomorrow. Patient refused to get colonoscopy. Otherwise patient is being continued on IV steroids, DuoNeb's and oxygen therapy. Patient does have scattered rhonchi. Wheezing improved. No fever no chills. No nausea vomiting or abdominal pain. No other acute overnight issues. Active Medications Generic Name Dose Route Start Last Admin Trade Name Freq PRN Reason Stop Dose Admin Acetaminophen 500 mg 02/23/19 14:42 Tylenol Tab PO Q6HR PRN Fever and/ or Pain Hydrocodone Bitart/Acetaminophen 1 each 02/23/19 14:38 02/27/19 17:01 [place] 7.5-325 PO 1 each TID PRN Administration Pain Albuterol/Ipratropium 3 ml 02/23/19 16:00 02/27/19 17:09 Duoneb 0.5 Mg-3 Mg/3 Ml Soln INHALATION 3 ml RT-QID EMERITA Administration Alprazolam 1 mg 02/23/19 14:38 02/27/19 17:01 Xanax PO 1 mg TID PRN Administration Anxiety Atorvastatin Calcium 20 mg 02/23/19 21:00 02/26/19 20:27 Lipitor PO 20 mg HS EMERITA Administration Budesonide 1 mg 02/23/19 20:00 02/27/19 08:02 Pulmicort INHALATION 1 mg RT-BID EMERITA Administration Fluoxetine HCl 20 mg 02/23/19 14:45 02/27/19 09:18 Prozac PO 20 mg DAILY EMERITA Administration Formoterol Fumarate 20 mcg 02/23/19 20:00 02/27/19 08:02 Perforomist INHALATION 20 mcg RT-BID EMERITA Administration Furosemide 40 mg 02/23/19 09:17 Lasix PO DAILY PRN Edema Gabapentin 800 mg 02/23/19 16:00 02/27/19 17:01 Neurontin PO 800 mg TID EMERITA Administration Heparin Sodium (Porcine) 5,000 unit 02/23/19 21:00 02/27/19 09:18 Heparin SQ 5,000 unit Q12HR EMERITA Administration Piperacillin Sod/Tazobactam 100 mls @ 25 mls/hr 02/23/19 11:00 02/27/19 16:52 Sod 3.375 gm/ Sodium Chloride IVPB Not Given Q8H EMERITA Sodium Chloride 1,000 mls @ 20 mls/hr 02/23/19 02:30 02/27/19 05:18 Saline 0.9% IV Not Given .Q24H EMERITA Insulin Human Regular 100 unit 101 mls @ 0 mls/hr 02/25/19 07:00 02/27/19 17:26 / Sodium Chloride IV 4.95 units/hr .Q0M EMERITA 5 mls/hr Titration Protocol Titrate Insulin Aspart 11 unit 02/25/19 07:30 02/27/19 17:26 Novolog 0.13 unit/kg (11 unit) Not Given SQ AC-TID EMERITA Isosorbide Mononitrate 15 mg 02/23/19 09:30 02/27/19 09:28 Imdur PO 15 mg DAILY EMERITA Administration Levofloxacin 750 mg 02/24/19 21:00 02/26/19 20:27 Levaquin PO 750 mg Q48H EMERITA Administration Levothyroxine Sodium 200 mcg 02/24/19 06:30 02/27/19 06:15 Synthroid PO 200 mcg 0630 EMERITA Administration Lisinopril 20 mg 02/23/19 09:30 02/27/19 09:18 Zestril PO 20 mg BID EMERITA Administration Methylprednisolone Sodium Succinate 40 mg 02/26/19 16:00 02/27/19 17:02 Solu-Medrol IV 40 mg Q8HR EMERITA Administration Miscellaneous Information 1 each 02/23/19 02:20 Pneumonia Protocol Utilized PO ONCE PRN Per Protocol Montelukast Sodium 10 mg 02/24/19 09:00 02/27/19 09:18 Singulair PO 10 mg DAILY EMERITA Administration Nicotine 1 patch 02/23/19 14:45 02/27/19 09:19 Habitrol 14mg/24hr Patch TRANSDERM 1 patch DAILY EMERITA Administration Pantoprazole Sodium 40 mg 02/25/19 12:15 02/27/19 09:17 Protonix IVP 40 mg BID EMERITA Administration Temazepam 15 mg 02/23/19 14:42 Restoril PO HS PRN Insomnia Theophylline 300 mg 02/23/19 21:00 02/27/19 09:17 Chris-24 PO 300 mg BID EMERITA Administration Objective - Vital Signs Vital signs: Vital Signs Temp 98.8 F 02/27/19 08:00 Pulse 81 02/27/19 12:00 Resp 16 02/27/19 12:00 BP 146/89 02/27/19 12:00 Pulse Ox 100 02/27/19 08:02 Intake & Output 02/26/19 02/27/19 02/27/19 18:59 06:59 18:59 Intake Total 1164.833 73.199 364.7 Balance 1164.833 73.199 364.7 Weight 87 kg Intake: IV 10 Invasive Line 3 10 Intake, IV Titration 36.833 63.199 4.7 Amount Insulin Regular 100 unit 36.833 63.199 4.7 In Sodium Chloride 0.9% 100 ml @ Titrate IV .Q0M EMERITA Rx#:[id number] Oral 818 360 Blood Product 310 Rc As-1 Unit 310 [id number] Other: Voiding Method Toilet Toilet # Voids 2 1 - Exam PHYSICAL EXAMINATION: Patient is lying in the bed comfortably, no acute distress, awake alert and oriented.. HEENT: Normocephalic. Neck is supple. Pupils reactive. Nostrils clear. Oral cavity is moist. Ears reveal no drainage. Neck reveals no JVD, carotid bruits, or thyromegaly. CHEST EXAMINATION: Trachea is central. Symmetrical expansion. Bilateral scattered rhonchi and mild expiratory wheeze.. CARDIAC: Normal S1, S2 with no gallops. No murmurs ABDOMEN: Soft. Bowel sounds normal. No organomegaly. No abdominal bruits. Extremities: reveal no edema. No clubbing or cyanosis Neurologically awake, alert, oriented x3 with well-coordinated movements. No focal deficits noted Skin: No rash or skin lesions. Psychiatric: Coperative. Nonsuicidal Musculoskeletal: No joint swelling or deformity. Normal range of motion. - Labs CBC & Chem 7: 02/27/19 06:58 02/27/19 06:58 Labs: Abnormal Lab Results - Last 24 Hours (Table) 02/25/19 02/26/19 02/26/19 Range/Units 05:55 14:15 16:22 WBC 14.6 H (3.8-10.6) k/uL RBC 2.66 L (3.80-5.40) m/uL Hgb 7.8 L (11.4-16.0) gm/dL Hct 24.6 L (34.0-46.0) % RDW 17.0 H (11.5-15.5) % Neutrophils # 11.6 H (1.3-7.7) k/uL Chloride (98-107) mmol/L BUN (7-17) mg/dL Glucose (74-99) mg/dL POC Glucose (mg/dL) 211 H (75-99) mg/dL Calcium (8.4-10.2) mg/dL RBC Folate 1,286 H (280 - 791) ng/mL 02/26/19 02/26/19 02/26/19 Range/Units 16:29 19:13 21:25 WBC (3.8-10.6) k/uL RBC (3.80-5.40) m/uL Hgb (11.4-16.0) gm/dL Hct (34.0-46.0) % RDW (11.5-15.5) % Neutrophils # (1.3-7.7) k/uL Chloride (98-107) mmol/L BUN (7-17) mg/dL Glucose (74-99) mg/dL POC Glucose (mg/dL) 234 H 304 H 236 H (75-99) mg/dL Calcium (8.4-10.2) mg/dL RBC Folate (280 - 791) ng/mL 02/26/19 02/27/19 02/27/19 Range/Units 23:32 01:28 03:23 WBC (3.8-10.6) k/uL RBC (3.80-5.40) m/uL Hgb (11.4-16.0) gm/dL Hct (34.0-46.0) % RDW (11.5-15.5) % Neutrophils # (1.3-7.7) k/uL Chloride (98-107) mmol/L BUN (7-17) mg/dL Glucose (74-99) mg/dL POC Glucose (mg/dL) 219 H 181 H 183 H (75-99) mg/dL Calcium (8.4-10.2) mg/dL RBC Folate (280 - 791) ng/mL 02/27/19 02/27/19 02/27/19 Range/Units 05:33 06:58 06:58 WBC 13.0 H (3.8-10.6) k/uL RBC 2.61 L (3.80-5.40) m/uL Hgb 7.7 L (11.4-16.0) gm/dL Hct 24.0 L (34.0-46.0) % RDW 17.8 H (11.5-15.5) % Neutrophils # 10.7 H (1.3-7.7) k/uL Chloride 109 H (98-107) mmol/L BUN 35 H (7-17) mg/dL Glucose 165 H (74-99) mg/dL POC Glucose (mg/dL) 190 H (75-99) mg/dL Calcium 8.0 L (8.4-10.2) mg/dL RBC Folate (280 - 791) ng/mL 02/27/19 02/27/19 02/27/19 Range/Units 07:09 09:35 11:49 WBC (3.8-10.6) k/uL RBC (3.80-5.40) m/uL Hgb (11.4-16.0) gm/dL Hct (34.0-46.0) % RDW (11.5-15.5) % Neutrophils # (1.3-7.7) k/uL Chloride (98-107) mmol/L BUN (7-17) mg/dL Glucose (74-99) mg/dL POC Glucose (mg/dL) 180 H 161 H 100 H (75-99) mg/dL Calcium (8.4-10.2) mg/dL RBC Folate (280 - 791) ng/mL Microbiology - Last 24 Hours (Table) 02/23/19 12:01 Blood Culture - Preliminary Blood No Growth after 96 hours 02/23/19 10:53 Blood Culture - Preliminary Blood No Growth after 96 hours 02/22/19 23:43 Blood Culture - Preliminary Blood No Growth after 96 hours 02/23/19 Unknown Gram Stain - Final Sputum Sputum Culture - Final Assessment and Plan Assessment: 1. Chronic obstructive pulmonary disease, acute exacerbation with bilateral pneumonia, right more than left with possibly gram-negative possibly with acute on chronic hypoxic respiratory failure. 2. Possible upper gastrointestinal bleeding with acute blood loss anemia, rule out peptic ulcer disease, acute 3. Increased WBC 4. Hypernatremia 5. Hyperkalemia 6. Diabetes mellitus type 2, uncontrolled 7. Troponin 0.05 to. Possible acute non-ST segment elevation myocardial infarction 8. History of takotsubo cardiomyopathy and the most recent 2-D echo showing improved ejection fraction of 50-55% 9. History of asthma 10. Chronic obstructive pulmonary disease 11. History of congestive heart failure 12. Diabetes mellitus 2 13. Gastroesophageal reflux disease 14. Hypertension 15. Hyperlipidemia 16. History of pneumonia 17. History of sleep apnea 18. History of advanced chronic obstructive pulmonary disease 19. History of cardiac catheterization with normal coronary arteries 20. History of anxiety, depression 21. No code with instructions Recommendations and discussion: In this 68-year-old woman who is presented with multiple complex medical issues, we will continue to monitor the patient closely. Continue with the current medications and symptomatic treatment. Monitor H&H closely.. We'll monitor labs closely. Will await gastroenterology consult. We will continue to monitor the blood sugars and continued steroid therapy. Increased the dose of steroids to 40 mg every 8 hours. Will recheck with a.m. labs. Guarded prognosis due to the multiple complex medical issues. Further recommendations to follow Time with Patient: Greater than 30
[2019-02-27 19:36] LABS: Glucose,Whole Blood 241 mg/dL (75-99)
[2019-02-27] MEDS: ATORVASTATIN 20 MG TAB PO SCH (20:54)
[2019-02-27 21:31] LABS: Glucose,Whole Blood 214 mg/dL (75-99)
[2019-02-27 23:34] LABS: Glucose,Whole Blood 198 mg/dL (75-99)
[2019-02-28] MEDS: methylPREDNISolone SOD SUCCI 40 MG/ML 1 ML VIAL IV SCH ×2 (00:41→09:04)
[2019-02-28] MEDS: INSULIN REGULAR 100 UNIT in SODIUM CHLORIDE 0.9% 100 ML IV SCH (01:23)
[2019-02-28 01:47] LABS: Glucose,Whole Blood 171 mg/dL (75-99)
[2019-02-28] MEDS: PIPERACILLIN-TAZOBACTAM 3.375 GM in SODIUM CHLORIDE 0.9% 100 ML IVPB SCH ×3 (02:43→21:09)
[2019-02-28 03:39] LABS: Glucose,Whole Blood 149 mg/dL (75-99)
[2019-02-28 05:34] LABS: Glucose,Whole Blood 195 mg/dL (75-99)
[2019-02-28] MEDS: ALPRAZolam 1 MG TAB PO PRN ×3 (05:53→21:22)
[2019-02-28] MEDS: LEVOTHYROXINE 100 MCG TAB PO SCH (05:53)
[2019-02-28 06:58] LABS: Anisocytosis Slight; Basophils # (A) 0.1 k/uL (0-0.2); Basophils % (A) 1 %; Eosinophils % (A) 0 %; HCT 23.2 % (34.0-46.0); HGB 7.3 gm/dL (11.4-16.0); Hypochromasia Slight; Lymphocytes # (A) 1.2 k/uL (1.0-4.8); Lymphocytes % (A) 8 %; MCH 29.7 pg (25.0-35.0); MCHC 31.5 g/dL (31.0-37.0); Mean Platelet Volume 7.1; Monocytes # (A) 0.6 k/uL (0-1.0); Monocytes % (A) 4 %; Neutrophils # (A) 12.5 k/uL (1.3-7.7); Neutrophils % (A) 85 %; Platelet Count 266 k/uL (150-450); RBC 2.47 m/uL (3.80-5.40); RDW 17.2 % (11.5-15.5); WBC 14.7 k/uL (3.8-10.6)
[2019-02-28 07:09] LABS: Calcium 8.3 mg/dL (8.4-10.2); Potassium 4.8 mmol/L (3.5-5.1)
[2019-02-28 07:26] LABS: Glucose,Whole Blood 200 mg/dL (75-99)
[2019-02-28] MEDS: INSULIN ASPART (NovoLOG) 100 UNIT/ML VIAL SQ SCH ×3 (08:51→21:24)
[2019-02-28] MEDS: PANTOPRAZOLE 40 MG/10 ML VIAL IVP SCH ×2 (09:04→21:22)
[2019-02-28] MEDS: HEPARIN SODIUM,PORCINE 5,000 UNIT/ML 1 ML VIAL SQ SCH ×2 (09:04→21:22)
[2019-02-28] MEDS: NICOTINE 14MG/24HR PATCH TRANSDERM SCH (09:05)
[2019-02-28 09:32] LABS: Glucose,Whole Blood 125 mg/dL (75-99)
[2019-02-28] MEDS: BUDESONIDE 1 MG/2 ML NEBU INHALATION SCH ×2 (09:40→19:52)
[2019-02-28] MEDS: IPRATROPIUM-ALBUTEROL 3 ML NEB INHALATION SCH ×4 (09:40→19:52)
[2019-02-28] MEDS: FORMOTEROL FUMARATE 20 MCG/2 ML NEBU INHALATION SCH ×2 (09:40→19:52)
--- NOTE | 2019-02-28 11:02 | P.PN ---
Subjective Progress Note Date: 02/28/19 Principal diagnosis: Acute hypoxemic respiratory failure secondary to an acute exacerbation of COPD and new left lower lobe pneumonia This 68-year-old white female patient with stage II COPD, with underlying FEV1 of 64% of predicted, prednisone dependent and regular use of AVAPS/BiPap at home for history of obstructive sleep apnea syndrome, chronic and ongoing nicotine dependence, common variable agammaglobulinemia and patient was unable to tolerate replacement therapy related to side effects, diabetes mellitus type 2, chronic sinusitis, hyperlipidemia, hypothyroidism, obesity, anxiety/depression, history of asthma, and patient is on a combination of Spiriva, Perforomist, Pulmicort, addition to maintenance dose of prednisone 10 mg daily for her COPD. She follows with Dr. Clements in the pulmonary clinic. She follows with Dr. Vera for primary care services. She presented to the hospital on 02/22/2019 with complaints of increasing symptoms of dyspnea, coughing, wheezing. Patient initially went to [facility] where she was evaluated and felt th at she would require hospital admission and she was transferred to [facility] for further management. Lab work revealed significant leukocytosis, with white blood cell count of 36.2, hemoglobin was 9.4, lately count was 387, sodium was 136, potassium is 5.4, chloride was 100, CO2 is 25, B1 is 23, creatinine 0.89, proBNP was mildly elevated at 1060, patient had evidence of elevated troponins of 0.152, 0.116, and 0.078. Patient does have history of chronic hypoxic respiratory failure, and history of chronic congestive heart failure with ejection fraction of 35-40%, history of takotsubo syndrome, and there was no evidence of coronary artery disease on coronary angiography in 2016. Chest x-ray was completed at [facility] showing evidence of new left lower lobe pneumonia. Chest x-ray on arrival at [facility] showed mild diffuse airspace opacities throughout both lungs greater on the right suggesting mild pulmonary edema versus pneumonia, with an area of concern in the right upper lobe. Patient has been started on Zosyn and Levaquin, breathing treatments, IV steroids and nebulized bronchodilators. She was evaluated with cardiology, she denies any chest pain, and EKG showed sinus rhythm without ischemic changes. Currently her FiO2 is at 7 L/m, and her pulse ox is 100%. Patient has been afebrile since admission, hemodynamically stable, she still has some shortness of breath cough and congestion production of some phlegm. Blood cultures and sputum cultures have been ordered. The patient is seen today 02/24/2019 in follow-up on the selective care unit. She is currently resting comfortably in bed. Awake and alert in no acute distr ess. Wheezing easier today as compared to yesterday. Currently on 4 L high flow nasal cannula and maintaining O2 saturations in the high 90s. She's afebrile. Hemodynamically stable. Blood culture reveals no growth to date. Sputum culture pending. White count 16.8. Hemoglobin 7.7. Creatinine 0.82. She remains on DuoNeb inhalations, Pulmicort and Perforomist inhalations, IV Solu-Medrol, theophylline. She is on antibiotics in the form of Zosyn. NicoDerm patch is in place. On 02/25/2019 patient seen in follow-up on selective care unit, apparently patient started passing dark tarry stools, and today's labs revealed a drop in hemoglobin to 6.6 from 7.7 on yesterday's labs. Patient is being transfused with 1 unit of packed red blood cells. Normotensive, not tachycardic, afebrile, on 3 L of oxygen her pulse ox of 99%. No worsening shortness of breath. Blood and sputum cultures are pending. Afebrile. He is on Levaquin and Zosyn for antibiotic coverage. On 02/26/2019 patient is seen in follow-up care unit. She is awake and alert, no acute distress, she is currently down to 2 L of oxygen and the pulse ox of 99%, she is afebrile, hemodynamically patient is stable. Sounds reveal a few rales and rhonchi. Otherwise no acute distress, is no cough with production of whitish sputum. No fever or chills. Hemoptysis, no chest pain. Yesterday patient had 3 episodes of dark tarry stools, one episode through the night. Today's hemoglobin is 6.8, and patient will be given another unit of packed red blood cells, GI service consultation been requested, and patient is being scheduled for EGD. On 02/27/2019 patient seen in follow-up on selective care unit, she is resting c omfortably in bed, she has not had any further episodes of bleeding since the night before last. She states her breathing is improving, although her lung sounds are still positive for some congestion, scattered rhonchi and today's exam, FiO2 is currently at 3.5 L and her pulse ox is 100%, can probably turned down further. no Fever or chills, complains of abdominal pain, today's labs have been reviewed, showing hemoglobin of 7.7 On 02/28/2019 patient seen in follow-up on selective care unit. From pulmonary perspective she continues to improve, was congested on today's exam, lung sounds are positive for some bibasilar crackles, no significant wheezing or rhonchi, patient has not had any further episodes of GI bleeding since the night before last. This morning's blood work has been reviewed, showing hemoglobin of 7.3, white blood cell count of 14.7, electrolytes are within normal limits, B1 is 36 and creatinine of 0.95. Remains on 4 L of oxygen without O2 sat of 100%, mild signs are stable, her EGD has been scheduled today for 11:30 in the morning. Objective - Vital Signs Vital signs: Vital Signs Temp 99.3 F 02/28/19 04:00 Pulse 64 02/28/19 10:07 Resp 16 02/28/19 08:00 BP 153/66 02/28/19 08:00 Pulse Ox 100 02/28/19 08:00 Intake & Output 02/27/19 02/28/19 02/28/19 18:59 06:59 18:59 Intake Total 635.55 438.084 Balance 635.55 438.084 Weight 86.8 kg Intake: Intake, IV Titration 35.55 38.084 Amount Insulin Regular 100 unit 35.55 38.084 In Sodium Chloride 0.9% 100 ml @ Titrate IV .Q0M EMERITA Rx#:[id number] Oral 600 400 Other: Voiding Method Toilet # Voids 1 3 1 - Exam GENERAL EXAM: Alert, pleasant, 68-year-old white female, on 4 L of oxygen, comfortable in no apparent distress. HEAD: Normocephalic/atraumatic. EYES: Normal reaction of pupils, equal size. Conjunctiva pink, sclera white. NOSE: Clear with pink turbinates. THROAT: No erythema or exudates. NECK: No masses, no JVD, no thyroid enlargement, no adenopathy. CHEST: No chest wall deformity. Symmetrical expansion. LUNGS: Equal air entry with scattered few rales CVS: Regular rate and rhythm, normal S1 and S2, no gallops, no murmurs, no rubs ABDOMEN: Soft, nontender. No hepatosplenomegaly, normal bowel sounds, no guarding or rigidity. EXTREMITIES: No clubbing, no edema, no cyanosis, 2+ pulses and upper and lower extremities. MUSCULOSKELETAL: Muscle strength and tone normal. SPINE: No scoliosis or deformity SKIN: No rashes CENTRAL NERVOUS SYSTEM: Alert and oriented -3. No focal deficits, tone is normal in all 4 extremities. PSYCHIATRIC: Alert and oriented -3. Appropriate affect. Intact judgment and insight. - Labs CBC & Chem 7: 02/28/19 06:33 02/28/19 06:33 Labs: Abnormal Lab Results - Last 24 Hours (Table) 02/25/19 02/27/19 02/27/19 Range/Units 05:55 11:49 14:49 WBC (3.8-10.6) k/uL RBC (3.80-5.40) m/uL Hgb (11.4-16.0) gm/dL Hct (34.0-46.0) % RDW (11.5-15.5) % Neutrophils # (1.3-7.7) k/uL BUN (7-17) mg/dL Glucose (74-99) mg/dL POC Glucose (mg/dL) 100 H 240 H (75-99) mg/dL Calcium (8.4-10.2) mg/dL RBC Folate 1,286 H (280 - 791) ng/mL 02/27/19 02/27/19 02/27/19 Range/Units 17:16 19:35 21:30 WBC (3.8-10.6) k/uL RBC (3.80-5.40) m/uL Hgb (11.4-16.0) gm/dL Hct (34.0-46.0) % RDW (11.5-15.5) % Neutrophils # (1.3-7.7) k/uL BUN (7-17) mg/dL Glucose (74-99) mg/dL POC Glucose (mg/dL) 259 H 241 H 214 H (75-99) mg/dL Calcium (8.4-10.2) mg/dL RBC Folate (280 - 791) ng/mL 02/27/19 02/28/19 02/28/19 Range/Units 23:33 01:35 03:38 WBC (3.8-10.6) k/uL RBC (3.80-5.40) m/uL Hgb (11.4-16.0) gm/dL Hct (34.0-46.0) % RDW (11.5-15.5) % Neutrophils # (1.3-7.7) k/uL BUN (7-17) mg/dL Glucose (74-99) mg/dL POC Glucose (mg/dL) 198 H 171 H 149 H (75-99) mg/dL Calcium (8.4-10.2) mg/dL RBC Folate (280 - 791) ng/mL 02/28/19 02/28/19 02/28/19 Range/Units 05:32 06:33 06:33 WBC 14.7 H (3.8-10.6) k/uL RBC 2.47 L (3.80-5.40) m/uL Hgb 7.3 L (11.4-16.0) gm/dL Hct 23.2 L (34.0-46.0) % RDW 17.2 H (11.5-15.5) % Neutrophils # 12.5 H (1.3-7.7) k/uL BUN 36 H (7-17) mg/dL Glucose 189 H (74-99) mg/dL POC Glucose (mg/dL) 195 H (75-99) mg/dL Calcium 8.3 L (8.4-10.2) mg/dL RBC Folate (280 - 791) ng/mL 02/28/19 02/28/19 Range/Units 07:24 09:30 WBC (3.8-10.6) k/uL RBC (3.80-5.40) m/uL Hgb (11.4-16.0) gm/dL Hct (34.0-46.0) % RDW (11.5-15.5) % Neutrophils # (1.3-7.7) k/uL BUN (7-17) mg/dL Glucose (74-99) mg/dL POC Glucose (mg/dL) 200 H 125 H (75-99) mg/dL Calcium (8.4-10.2) mg/dL RBC Folate (280 - 791) ng/mL Microbiology - Last 24 Hours (Table) 02/22/19 23:43 Blood Culture - Preliminary Blood No Growth after 120 hours 02/23/19 12:01 Blood Culture - Preliminary Blood No Growth after 96 hours 02/23/19 10:53 Blood Culture - Preliminary Blood No Growth after 96 hours Assessment and Plan Plan: Assessment: #1. Acute on chronic hypoxic respiratory failure related to acute exacerbation of COPD complicated by pneumonia, community acquired #2. Stage III COPD, steroid and oxygen dependent, with FEV1 of 1.02 L or 54% of predicted #3. Troponin elevation, possibly related to worsening hypoxic respiratory failure cardiology is following #4. Acute leukocytosis related to pneumonia, improving #5. Steroid-induced hyperglycemia #6. Obstructive sleep apnea, and patient is on AVAPS/BIpap at home #7. Morbid obesity #8. Common variable agammaglobulinemia, unable to tolerate replacement therapy due to side effects #9. History of pulmonary pseudomonal infection #10. Chronic and ongoing history of nicotine abuse, patient carries at least [id number] smoking history #11. History of Tacotsubo cardiomyopathy with most recent echocardiogram with EF of 50-55% #12. Hypertention #13. Diabetes mellitus with peripheral neuropathy #14. Anxiety/depression #15. Acute GI blood loss anemia, requiring transfusion with 2 units of packed red blood cells, patient is passing dark stools Plan: Patient is stable from pulmonary perspective, no acute events overnight, no further GI bleeding, less congested and less dyspneic. No fever or chills, culture data remains negative, patient is scheduled for EGD today, she could consider for discharge home today if cleared by GI service I performed a history & physical examination of the patient and discussed their management with my nurse practitioner, Sophia Lombardi. I reviewed the nurse practitioner's note and agree with the documented findings and plan of care. Lung sounds are positive for wheezes and rhonchi. The findings and the impression was discussed with the patient. I attest to the documentation by the nurse practitioner. Time with Patient: Less than 30
[2019-02-28 11:43] LABS: Glucose,Whole Blood 89 mg/dL (75-99)
[2019-02-28] MEDS ORDERED: PROPOFOL 10 MG/ML 20 ML VIAL IV ONE (12:20)
[2019-02-28] MEDS ORDERED: SODIUM CHLORIDE 0.9% 500 ML 500 ML IV ONE (12:21)
--- NOTE | 2019-02-28 12:36 | CDI ---
Documentation Clarification Form Date: 02/28/2019 11:30:37 AM From: Eli Torres RN, CCDS Admit Date: 02/23/2019 2:20:00 AM Patient Name: Sima Kelley Visit Number: [id number] Discharge Date: ATTENTION: The Clinical Documentation Specialists (CDI) and [facility] Coding Staff appreciate your assistance in clarifying documentation. Please respond to the clarification below the line at the bottom and electronically sign. The CDI & [facility] Coding staff will review the response and follow-up if needed. Please note: Queries are made part of the Legal Health Record. If you have any questions, please contact the author of this message via ITS. Dr. Nazanin Miller Possible non-ST segment elevation Myocardial infarction is documented in the H/P and ongoing progress notes and further clarification is needed. 02/24/19 Cardiology consult: (Dr. Wilson) Elevation of troponins likely represent Demand ischemia without NV. 02/24/19 I see evidence for active ischemic heart disease. Patient History/Risk Factors: COPD, Diabetes mellitus type 2, Takotsubo cardiomyopathy, CHF, Hypertension, GERD, Hyperlipidemia, Clinical Indicators: 68-year-old presented to [facility] with complaints of sudden onset shortness of breath and was found to be hypoxic upon arrival of EMS. Troponin was noted to be mildly elevated at 0.078 with subsequent troponins here of 0.152 and 0.116. She denies any complaints of chest discomfort. ECHO: EF between 60-65 % EKG showed sinus tachycardia with no ST-T wave abnormalities indicative of ischemia. Chest x-ray on arrival here showed mild diffuse airspace opacities throughout both lungs, suggest recurrent mild pulmonary edema versus pneumonia. Treatment: ECHO Monitor Labs, Troponin Imdur PO Zestril PO In order to capture the severity of condition and necessary consistent documentation specificity, please clarify: NSTEMI ruled out Demand ischemia without NV Other Condition, please specify Unable to Determine Last Revision: May 2017) Demand ischemia without NV MTDD
--- NOTE | 2019-02-28 12:40 | P.PCN ---
Date of Procedure: 02/28/19 Procedure(s) Performed: BRIEF HISTORY: Patient is a 68-year-old, pleasant, white female, was admitted to the hospital with exacerbation of COPD. She was complaining of black tarry stools and had a hemoglobin of 6.8 g/dL. She received 1 unit of blood transfusion and she is scheduled for an upper endoscopy to evaluate further.. PROCEDURE PERFORMED: Esophagogastroduodenoscopy with biopsy. PREOPERATIVE DIAGNOSIS: Anemia/Upper GI bleed. IV sedation per anesthesia. PROCEDURE: After informed consent was obtained, the patient was brought into the endoscopy unit. IV sedation was administered by Anesthesia under continuous monitoring. Initially the Olympus GIF-140 video endoscope was inserted into the mouth. Esophagus intubated without any difficulty. It was gradually advanced into the stomach and duodenum and carefully examined. In the duodenal bulb and along the duodenal sweep there was a 2 cm to 3 cm superficial ulceration with some old blood but no active bleeding. Biopsies were done from the margin of the ulcer. The scope at this time was withdrawn to the stomach, adequately insufflated with air, and upon careful examination, mucosa of the antrum, body, cardia and the fundus appeared normal. The scope was then withdrawn into the esophagus. The GE junction was located at 40 cm from the incisors. There was a 2 cm ulcerated distal esophageal mass extending from 38-40 cm from the incisors with no active bleeding and multiple biopsies were done from this area. The rest of the esophagus appeared normal. There were no erosions or ulcerations seen and the patient tolerated the procedure well. IMPRESSION: 1. 2 cm distal esophageal ulcerated mass extending from 38-40 cm from the incisors status post multiple biopsies. 2. 3 cm superficial duodenal ulcer along the duodenal sweep with some old blood but no active bleeding. RECOMMENDATIONS: The findings of this examination were discussed with the patient as well as a family. She will continue with Protonix 40 mg twice daily. In the meantime will await the biopsy results. Oncology consultation based on the biopsy results. In the meantime CT of the chest/ abdomen and pelvis to evaluate further.
[2019-02-28] MEDS ORDERED: RX INFO: IV CONTRAST WAS GIVEN 1 EACH MISC MISCELLANE PRN (13:01)
[2019-02-28] MEDS: HYDROcodone/APAP 7.5-325MG 1 EACH TAB PO PRN (13:13)
[2019-02-28] MEDS: FLUoxetine HCL 20 MG CAP PO SCH (13:13)
[2019-02-28] MEDS: LISINOPRIL 20 MG TAB PO SCH ×2 (13:13→21:23)
[2019-02-28] MEDS: ISOSORBIDE MONONITRATE ER 15 MG TAB PO SCH (13:14)
[2019-02-28] MEDS: GABAPENTIN 400 MG CAP PO SCH ×3 (13:14→21:22)
[2019-02-28] MEDS: THEOPHYLLINE 24 HOUR 300 MG CAP.ER.24H PO SCH ×2 (13:14→21:50)
[2019-02-28] MEDS: MONTELUKAST 10 MG TAB PO SCH (13:15)
[2019-02-28 13:45] LABS: Glucose,Whole Blood 122 mg/dL (75-99)
--- NOTE | 2019-02-28 13:58 | CT ---
EXAMINATION TYPE: CT ChestAbdPelvis w con DATE OF EXAM: 02/28/2019 COMPARISON: None. HISTORY: esophageal mass, pain. CT DLP: 1371.8 mGycm. Automated Exposure Control for Dose Reduction was Utilized. CONTRAST: CT scan of the thorax, abdomen and pelvis is attempted without oral but with IV Contrast, patient inj ected with 50 mL of Isovue 300. FINDINGS: LUNGS: Some scattered parenchymal fibrosis is seen bilaterally most prominent in the periphery and mo st prominent in the lower lungs. No pleural effusion is present bilaterally. No concerning consolidat ion or focal groundglass opacity is seen. No pneumothorax is noted. MEDIASTINUM: There are no greater than 1 cm hilar or mediastinal lymph nodes. No pericardial effusi on is seen. No cardiomegaly. Moderate to severe coronary artery calcification which is noted marker for underlying coronary artery disease. Prominence of fat deep to the pericardium surrounding atria a nd ventricles as well as involving intra-atrial septum. No obvious obstructing esophageal mass or suspicious dilatation. OTHER: Contrast extravasation into the left upper chest wall anterior to gluteus muscles causes strea k artifact axial image 14. No significant contrast reaches heart or vessels. Essentially noncontrast study. LIVER/GB: Gallbladder is not seen and may be surgically absent. PANCREAS: No significant abnormality is seen. SPLEEN: No significant abnormality is seen. ADRENALS: No significant abnormality is seen. KIDNEYS: No renal calculi or hydronephrosis.. No significant contrast uptake or excretion. Lobulated renal cortex felt present. BOWEL: Proximal to mid stomach is poorly distended and suboptimally evaluated. No suspicious small la rge bowel dilatation is seen. GENITAL ORGANS: Anteverted uterus is present. Scattered bilateral pelvic phleboliths are seen. 3.5 cm left pelvic or ovarian low dense oval lesion axial image 102 is abnormal in postmenopausal female. LYMPH NODES: No greater than 1cm abdominal or pelvic lymph nodes are appreciated. OSSEOUS STRUCTURES: Scoliotic curvature with multilevel spurring in the spine.. OTHER: Deep subcutaneous sutures right upper quadrant are present.. IMPRESSION: Suboptimal study essentially noncontrast CT. No obvious esophageal mass or obstruction. Contrast extravasation anterior left upper chest wall. No acute findings otherwise clearly present.
--- NOTE | 2019-02-28 14:36 | P.CONS ---
History of Present Illness - Reason for Consult Consult date: 02/28/19 Esophageal Mass Requesting physician: Megan Lindsey - Chief Complaint SOB, Dysphagia - History of Present Illness Ms Kelley is a pleasant 68-year-old female who he originally presented on February 22 with complaints of shortness of breath she felt similar to her known COPD symp toms she originally presented to [facility] subsequently was transferred to Presentation It Was Noted That She Was Complaining of Black Tarry Stools and She Was Anemic with a Hemoglobin of 6.8 She Received a Unit of Blood and She Was Scheduled for an Upper Endoscopy with GI Underwent EGD Iron 02/28/2019 during the Procedure 2 Cm Distal Esophageal Ulcerated Mass Extending Approximately 38-40 Cm from the Incisors Status Post Multiple Biopsies As Well As a 3 Cm Superficial Duodenal Ulcer Was Noted with Some Old Blood No Active Bleeding at That Time Because of These concerning Findings for Likely Malignancy Medical Oncology Has Now Been Consulted. Review of Systems Working point review of systems assessed and completed all negative except for HPI Past Medical History Past Medical History: Asthma, Heart Failure, COPD, Diabetes Mellitus, GERD/Reflux, Hyperlipidemia, Hypertension, Osteoarthritis (OA), Pneumonia, Res piratory Disorder, Skin Disorder, Sleep Apnea/CPAP/BIPAP, Thyroid Disorder Additional Past Medical History / Comment(s): Advanced COPD with chronic hypoxic respiratory failure has been on vent at [facility] in past.. CHF with an ejection fraction of 35-40%,leg edema, history of takotsubo syndrome and normal coronaries as evident on her cardiac catheterization, diabetes mellitus type 2, obesity, obstructive sleep apnea-uses noninvasive ventilator, hypothyroidism, p eripheral neuropathy secondary to diabetes mellitus-bilateral feet, arthritis multiple joints and entire back, psoriasis, sinus problems. History of Any Multi-Drug Resistant Organisms: None Reported Past Surgical History: Appendectomy, Cholecystectomy, Heart Catheterization, Joint Replacement, Tonsillectomy, Tubal Ligation Additional Past Surgical History / Comment(s): 08/2015 normal cardiac cath, 06/2016 normal cardiac cath, bilateral total knee arthroplasty. Past Anesthesia/Blood Transfusion Reactions: No Reported Reaction Past Psychological History: Anxiety, Depression Additional Psychological History / Comment(s): Pt lives with her son and daughter. She has O2 at 3.5L/NC ATC. She has a noninvasive ventilator. also has cane, walker, rolling walker, bsc, hospital bed, nebulizer, glucometer. Smoking Status: Current every day smoker Past Alcohol Use History: Occasional Additional Past Alcohol Use History / Comment(s): Pt started smoking in 1962(age 12) smokes 1 ppd Past Drug Use History: Marijuana Additional Drug Use History / Comment(s): Patient states she has used marijuana (edibles) to help with pain on occasion. - Past Family History Father History Unknown: Yes Family Medical History: No Reported History Mother Family Medical History: Cancer Additional Family Medical History / Comment(s): uterine cancer Medications and Allergies Home Medications Medication Instructions Recorded Confirmed Type ALPRAZolam [Xanax] 1 mg PO TID PRN 08/25/15 02/23/19 History FLUoxetine HCL [PROzac] 20 mg PO DAILY 08/25/15 02/23/19 History Hydrocodone/Acetaminophen [[place] 1 tab PO TID PRN 08/25/15 02/23/19 History 7.5-325] Montelukast [Singulair] 10 mg PO DAILY 08/25/15 02/23/19 History Theophylline 24 Hour [Chris-24] 300 mg PO BID 08/25/15 02/23/19 History Simvastatin [Zocor] 40 mg PO HS #30 tab 08/28/15 02/23/19 Rx Budesonide [Pulmicort] 0.5 mg INHALATION RT-BID 11/18/16 02/23/19 History Isosorbide Mononitrate ER [Imdur] 15 mg PO DAILY #30 dose 11/23/16 02/23/19 Rx Ipratropium-Albuterol Nebulize 3 ml INHALATION RT-QID #0 01/26/17 02/23/19 Rx [Duoneb 0.5 mg-3 mg/3 ml Soln] predniSONE 10 mg PO DAILY #0 01/26/17 02/23/19 Rx Ibandronate Sodium [Boniva] 150 mg PO Q30D 08/08/17 02/23/19 History Ipratropium/Albuterol Sulfate 1 puff INHALATION RT-QID 08/08/17 02/23/19 History [Combivent Respimat Inhaler] Albuterol Inhaler [Ventolin Hfa 2 puff INHALATION RT-Q4H PRN 02/23/19 02/23/19 History Inhaler] Furosemide [Lasix] 40 mg PO DAILY PRN 02/23/19 02/23/19 History Gabapentin 800 mg PO TID 02/23/19 02/23/19 History Ibandronate Sodium 150 mg PO DIRECTED 02/23/19 02/23/19 History Ipratropium-Albuterol Nebulize 3 ml INHALATION Q6HR 02/23/19 02/23/19 History [Duoneb 0.5 mg-3 mg/3 ml Soln] Ipratropium/Albuterol Sulfate 1 puff INHALATION Q6HR 02/23/19 02/23/19 History [Combivent Respimat Inhaler] Levothyroxine Sodium [Synthroid] 200 mcg PO DAILY 02/23/19 02/23/19 History Lisinopril 20 mg PO BID 02/23/19 02/23/19 History Lisinopril [Zestril] 40 mg PO BID 02/23/19 02/23/19 History Potassium Chloride 10 meq PO DAILY PRN 02/23/19 02/23/19 History Allergies Allergy/AdvReac Type Severity Reaction Status Date / Time cefotaxime sodium Allergy Rash/Hives Verified 02/22/19 23:48 [From Claforan] glucose [From Gammagard S/D] Allergy Dyspnea Verified 02/22/19 23:48 glycine [From Gammagard S/D] Allergy Dyspnea Verified 02/22/19 23:48 IgA less than or equal to 50 Allergy Dyspnea Verified 02/22/19 23:48 mcg/mL [From Gammagard S/D] immune globulin,gamma (IgG) Allergy Dyspnea Verified 02/22/19 23:48 human [From Gammagard S/D] vancomycin Allergy Seizure/hyp Verified 02/22/19 23:48 oglycemia zoster vaccine live AdvReac Unknown Verified 02/22/19 23:48 [From Zostavax (PF)] Physical Exam Vitals: Vital Signs Temp Pulse Pulse Resp BP Pulse Ox 02/28/19 13:07 68 02/28/19 12:57 68 02/28/19 11:31 16 02/28/19 10:07 64 02/28/19 09:56 68 02/28/19 09:54 68 02/28/19 09:40 68 02/28/19 08:00 67 16 153/66 100 02/28/19 04:00 99.3 F 74 16 133/58 100 02/28/19 00:00 97 F L 72 16 121/60 99 02/27/19 20:27 80 02/27/19 20:22 80 02/27/19 20:20 80 02/27/19 20:10 78 02/27/19 20:00 98 F 80 16 132/72 99 02/27/19 17:20 76 02/27/19 17:09 80 Intake and Output 02/27/19 02/28/19 02/28/19 22:59 06:59 14:59 Intake Total 670.85 38.084 50 Balance 670.85 38.084 50 Intake: IV 50 Intake, IV Titration 30.85 38.084 Amount Insulin Regular 100 unit 30.85 38.084 In Sodium Chloride 0.9% 100 ml @ Titrate IV .Q0M [facility] Rx#:[id number] Oral 640 Other: Voiding Method Toilet Toilet # Voids 3 1 Weight 86.8 kg General: Alert and Oriented x3, No Acute Distress Head: Normocytic, Atraumatic Neck: Supple Mouth: No Lesions, No Thrush Eyes: Non-sclerotic No Palpable cervical, supraclavicular, axillary adenopathy Heart: Regular Rate, Regular Rhythm Lungs: Clear to Ausculations, No Wheeze, No Rhonchi, Diminishe bilateral lower lobes, No increased respiratory effort noted Abdomen: Soft, Non-Distended, Non-Tended, BSx4 Extremities: No Edema, Equal Strength Neurological: No Focal Defects: No sensory or motor deficits noted Psych: Calm and cooperative Results CBC & Chem 7: 02/28/19 06:33 02/28/19 06:33 Labs: Abnormal Lab Results - Last 24 Hours (Table) 02/27/19 02/27/19 02/27/19 Range/Units 14:49 17:16 19:35 WBC (3.8-10.6) k/uL RBC (3.80-5.40) m/uL Hgb (11.4-16.0) gm/dL Hct (34.0-46.0) % RDW (11.5-15.5) % Neutrophils # (1.3-7.7) k/uL BUN (7-17) mg/dL Glucose (74-99) mg/dL POC Glucose (mg/dL) 240 H 259 H 241 H (75-99) mg/dL Calcium (8.4-10.2) mg/dL 02/27/19 02/27/19 02/28/19 Range/Units 21:30 23:33 01:35 WBC (3.8-10.6) k/uL RBC (3.80-5.40) m/uL Hgb (11.4-16.0) gm/dL Hct (34.0-46.0) % RDW (11.5-15.5) % Neutrophils # (1.3-7.7) k/uL BUN (7-17) mg/dL Glucose (74-99) mg/dL POC Glucose (mg/dL) 214 H 198 H 171 H (75-99) mg/dL Calcium (8.4-10.2) mg/dL 02/28/19 02/28/19 02/28/19 Range/Units 03:38 05:32 06:33 WBC 14.7 H (3.8-10.6) k/uL RBC 2.47 L (3.80-5.40) m/uL Hgb 7.3 L (11.4-16.0) gm/dL Hct 23.2 L (34.0-46.0) % RDW 17.2 H (11.5-15.5) % Neutrophils # 12.5 H (1.3-7.7) k/uL BUN (7-17) mg/dL Glucose (74-99) mg/dL POC Glucose (mg/dL) 149 H 195 H (75-99) mg/dL Calcium (8.4-10.2) mg/dL 02/28/19 02/28/19 02/28/19 Range/Units 06:33 07:24 09:30 WBC (3.8-10.6) k/uL RBC (3.80-5.40) m/uL Hgb (11.4-16.0) gm/dL Hct (34.0-46.0) % RDW (11.5-15.5) % Neutrophils # (1.3-7.7) k/uL BUN 36 H (7-17) mg/dL Glucose 189 H (74-99) mg/dL POC Glucose (mg/dL) 200 H 125 H (75-99) mg/dL Calcium 8.3 L (8.4-10.2) mg/dL 02/28/19 Range/Units 13:44 WBC (3.8-10.6) k/uL RBC (3.80-5.40) m/uL Hgb (11.4-16.0) gm/dL Hct (34.0-46.0) % RDW (11.5-15.5) % Neutrophils # (1.3-7.7) k/uL BUN (7-17) mg/dL Glucose (74-99) mg/dL POC Glucose (mg/dL) 122 H (75-99) mg/dL Calcium (8.4-10.2) mg/dL Microbiology - Last 24 Hours (Table) 02/23/19 12:01 Blood Culture - Preliminary Blood No Growth after 120 hours 02/23/19 10:53 Blood Culture - Preliminary Blood No Growth after 120 hours 02/22/19 23:43 Blood Culture - Preliminary Blood No Growth after [address] scan - abdomen: report reviewed CT scan - chest: report reviewed CT scan - pelvis: report reviewed Assessment and Plan Plan: Assessment and Recommendation: New Esophageal Mass: - Status Post EGD - Await Tissue Biopsy Normocytic Anemia, Acute on Chronic with component of chronic inflammation likely with COPD - Acute secondary to Malignancy and acute blood loss anemia with noted Duodenal Ulcer - Monitor CBC - IV Iron is resonable - Transfuse PRBC with Hemoglobin less than 7
[2019-02-28 15:33] LABS: Glucose,Whole Blood 240 mg/dL (75-99)
[2019-02-28 16:52] LABS: Glucose,Whole Blood 309 mg/dL (75-99)
[2019-02-28 20:52] LABS: Glucose,Whole Blood 166 mg/dL (75-99)
[2019-02-28] MEDS: LEVOFLOXACIN 750 MG TAB PO SCH (21:22)
[2019-02-28] MEDS: ATORVASTATIN 20 MG TAB PO SCH (21:23)
[2019-02-28] MEDS: SODIUM CHLORIDE 0.9% 1,000 ML IV SCH (21:33)
--- NOTE | 2019-03-01 01:34 | P.PN ---
Subjective Progress Note Date: 02/28/19 Principal diagnosis: Acute on chronic hypoxic respiratory failure secondary to COPD Anemia possibly due to blood loss This is a pleasant 68-year-old female who was admitted with shortness of breath, possible pneumonia, and had abdominal pain with dark stools. Patient is still having some shortness of breath with cough and phlegm production today. Patient states that she had one formed black stool yesterday otherwise is asymptomatic of any active bleeding. Patient states she is still awaiting gastroenterology consult at this time. Patient states that she continues to have elevated blood sugars but believes it is due to the steroids she is taking. The patient is being closely monitored at this time. Patient denies any chest pain or palpitations. Patient denies any fevers at this time. Patient was given 1 unit of PRBCs yesterday and awaiting another transfusion today for a hemoglobin of 6.8 02/27/2019 Patient says that her breathing is better. No complaints of chest pain. Hemoglobin is 7.7 today. GI is planning for endoscopy tomorrow. Patient refused to get colonoscopy. Otherwise patient is being continued on IV steroids, DuoNeb's and oxygen therapy. Patient does have scattered rhonchi. Wheezing improved. No fever no chills. No nausea vomiting or abdominal pain. No other acute overnight issues. 02/28/2019 Patient's breathing status is much improved now. IV methylprednisolone changed to prednisone 40 mg daily. Patient underwent EGD today showed 1. 2 cm distal esophageal ulcerated mass extending from 38-40 cm from the incisors status post multiple biopsies. 2. 3 cm superficial duodenal ulcer along the duodenal sweep with some old blood but no active bleeding. Follow-up biopsy report and oncology evaluation. Denied any complaints of chest pain. No fever no chills. Patient is also being continued on broad-spectrum antibiotics. All other review of systems negative except the above Active Medications Generic Name Dose Route Start Last Admin Trade Name Freq PRN Reason Stop Dose Admin Acetaminophen 500 mg 02/23/19 14:42 02/28/19 05:53 Tylenol Tab PO 500 mg Q6HR PRN Administration Fever and/ or Pain Hydrocodone Bitart/Acetaminophen 1 each 02/23/19 14:38 02/28/19 13:13 Alex 7.5-325 PO 1 each TID PRN Administration Pain Albuterol/Ipratropium 3 ml 02/23/19 16:00 02/28/19 19:52 Duoneb 0.5 Mg-3 Mg/3 Ml Soln INHALATION 3 ml RT-QID EMERITA Administration Alprazolam 1 mg 02/23/19 14:38 02/28/19 21:22 Xanax PO 1 mg TID PRN Administration Anxiety Atorvastatin Calcium 20 mg 02/23/19 21:00 02/28/19 21:23 Lipitor PO 20 mg HS EMERITA Administration Budesonide 1 mg 02/23/19 20:00 02/28/19 19:52 Pulmicort INHALATION 1 mg RT-BID EMERITA Administration Fluoxetine HCl 20 mg 02/23/19 14:45 02/28/19 13:13 Prozac PO 20 mg DAILY EMERITA Administration Formoterol Fumarate 20 mcg 02/23/19 20:00 02/28/19 19:52 Perforomist INHALATION 20 mcg RT-BID EMERITA Administration Furosemide 40 mg 02/23/19 09:17 Lasix PO DAILY PRN Edema Gabapentin 800 mg 02/23/19 16:00 02/28/19 21:22 Neurontin PO 800 mg TID EMERITA Administration Heparin Sodium (Porcine) 5,000 unit 02/23/19 21:00 02/28/19 21:22 Heparin SQ 5,000 unit Q12HR EMERITA Administration Piperacillin Sod/Tazobactam 100 mls @ 25 mls/hr 02/23/19 11:00 02/28/19 21:09 Sod 3.375 gm/ Sodium Chloride IVPB Not Given Q8H [facility] Sodium Chloride 1,000 mls @ 20 mls/hr 02/23/19 02:30 02/28/19 21:33 Saline 0.9% IV Not Given .Q24H [facility] Insulin Aspart 0 unit 02/28/19 17:30 02/28/19 21:24 Novolog SQ 2 unit ACHS EMERITA Administration Protocol Isosorbide Mononitrate 15 mg 02/23/19 09:30 02/28/19 13:14 Imdur PO 15 mg DAILY EMERITA Administration Levofloxacin 750 mg 02/24/19 21:00 02/28/19 21:22 Levaquin PO 750 mg Q48H EM[facility] Administration Levothyroxine Sodium 200 mcg 02/24/19 06:30 02/28/19 05:53 Synthroid PO 200 mcg 0630 EMERITA Administration Lisinopril 20 mg 02/23/19 09:30 02/28/19 21:23 Zestril PO 20 mg BID EMERITA Administration Miscellaneous Information 1 each 02/23/19 02:20 Pneumonia Protocol Utilized PO ONCE PRN Per Protocol Miscellaneous Information 1 each 02/28/19 13:01 Rx Info: Iv Contrast Was Given MISCELLANE 03/02/19 13:04 DAILY PRN Per Protocol Montelukast Sodium 10 mg 02/24/19 09:00 02/28/19 13:15 Singulair PO 10 mg DAILY EMERITA Administration Nicotine 1 patch 02/23/19 14:45 02/28/19 09:05 Habitrol 14mg/24hr Patch TRANSDERM Not Given DAILY EMERITA Pantoprazole Sodium 40 mg 02/25/19 12:15 02/28/19 21:22 Protonix IVP 40 mg BID EMERITA Administration Prednisone 40 mg 03/01/19 09:00 PO DAILY EMERITA Temazepam 15 mg 02/23/19 14:42 Restoril PO HS PRN Insomnia Theophylline 300 mg 02/23/19 21:00 02/28/19 21:50 Chris-24 PO 300 mg BID EMERITA Administration Objective - Vital Signs Vital signs: Vital Signs Temp 99.3 F 02/28/19 04:00 Pulse 76 02/28/19 20:15 Resp 16 02/28/19 16:00 BP 108/47 02/28/19 16:00 Pulse Ox 99 02/28/19 19:52 Intake & Output 02/28/19 02/28/19 03/01/19 06:59 18:59 06:59 Intake Total 438.084 170 Balance 438.084 170 Weight 86.8 kg Intake: IV 50 Intake, IV Titration 38.084 Amount Insulin Regular 100 unit 38.084 In Sodium Chloride 0.9% 100 ml @ Titrate IV .Q0M [facility] Rx#:[id number] Oral 400 120 Other: Voiding Method Toilet # Voids 3 4 - Exam PHYSICAL EXAMINATION: Patient is lying in the bed comfortably, no acute distress, awake alert and oriented.. HEENT: Normocephalic. Neck is supple. Pupils reactive. Nostrils clear. Oral cavity is moist. Ears reveal no drainage. Neck reveals no JVD, carotid bruits, or thyromegaly. CHEST EXAMINATION: Trachea is central. Symmetrical expansion. mild expiratory wheeze.. CARDIAC: Normal S1, S2 with no gallops. No murmurs ABDOMEN: Soft. Bowel sounds normal. No organomegaly. No abdominal bruits. Extremities: reveal no edema. No clubbing or cyanosis Neurologically awake, alert, oriented x3 with well-coordinated movements. No focal deficits noted Skin: No rash or skin lesions. Psychiatric: Coperative. Nonsuicidal Musculoskeletal: No joint swelling or deformity. Normal range of motion. - Labs CBC & Chem 7: 02/28/19 06:33 02/28/19 06:33 Labs: Abnormal Lab Results - Last 24 Hours (Table) 02/27/19 02/28/19 02/28/19 Range/Units 23:33 01:35 03:38 WBC (3.8-10.6) k/uL RBC (3.80-5.40) m/uL Hgb (11.4-16.0) gm/dL Hct (34.0-46.0) % RDW (11.5-15.5) % Neutrophils # (1.3-7.7) k/uL BUN (7-17) mg/dL Glucose (74-99) mg/dL POC Glucose (mg/dL) 198 H 171 H 149 H (75-99) mg/dL Calcium (8.4-10.2) mg/dL 02/28/19 02/28/19 02/28/19 Range/Units 05:32 06:33 06:33 WBC 14.7 H (3.8-10.6) k/uL RBC 2.47 L (3.80-5.40) m/uL Hgb 7.3 L (11.4-16.0) gm/dL Hct 23.2 L (34.0-46.0) % RDW 17.2 H (11.5-15.5) % Neutrophils # 12.5 H (1.3-7.7) k/uL BUN 36 H (7-17) mg/dL Glucose 189 H (74-99) mg/dL POC Glucose (mg/dL) 195 H (75-99) mg/dL Calcium 8.3 L (8.4-10.2) mg/dL 02/28/19 02/28/19 02/28/19 Range/Units 07:24 09:30 13:44 WBC (3.8-10.6) k/uL RBC (3.80-5.40) m/uL Hgb (11.4-16.0) gm/dL Hct (34.0-46.0) % RDW (11.5-15.5) % Neutrophils # (1.3-7.7) k/uL BUN (7-17) mg/dL Glucose (74-99) mg/dL POC Glucose (mg/dL) 200 H 125 H 122 H (75-99) mg/dL Calcium (8.4-10.2) mg/dL 02/28/19 02/28/19 02/28/19 Range/Units 15:32 16:51 20:51 WBC (3.8-10.6) k/uL RBC (3.80-5.40) m/uL Hgb (11.4-16.0) gm/dL Hct (34.0-46.0) % RDW (11.5-15.5) % Neutrophils # (1.3-7.7) k/uL BUN (7-17) mg/dL Glucose (74-99) mg/dL POC Glucose (mg/dL) 240 H 309 H 166 H (75-99) mg/dL Calcium (8.4-10.2) mg/dL Microbiology - Last 24 Hours (Table) 02/23/19 12:01 Blood Culture - Preliminary Blood No Growth after 120 hours 02/23/19 10:53 Blood Culture - Preliminary Blood No Growth after 120 hours 02/22/19 23:43 Blood Culture - Preliminary Blood No Growth after 120 hours Assessment and Plan Assessment: 1. Chronic obstructive pulmonary disease, acute exacerbation with bilateral pneumonia, right more than left with possibly gram-negative possibly with acute on chronic hypoxic respiratory failure. 2. upper gastrointestinal bleeding with acute blood loss anemia, rule out peptic ulcer disease, acute, EGD showed distal esophageal ulcerated mass and 3 cm superficial duodenal ulcer along the duodenal sweep with some old blood but no active bleeding. 3. Increased WBC 4. Hypernatremia 5. Hyperkalemia 6. Diabetes mellitus type 2, uncontrolled 7. Troponin 0.05 to. Possible acute non-ST segment elevation myocardial infarction 8. History of takotsubo cardiomyopathy and the most recent 2-D echo showing improved ejection fraction of 50-55% 9. History of asthma 10. Chronic obstructive pulmonary disease 11. History of congestive heart failure 12. Diabetes mellitus 2 13. Gastroesophageal reflux disease 14. Hypertension 15. Hyperlipidemia 16. History of pneumonia 17. History of sleep apnea 18. History of advanced chronic obstructive pulmonary disease 19. History of cardiac catheterization with normal coronary arteries 20. History of anxiety, depression 21. No code with instructions Recommendations and discussion: In this 68-year-old woman who is presented with multiple complex medical issues, we will continue to monitor the patient closely. Continue with the current medications and symptomatic treatment. Monitor H&H closely.. We'll monitor labs closely. Status post EGD by GI.. We will continue to monitor the blood sugars and continued steroid therapy. Steroids changed to by mouth.. Oncology was consulted due to distal esophageal mass. Follow-up biopsy report. Guarded prognosis due to the multiple complex medical issues. Further recommendations to follow Time with Patient: Greater than 30
[2019-03-01] MEDS: PIPERACILLIN-TAZOBACTAM 3.375 GM in SODIUM CHLORIDE 0.9% 100 ML IVPB SCH ×2 (03:02→09:56)
[2019-03-01] MEDS: SODIUM CHLORIDE 0.9% 1,000 ML IV SCH (03:02)
[2019-03-01] MEDS: LEVOTHYROXINE 100 MCG TAB PO SCH (05:20)
[2019-03-01] MEDS: ALPRAZolam 1 MG TAB PO PRN (06:26)
[2019-03-01 06:32] LABS: Glucose,Whole Blood 102 mg/dL (75-99)
[2019-03-01] MEDS: INSULIN ASPART (NovoLOG) 100 UNIT/ML VIAL SQ SCH ×3 (06:34→12:01)
[2019-03-01 07:19] LABS: Anisocytosis Slight; Basophils # (A) 0.2 k/uL (0-0.2); Basophils % (A) 1 %; Eosinophils # (A) 0.2 k/uL (0-0.7); Eosinophils % (A) 1 %; HCT 21.8 % (34.0-46.0); Hypochromasia Slight; Lymphocytes # (A) 5.3 k/uL (1.0-4.8); Lymphocytes % (A) 26 %; MCH 29.2 pg (25.0-35.0); MCHC 30.9 g/dL (31.0-37.0); MCV 94.4 fL (80.0-100.0); Monocytes # (A) 1.3 k/uL (0-1.0); Monocytes % (A) 6 %; Neutrophils # (A) 12.8 k/uL (1.3-7.7); Neutrophils % (A) 63 %; Platelet Count 309 k/uL (150-450); RBC 2.31 m/uL (3.80-5.40); RDW 17.6 % (11.5-15.5); WBC 20.3 k/uL (3.8-10.6)
[2019-03-01 07:20] LABS: Calcium 8.5 mg/dL (8.4-10.2); Potassium 4.5 mmol/L (3.5-5.1)
[2019-03-01 07:32] LABS: HGB 6.8 gm/dL (11.4-16.0)
[2019-03-01] MEDS: BUDESONIDE 1 MG/2 ML NEBU INHALATION SCH (07:52)
[2019-03-01] MEDS: IPRATROPIUM-ALBUTEROL 3 ML NEB INHALATION SCH (07:52)
[2019-03-01] MEDS: FORMOTEROL FUMARATE 20 MCG/2 ML NEBU INHALATION SCH (07:52)
--- NOTE | 2019-03-01 08:38 | P.PN ---
Subjective Progress Note Date: 03/01/19 Principal diagnosis: GI bleed anemia melena Status post EGD with findings of a 2 cm distal esophageal ulcerated mass and a 3 cm superficial duodenal ulcer along the sweep no active bleeding. CT chest abdomen and pelvis reported no acute findings. Contrast extravasation anterior left upper chest wall. Hemoglobin 6.8. Blood transfusion ordered. Denies active bleeding. Objective - Vital Signs Vital signs: Vital Signs Temp 98.6 F 03/01/19 04:00 Pulse 90 03/01/19 07:55 Resp 16 03/01/19 04:00 BP 121/55 03/01/19 04:00 Pulse Ox 100 03/01/19 07:55 Intake & Output 02/28/19 03/01/19 03/01/19 18:59 06:59 18:59 Intake Total 170 850 Balance 170 850 Weight 84.7 kg Intake: IV 50 Oral 120 850 Other: Voiding Method Toilet # Voids 4 2 - Exam General appearance: The patient is alert, oriented, in no acute distress. HET: Head is normocephalic and atraumatic. Pupils are equal and reactive. Oropharynx is clear without lesions. Neck: Supple without lymphadenopathy. Trachea midline. Heart: S1 S2. Regular rate and rhythm. Lungs: Slight diminishment in bilateral bases. Abdomen: Soft, nontender, nondistended with bowel sounds. No peritoneal signs. No palpable organomegaly or masses. Extremities: Normal skin color and turgor. No cyanosis, rash, ulceration, clubbing, or edema. Radial and pedal pulses are 2/4 bilaterally. Neurological: No focal deficits. Strength and sensation are grossly intact. - Labs CBC & Chem 7: 03/01/19 06:10 03/01/19 06:10 Labs: Abnormal Lab Results - Last 24 Hours (Table) 02/28/19 02/28/19 02/28/19 Range/Units 09:30 13:44 15:32 WBC (3.8-10.6) k/uL RBC (3.80-5.40) m/uL Hgb (11.4-16.0) gm/dL Hct (34.0-46.0) % MCHC (31.0-37.0) g/dL RDW (11.5-15.5) % BUN (7-17) mg/dL POC Glucose (mg/dL) 125 H 122 H 240 H (75-99) mg/dL 02/28/19 02/28/19 03/01/19 Range/Units 16:51 20:51 06:10 WBC 20.3 H (3.8-10.6) k/uL RBC 2.31 L (3.80-5.40) m/uL Hgb 6.8 L* (11.4-16.0) gm/dL Hct 21.8 L (34.0-46.0) % MCHC 30.9 L (31.0-37.0) g/dL RDW 17.6 H (11.5-15.5) % BUN (7-17) mg/dL POC Glucose (mg/dL) 309 H 166 H (75-99) mg/dL 03/01/19 03/01/19 Range/Units 06:10 06:31 WBC (3.8-10.6) k/uL RBC (3.80-5.40) m/uL Hgb (11.4-16.0) gm/dL Hct (34.0-46.0) % MCHC (31.0-37.0) g/dL RDW (11.5-15.5) % BUN 35 H (7-17) mg/dL POC Glucose (mg/dL) 102 H (75-99) mg/dL Microbiology - Last 24 Hours (Table) 02/22/19 23:43 Blood Culture - Final Blood No Growth after 144 hours 02/23/19 12:01 Blood Culture - Preliminary Blood No Growth after 120 hours 02/23/19 10:53 Blood Culture - Preliminary Blood No Growth after 120 hours Assessment and Plan Assessment: Impressitonics 40 mg twice daily.on: 1. Normocytic anemia hypochromic with component of acute blood loss reports of dark-colored bowel movements status post EGD with findings of a superficial 3 cm duodenal bulb nonbleeding ulcer as well as a distal esophageal mass possible und erlying malignancy biopsies pending. Patient refuses colonoscopy. 2. Acute on chronic hypoxic respiratory failure related to acute exacerbation of COPD, complicated by pneumonia community-acquired. 3. Stage III COPD O2 steroid dependent. 4. Morbid obesity. Plan: 1. Oncology consult. Pulmonary following. CBC monitoring. Blood transfusions to keep hemoglobin greater than 7. Protonix 40 mg BID. Carafate 1 gram Ac-BID. Assessment and plan a care discussed with Dr. Burgess
[2019-03-01] MEDS ORDERED: predniSONE 20 MG TAB PO SCH (09:00)
[2019-03-01] MEDS: FLUoxetine HCL 20 MG CAP PO SCH (09:53)
[2019-03-01] MEDS: LISINOPRIL 20 MG TAB PO SCH (09:53)
[2019-03-01] MEDS: PANTOPRAZOLE 40 MG/10 ML VIAL IVP SCH (09:54)
[2019-03-01] MEDS: GABAPENTIN 400 MG CAP PO SCH (09:54)
[2019-03-01] MEDS: MONTELUKAST 10 MG TAB PO SCH (09:54)
[2019-03-01] MEDS: THEOPHYLLINE 24 HOUR 300 MG CAP.ER.24H PO SCH (09:56)
[2019-03-01] MEDS: ISOSORBIDE MONONITRATE ER 15 MG TAB PO SCH (09:56)
[2019-03-01] MEDS: HEPARIN SODIUM,PORCINE 5,000 UNIT/ML 1 ML VIAL SQ SCH (09:56)
[2019-03-01] MEDS: NICOTINE 14MG/24HR PATCH TRANSDERM SCH (09:57)
--- NOTE | 2019-03-01 11:12 | CDI ---
Documentation Clarification Form Date: 03/01/2019 10:52:34 AM From: Eli Torres RN, CCDS Admit Date: 02/23/2019 2:20:00 AM Patient Name: Sima Kelley Visit Number: [id number] Discharge Date: ATTENTION: The Clinical Documentation Specialists (CDI) and [facility] Coding Staff appreciate your assistance in clarifying documentation. Please respond to the clarification below the line at the bottom and electronically sign. The CDI & [facility] Coding staff will review the response and follow-up if needed. Please note: Queries are made part of the Legal Health Record. If you have any questions, please contact the author of this message via ITS. Dr. Nazanin Miller The patient has diabetes, uncontrolled, as indicated on progress note starting with the H/P on 02/23/19. History/Risk Factors: Diabetes mellitus type 2, CHF, COPD, Hypertension Clinical Indicators: 68-year-old with history of multiple medical problems including diabetes mellitus type 2. In the ongoing progress notes diabetes mellitus type 2, uncontrolled is documented and further clarification is needed. Treatment: Monitor Blood sugars Insulin Drip (now DC) Novolog SQ ACHS In order to capture the severity of Illness and necessary documentation specificity, please clarify: DM Type 2 with Hyperglycemia DM Type 2 with Hypoglycemia Other, please specify Unable to Determine (Last Revision: May 2017) DM Type 2 with Hyperglycemia MTDD
[2019-03-01 11:32] LABS: Glucose,Whole Blood 145 mg/dL (75-99)
[2019-03-01 14:42] VITALS: TEMP 97.6
[2019-03-01 15:15] VITALS: BP 130/54; PULSE 75
--- NOTE | 2019-03-01 16:22 | P.DS ---
Providers Date of admission: 02/23/19 02:20 Expected date of discharge: 03/01/19 Attending physician: Monet Maciel Consults: 02/23/19 02:20 Consult Physician Routine Consulting Provider: Soledad Clements Consult Reason/Comments: Pneumonia. Your patient Do you want consulting provider notified?: Yes 02/23/19 02:21 Consult Physician Routine Consulting Provider: Len Wheat Consult Reason/Comments: elevated troponin Do you want consulting provider notified?: Yes 02/28/19 13:00 Consult Physician Stat Consulting Provider: Griffin Caba Consult Reason/Comments: esophogeal mass Do you want consulting provider notified?: Yes Primary care physician: [facility] Course: Final diagnosis Chronic obstructive pulmonary disease, acute exacerbation with bilateral p neumonia, right more than left with possible gram-negative possibly with acute on chronic hypoxic respiratory failure Upper gastrointestinal bleeding with acute blood loss anemia, rule out peptic ulcer disease, EGD shows distal esophageal ulcerated mass in a 3 cm superficial duodenal ulcer, no active bleeding Increased WBC Hypernatremia Hyperkalemia Diabetes mellitus type 2, uncontrolled Troponin 0.05. Possible acute non-ST segment elevation myocardial infarction History of takotsubo cardiomyopathy with most recent 2-D echo showing improved ejection fraction of 50-55% history of asthma Chronic obstructive pulmonary disease History of congestive heart failure Type 2 diabetes mellitus Gastroesophageal reflux disease Hypertension Hyperlipidemia History of pneumonia History of sleep apnea History of advanced chronic obstructive pulmonary disease [place] history of cardiac catheterization with normal coronary arteries History of anxiety, depression Chronic anemia Discharge disposition The patient is being discharged in a stable condition with guarded prognosis to home and will follow-up with her primary care provider and Dr. Burgess this week. Patient underwent an EGD with biopsy yesterday and results are still pending at this time. History of present illness This 68-year-old woman who was admitted with multiple complex medical issues that was monitored closely. Patient was transfused 3 units of packed red blood cells for her anemia. Patient was on IV steroids and transitioned to oral steroids that she will be going home with. Patient was also treated with bronchodilators patient is oxygen dependent and will go home with oxygen. Patient is currently stable and much improved. Patient states that she feels much better and her shortness of breath has minimized. Patient is eager to go home and states that she will be going home today regardless. Patient denies any chest pain, shortness of breath, palpitations at this time. Patient is afebrile. Patient denies any active bleeding and has not had any dark stools in 2 days. The patient is being discharged with a guarded prognosis due to multiple complex medical issues. Patient is agreeable to follow-up with gastr oenterology Dr. Burgess this week for EGD results of the biopsies. On exam patient's vital signs are stable and patient is sitting at the bedside in no acute distress. Cardio S1 and S2 heard. Respiratory shows diminished lung sounds with expiratory wheezing noted. Abdomen is soft and non-tender. Nervous system shows no focal deficits with a steady gait. Please refer to the medication reconciliation sheet for list of medications. Patient Condition at Discharge: Fair Plan - Discharge Summary Discharge Rx Participant: No New Discharge Prescriptions: New Levofloxacin [Levaquin] 750 mg PO Q48H #3 tab predniSONE See Taper PO DIRECTED #26 tab Pantoprazole Sodium [Protonix] 40 mg PO BID #60 tablet. Sucralfate [Carafate] 1 gm PO ACHS 7 Days #14 tablet Continue ALPRAZolam [Xanax] 1 mg PO TID PRN PRN Reason: Anxiety Theophylline 24 Hour [Chris-24] 300 mg PO BID Hydrocodone/Acetaminophen [[place] 7.5-325] 1 tab PO TID PRN PRN Reason: Pain Montelukast [Singulair] 10 mg PO DAILY FLUoxetine HCL [PROzac] 20 mg PO DAILY Simvastatin [Zocor] 40 mg PO HS #30 tab Budesonide [Pulmicort] 0.5 mg INHALATION RT-BID Isosorbide Mononitrate ER [Imdur] 15 mg PO DAILY #30 dose Ipratropium-Albuterol Nebulize [Duoneb 0.5 mg-3 mg/3 ml Soln] 3 ml INHALATION RT-QID #0 Ibandronate Sodium [Boniva] 150 mg PO Q30D Ipratropium/Albuterol Sulfate [Combivent Respimat Inhaler] 1 puff INHALATION RT-QID Ipratropium/Albuterol Sulfate [Combivent Respimat Inhaler] 1 puff INHALATION Q6HR Ipratropium-Albuterol Nebulize [Duoneb 0.5 mg-3 mg/3 ml Soln] 3 ml INHALATION Q6HR Albuterol Inhaler [Ventolin Hfa Inhaler] 2 puff INHALATION RT-Q4H PRN PRN Reason: Shortness Of Breath Or Wheezing Potassium Chloride 10 meq PO DAILY PRN PRN Reason: Edema Furosemide [Lasix] 40 mg PO DAILY PRN PRN Reason: Edema Lisinopril 20 mg PO BID Ibandronate Sodium 150 mg PO DIRECTED Levothyroxine Sodium [Synthroid] 200 mcg PO DAILY Gabapentin 800 mg PO TID Discontinued predniSONE 10 mg PO DAILY #0 Lisinopril [Zestril] 40 mg PO BID Discharge Medication List ALPRAZolam [Xanax] 1 mg PO TID PRN 08/25/15 [History] FLUoxetine HCL [PROzac] 20 mg PO DAILY 08/25/15 [History] Hydrocodone/Acetaminophen [[place] 7.5-325] 1 tab PO TID PRN 08/25/15 [History] Montelukast [Singulair] 10 mg PO DAILY 08/25/15 [History] Theophylline 24 Hour [Chris-24] 300 mg PO BID 08/25/15 [History] Simvastatin [Zocor] 40 mg PO HS #30 tab 08/28/15 [Rx] Budesonide [Pulmicort] 0.5 mg INHALATION RT-BID 11/18/16 [History] Isosorbide Mononitrate ER [Imdur] 15 mg PO DAILY #30 dose 11/23/16 [Rx] Ipratropium-Albuterol Nebulize [Duoneb 0.5 mg-3 mg/3 ml Soln] 3 ml INHALATION RT-QID #0 01/26/17 [Rx] Ibandronate Sodium [Boniva] 150 mg PO Q30D 08/08/17 [History] Ipratropium/Albuterol Sulfate [Combivent Respimat Inhaler] 1 puff INHALATION RT- QID 08/08/17 [History] Albuterol Inhaler [Ventolin Hfa Inhaler] 2 puff INHALATION RT-Q4H PRN 02/23/19 [History] Furosemide [Lasix] 40 mg PO DAILY PRN 02/23/19 [History] Gabapentin 800 mg PO TID 02/23/19 [History] Ibandronate Sodium 150 mg PO DIRECTED 02/23/19 [History] Ipratropium-Albuterol Nebulize [Duoneb 0.5 mg-3 mg/3 ml Soln] 3 ml INHALATION Q6HR 02/23/19 [History] Ipratropium/Albuterol Sulfate [Combivent Respimat Inhaler] 1 puff INHALATION Q6HR 02/23/19 [History] Levothyroxine Sodium [Synthroid] 200 mcg PO DAILY 02/23/19 [History] Lisinopril 20 mg PO BID 02/23/19 [History] Potassium Chloride 10 meq PO DAILY PRN 02/23/19 [History] Levofloxacin [Levaquin] 750 mg PO Q48H #3 tab 03/01/19 [Rx] Pantoprazole Sodium [Protonix] 40 mg PO BID #60 tablet. 03/01/19 [Rx] Sucralfate [Carafate] 1 gm PO ACHS 7 Days #14 tablet 03/01/19 [Rx] predniSONE See Taper PO DIRECTED #26 tab 03/01/19 [Rx] Follow up Appointment(s)/Referral(s): Chetna Burgess MD [STAFF PHYSICIAN] - 03/26/19 3:30 pm (Tuesday) Alex Vera MD [Primary Care Provider] - 03/05/19 1:00 pm (Tuesday) Patient Instructions/Handouts: *Surgery [facility] - (Anesthesia) Endoscopy Discharge Instructions, COPD (Chronic Obstructive Pulmonary Disease) (DC), Anemia (DC) Activity/Diet/Wound Care/Special Instructions: activity limited until follow-up follow up with pcp early next week continue current diet monitor blood sugars Discharge Disposition: HOME SELF-CARE
--- NOTE | 2019-03-02 00:34 | P.PN ---
Subjective Progress Note Date: 03/01/19 The patient was laying comfortably in bed at time of exam. She is on oxygen but did not appear short of breath. She denied any swallowing difficulty at this time. No obvious bleeding noted. Objective - Vital Signs Vital signs: Vital Signs Temp 97.6 F 03/01/19 14:30 Pulse 85 03/01/19 14:30 Resp 16 03/01/19 04:00 BP 134/63 03/01/19 14:30 Pulse Ox 99 03/01/19 14:30 Intake & Output 03/01/19 03/01/19 03/02/19 06:59 18:59 06:59 Intake Total 850 1100 Balance 850 1100 Weight 84.7 kg Intake: Oral 850 480 Blood Product 620 Rc Pheresis 2 As3 Unit 310 [id number] Other: # Voids 2 2 # Bowel Movements 0 - Constitutional General appearance: Present: no acute distress - EENT Eyes: Present: EOMI, PERRLA ENT: Present: hearing grossly normal, normal oropharynx - Neck Thyroid: bilateral: normal size - Respiratory Respiratory: bilateral: CTA - Cardiovascular Rhythm: regular Heart sounds: normal: S1, S2 - Gastrointestinal General gastrointestinal: Present: normal bowel sounds, soft - Integumentary Integumentary: Present: normal - Neurologic Neurologic: Present: CNII-XII intact - Musculoskeletal Musculoskeletal: Present: generalized weakness, strength equal bilaterally - Psychiatric Psychiatric: Present: A&O x's 3, appropriate affect - Labs CBC & Chem 7: 03/01/19 06:10 03/01/19 06:10 Labs: Abnormal Lab Results - Last 24 Hours (Table) 03/01/19 03/01/19 03/01/19 Range/Units 06:10 06:10 06:31 WBC 20.3 H (3.8-10.6) k/uL RBC 2.31 L (3.80-5.40) m/uL Hgb 6.8 L* (11.4-16.0) gm/dL Hct 21.8 L (34.0-46.0) % MCHC 30.9 L (31.0-37.0) g/dL RDW 17.6 H (11.5-15.5) % Neutrophils # 12.8 H (1.3-7.7) k/uL Lymphocytes # 5.3 H (1.0-4.8) k/uL Monocytes # 1.3 H (0-1.0) k/uL BUN 35 H (7-17) mg/dL POC Glucose (mg/dL) 102 H (75-99) mg/dL Crossmatch 03/01/19 03/01/19 Range/Units 08:35 11:29 WBC (3.8-10.6) k/uL RBC (3.80-5.40) m/uL Hgb (11.4-16.0) gm/dL Hct (34.0-46.0) % MCHC (31.0-37.0) g/dL RDW (11.5-15.5) % Neutrophils # (1.3-7.7) k/uL Lymphocytes # (1.0-4.8) k/uL Monocytes # (0-1.0) k/uL BUN (7-17) mg/dL POC Glucose (mg/dL) 145 H (75-99) mg/dL Crossmatch See Detail Microbiology - Last 24 Hours (Table) 02/23/19 12:01 Blood Culture - Final Blood No Growth after 144 hours 02/23/19 10:53 Blood Culture - Final Blood No Growth after 144 hours 02/22/19 23:43 Blood Culture - Final Blood No Growth after 144 hours Assessment and Plan (1) Esophageal mass Narrative/Plan: This is present in the distal esophagus, and was found on EGD that was done for her history of severe anemia and black stools.. This has been biopsied with pathology pending. The most common differential would be esophageal adenocarcinoma with other etiology is not ruled out. Therefore await biopsy report to confirm. CT scan of the chest abdomen and pelvis did not show any obvious metastatic disease, but are not very sensitive for esophageal cancers. will therefore have a PET scan as an outpatient. She'll also need to be set up for an endoscopic ultrasound for additional staging. This will also be scheduled as an outpatient Status: Acute Code(s): K22.8 - OTHER SPECIFIED DISEASES OF ESOPHAGUS SNOMED Code(s): 063838540 (2) Anemia Narrative/Plan: This was the patient's presentation and appears to be new finding. This is due to blood loss on the surface of the esophageal mass. Patient's hemoglobin is currently stable. Okay to discharge from the hematology standpoint with oral iron supplementation Status: Acute Code(s): D64.9 - ANEMIA, UNSPECIFIED SNOMED Code(s): 508141926
== END 2019-03-01 15:17 | disposition home or self-care (01) | DRG 177 ==
LOC: EC 23:27 → 3SCARD 02-23 02:20
PROVIDERS: ADMIT Hospitalist; ATTEND Hospitalist
PROC: 0DB58ZX Excision of Esophagus, Via Natural or Artificial Opening Endoscopic, Diagnostic (ICD-10-PCS; 2019-02-28)
PROC: 0DB98ZX Excision of Duodenum, Via Natural or Artificial Opening Endoscopic, Diagnostic (ICD-10-PCS; principal; 2019-02-28 07:45)
DX: J15.6 Pneumonia due to other Gram-negative bacteria (principal); J96.21 Acute and chronic respiratory failure with hypoxia; K26.4 Chronic or unspecified duodenal ulcer with hemorrhage; D62 Acute posthemorrhagic anemia; D80.1 Nonfamilial hypogammaglobulinemia; E87.1 Hypo-osmolality and hyponatremia; I42.9 Cardiomyopathy, unspecified; I51.81 Takotsubo syndrome; J44.0 Chronic obstructive pulmonary disease with (acute) lower respiratory infection; J44.1 Chronic obstructive pulmonary disease with (acute) exacerbation; K22.10 Ulcer of esophagus without bleeding; T80.818A Extravasation of other vesicant agent, initial encounter; I24.8 Other forms of acute ischemic heart disease; F17.210 Nicotine dependence, cigarettes, uncomplicated; D63.8 Anemia in other chronic diseases classified elsewhere; E03.9 Hypothyroidism, unspecified; E11.42 Type 2 diabetes mellitus with diabetic polyneuropathy; E11.65 Type 2 diabetes mellitus with hyperglycemia; E66.01 Morbid (severe) obesity due to excess calories; Z68.37 Body mass index [BMI] 37.0-37.9, adult; E78.5 Hyperlipidemia, unspecified; E87.5 Hyperkalemia; F32.9 Major depressive disorder, single episode, unspecified; F41.9 Anxiety disorder, unspecified; G47.00 Insomnia, unspecified; G47.33 Obstructive sleep apnea (adult) (pediatric); I50.9 Heart failure, unspecified; K21.9 Gastro-esophageal reflux disease without esophagitis; R13.10 Dysphagia, unspecified; T38.0X5A Adverse effect of glucocorticoids and synthetic analogues, initial encounter; Z79.4 Long term (current) use of insulin; Z79.51 Long term (current) use of inhaled steroids; Z79.52 Long term (current) use of systemic steroids; Z79.82 Long term (current) use of aspirin; Z79.890 Hormone replacement therapy; Z80.49 Family history of malignant neoplasm of other genital organs; Z79.899 Other long term (current) drug therapy; Z87.01 Personal history of pneumonia (recurrent); Z96.653 Presence of artificial knee joint, bilateral; Z99.81 Dependence on supplemental oxygen; M15.9 Polyosteoarthritis, unspecified; Z99.89 Dependence on other enabling machines and devices; L40.9 Psoriasis, unspecified
CPT/HCPCS: 36415; 43239; 71045; 71046; 71260; 74177; 80048; 80053; 81003; 82607; 82728; 82747; 83036; 83540; 83550; 83735; 83880; 84484; 85025; 85610; 85730; 86850; 86900; 86901; 86920; 87040; 87070; 87205; 88305; 93005; 93306; 94640; 94660; 94760; 96365; 99291

== ENCOUNTER → 2019-04-06 | Outpatient (CLI) | payer MEDICARE | END | disposition home or self-care (01) | LOC: RADPETMAIN 13:44 | PROVIDERS: ATTEND Internal Medicine Hematology & Oncology | DX: Z53.9 Procedure and treatment not carried out, unspecified reason (principal) ==

== ENCOUNTER → 2019-04-07 | Outpatient (CLI) | payer MEDICARE ==
--- NOTE | 2019-04-09 16:34 | PE ---
Nuclear medicine PET/CT HISTORY: Esophageal cancer, initial, C 15.5 Patient received 11.8 mCi F-18 FDG intravenously in delayed scanning was performed from the skull bas e to the mid thighs. Localization and attenuation correction CT scan was performed. Correlation to prior CT 02/28/2019 Neck and chest: There is no cervical, supraclavicular, mediastinal, axillary, or hilar adenopathy. Co ronary artery calcifications are dense. There is no pleural or pericardial effusion. No evident lung mass. Some interstitial changes are present within the lungs. Within the distal esophagus level at the gastroesophageal junction there is dominant soft tissue with associated hypermetabolic uptake, SUV is 10.3. Postop changes are noted along the anterior abdominal wall in the right upper quadrant. No evident adenopathy or additional suspicious hypermetabolic upta ke. ABDOMEN: No evident liver mass. No retroperitoneal adenopathy. No suspicious hypermetabolic uptake. C alcifications in the pancreas may be due to chronic pancreatitis. Osseous structures are stable. No suspicious uptake. IMPRESSION: Findings compatible with patient's history of esophageal carcinoma.
== END | disposition home or self-care (01) ==
LOC: RADPETMAIN 10:22
PROVIDERS: ATTEND Internal Medicine Hematology & Oncology
DX: C15.5 Malignant neoplasm of lower third of esophagus (principal)
CPT/HCPCS: 78815; A9552